=== PATIENT | male | born 1955 | race Caucasian/White ===

== ENCOUNTER 2021-03-01 15:52 | Outpatient (CLI) | payer OTHER, SELFPAY ==
[2021-03-01 16:10] VITALS: BP 123/86; PULSE 90; RESP 16; TEMP 36.7; O2SAT 98; BMI 27.8
[2021-03-01] MEDS: 0.9% Saline Lock 10 ML Syringe IV (16:31)
[2021-03-01 17:05] VITALS: BP 111/88; PULSE 83; RESP 16; TEMP 36.8; O2SAT 98
[2021-03-01 18:05] VITALS: BP 127/84; PULSE 78; RESP 16; TEMP 36.8; O2SAT 97
== END 2021-03-01 18:05 | disposition home or self-care (01) ==
LOC: MS3OUT 15:52 → MS3 15:53
PROVIDERS: PCP Family Medicine; Referring Provider Nurse Practitioner Adult Health; Visit Provider Nurse Practitioner Adult Health
DX: U07.1 COVID-19 (principal)
CPT/HCPCS: J7050; M0245; Q0245; A4216

== ENCOUNTER 2022-07-15 09:04 | Emergency (ER) | payer OTHER, SELFPAY ==
[2022-07-15 09:05] VITALS: BP 138/94; PULSE 67; RESP 14; TEMP 36.3; O2SAT 98; BMI 27.9
[2022-07-15 09:44] LABS: Absolute Lymphocyte Count 1.81 X10^3/uL (0.83-4.51); Absolute Neutrophil Count 7.1 X10^3/uL (2.0-7.7); Anion Gap 4 (5-15); BUN 19 mg/dL (7-18); BUN/Creat Ratio 15.4 RATIO (10-20); Basophil# 0.05 X10^3/uL; Basophil% 0.5 % (0-1); Calcium,Total 9.3 mg/dL (8.5-10.1); Chloride 107 mmol/L (98-107); Creatinine, Serum 1.23 mg/dL (0.70-1.30); EST Glomerular Filtration Rate 63 mL/min (>60); Eosinophil# 0.07 X10^3/uL; Eosinophils% 0.7 % (0-5); Est Glom Filt Rate - Afr Amer 76 mL/min (>60); Estimated Creatinine Clearance 65.72 ml/min; Glucose 91 mg/dL (74-106); Hematocrit 46.2 % (40-54); Hemoglobin 15.3 g/dL (13.0-16.5); Lymphocyte # 1.81 X10^3/ul (0.83-4.51); Lymphocyte % 18.4 % (19-41); Mean Corp Hgb Conc 33.1 g/dL (32-36); Mean Corpuscular Hgb 30.5 pg (27.0-32.0); Mean Corpuscular Volume 92.2 fL (80-94); Mean Platelet Vol. 9.9 fl (6.2-12.0); Monocyte# 0.81 X10^3/uL; Monocyte% 8.2 % (0-10); NRBC Flagged by Analyzer 0 % (0-5); Neutrophil # 7.07 X10^3/uL (2.7-7.7); Neutrophil % 71.9 % (47-70); Platelet Count 265 K/mm3 (150-450); RBC Distribution Width CV 13.7 % (11.6-14.6); RBC Distribution Width SD 46.5 fl (35.1-43.9); Red Blood Count 5.01 M/mm3 (4.6-6.2); Sodium Level 139 mmol/L (136-145); White Blood Count 9.8 K/mm3 (4.4-11.0)
--- NOTE | 2022-07-15 09:55 | EDS_ITS ---
HPI History of Present Illness Chief Complaint: Abd Pain Detail of Chief Complaint: Left lower abdomen/suprapubic discomfort Informant: patient Onset/Context/Timing Onset: Days (Onset July 13) Context: Sudden Onset Timing: Continuous Quality: Pain Location: Suprapubic left lower quadrant Current Severity: Mild Maximum Severity: Moderate Worsened by: Deep palpation Relieved by: Nothing Associated Symptoms Associated Symptoms: Urinary Narrative Narrative: Patient is a 67-year-old male who presents with left-sided abdominal discomfort. Prior similar symptoms: Yes (Diverticulitis) Recent Illness/Hospitalization: No PFSH PFSH Medical History (Updated 07/15/22 @ 10:[address] Suresh Ding MD) Diverticulitis Home Medications fluticasone propionate 50 mcg/actuation nasal spray,suspension 2 spray BID ALLERGIES 03/27/16 [History Last Taken 04/22/17] montelukast 5 mg chewable tablet (Singulair) 10 mg PO DAILY ALLERGIES 04/22/17 [History Last Taken 04/22/17] amoxicillin 875 mg-potassium clavulanate 125 mg tablet 875 mg PO Q12H #20 TABLETS 07/15/22 [Rx Last Taken Unknown] Allergy/AdvReac Type Severity Reaction Status Date / Time No Known Allergies Allergy Verified 07/15/22 09:07 Social History (Updated 07/15/22 @ 10:[address] Suresh Ding MD) household members: spouse Smoking Status: Never smoker substance use type: does not use ROS ROS ED Constitutional Constitutional ED: Denies chills, fever(s), subjective or sweats Eyes Eyes: Denies blurry vision or change in vision ENT ENT ED: Denies ear pain, rhinorrhea or sore throat Cardiovascular Cardiovascular: Denies chest pain, palpitations or racing heartbeat Respiratory/Chest Respiratory/Chest: Denies cough, dyspnea or dyspnea on exertion Gastrointestinal Gastrointestinal: Denies constipation, diarrhea, nausea or vomiting Genitourinary Genitourinary ED: Reports urinary frequency; Denies dysuria or hematuria Musculoskeletal Musculoskeletal: Denies arthralgias, back pain, myalgias or neck pain Integumentary Denies Abrasions or rash Neurologic Neurologic: Denies headache(s) or paresthesias Endocrine Endocrinology: Denies cold intolerance or heat intolerance Hematologic/Lymphatic Hematologic/Lymphatic: Reports systems reviewed and no addt'l complaints, except as documented EXAM Physical Exam Const Vital Signs: 07/15/22 09:05 Temperature 97.3 F L Temperature Source Temporal Pulse Rate 67 Respiratory Rate 14 Blood Pressure 138/94 H Blood Pressure Mean 108 Pulse Ox 98 Oxygen Delivery Method Room Air Positive well nourished and well developed; Negative for obese General Appearance ED: well developed and NAD; Negative for pallor Nutritional Appearance: Negative for obese HEENT Reports moist mucous membranes HEENT Narrative: Head is atraumatic normocephalic. Ears normal. Nares patent. Posterior pharynx is normal. Eyes PERRL and EOMs intact bilaterally General Eye ED: Negative for pale conjunctiva or scleral icterus Neck no lymphadenopathy, supple and no JVD Chest Wall inspection of chest normal and palpation of chest normal Resp normal respiratory effort and clear to auscultation bilaterally Cardio regular rate, regular rhythm, S1 normal heart sound, S2 normal heart sound and no murmurs GI non-distended and no masses; Negative for non-tender or hepatosplenomegaly Inspection: Negative for abdominal distention Auscultation: hypoactive bowel sounds Palpation: soft and tender LLQ Back/Spine no CVA tenderness Cervical Spine: Negative for cervical spine tenderness Thoracic Spine / Upper Back: Negative for thoracic spinal tenderness Lumbar Spine / Lower Back: Negative for lumbar spinal tenderness Extremity normal to inspection General Extremety ED: Negative for edema or tenderness General Extremity: Negative for edema Neuro oriented x3, CN's II-XII intact bilaterally and no sensory deficits noted Sensorium / Orientation: alert Motor Exam: strength 5/5 throughout Psych mental status grossly normal Skin no rashes or lesions noted and no wounds General Skin Exam: elasticity normal; Negative for jaundice or pallor MDM MDM MDM Narrative Medical decision making narrative: Frontal diagnosis would include diverticulitis, UTI, ureteral stone. Patient urine is clear and straw-colored. Urinalysis was performed at outside facility and negative. In light of prior history diverticulitis with tenderness in left lower quadrant normal white count and no peritoneal findings will treat with Augmentin. In my opinion a CAT scan is not warranted at this time. Since patient is not allergic to penicillin he was treated with Augmentin. History & Record Review Discussion w/independent historian: Patient Additional record(s) reviewed:: Prior inpatient record and Prior outpatient record (Documented in the HPI narrative. He did have an outpatient colonoscopy by Dr. Gottman which did revealed evidence of diverticulosis.) Lab Data Attestation: I reviewed the patient's lab results. Lab results narrative: White count is unremarkable. Basic metabolic panel is unremarkable. Labs: Laboratory Results - last 24 hr 07/15/22 07/15/22 09:25 09:25 WBC 9.8 RBC 5.01 Hgb 15.3 Hct 46.2 MCV 92.2 MCH 30.5 MCHC 33.1 RDW Std Deviation 46.5 H RDW Coeff of Anupam 13.7 Plt Count 265 MPV 9.9 Immature Gran % (Auto) 0.300 Neut % (Auto) 71.9 H Lymph % (Auto) 18.4 L Wilson % (Auto) 8.2 Eos % (Auto) 0.7 Baso % (Auto) 0.5 Absolute Neuts (auto) 7.1 Absolute Lymphs (auto) 1.81 Nucleated RBC % 0 Sodium 139 Potassium 4.0 Chloride 107 Carbon Dioxide 28.0 Anion Gap 4 L BUN 19 H Creatinine 1.23 Estim Creat Clear Calc 65.72 Est GFR (MDRD) Af Amer 76 Est GFR (MDRD) Non-Af 63 BUN/Creatinine Ratio 15.4 Glucose 91 Calcium 9.3 Differential Diagnosis Abdominal Pain: Appendicitis Reason(s) appendicitis less likely: Positive for clinical exam does not supportclinical exam does not support, Cholecystitis Reas on(s) Cholecystitis less likely: clinical exam does not support, Bowel obstruction Reason(s) bowel obstruction less likely: bowel sounds present on exam and UTI Reason(s) UTI less likely: no evidence of infection on urinalysis Treatment and Re-Evaluation :: Per MDI/plan Discharge Plan Triage Chief Complaint: Abd Pain ED Provider: Suresh Ding Dx/Rx/DC Orders Clinical Impression: Acute diverticulitis Instructions: ED Diverticulitis Prescriptions: New amoxicillin-pot clavulanate [amoxicillin-pot clavulanate] 875-125 mg tablet 875 mg PO Q12H Qty: 20 0RF No Action fluticasone propionate 1 SPRAY spray,suspension 2 spray NASAL BID Label Comments: SEASONAL ALLERGIES montelukast [Singulair] 5 MG tablet,chewable 10 mg PO DAILY Primary Care Provider: Arturo Kendrick Referrals: Arturo Kendrick, DO [Primary Care Provider] - 3-5 Days if not improving Jorge Michelle MD [Non-Staff] - Disposition Disposition: Home, Self Care
[2022-07-15] MEDS: Amox/Clavulanate 875 MG Tablet PO (10:16)
[2022-07-15 10:20] VITALS: BP 117/88; PULSE 76; RESP 14; O2SAT 100
== END 2022-07-15 10:20 | disposition home or self-care (01) ==
PROVIDERS: Emergency Provider Emergency Medicine; PCP Student in an Organized Health Care Education/Training Program; Visit Provider Emergency Medicine
DX: K57.92 Diverticulitis of intestine, part unspecified, without perforation or abscess without bleeding (principal)
CPT/HCPCS: 80048; 85025; 99283

== ENCOUNTER → 2023-02-21 | Outpatient (CLI) | payer OTHER, SELFPAY | END | disposition home or self-care (01) | LOC: LAB 08:48 | PROVIDERS: PCP Student in an Organized Health Care Education/Training Program; Visit Provider Ophthalmology | DX: Z79.899 Other long term (current) drug therapy (principal) | CPT/HCPCS: 36415 ==

== ENCOUNTER → 2023-10-02 | Outpatient (CLI) | payer OTHER, SELFPAY ==
[2023-10-02 10:08] LABS: SERUM TEARS COLLECTION SPECIMEN PROCESSED
== END | disposition home or self-care (01) ==
PROVIDERS: PCP Student in an Organized Health Care Education/Training Program; Referring Provider Ophthalmology; Visit Provider Ophthalmology
DX: Z00.00 Encounter for general adult medical examination without abnormal findings (principal)
CPT/HCPCS: 36415

== ENCOUNTER 2024-03-26 08:06 | Outpatient (CLI) | payer SELFPAY ==
[2024-03-26 10:13] LABS: SERUM TEARS COLLECTION SPECIMEN PROCESSED
== END 2024-03-26 23:59 | disposition home or self-care (01) ==
PROVIDERS: PCP Student in an Organized Health Care Education/Training Program; Referring Provider Ophthalmology; Visit Provider Ophthalmology
DX: H04.123 Dry eye syndrome of bilateral lacrimal glands (principal)

== ENCOUNTER → 2024-11-27 | Outpatient (CLI) | payer SELFPAY ==
--- OUTSIDE RECORDS SUMMARY | 2024-11-27 08:26 | XMS RPT_ITS | CCD ---
Author Organization [facility] Care Team Providers Care Belt Builder Helper Name Role Phone Arturo Kendrick DO Primary Care Provider Arturo Kendrick DO Primary Care Provider Poncho June Unavailable Arturo Kendrick DO Primary Care Provider Poncho June MD Unavailable ARTURO KENDRICK Primary Care Unavailable FELIPE FOSTER Referring Unavailable KENDRICK, ARTURO Kialee Primary Care Unavailable FELIPE FOSTER Referring Unavailable KENDRICK, ARTURO Kailee Primary Care Unavailable Wise STEEL WELDER.REPORT PROGRAMMERGayatri Unavailable Bailey STEEL WELDER.Errol MAGAÑA Unavailable Poncho June Attending Unavailable Kendrick, Arturo Primary Care Unavailable Poncho June Referring Unavailable Poncho June Attending Unavailable Kendrick, Arturo Primary Care Unavailable Poncho June Referring Unavailable Poncho June Attending Unavailable Kendrick, Arturo Primary Care Unavailable Wanda STEEL WELDER.Rosemary MAGAÑA Unavailable BAILEY, ERROL Referring Unavailable KENDRICK, ARTURO L Primary Care Unavailable BAILEY, ERROL Referring Unavailable KENDRICK, ARTURO L Primary Care Unavailable BAILEY, ERROL Attending Unavailable KENDRICK, ARTURO L Primary Care Unavailable YARA BENSON Attending Unavailable KENDRICK, ARTURO L Primary Care Unavailable YARA BENSON Attending Unavailable BAILEY, ERROL Referring Unavailable KENDRICK, ARTURO L Primary Care Unavailable BAILEY, ERROL Attending Unavailable KENDRICK, ARTURO L Primary Care Unavailable JALIL BEEBE Attending Unavailable BENSON, YARA Referring Unavailable KENDRICK, ARTURO L Primary Care Unavailable ERROL AVALOS Referring Unavailable KENDRICKARTURO Primary Care Unavailable ARTURO KENDRICK Primary Care Unavailable ARTURO KENDRICK Primary Care Unavailable WILL ENRIQUEZ Attending Unavailable WILL ENRIQUEZ Referring Unavailable KENDRICKARTURO Primary Care Unavailable KENDRICKARTURO Primary Care Unavailable BERHANE COTTER Attending Unavailable ARTURO KENDRICK Primary Care Unavailable FELIPE FOSTER Attending Unavailable ARTURO KENDRICK Primary Care Unavailable FELIPE FOSTER Referring Unavailable KENDRICKARTURO MILLER Primary Care Unavailable Allergies Allergy Classification Reported Allergen(s) Allergy Type Date of Onset Reaction(s) Facility (14 sources) Cefuroxime Drug Allergy 06-30-2019 GI Upset [facility] Work Phone: Medications Current Medications Medication Drug Class(es) Dates Sig (Normalized) Sig (Original) acetaminophen 325 mg / oxyCODONE hydrochloride 5 mg oral tablet (2 sources) Opioid Agonist Start: 03-31-2024 End: 04-09-2024 take 1 tablet by mouth every six hours as needed for pain oxyCODONE-acetamin ophen (PERCOCET) 5-325 mg tablet Indications: Testicular pain, left Take 1 tablet by mouth every 6 hours as needed for pain for up to 7 days. 10 tablet 04/02/2024 04/09/2024 Active [id number] 200 actuat albuterol 0.09 mg/actuat metered dose inhaler (20 sources) beta2-Adrenergic Agonist Start: 08-10-2020 End: 10-31-2023 take 2 puff(s) by inhalation every six hours as needed albuterol HFA (PROAIR HFA) 90 mcg/actuation inhaler Indications: VIERA (dyspnea on exertion) , Wheezing Inhale 2 Puffs as instructed every 6 hours as needed. 3 Each 1 08/10/2020 10/31/2023 Discontinued take 1 puff(s) by in halation every six hours as needed for wheezing ALBUTEROL INHALATION Inhale 1 Puff as instructed every 6 hours as needed (wheezing). Active Comment on above: Inhale 2 Puffs as in structed every 6 hours as needed. amoxicillin 500 mg oral capsule (1 source) Penicillin-class Antibacterial Start: 04-05-20 End: 04-15-19 23 take 1 capsule by mouth twice daily amoxicillin (POLYMOX, AMOXIL) 500 mg capsule Take 1 capsule by mouth twice daily for 10 days. 20 capsule 0 04/05/2022 04/15/2022 Active Comment on above: Take 1 capsule by mo ut twice daily for 10 days. amoxicillin 875 mg / clavulanate 125 mg oral tablet (7 sources) Penicillin-class Antibacterial Start: 07-16-19 End: 10-31-19 24 amoxicillin-clavulan ate potassium (AUGMENTIN) 875-125 mg per tablet Take by mouth. 0 07/15/2022 10/31/2023 Discontinued Start: 07-15-2022 take 875 mg by mouth every twelve hours Amoxicillin-Pot Clavulanate Active 875 MG PO Q12H July 14, 2022 11:00pm Comment on above: Take by mouth. aspirin 500 mg delayed release oral tablet (11 sources) Platelet Aggregation Inhibitor, Nonsteroidal Anti-inflammatory Drug take 1 tablet by mouth every six hours as needed Aspirin delayed release 500 mg EC tablet Take 500 mg by mouth every 6 hours as needed for pain. Active benzonatate 100 mg oral capsule (1 source) Non-narcotic Antitussive Start: 08-04-19 End: 08-11-19 take 1 capsule by mouth three times daily as needed for cough benzonatate (TESSALON PERLE) 100 mg capsule Indications: Acute cough Take 1 capsule by mouth three times a day as needed for cough for up to 7 days. 21 capsule 08/03/2024 08/10/2024 Active cefdinir 300 mg oral capsule (10 sources) Cephalosporin Antibacterial Start: 10-31-19 End: 11-07-19 take 1 capsule by mouth twice daily cefdinir (OMNICEF) 300 mg capsule Indications: Diverticulitis Take 1 capsule by mouth two times a day for 7 days. 14 capsule 10/30/2024 11/06/2024 Active Start: 07-25-2024 End: 08-01-2024 take 1 capsule by mouth twice daily cefdinir (OMNICEF) 300 mg capsule Indications: URI, acute Take 1 capsule by mouth two times a day for 7 days. 14 capsule 07/25/2024 08/01/2024 Active Start: 12-17-2023 End: 12-31-2023 take 1 capsule by mouth twice daily cefdinir (OMNICEF) 300 mg capsule Indications: Diverticulitis Take 1 capsule by mouth two times a day for 7 days. 14 capsule 12/24/2023 12/31/2023 Discontinued doxycycline hyclate 100 mg oral tablet (7 sources) Tetracycline-class Drug Start: 08-03-2024 End: 08-10-2024 take 1 tablet by mouth twice daily doxycycline (VIBRA-TABS) 100 mg tablet Indications: Rhinosinusitis Take 1 tablet by mouth two times a day for 7 days. 14 tablet 08/03/2024 08/10/2024 Active Start: 07-30-2023 End: 10-31-2023 take 2 tablets by mouth once daily doxycycline (VIBRA-TABS) 100 mg tablet Take 2 tablets by mouth once daily. 2 tablet 0 07/30/2023 10/31/2023 Discontinued Start: 08-10-2022 End: 08-10-2022 take 2 tablets by mouth once doxycycline (VIBRA-TABS) 100 mg tablet Indications: Tick bite of left forearm, initial encounter Take 2 tablets by mouth one time only for 1 dose. 2 tablet 0 08/10/2022 08/10/2022 Active Comment on above: Take 2 tablets by mo uth one time only for 1 dose. Take 2 tablets by mo uth once daily. enteric contrast (will be provided with radiology test) (4 sources) Start: 4 End: enteric contrast (will be provided with radiology test) For CT ABD/PEL W IVCON Routine order Administer, As Directed One Time Only, via Oral, Rectal, both Oral and Rectal, Enteric Tube, Stoma or Indwelling Catheter, Enteric Contrast as designated per enteric contrast guidelines 1 Each 12/17/2023 12/18/2023 Active 120 actuat fluticasone propionate 0.11 mg/actuat metered dose inhaler (20 sources) Corticosteroid Start: 1 End: 4 take 1 puff(s) by mouth twice daily fluticasone (FLOVENT HFA) 110 mcg/actuation inhaler Indications: VIERA (dyspnea on exertion) , Wheezing Inhale 1 Puff as instructed twice daily. Shake well before use. Rinse mouth after use. 3 Inhaler 3 09/07/2020 10/31/2023 Discontinued Start: 09-18-2016 End: 08-10-2022 take 2 spray(s) nasal route once daily fluticasone (FLONASE) 50 mcg/actuation nasal spray 2 (TWO) SPRAYS SPRAYS BY NOSE DAILY EACH NOSTRIL 6 09/18/2016 08/10/2022 Discontinued Start: 03-27-2016 Fluticasone Pr opionate Active 2 SPRAY NASAL TWICE A DAY March 27, 2016 12:00am fluticasone prop ionate (FLONASE NASAL) Use 1 inhalation in the nose once daily. Active Comment on above: 2 (TWO) SPRAYS SPRAY S BY NOSE DAILY EACH NOSTRIL Inhale 1 Puff as ins tructed twice daily. Shake well before use. Rinse mouth after use. ibuprofen 800 mg oral tablet (9 sources) Nonsteroidal Anti-inflammatory Drug Start: 03-31-20 take 1 tablet by mouth every eight hours as needed ibuprofen (MOTRIN) 800 mg tablet Take 1 tablet by mouth every 8 hours as needed for pain. 40 tablet 1 03/31/2024 Active iv contrast (will be provided with radiology test) (4 sources) Start: 12-17-19 End: 12-18-19 iv contrast (will be provided with radiology test) CT ABD/PEL -Inject, intravenously, once for 1 dose.No IV access, insert saline lock prior to the beginning of sedation, infusion, injection of imaging exam. Discontinue saline lock post exam. If Pt. has a central line or IVAD, may access for administration according to line specific nursing protocol. Once exam is complete flush line and de-access according to line specific nursing protocol in the CT contrast administration guidelines link. 1 Each 12/17/2023 12/18/2023 Active metroNIDAZOLE 500 mg oral tablet (9 sources) Nitroimidazole Antimicrobial Start: 10-31-19 End: 11-07-19 take 1 tablet by mouth every eight hours metroNIDAZOLE (FLAGYL) 500 mg tablet Indications: Diverticulitis Take 1 tablet by mouth every 8 hours for 7 days. 21 tablet 10/30/2024 11/06/2024 Active Start: 12-17-2023 End: 12-31-2023 take 1 tablet by mouth every eight hours metroNIDAZOLE (FLAGYL) 500 mg tablet Indications: Diverticulitis Take 1 tablet by mouth every 8 hours for 7 days. 21 tablet 12/24/2023 12/31/2023 Discontinued montelukast 10 mg oral tablet (20 sources) Leukotriene Receptor Antagonist Start: 01-09-2023 End: 03-30-2024 take 1 tablet by mouth once daily at bedtime montelukast (SINGULAIR) 10 mg tablet Indications: VIERA (dyspnea on exertion) , Wheezing , Seasonal allergic rhinitis due to other allergic trigger Take 1 tablet by mouth daily at bedtime. 90 tablet 3 03/30/2024 Active Start: 09-07-2020 End: 11-08-2021 take 1 tablet by mouth once daily at bedtime montelukast (SINGULAIR) 10 mg tablet Indications: VEIRA (dyspnea on exertion) , Wheezing , Seasonal allergic rhinitis due to other allergic trigger Take 1 tablet by mouth daily at bedtime. 90 tablet 3 11/08/2021 Active Start: 04-22-2017 End: 10-31-2023 montelukast chewable (SINGUL AIR) 5 mg tablet Take by mouth. 0 04/22/2017 10/31/2023 Discontinued Start: 04-22-2017 take 2 tablets by [facility] once daily Montelukast (Singulair) 5 MG tablet,chewable Active 10 MG PO DAILY April 22, 2017 12:00am Comment on above: Take 1 tablet by cortney th daily at bedtime. Take by mouth. phenylephrine hydrochloride 25 mg/ml ophthalmic solution (1 source) alpha-1 Adrenergic Agonist Start: End: PHENYLephrine 2.5 % 1 Drop (AK-DILATE, JEANNETTE-SYNEPHRINE) tropicamide 10 mg/ml ophthalmic solution (1 source) Anticholinergic Start: End: tropicamide 1 % 1 Drop (MYDRIACYL) Turmeric extract (20 sources) take 1 capsule by mouth once daily TURMERIC ORAL Take 1 capsule by mouth once daily. Active TURMERIC ORAL Ta ke by mouth. Active TURMERIC ORAL Ta ke by mouth. 0 Active Comment on above: Take by mouth. Completed/Discontinued Medications Medication Drug Class(es) Dates Sig (Normalized) Sig (Original) MARGRETDHA ROOT EXTRACT ORAL (8 sources) End: 08-10-2022 ASHWAGANDHA ROOT EXTRACT ORAL Take by mouth. 0 08/10/2022 Discontinued ASHWAGANDHA ROOT EXTRACT ORAL Take by mouth. 0 Active Comment on above: Take by mouth. ipratropium bromide 0.021 mg/actuat metered dose nasal spray (20 sources) Anticholinergic Start: 05-13-2023 End: 10-30-2024 Ipratropium Semmes (ATROVENT) 21 mcg (0.03 %) nasal spray Indications: Seasonal allergic rhinitis due to other allergic trigger Use 2 sprays in the nose every 12 hours. 30 mL 1 08/25/2024 10/30/2024 Discontinued Start: 09-07-2020 End: 08-24-2022 Ipratropium Semmes (ATROVEN T) 21 mcg (0.03 %) nasal spray Indications: Seasonal allergic rhinitis due to other allergic trigger Use 2 Sprays in the nose every 12 hours. 30 mL 1 08/24/2022 Active Start: 10-07-2016 End: 08-10-2022 take 2 spray(s) nasal route twice daily as needed ipratropium bromide (ATROVENT) 0.06 % nasal spray PLACE 2 SPRAYS IN EACH NOSTRIL TWICE DAILY NEEDED 3 10/07/2016 08/10/2022 Discontinued Comment on above: PLACE 2 SPRAYS IN EA CH NOSTRIL TWICE DAILY NEEDED Use 2 Sprays in the nose every 12 hours. minocycline 100 mg oral tablet (8 sources) Tetracycline-class Drug End: 08-11-19 23 take 1 tablet by mouth twice daily Minocycline HCl 100 mg tablet Take 100 mg by mouth twice daily. 0 08/10/2022 Discontinued Comment on above: Take 100 mg by mouth twice daily. naproxen 500 mg oral tablet (8 sources) Nonsteroidal Anti-inflammatory Drug Start: 06-17-19 End: 08-11-19 23 take 1 tablet by mouth twice daily as needed for pain naproxen (NAPROSYN) 500 mg tablet Indications: Rib pain on right side Take 1 tablet by mouth twice daily as needed (pain/inflammation, take with food.). 30 tablet 0 06/17/2015 08/10/2022 Discontinued Comment on above: Take 1 tablet by cotrney twice daily as needed (pain/inflammation, take with food.). predniSONE 10 mg oral tablet (4 sources) Start: 07-26-19 End: 08-13-19 predniSONE (DELTASONE) 10 mg tablet Indications: Exacerbation of asthma, unspecified asthma severity, unspecified whether persistent (HCC) Take 4 tabs daily for 3 days, then 2 tabs daily for 3 days, then 1 tab daily for 3 days with food. 21 tablet 07/25/2024 08/03/2024 Discontinued rosuvastatin calcium 10 mg oral tablet (7 sources) HMG-CoA Reductase Inhibitor Start: 11-05-19 24 End: 05-03-19 take 1 tablet by mouth once daily at bedtime rosuvastatin (CRESTOR) 10 mg tablet Indications: Dyslipidemia Take 1 tablet by mouth daily at bedtime. 90 tablet 1 11/05/2023 12/24/2023 Discontinued sertraline 100 mg oral tablet (8 sources) Serotonin Reuptake Inhibitor Start: 09-08-19 End: 08-11-19 take 1 tablet by mouth once daily sertraline (ZOLOFT) 100 mg tablet Indications: TAYO (generalized anxiety disorder) Take 1 tablet by mouth once daily. 90 tablet 3 09/07/2020 08/10/2022 Discontinued Comment on above: Take 1 tablet by cortney th once daily. Problems Active Problems Problem Classification Problem Date Documented Date Episodic/Chronic Alcohol-related disorders (20 sources) Alcoholism; Translations: [Alcohol dependence, uncomplicated] Onset: 06-30-2019 06-30-2019 Chronic Anxiety disorders (20 sources) Generalized anxiety disorder; Translations: [Generalized anxiety disorder] Onset: 06-30-2019 06-30-2019 Chronic Asthma (20 sources) Asthma; Translations: [Unspecified asthma, uncomplicated] Onset: 06-30-2019 06-30-2019 Chronic Blindness and vision defects (1 source) Irregular astigmatism of left eye; Translations: [Irregular astigmatism, left eye] 07-25-2023 Episodic Cataract (1 source) Artificial lens present; Translations: [Presence of intraocular lens] 07-25-2023 Chronic Disorders of lipid metabolism (20 sources) Dyslipidemia; Translations: [Hyperlipidemia, unspecified] Onset: 05-13-2019 05-13-2019 Chronic Diverticulosis and diverticulitis (20 sources) Diverticulitis of intestine; Translations: [Diverticulitis of intestine, part unspecified, without perforation or abscess without bleeding] Onset: 01-01-2024 3 Chronic Genitourinary symptoms and ill-defined conditions (1 source) Dysuria; Translations: [Painful micturition, unspecified] Episodic Nonspecific chest pain (2 sources) Chest pain; Translations: [Chest pain, unspecified] 04-22-2017 Episodic Other eye disorders (1 source) Bilateral vitreous floaters; Translations: [Other vitreous opacities, bilateral] 07-25-2023 Chronic Other eye disorders (1 source) Disorder of lacrimal gland; Translations: [Dry eye syndrome of bilateral lacrimal glands] 07-25-2023 Episodic Other lower respiratory disease (1 source) Dyspnea; Translations: [Shortness of breath] 10-31-2023 Episodic Other lower respiratory disease (2 sources) Cough; Translations: [Acute cough] 08-03-2024 Episodic Other male genital disorders (20 sources) Secondary erectile dysfunction; Translations: [Male erectile dysfunction, unspecified] Onset: 06-30-2019 06-30-2019 Chronic Other male genital disorders (1 source) Left testicular pain; Translations: [Testicular pain, left] Onset: 03-11-2024 Episodic Other nutritional; endocrine; and metabolic disorders (2 sources) Overweight in adulthood with body mass index of 25 or more but less than 30; Translations: [Body mass index (BMI) 28.0-28.9, adult] 02-28-2021 Episodic Other screening for suspected conditions (not mental disorders or infectious disease) (4 sources) Patient encounter status; Translations: [Encounter for screening for other suspected endocrine disorder] 10-31-2023 Episodic Other skin disorders (1 source) Scrotal mass; Translations: [Follicular cyst of the skin and subcutaneous tissue, unspecified] 12-27-2023 Episodic Other upper respiratory disease (17 sources) Seasonal allergic rhinitis; Translations: [Other allergic rhinitis] Chronic Other upper respiratory disease (1 source) Pain in throat; Translations: [Pain in throat] Episodic Other upper respiratory infections (2 sources) Chronic sinusitis, unspecified; Translations: [Unspecified sinusitis (chronic)] Onset: 08-03-2024 08-03-2024 Chronic Residual codes; unclassified (2 sources) History of repair of umbilical hernia; Translations: [Other specified postprocedural states] 07-15-2022 Episodic Residual codes; unclassified (2 sources) History of colonoscopy; Translations: [Other specified postprocedural states] 07-15-2022 Episodic Residual codes; unclassified (1 source) Family history of cardiac disorder; Translations: [Family history of ischemic heart disease and other diseases of the circulatory system] 10-31-2023 Episodic Residual codes; unclassified (1 source) Procedure not done; Translations: [Procedure and treatment not carried out, unspecified reason] 12-17-2023 Episodic Superficial injury; contusion (2 sources) Tick bite; Translations: [Insect bite (nonvenomous) of left forearm, initial encounter] Episodic Unclassified (1 source) Acute cough; Translations: [Acute cough] Onset: 08-03-2024 Viral infection (2 sources) Disease caused by 2019-nCoV; Translations: [COVID-19] 02-28-2021 Episodic Past or Other Problems Problem Classification Problem Date Documented Date Episodic/Chronic Abdominal hernia (20 sources) Umbilical hernia; Translations: [Umbilical hernia without obstruction or gangrene] Onset: 11-30-2020 Resolved: 11-30-2020 11-30-2020 Episodic Abdominal pain (6 sources) Left lower quadrant pain; Translations: [Left lower quadrant pain] Onset: 12-17-2023 Episodic Lymphadenitis (2 sources) Submandibular lymphadenopathy; Translations: [Localized enlarged lymph nodes] Onset: 12-24-2023 12-24-2023 Episodic Other infections; including parasitic (20 sources) Lyme disease; Translations: [Lyme disease, unspecified] Onset: 06-30-2019 06-30-2019 Episodic Other lower respiratory disease (20 sources) Dyspnea on exertion; Translations: [Other forms of dyspnea] Onset: 05-13-2019 Episodic Other lower respiratory disease (20 sources) Wheezing; Translations: [Wheezing] Onset: 05-13-2019 Episodic Other lower respiratory disease (1 source) Shortness of breath; Translations: [SOB (shortness of breath)] Onset: 02-24-2024 Episodic Other male genital disorders (20 sources) Pain in scrotum ; Translations: [Scrotal pain] Onset: 01-01-2024 12-24-2023 Episodic Other male genital disorders (20 sources) Cyst of epididymis; Translations: [Cyst of epididymis] Onset: 01-01-2024 12-31-2023 Episodic Other male genital disorders (14 sources) Pain of left testicle; Translations: [Left testicular pain] Onset: 03-11-2024 02-14-2024 Episodic Other male genital disorders (2 sources) Cyst of epididymis; Translations: [Epididymal cyst] Onset: 01-01-2024 Episodic Other male genital disorders (1 source) Scrotal pain; Translations: [Scrotal pain] Onset: 01-01-2024 Episodic Other upper respiratory infections (5 sources) Streptococcal sore throat; Translations: [Streptococcal pharyngitis] Onset: 08-03-2024 Episodic Residual codes; unclassified (1 source) Family history of ischemic heart disease and other diseases of the circulatory system; Translations: [Family history of cardiac disorder] Onset: 02-24-2024 Episodic Results Test Name Value Interpretation Reference Range Facility [facility] 10-30-2024 CNOV Office Visit ([facility]) EDUARDO JONES ([id number]) 1955 M Date Time Provider Department 10/30/24 8:15 AM BERHANE COTTER During your visit today, we recorded the following information about you: Temperature Pulse Respiration Blood pressure 98.2 degrees 75/minute 18/minute 138/86 Weight 94.5 kg Berhane Cotter MD 10/30/2024 8:38 AM Signed [facility] Subjective Eduardo Jones is a 69 year old male. Patient presents with: Abdominal Pain: LLQ, with stomach cramping x last night, feels like previous diverticulitis flare Abdominal pain: Duration: started last night Location: left lower quadrant Character: cramping and knife-like - feels identical to diverticulitis (last episode Dec 2023) Radiation: some across the lower abdomen Aggravating: pushing on Relieving: Pain relievers: none Associated: slight nausea Pertinent negatives: Denies fever, vomiting, blood in stool, diarrhea, constipation, chest pain, shortness of breath, wheezing Abdominal Pain Review of Systems Gastrointestinal: Positive for abdominal pain. Objective BP 138/86 Pulse 75 Temp 36.8 ?C (98.2 ?F) Resp 18 Wt 94.5 kg (208 lb 5.4 oz) SpO2 96% BMI 28.26 kg/m? Physical Exam Constitutional: General: He is not in acute distress. Appearance: He is not ill-appearing. Eyes: Extraocular Movements: Extraocular movements intact. Conjunctiva/sclera: Conjunctivae normal. Pupils: Pupils are equal, round, and reactive to light. Cardiovascular: Rate and Rhythm: Normal rate and regular rhythm. Heart sounds: No murmur heard. Pulmonary: Effort: No respiratory distress. Breath sounds: No wheezing, rhonchi or rales. Abdominal: General: There is no distension. Palpations: There is no mass. Tenderness: There is abdominal tenderness (Focal tender left lower quadrant). Musculoskeletal: Cervical back: Neck supple. Lymphadenopathy: Cervical: No cervical adenopathy. Neurological: Mental Status: He is alert. {ASSESSMENT/PLAN: 1. Diverticulitis - ICD9: 562.11, ICD10: K57.92 Characteristic diverticulitis symptoms with history of diverticulitis proven on CT scan 1 year ago. Treated with antibiotic - METRONIDAZOLE 500 MG TABLET - CEFDINIR 300 MG CAPSULE Follow-up with PCP with failure to improve over the next couple days or in the ER if worsening. Refill request for atrovent sent to PCP. Berhane Cotter MD History and Record Review External record(s) reviewed: prior labs/imaging. Findings from review of prior labs/imaging: Diverticulitis on CT 12/17/2023 Differential Diagnoses - Diverticulitis is more likely for the following reason(s): suggested by HANDP - Colitis - Constipation Procedures Allergies As of Date: 10/30/2024 (No Known Allergies) Date Reviewed: 10/30/2024 Reviewed by: Adrianna Charles MA - Fully Assessed Reason for Visit: Abdominal Pain [1] Cmt: LLQ, with stomach cramping x last night, feels like previous diverticulitis flare Primary Visit Diagnosis:Diverticulit is [K57.92] Order(s):metroNIDAZOLE (FLAGYL) 500 mg tabletTake 1 tablet by mouth every 8 hours for 7 days.Disp: 21 tabletRfl: 0 cefdinir (OMNICEF) 300 mg capsuleTake 1 capsule by mouth two times a day for 7 days.Disp: 14 capsuleRfl: 0 Prescriptions as of 10/30/2024 - metroNIDAZOLE (FLAGYL) 500 mg tablet Take 1 tablet by mouth every 8 hours for 7 days. - cefdinir (OMNICEF) 300 mg capsule Take 1 capsule by mouth two times a day for 7 days. - Ipratropium Semmes (ATROVENT) 21 mcg (0.03 %) nasal spray Use 2 sprays in the nose every 12 hours. - fluticasone propionate (FLONASE NASAL) Use 1 inhalation in the nose once daily. - ibuprofen (MOTRIN) 800 mg tablet Take 1 tablet by mouth every 8 hours as needed for pain. - montelukast (SINGULAIR) 10 mg tablet Take 1 tablet by mouth daily at bedtime. - Aspirin delayed release 500 mg EC tablet Take 500 mg by mouth every 6 hours as needed for pain. - ALBUTEROL INHALATION Inhale 1 Puff as instructed every 6 hours as needed (wheezing). - TURMERIC ORAL Take 1 capsule by mouth once daily. Problem List As Of Date 10/30/2024 Noted Resolved Dyslipidemia [E78.5] 05/13/2019 Wheezing [R06.2] 05/13/2019 VIERA (dyspnea on exertion) [R06.09] 05/13/2019 Well adult exam [Z00.00] 05/13/2019 ED (erectile dysfunction) of organic origin [N5*06/30/2019 TAYO (generalized anxiety disorder) [F41.1] 06/30/2019 Asthma [J45.909] 06/30/2019 Lyme disease [A69.20] 06/30/2019 Alcoholism (HCC) [F10.20] 06/30/2019 Umbilical hernia without obstruction and withou*11/30/2020 11/30/2020 Scrotal pain [N50.82] 01/01/2024 Epididymal cyst [N50.3] 01/01/2024 Diverticulitis [K57.92] 01/01/2024 Testicular pain, left [N50.812] 03/11/2024 Preop examination [Z01.818] 03/11/2024 Prescriptions ordered this encounter Disp Refills Start End METRONIDAZOLE 500 MG TABLET (more content not included)... Normal [facility] CNOVon 08-03-2024 CNOV Office Visit (UCWSTR ) EDUARDO JONES ([id number]) 1955 M Date Time Provider Department 08/03/24 8:00 AM WILL ENRIQUEZ [facility] During your visit today, we recorded the following information about you: Temperature Pulse Respiration Blood pressure 98.6 degrees 91/minute 16/minute 122/80 Weight 96.2 kg Will Enriquez APRN.REPORT PROGRAMMER 08/03/2024 8:56 AM Signed [facility] Subjective Eduardo Jones is a 69 year old male. Patient presents with: Cough: Cough, chest congestion and ST x 1 week Patient came in with complaints of couple weeks worth of coughing. Patient says is not getting any better. Patient was on a round of steroids and cefdinir with very minimal relief. Patient denies any shortness of breath but says he does have pain in the right side of his lung. The pain is reproducible when touched. Patient denies any pain when taking a deep breath in. Patient denies other symptoms. The history is provided by the patient. No modern languages professor was used. Cough Review of Systems Constitutional: Negative. Respiratory: Positive for cough. Objective BP 122/80 Pulse 91 Temp 37 ?C (98.6 ?F) (Tympanic) Resp 16 Wt 96.2 kg (212 lb 1.3 oz) SpO2 99% BMI 28.76 kg/m? Physical Exam Constitutional: Appearance: Normal appearance. HENT: Right Ear: Tympanic membrane, ear canal and external ear normal. Left Ear: Tympanic membrane, ear canal and external ear normal. Nose: Nose normal. Mouth/Throat: Mouth: Mucous membranes are moist. Pharynx: Posterior oropharyngeal erythema present. Eyes: Pupils: Pupils are equal, round, and reactive to light. Cardiovascular: Rate and Rhythm: Normal rate and regular rhythm. Heart sounds: Normal heart sounds. Neurological: Mental Status: He is alert. PAST MEDICAL HISTORY Diagnosis Date Alcoholism (HCC) 06/30/2019 From previous records Allergic rhinitis Asthma (HCC) Asthma without status asthmaticus (HCC) Diverticulitis ED (erectile dysfunction) of organic origin 06/30/2019 From previous records. Epididymal cyst Erectile dysfunction Family history of coronary artery disease Stress Echo- 09/08/[address] Duran TAYO (generalized anxiety disorder) 06/30/2019 From previous records Generalized anxiety disorder Hypercholesteremia Insomnia Lyme disease Scrotal pain 12/31/2023 Submandibular lymphadenopathy 12/31/2023 Umbilical hernia PAST SURGICAL HISTORY Procedure Laterality Date ARTHROSCOPY KNEE DIAGNOSTIC W/WO SYNOVIAL BX SPX Right 2 COLONOSCOPY FLX DX W/COLLJ SPEC WHEN PFRMD 05/12/2007 KNEE ARTHROSCOPY Left 09/2012 2 PAST SURGICAL HISTORY OF 1996 discectomy L4/L5 REPAIR UMBILICAL HERNIA 11/30/2020 ALLERGIES Patient has no known allergies. MEDICATIONS fluticasone propionate (FLONASE NASAL) Use 1 inhalation in the nose once daily. predniSONE (DELTASONE) 10 mg tablet Take 4 tabs daily for 3 days, then 2 tabs daily for 3 days, then 1 tab daily for 3 days with food. Ipratropium Semmes (ATROVENT) 21 mcg (0.03 %) nasal spray Use 2 Sprays in the nose every 12 hours. ibuprofen (MOTRIN) 800 mg tablet Take 1 tablet by mouth every 8 hours as needed for pain. montelukast (SINGULAIR) 10 mg tablet Take 1 tablet by mouth daily at bedtime. Aspirin delayed release 500 mg EC tablet Take 500 mg by mouth every 6 hours as needed for pain. ALBUTEROL INHALATION Inhale 1 Puff as instructed every 6 hours as needed (wheezing). TURMERIC ORAL Take 1 capsule by mouth once daily. FAMILY HISTORY Problem Relation Age of Onset No Known Problems Mother in good health Heart Father CABG @ age 54 Dementia Father Alcohol/Drug Sister other (Lupus) Sister no longer being treated Alcohol/Drug Brother Social History Tobacco Use Smoking status: Never Smokeless tobacco: Never Vaping Use Vaping status: Never Used Substance Use Topics Alcohol use: Not Currently Drug use: Not Currently Types: Marijuana {ASSESSMENT/PLAN: 1. Acute cough - ICD9: 786.2, ICD10: R05.1 (primary diagnosis) - XR CHEST 2V FRONTAL/LAT 2. Sore throat - ICD9: 462, ICD10: J02.9 - Group A strep molecular testing negative - Discussed supportive care treatment with fluids, rest and analgesia. - STREP A MOLECULAR (POC) 3. Rhinosinusitis - ICD9: 473.9, ICD10: J32.9 - Will begin treatment with as per antibiotic as written, see orders - DOXYCYCLINE HYCLATE 100 MG TABLET Patient requested another round of steroids due to asthma. Patient was also given Tessalon Perles. Patient educated about proper use of medication and supportive therapies. Patient will follow-up with primary care if this does not work. Will Enriquez APRN.REPORT PROGRAMMER History and Record Review External record(s) reviewed: no prior records. Disposition The patient was discharged. Procedures Allergies As of Date: 08/03/2024 (No Known Allergies) Date Review (more content not included)... Normal [facility] STREP A MOLECULAR (POC)on Procedural Control Valid [facility] Strep A (POCT) Negative Negative [facility] XR CHEST 2V FRONTAL/LATon XR CHEST 2V FRONTAL/LAT * * *Final Report* * * DATE OF EXAM: Aug 03 2024 8:35AM WOX [id number] - XR CHEST 2V FRONTAL/LAT / PROCEDURE REASON: Acute cough * * * * Physician Interpretation * * * * EXAMINATION: CHEST RADIOGRAPH (2 VIEW FRONTAL and LATERAL) CLINICAL HISTORY: Acute cough MQ: XC2_6 EXAM DATE/TIME: 08/03/2024 8:35 AM COMPARISON: Chest x-ray of 06/25/2019 RESULT: Lines, tubes, and devices: None. Lungs and pleura: No consolidation. No lung mass. No pleural effusion. No pneumothorax. Cardiomediastinal silhouette: Normal cardiomediastinal silhouette. Bones and soft tissues: Multilevel degenerative changes of the thoracic spine with no destructive process seen. Remote right eighth rib fracture. IMPRESSION: No acute radiographic abnormality. Graphic Manager: PSCB Transcribe Date/Time: Aug 03 2024 8:35A Dictated by : JOSEPH CHUN MD This examination was interpreted and the report reviewed and electronically signed by: JOSEPH CHUN MD on Aug 03 2024 8:36AM EST [id number] Normal [facility] XR Chest PA and Lateralon IMPRESSION: No acute radiographic abnormality. Graphic Manager: BRYNN Transcribe Date/Time: Aug 03 2024 8:35A Dictated by : JOSEPH CHUN MD This examination was interpreted and the report reviewed and electronically signed by: JOSEPH CHUN MD on Aug 03 2024 8:36AM [facility] DIVISION OF RADIOLOGY * * *Final Report* * * DATE OF EXAM: Aug 03 2024 8:35AM WOX [id number] - XR CHEST 2V FRONTAL/LAT / PROCEDURE REASON: Acute cough * * * * Physician Interpretation * * * * EXAMINATION: CHEST RADIOGRAPH (2 VIEW FRONTAL & LATERAL) CLINICAL HISTORY: Acute cough MQ: XC2_6 EXAM DATE/TIME: 08/03/2024 8:35 AM COMPARISON: Chest x-ray of 06/25/2019 RESULT: Lines, tubes, and devices: None. Lungs and pleura: No consolidation. No lung mass. No pleural effusion. No pneumothorax. Cardiomediastinal silhouette: Normal cardiomediastinal silhouette. Bones and soft tissues: Multilevel degenerative changes of the thoracic spine with no destructive process seen. Remote right eighth rib fracture. DIVISION OF RADIOLOGY Provider, [facility] - 08/03/2024 * * *Final Report* * * DATE OF EXAM: Aug 03 2024 8:35AM WOX [id number] - XR CHEST 2V FRONTAL/LAT / PROCEDURE REASON: Acute cough * * * * Physician Interpretation * * * * EXAMINATION: CHEST RADIOGRAPH (2 VIEW FRONTAL & LATERAL) CLINICAL HISTORY: Acute cough MQ: XC2_6 EXAM DATE/TIME: 08/03/2024 8:35 AM COMPARISON: Chest x-ray of 06/25/2019 RESULT: Lines, tubes, and devices: None. Lungs and pleura: No consolidation. No lung mass. No pleural effusion. No pneumothorax. Cardiomediastinal silhouette: Normal cardiomediastinal silhouette. Bones and soft tissues: Multilevel degenerative changes of the thoracic spine with no destructive process seen. Remote right eighth rib fracture. IMPRESSION IMPRESSION: No acute radiographic abnormality. Graphic Manager: BRYNN Transcribe Date/Time: Aug 03 2024 8:35A Dictated by : JOSEPH CHUN MD This examination was interpreted and the report reviewed and electronically signed by: JOSEPH CHUN MD on Aug 03 2024 8:36AM EST [facility] Radiology Study observation (narrative) [facility] XR Chest PA and LateralOrder ed By: [facility] Provider on 08-03-2024 [facility] CNOVon 07-25-2024 CNOV Office Visit (UCWSTR ) EDUARDO JONES ([id number]) 1955 M Date Time Provider Department 07/25/24 8:30 AM ASTRID DAVIS [facility] During your visit today, we recorded the following information about you: Temperature Pulse Respiration Blood pressure 97.5 degrees 83/minute 20/minute 113/77 Weight 93 kg Astrid Davis APRN.REPORT PROGRAMMER 07/25/2024 8:44 AM Signed [facility] Subjective Eduardo Jones is a 69 year old male. Patient presents with: Cough: Dry cough, deep, sore throat x 6 days Cough Associated symptoms include sore throat and shortness of breath. Pertinent negatives include no chest pain, no chills and no myalgias. Eduardo Jones is a 69 year old male who presents with deep raspy cough x 5 days. He returned from [place] last week and symptoms started the next morning. He is coughing and coughing up thick green phlegm. He has not had a fever. Voice is raspy and he coughs if he talks. He has been using cough drops. Review of Systems Constitutional: Negative for chills, fatigue and fever. HENT: Positive for sore throat and voice change. Respiratory: Positive for cough and shortness of breath. Cardiovascular: Negative for chest pain. Musculoskeletal: Negative for myalgias. Objective BP 113/77 Pulse 83 Temp 36.4 ?C (97.5 ?F) Resp 20 Wt 93 kg (205 lb 0.4 oz) SpO2 97% BMI 27.81 kg/m? PAST MEDICAL HISTORY Diagnosis Date - Alcoholism (HCC) 06/30/2019 From previous records - Allergic rhinitis - Asthma (HCC) - Asthma without status asthmaticus ([facility]) - Diverticulitis - ED (erectile dysfunction) of organic origin 06/30/2019 From previous records. - Epididymal cyst - Erectile dysfunction - Family history of coronary artery disease Stress Echo- 09/08/[address] Duran - TAYO (generalized anxiety disorder) 06/30/2019 From previous records - Generalized anxiety disorder - Hypercholesteremia - Insomnia - Lyme disease - Scrotal pain 12/31/2023 - Submandibular lymphadenopathy 12/31/2023 - Umbilical hernia PAST SURGICAL HISTORY Procedure Laterality Date - ARTHROSCOPY KNEE DIAGNOSTIC W/WO SYNOVIAL BX SPX Right 2 - COLONOSCOPY FLX DX W/COLLJ SPEC WHEN PFRMD 05/12/2007 - KNEE ARTHROSCOPY Left 09/2012 2 - PAST SURGICAL HISTORY OF 1997 discectomy L4/L5 - REPAIR UMBILICAL HERNIA 11/30/2020 ALLERGIES Patient has no known allergies. MEDICATIONS - fluticasone propionate (FLONASE NASAL) Use 1 inhalation in the nose once daily. - Ipratropium Semmes (ATROVENT) 21 mcg (0.03 %) nasal spray Use 2 Sprays in the nose every 12 hours. - ibuprofen (MOTRIN) 800 mg tablet Take 1 tablet by mouth every 8 hours as needed for pain. - montelukast (SINGULAIR) 10 mg tablet Take 1 tablet by mouth daily at bedtime. - Aspirin delayed release 500 mg EC tablet Take 500 mg by mouth every 6 hours as needed for pain. - ALBUTEROL INHALATION Inhale 1 Puff as instructed every 6 hours as needed (wheezing). - TURMERIC ORAL Take 1 capsule by mouth once daily. - cefdinir (OMNICEF) 300 mg capsule Take 1 capsule by mouth two times a day for 7 days. - predniSONE (DELTASONE) 10 mg tablet Take 4 tabs daily for 3 days, then 2 tabs daily for 3 days, then 1 tab daily for 3 days with food. FAMILY HISTORY Problem Relation Age of Onset - No Known Problems Mother in good health - Heart Father CABG @ age 54 - Dementia Father - Alcohol/Drug Sister - other (Lupus) Sister no longer being treated - Alcohol/Drug Brother Social History Tobacco Use - Smoking status: Never - Smokeless tobacco: Never Vaping Use - Vaping status: Never Used Substance Use Topics - Alcohol use: Not Currently - Drug use: Not Currently Types: Marijuana Physical Exam Vitals and nursing note reviewed. Constitutional: General: He is not in acute distress. Appearance: Normal appearance. He is not ill-appearing. HENT: Nose: Nose normal. Mouth/Throat: Mouth: Mucous membranes are moist. Pharynx: Oropharynx is clear. Uvula midline. Posterior oropharyngeal erythema, uvula swelling and postnasal drip present. Tonsils: No tonsillar exudate or tonsillar abscesses. Cardiovascular: Rate and Rhythm: Normal rate and regular rhythm. Heart sounds: Normal heart sounds. Pulmonary: Effort: Pulmonary effort is normal. No respiratory distress. Breath sounds: Normal breath sounds. No wheezing or rales. Skin: General: Skin is warm and dry. Findings: No erythema or rash. Neurological: Mental Status: He is alert. {ASSESSMENT/PLAN: 1. Sore throat - ICD9: 462, ICD10: J02.9 (primary diagnosis) - Group A strep molecular testing negative - Discussed supportive care treatment with fluids, rest and analgesia. - STREP A MOLECULAR (POC) 2. URI, acute - ICD9: 465.9, ICD10: J06.9 - Symptomatic treatment with prn analgesia - Supportive care with fluids and rest - CEFDINIR 3 (more content not included)... Normal [facility] STREP A MOLECULAR (POC)on Procedural Control Valid [facility] Strep A (POCT) Negative Negative [facility] CNOVon 05-12-2024 CNOV Office Visit (UROLWS ) EDUARDO JONES ([id number]) 1955 M Date Time Provider Department 05/12/24 9:30 AM YARA BENSON [facility] During your visit today, we recorded the following information about you: Pulse Respiration Blood pressure Weight 73/minute 16/minute 137/82 96.2 kg Yara Benosn PA-C 05/12/2024 5:24 PM Signed [facility] EST PATIENT CLINIC NOTE SERVICE DATE: May 12, 2024 NAME: Eduardo Jones CHIEF COMPLAINT: S/p Spermatocelectomy HISTORY OF PRESENT ILLNESS: Eduardo Jones is a 69 year old male s/p Spermatocelectomy The patient reports no pain but testicle is enlarged LUTS: PSA Screening (ng/mL) Date Value 10/31/2023 1.81 11/08/2020 1.56 06/25/2019 1.44 Creatinine Date Value Ref Range Status 12/17/2023 1.16 0.73 - 1.22 mg/dL Final 10/31/2023 1.28 (H) 0.73 - 1.22 mg/dL Final 11/08/2020 1.10 0.73 - 1.22 mg/dL Final MEDICATIONS: ibuprofen (MOTRIN) 800 mg tablet Take 1 tablet by mouth every 8 hours as needed for pain. montelukast (SINGULAIR) 10 mg tablet Take 1 tablet by mouth daily at bedtime. Aspirin delayed release 500 mg EC tablet Take 500 mg by mouth every 6 hours as needed for pain. ALBUTEROL INHALATION Inhale 1 Puff as instructed every 6 hours as needed (wheezing). Ipratropium Semmes (ATROVENT) 21 mcg (0.03 %) nasal spray Use 2 Sprays in the nose every 12 hours. TURMERIC ORAL Take 1 capsule by mouth once daily. PAST MEDICAL HISTORY: PAST MEDICAL HISTORY Diagnosis Date Alcoholism (HCC) 06/30/2019 From previous records Allergic rhinitis Asthma Asthma without status asthmaticus Diverticulitis ED (erectile dysfunction) of organic origin 06/30/2019 From previous records. Epididymal cyst Erectile dysfunction Family history of coronary artery disease Stress Echo- 09/08/[address] Duran TAYO (generalized anxiety disorder) 06/30/2019 From previous records Generalized anxiety disorder Hypercholesteremia Insomnia Lyme disease Scrotal pain 12/31/2023 Submandibular lymphadenopathy 12/31/2023 Umbilical hernia REVIEW OF SYSTEMS: GENERAL: No fever, chills, weight loss, or fatigue. PHYSICAL EXAMINATION: Blood pressure 137/82, pulse 73, resp. rate 16, weight 96.2 kg (212 lb). GENERAL: WNL nutrition, no deformities, healthy appearing GENITOURINARY: MALE EXAM: Left Testicle mild enlargement without pain PROBLEM LIST REVIEW: Yes LABS: None ASSESSMENT/PLAN: 1. Epididymal cyst - ICD9: 608.89, ICD10: N50.3 (primary diagnosis) 2. Screening for genitourinary condition - ICD9: V81.6, ICD10: Z13.89 > s/p Spermatocelectomy on LEFT with Dr. Beebe > Message to Dr. Beebe he said testicle can be enlarged for months after but will improve Yara Benson, RYANS, [place], PA-C Allergies As of Date: 05/12/2024 (No Known Allergies) Date Reviewed: 05/12/2024 Reviewed by: Estela Rees MA - Fully Assessed Reason for Visit: Follow Up [171] Primary Visit Diagnosis:Epididymal cyst [N50.3] Other Visit Diagnosis:Screening for genitourinary condition [Z13.89] Order(s):UA DIP, URINE (POC) [1785912] Order #: [id number] Prescriptions as of 05/12/2024 - ibuprofen (MOTRIN) 800 mg tablet Take 1 tablet by mouth every 8 hours as needed for pain. - montelukast (SINGULAIR) 10 mg tablet Take 1 tablet by mouth daily at bedtime. - Aspirin delayed release 500 mg EC tablet Take 500 mg by mouth every 6 hours as needed for pain. - ALBUTEROL INHALATION Inhale 1 Puff as instructed every 6 hours as needed (wheezing). - Ipratropium Semmes (ATROVENT) 21 mcg (0.03 %) nasal spray Use 2 Sprays in the nose every 12 hours. - TURMERIC ORAL Take 1 capsule by mouth once daily. Problem List As Of Date 05/12/2024 Noted Resolved Dyslipidemia [E78.5] 05/13/2019 Wheezing [R06.2] 05/13/2019 VIERA (dyspnea on exertion) [R06.09] 05/13/2019 Well adult exam [Z00.00] 05/13/2019 ED (erectile dysfunction) of organic origin [N5*06/30/2019 TAYO (generalized anxiety disorder) [F41.1] 06/30/2019 Asthma [J45.909] 06/30/2019 Lyme disease [A69.20] 06/30/2019 Alcoholism (HCC) [F10.20] 06/30/2019 Umbilical hernia without obstruction and withou*11/30/2020 11/30/2020 Scrotal pain [N50.82] 01/01/2024 Epididymal cyst [N50.3] 01/01/2024 Diverticulitis [K57.92] 01/01/2024 Testicular pain, left [N50.812] 03/11/2024 Preop examination [Z01.818] 03/11/2024 Encounter Status:Closed by YARA BENSON on 05/12/24 Normal [facility] HISTORY PHYSICALon HISTORY PHYSICAL HNO ID: [id number] Author: VICKI CARIAS APRN.REPORT PROGRAMMER Service: ? Author Type: Nurse Practitioner Type: H&P Filed: 03/17/2024 08:36 Note Text: [facility] HISTORY AND PHYSICAL EXAMINATION SERVICE DATE: 03/17/2024 SERVICE TIME: 8:35 AM PRIMARY CARE PHYSICIAN: Arturo Kendrick DO Assessment Patient has the following medical conditions which may affect fady-operative course: Epididymal cyst Surgery scheduled with Dr. Beebe on 03/31/2024 Testicular pain, left Surgery scheduled with Dr. Beebe on 03/31/2024 Preop examination Patient has the following medical conditions which may affect fady-operative course addressed in assessment and plan today. Asthma Albuterol as needed. Uses rescue inhaler about 5 times a year with URI. Denies hospitalization or pneumonia in the last 6 months. Instructed to use inhaler as prescribed and bring DOS. Bright Activity Status Index: METS: Participate in moderate recreational activites, such as golf, bowling, dancing, doubles tennis, or throwing a baseball or football (6.00 METs) DASI Score: 6 Patient denies any chest pain or undue shortness of breath with the above physical activity. ARISCAT Score: Age: 51-80 Preoperative SpO2: >=96% Respiratory infection in the last month: No Preoperative anemia: No Surgical incision: peripheral Duration of surgery: <2 hrs Emergency procedure: No ARISCAT Score: 3 ANESTHESIA FINDINGS: Intubation History: No history of difficult intubation. No abnormal airway history Significant Anesthesia Considerations: none Airway History: No history of difficult airway No abnormal airway history I - PHYSICAL EVALUATION AIRWAY Patient intubated: No. DENTAL Dental findings: teeth intact. II - ANESTHESIA PLAN Anesthetic Plan: general Beta Suki Monitoring Plan Post Procedure Analgesic Plan Prepared for Surgery: CONSULTS: Patient does not require consults for optimization at this time Planned Anesthetic: general The Following Tests/Procedures Have Been Initiated: Orders Placed This Encounter Aspirin delayed release 500 mg EC tablet Sig: Take 500 mg by mouth every 6 hours as needed for pain. ALBUTEROL INHALATION Sig: Inhale 1 Puff as instructed every 6 hours as needed (wheezing). REASON FOR VISIT: Eduardo Jones is a 69 year old male who is scheduled for Procedure(s): SPERMATOCELECTOMY UNILATERAL (Left) at the request of Jalil Keane MD for routine HANDP. My final recommendation will be communicated back to the requesting physician by way of shared medical record or letter. The reason for this visit is to perform a comprehensive review of the patient's past medical history, assess their current health status and obtain any additional testing required based on anesthesia guidelines. We will also identify any potential anesthesia problems or contraindications to the planned procedure. Subjective The patient has the following: COVID-19 Immunization Status Overdue - Covid-19 Vaccine () Never done 10/31/2023 Postponed until 10/30/2024 by Yu Puentes MA (Declined at this time) CHIEF COMPLAINT: Epididymal cyst, Testicular pain, left HPI: Patient is a 69 year old male here for a preoperative exam. Pt complaint of left testicle pain for the last 6 months. Describes pain as constant pinching. Sitting for long periods aggravates the pain. No relieving factors. Pt discussed with surgeon and agrees to surgical intervention. REVIEW OF SYSTEMS: General: Negative for: unintentional weight change, malaise and fever. Neurological: Negative for: headaches, seizures and strokes. Respiratory: Positive for: asthma. Negative for: COPD, tobacco use, URI < 2 weeks and obstructive sleep apnea. Cardiovascular: Negative for: arrhythmia, CAD, chest pain, CHF, DVT/PE, hyperlipidemia and hypertension. GI: Negative for: abdominal pain, GERD, nausea and vomiting. : Negative for: dysuria, hematuria and renal failure. Endocrine: Negative for: diabetes mellitus, hyperthyroidism and hypothyroidism. Hematology: Negative for: anemia, factor V Leiden and von Willebrand disease. Oncology: No history of CA metastasis, chemo within 30 days, or radiotherapy within 90 days. No history of oncological symptoms or problems. Psych: Positive for: anxiety. Negative for: depression. Musculoskeletal: Positive for: joint pain. Negative for: back pain. Skin: Negative for lesions, rash and itching. PAST MEDICAL HISTORY Diagnosis Date Alcoholism (HCC) 06/30/2019 From previous records Allergic rhinitis Asthma Asthma without status asthmaticus Diverticulitis ED (erectile dysfunction) of organic origin 06/30/2019 From previous records. Erectile dysfunction Family history of coronary artery disease Stress Echo- 09/08/[address] Roger CR (generalized anxiety disorder) 06/30/19 (more content not included)... Normal [facility] NURSING PROGon 03-17-2024 NURSING PROG HNO ID: [id number] Author: TORO WHYTE APRN.REPORT PROGRAMMER Service: General Surgery Author Type: Nurse Practitioner Type: Nursing Progress Note Filed: 03/17/2024 11:06 Note Text: Summary: PAT HANDP done reviewed. No pre op concerns noted at this time. Normal [facility] STRESS ECHO TREADMILLon 02-13 STRESS ECHO TREADMILL Stress Pump Tester Report: Stress Echo Count Includes [facility] Date of service: 02/24/2024 11:20:54 AM WORKER PACKAGER Supervising physician: Laverne Berry MD PATIENT: Name: MR. EDUARDO JONES Age: 69 years Gender: M The supervising physician was in the department and immediately available. Final ------ Echocardiography Report: Stress Echo Count Includes [facility] Date of service: 02/24/2024 11:20:54 AM WORKER PACKAGER Ordering physician: ERROL AVALOS Indication: Shortness of Breath Technologist: Alisa Garcia RD Interpreting physician: Marko Medina DO PATIENT: Name: MR. EDUARDO JONES : 1955 Age: 69 years Gender: M Primary rhythm: sinus. Height: 182.90 cm BSA: 2.20 m Weight: 95.62 kg BMI: 28.6 kg/m Heart rate 68 bpm Blood pressure 130/78 mmHg Color Doppler was utilized to interrogate the cardiac valves assessed and spectral Doppler was utilized to determine the flow velocities and pressure gradients reported in this exam. MEASUREMENTS: Value Indexed Normal Max aortic dimension 3.3 cm Ao < 3.8 Left atrial volume 63 ml (biplane A-L) 28 ml/m Fátima <= 34 LV ID (diastole) 4.7 cm (2D) 2.14 cm/m LV ID (systole) 3.2 cm (2D) 1.47 cm/m IVS, leaflet tips 1.1 cm (2D) Posterior wall thickness 1.0 cm (2D) Left ventricular mass 172 g (2D) 78 g/m LV stroke volume 71 ml (2D biplane) LV end diastolic volume 123 ml (2D biplane) 55.9 ml/m 34<=EDVi<75 LV end systolic volume 52 ml (2D biplane) 23.6 ml/m Ejection Fraction 58 % (2D biplane) EF > 52 FINDINGS: LEFT VENTRICLE The left ventricle is normal in size. Left ventricular systolic function is normal. Grade I left ventricular diastolic dysfunction. Mitral annular lateral E/e': 5.6. Mitral annular septal E/e': 7.2. Wall Motion: Rest: All scored segments are normal. Stress: RIGHT VENTRICLE The right ventricle is normal in size. Right ventricular systolic function is normal. RV systolic tissue Doppler velocity is 10.0 cm/s. LEFT ATRIUM The left atrial cavity is normal in size. RIGHT ATRIUM The right atrial cavity is normal in size. MITRAL VALVE The mitral valve leaflets are structurally normal. There is trace (trace - 1+) mitral valve regurgitation. The pressure half time is 68 msec. The peak mitral E/A ratio is 0.95. The average mitral E/e' ratio is 6.4. The mitral flow deceleration time is 233 msec. TRICUSPID VALVE AORTIC VALVE The aortic valve cusps are structurally normal. There is trace aortic valve regurgitation. Tricuspid aortic valve. The peak gradient is 6 mmHg (peak velocity = 121.0 cm/s). AORTA The visualized aorta is normal in size. Measurements - Mid ascending aorta 3.3 cm. PERICARDIUM There is no pericardial effusion. There is an epicardial fat pad. STRESS ECHO Peak HR 150 bpm. (98 % MPHR) Peak BP 168 mmHg/74 mmHg. The left ventricular cavity size is decreased with stress. CONCLUSIONS: - Exam indication: Shortness of Breath - The exercise stress echo was negative for ischemia at 98 % of MPHR (7.8 METS). No regional wall motion abnormality seen at heart rate achieved. - The left ventricle is normal in size. Left ventricular systolic function is normal. EF = 58 5% (2D biplane) Grade I left ventricular diastolic dysfunction. - The right ventricle is normal in size. Right ventricular systolic function is normal. - There are no significant valvular abnormalities. - The patient has not had a prior CC echocardiographic exam for comparison. 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 EDUARDO JONES Age: 69 years Gender: M Height: 182.90 cm BSA: 2.20 m Weight: 95.62 kg BMI: 28.6 kg/m Indication: Shortness of breath and Encounter for screening for cardiovascular disorders Stress ECG Conclusion: Conclusion: Normal Prior exam comparison: No prior CC exam Stress ECG Summary: The patient's resting heart rate was 68 bpm and blood pressure was 130/78 mmHg. The patient exercised according to the Adriano protocol. The estimated end-exercise MET level achieved using the FRIEND equation was 7.8, which is within the 25th to 50th percentile for age and sex. The estimated end-exercise MET level achieved using the previous ACSM equation was 9.4. The test was terminated due to general fatigue and the total exercise time was 8 minutes and 17 seconds. No symptoms provoked during s (more content not included)... Normal [facility] 02-17-[address] [facility] Telephone (UROBullionVaultG) EDUARDO JONES ([id number]) 1955 M Date Time Provider Department 02/17/24 JALIL BEEBE During your visit today, we recorded the following information about you: Megan Turk 02/17/2024 3:10 PM Signed Patient scheduled for surgery with Dr Beebe on 03/31/24 @ ELIAS arrive at 9:10am, SIMRAN on 03/17 @ Suly arrive at 7:45am. Patient notified and surgery information mailed. Megan Lopez Allergies As of Date: 02/17/2024 (No Known Allergies) Date Reviewed: 02/14/2024 Reviewed by: Lia Nava LPN - Fully Assessed Reason for Visit: Schedule Surgery [1330] Prescriptions as of 02/17/2024 - Ipratropium Semmes (ATROVENT) 21 mcg (0.03 %) nasal spray Use 2 Sprays in the nose every 12 hours. - montelukast (SINGULAIR) 10 mg tablet Take 1 tablet by mouth daily at bedtime. - TURMERIC ORAL Take 1 capsule by mouth once daily. Problem List As Of Date 02/17/2024 Noted Resolved Dyslipidemia [E78.5] 05/13/2019 Wheezing [R06.2] 05/13/2019 VIERA (dyspnea on exertion) [R06.09] 05/13/2019 Well adult exam [Z00.00] 05/13/2019 ED (erectile dysfunction) of organic origin [N5*06/30/2019 TAYO (generalized anxiety disorder) [F41.1] 06/30/2019 Asthma [J45.909] 06/30/2019 Lyme disease [A69.20] 06/30/2019 Alcoholism (HCC) [F10.20] 06/30/2019 Umbilical hernia without obstruction and withou*11/30/2020 11/30/2020 Scrotal pain [N50.82] 01/01/2024 Epididymal cyst [N50.3] 01/01/2024 Diverticulitis [K57.92] 01/01/2024 Encounter Status:Closed by MEGAN TURK on 02/17/24 [facility] CNOVlesly 02-14-2024 CNOV Office Visit (UROLMD ) EDUARDO JONES ([id number]) 1955 M Date Time Provider Department 02/14/24 9:30 AM JALIL BEEBE During your visit today, we recorded the following information about you: Weight Height 93 kg 1.829 m Jalil Beebe MD 02/14/2024 9:40 AM Signed [facility] UROLOGY CONSULT PATIENT CLINIC NOTE PATIENT INFO: Eduardo Jones (69 year old) Referred by: Yara Benson [address] [place] [address] 02/14/2024 UROLOGY DIAGNOSES: 1. Epididymal cyst - ICD9: 608.89, ICD10: N50.3 (primary diagnosis) 2. Testicular pain, left - ICD9: 608.9, ICD10: N50.812 CHIEF COMPLAINT: Testis Pain HPI: 69 year old, male presents for evaluation of testis pain on the LEFT side. Pain has been present for 6 months. Pain is constant in nature. Sitting for long peiod makes the pain worse and nothing makes the pain better. Previous surgery: None Desires fertility: None Therapies tried: NSAIDs Scrotal US: IMPRESSION: 1. Normal sonographic appearance of the testicles. Normal arterial and venous flow within both testes. 2. 2.1 x 1.4 x 1.9 cm septated cyst in the left epididymal head. Genitourinary history: Hx Mumps orchitis, trauma, or undescended testis: none Hx stone disease: none Hx UTI/prostatitis/epidid imitis/STI: none ROS: Sexual frequency/libido:intac t, no ED Urinary sx: none Hematuria: none PMH: PAST MEDICAL HISTORY Diagnosis Date Alcoholism (HCC) 06/30/2019 From previous records Allergic rhinitis Asthma Asthma without status asthmaticus Diverticulitis ED (erectile dysfunction) of organic origin 06/30/2019 From previous records. Erectile dysfunction Family history of coronary artery disease Stress Echo- 09/08/[address] Duran TAYO (generalized anxiety disorder) 06/30/2019 From previous records Generalized anxiety disorder Hypercholesteremia Insomnia Lyme disease Scrotal pain 12/31/2023 Submandibular lymphadenopathy 12/31/2023 Umbilical hernia PSH: PAST SURGICAL HISTORY Procedure Laterality Date COLONOSCOPY FLX DX W/COLLJ SPEC WHEN PFRMD 05/12/2007 KNEE ARTHROSCOPY Left 09/2012 PAST SURGICAL HISTORY OF 1997 discectomy L4/L5 REPAIR UMBILICAL HERNIA 11/30/2020 SH: Social History Tobacco Use Smoking status: Never Smokeless tobacco: Never Vaping Use Vaping status: Never Used Substance Use Topics Alcohol use: Never Drug use: Not Currently Types: Marijuana FH: FAMILY HISTORY Problem Relation Age of Onset No Known Problems Mother in good health Heart Father CABG @ age 54 Dementia Father Alcohol/Drug Sister other (Lupus) Sister no longer being treated Alcohol/Drug Brother REVIEW OF SYSTEMS: Review of Systems: Constitutional: No weakness, fever/chills, unexplained weight change Psychiatric: Stable mood Skin: No rashes or lesions HEENT: No blurred vision or double vision. No severe or worsening headaches. Sense of smell intact Neck: No masses or pain Chest: No shortness of breath or cough. No history of recurrent pneumonia, bronchitis, or sinustitis. CVS: No chest pains or palpatations. No history of cardiovascular disease. GI: No nausea, vomiting or abdominal pain Neurologic: No weakness or sensory changes : see above Musculoskeletal: Stable All other systems reviewed and noncontributory Allergy: Patient has no known allergies. MEDICATIONS: Current Outpatient Medications Medication Sig Dispense Refill Ipratropium Semmes (ATROVENT) 21 mcg (0.03 %) nasal spray Use 2 Sprays in the nose every 12 hours. 30 mL 1 montelukast (SINGULAIR) 10 mg tablet Take 1 tablet by mouth daily at bedtime. 90 tablet 3 TURMERIC ORAL Take 1 capsule by mouth once daily. No current facility-administered medications for this visit. PHYSICAL EXAM: Ht 182.9 cm (6') Wt 93 kg (205 lb) BMI 27.80 kg/m? Body mass index is 27.8 kg/m?. General Appearance/ Constitutional: Well developed, well nourished, and in no apparent distress HEENT: Normal Neck: Lymph Nodes: Normal Cardiac: Normal Breast: Not examined Pulmonary: Ascultation: Not examined Effort: Normal GI: Soft, Non-tender, Non-distended and Costovertebral angle tenderness absent Peripheral Vascular: Not examined Extremities: Cyanosis absent, Clubbing absent and Edema absent Skin: Normal Neurologic: Normal, Grossly non-focal, Alert and oriented and Affect appropriate (MALE): Penis: Normal without external lesions and Circumcised Testicles: Abnormal: LEFT spermatocele Scrotum: Normal The sensitive examination was discussed with the Patient or Patient's Authorized Staff Midwife. As applicable, any other physician, advance practice provider, medical student, or other health professional student that will be observing or involved in the sensitive examination for educational or training purposes (more content not included)... Normal [facility] CNOVon 02-04-2024 CNOV Office Visit (UROLWS ) EDUARDO JONES ([id number]) 1955 M Date Time Provider Department 02/04/24 11:00 AM YARA BENSON During your visit today, we recorded the following information about you: Temperature Pulse Respiration Blood pressure 98.1 degrees 90/minute 16/minute 108/74 Weight Height 93.9 kg 1.842 m Yara Benson PA-C 02/04/2024 11:30 AM Signed [facility] NEW PATIENT CLINIC NOTE SERVICE DATE: February 04, 2024 NAME: Eduardo Jones CHIEF COMPLAINT: Spermatocele HISTORY OF PRESENT ILLNESS: Eduardo Jones is a 69 year old male an new patient here for Spermatocele The patient reports mild 2/ 10 pain left side testicle and epididymis and on US was found a Spermatocele 2.1 x 1.4 x 1.9 cm septated cyst in the left epididymal head LUTS: PSA Screening (ng/mL) Date Value 10/31/2023 1.81 11/08/2020 1.56 06/25/2019 1.44 No results found for: TESTOST Hematocrit (%) Date Value 12/24/2023 46.2 12/17/2023 44.2 10/31/2023 46.4 11/08/2020 43.2 06/25/2019 43.4 PSA Screening (ng/mL) Date Value 10/31/2023 1.81 11/08/2020 1.56 06/25/2019 1.44 Creatinine Date Value Ref Range Status 12/17/2023 1.16 0.73 - 1.22 mg/dL Final 10/31/2023 1.28 (H) 0.73 - 1.22 mg/dL Final 11/08/2020 1.10 0.73 - 1.22 mg/dL Final MEDICATIONS: Ipratropium Semmes (ATROVENT) 21 mcg (0.03 %) nasal spray Use 2 Sprays in the nose every 12 hours. montelukast (SINGULAIR) 10 mg tablet Take 1 tablet by mouth daily at bedtime. TURMERIC ORAL Take 1 capsule by mouth once daily. PAST MEDICAL HISTORY: PAST MEDICAL HISTORY Diagnosis Date Alcoholism (HCC) 06/30/2019 From previous records Allergic rhinitis Asthma Asthma without status asthmaticus Diverticulitis ED (erectile dysfunction) of organic origin 06/30/2019 From previous records. Erectile dysfunction Family history of coronary artery disease Stress Echo- 09/08/[address] Duran TAYO (generalized anxiety disorder) 06/30/2019 From previous records Generalized anxiety disorder Hypercholesteremia Insomnia Lyme disease Scrotal pain 12/31/2023 Submandibular lymphadenopathy 12/31/2023 Umbilical hernia PAST SURGICAL HISTORY: PAST SURGICAL HISTORY Procedure Laterality Date COLONOSCOPY FLX DX W/COLLJ SPEC WHEN PFRMD 05/12/2007 KNEE ARTHROSCOPY Left 09/2012 PAST SURGICAL HISTORY OF 1997 discectomy L4/L5 REPAIR UMBILICAL HERNIA 11/30/2020 FAMILY HISTORY: FAMILY HISTORY Problem Relation Age of Onset No Known Problems Mother in good health Heart Father CABG @ age 54 Dementia Father Alcohol/Drug Sister other (Lupus) Sister no longer being treated Alcohol/Drug Brother SOCIAL HISTORY: Social Connections: Socially Integrated (10/25/2023) Social Connection and Isolation Panel [NHANES] Frequency of Communication with Friends and Family: More than three times a week Frequency of Social Gatherings with Friends and Family: Twice a week Attends Quaker Services: More than 4 times per year Active Member of Clubs or Organizations: Yes Attends Club or Organization Meetings: More than 4 times per year Marital Status: REVIEW OF SYSTEMS: GENERAL: No fever, chills, weight loss, or fatigue. ENMT: Negative CARDIOVASCULAR:NO CHEST PAIN, PALPITATIONS, ANKLE EDEMA RESPIRATORY: No chronic cough, wheezing, dyspnea, hemoptysis. GENITOURINARY: SEE HPI MUSCULOSKELETAL:NO CHRONIC BACK PAIN, ARTHRITIS, CHRONIC NECK PAIN SKIN: NO VARICOSE VEINS, RASH, ABNORMAL ITCHING HEME/LYMPH/IMMUNE:Nega tive for prolonged bleeding, bruising easily or swollen nodes NEUROLOGICAL: NO HEADACHES, NUMBNESS, SEIZURES, STROKE DIABETES: No All other systems reviewed and are negative PHYSICAL EXAMINATION: Blood pressure 108/74, pulse 90, temperature 36.7 ?C (98.1 ?F), temperature source Temporal, resp. rate 16, height 184.2 cm (6' 0.5), weight 93.9 kg (207 lb), SpO2 98%. GENERAL: WNL nutrition, no deformities, healthy appearing NEURO: Awake, alert and oriented x 3 and Normal gait PSYCH: No signs of depression, anxiety, or agitation ENMT (Ear, Nose, Mouth, Throat): No masses, adenopathy, icterus. Thyroid nonpalpable RESP: NL effort, no retractions or purse-lip breathing. CV: No extremity swelling, varices, edema, pallor, erythema GASTROINTESTINAL: Soft, nontender, nondistended, no masses. HERNIAS: None SKIN: No rash, lesions No palpable lymphadenopathy MUSCULOSKELETAL: Extremities normal. No deformities, edema, clubbing or skin discoloration. GENITOURINARY: MALE EXAM: No scrotal lesions, cysts, rashes. Spermatoceles: Left 2.2 cm Epididymis AND testes: normal size, position, without masses Urethra AND meatus: normal size AND position w/o lesion or discharge Penis: circumcised, w/o plaques, lesions, masses, or deformities. PROBLEM (more content not included)... Normal [facility] CNOVon 12-31-2023 CNOV Office Visit (FAMWS ) ROBERTEDUARDO Cat ([id number]) 1955 M Date Time Provider Department 12/31/23 7:20 AM [facility] During your visit today, we recorded the following information about you: Pulse Respiration Blood pressure Weight 71/minute 16/minute 120/72 95.7 kg Errol Avalos APRN.REPORT PROGRAMMER 01/01/2024 6:32 PM Signed Chief Complaint Patient presents with: Follow Up: Diverticulitis, review scrotum US HPI Eduardo Jones is a 68 year old male who presents here today for Above Complaints.. Per visit with myself on 12/23: Lower abdomen bilaterally feels pretty achy, but not severe pain. Diet-pretty much eating normally. No change in bowel movements. Did complete his 1-week treatment. Area in left scrotum feels pinching feeling for the past 4 days. Does not go away, not aware of anything that makes it worse or better. Hasn't been able to feel anything abnormal in his scrotal sack. Has tried a warm shower, cool shower, wearing no underwear. General Appearance: Well appearing, alert, in no acute distress, well-hydrated, well nourished.. Lungs: Lungs clear to auscultation. No wheezing, rhonchi, rales.. Heart: RRR without murmur, gallop, or rubs. No ectopy. Abdomen: Abdomen soft, bowel sounds normal. No masses, organomegaly. Bilateral lower abdomen tender to palpation with area to RLQ that was more significantly painful with palpation Genitalia: Penis normal. No urethral discharge. Left scrotum moderately painful to palpation. No abnormalities palpated. Psychiatric: pleasant, cooperative. ASSESSMENT/PLAN: 1. Scrotal pain - ICD9: 608.9, ICD10: N50.82 (primary diagnosis) - US SCROTUM AND CONTENTS - US DOPPLER COMPLETE 2. Diverticulitis - ICD9: 562.11, ICD10: K57.92 Extend diverticulitis tx by another week. More bland diet as able. Continue probiotics. - CEFDINIR 300 MG CAPSULE - METRONIDAZOLE 500 MG TABLET 3. Submandibular lymphadenopathy - ICD9: 785.6, ICD10: R59.0 - COMPLETE BLOOD COUNT AND DIFFERENTIAL - C-REACTIVE PROTEIN Currently: Lower abdomen feels good. Has been taking a probiotic. Has been had a couple [place] yogurt with blueberries. Trying to increase his fiber intake. Is interested in education r/t diet. Would like to discuss scrotal ultrasound results. This has been referred to urology e-consult who have recommended no further imaging at this time, but do recommend urology consult. He does continue to have the pinching, puling feeling in his scrotum. Doesn't seem to have worsening but isn't improving at all. Past medical history, appointments, medications, allergies reviewed. Previous Medical History PAST MEDICAL HISTORY Diagnosis Date Alcoholism (HCC) 06/30/2019 From previous records Allergic rhinitis Asthma Asthma without status asthmaticus ED (erectile dysfunction) of organic origin 06/30/2019 From previous records. Erectile dysfunction Family history of coronary artery disease Stress Echo- 09/08/[address] Duran TAYO (generalized anxiety disorder) 06/30/2019 From previous records Generalized anxiety disorder Hypercholesteremia Insomnia Lyme disease Umbilical hernia Previous Surgical History PAST SURGICAL HISTORY Procedure Laterality Date COLONOSCOPY FLX DX W/COLLJ SPEC WHEN PFRMD 05/12/2007 KNEE ARTHROSCOPY Left 09/2012 PAST SURGICAL HISTORY OF 1997 discectomy L4/L5 REPAIR UMBILICAL HERNIA 11/30/2020 Family History FAMILY HISTORY Problem Relation Age of Onset No Known Problems Mother in good health Heart Father CABG @ age 54 Dementia Father Alcohol/Drug Sister other (Lupus) Sister no longer being treated Alcohol/Drug Brother Patient Allergies ALLERGIES No Active Allergies Current Medications Current Outpatient Medications on File Prior to Visit Medication Sig Ipratropium Semmes (ATROVENT) 21 mcg (0.03 %) nasal spray Use 2 Sprays in the nose every 12 hours. montelukast (SINGULAIR) 10 mg tablet Take 1 tablet by mouth daily at bedtime. TURMERIC ORAL Take by mouth. cefdinir (OMNICEF) 300 mg capsule Take 1 capsule by mouth two times a day for 7 days. (Patient not taking: Reported on 12/31/2023) metroNIDAZOLE (FLAGYL) 500 mg tablet Take 1 tablet by mouth every 8 hours for 7 days. (Patient not taking: Reported on 12/31/2023) No current facility-administered medications on file prior to visit. Social History Social History Tobacco Use Smoking status: Never Smokeless tobacco: Never Vaping Use Vaping status: Never Used Substance Use Topics Alcohol use: Never Drug use: Not Currently Review of Symptoms REVIEW OF SYSTEMS See HPI, otherwise negative EXAM: BP 120/72 (BP Site: Left Arm, BP Position: Sitting, BP Cuff Size: Regular Adult) Pulse 71 Resp 16 Wt 95.7 kg (211 lb) SpO2 97% BMI 28.62 kg/m? General Appearance: Well appearing, alert, in no acute distress, wel (more content not included)... Normal [facility] ROBERTEDUARDO ([id number]) 1955 M Date Time Provider Department 12/27/23 ERROL AVALOS During your visit today, we recorded the following information about you: Allergies As of Date: 12/27/2023 (No Active Allergies) Date Reviewed: 12/24/2023 Reviewed by: Errol Avalos APRN.REPORT PROGRAMMER - Fully Assessed Reason for Visit: Results [95] Primary Visit Diagnosis:Scrotal pain [N50.82] Other Visit Diagnosis:Scrotal cyst [L72.9] Order(s):E-CONSULT UROLOGY [[id number]] Order #: [id number]: 1 Prescriptions as of 01/01/2024 - Ipratropium Semmes (ATROVENT) 21 mcg (0.03 %) nasal spray Use 2 Sprays in the nose every 12 hours. - montelukast (SINGULAIR) 10 mg tablet Take 1 tablet by mouth daily at bedtime. - TURMERIC ORAL Take by mouth. Problem List As Of Date 12/27/2023 Noted Resolved Dyslipidemia [E78.5] 05/13/2019 Wheezing [R06.2] 05/13/2019 VIERA (dyspnea on exertion) [R06.09] 05/13/2019 Well adult exam [Z00.00] 05/13/2019 ED (erectile dysfunction) of organic origin [N5*06/30/2019 TAYO (generalized anxiety disorder) [F41.1] 06/30/2019 Asthma [J45.909] 06/30/2019 Lyme disease [A69.20] 06/30/2019 Alcoholism (HCC) [F10.20] 06/30/2019 Umbilical hernia without obstruction and withou*11/30/2020 11/30/2020 Encounter Status:Closed by ERROL AVALOS on 01/01/24 Normal [facility] No Panel Informationon 12-25 IMPRESSION: 1. Normal sonographic appearance of the testicles. Normal arterial and venous flow within both testes. 2. 2.1 x 1.4 x 1.9 cm septated cyst in the left epididymal head. Graphic Manager: BRYNN Transcribe Date/Time: Dec 26 2023 2:31P Dictated by : LAURIE HE MD This examination was interpreted and the report reviewed and electronically signed by: LAURIE HE MD on Dec 26 2023 2:35PM EST DIVISION OF RADIOLOGY Radiology Study observation (narrative) [facility] No Panel InformationOrdered By: [facility] Provider on 12-26-2023 [facility] US DOPPLER COMPLETEon 2023 US DOPPLER COMPLETE * * *Final Report* * * DATE OF EXAM: Dec 26 2023 2:27PM [facility] 1033 - US DOPPLER COMPLETE / PROCEDURE REASON: Scrotal pain * * * * Physician Interpretation * * * * EXAMINATION: SCROTAL ULTRASOUND WITH DOPPLER IMAGING CLINICAL HISTORY: Scrotal pain TECHNIQUE: Sonography of the scrotal contents with color flow and spectral Doppler imaging of the testicular vasculature was performed. Images were obtained and stored in a permanent archive. M: USC_2 COMPARISON: None RESULT: RIGHT SCROTUM: Right testis: 4.2 x 1.8 x 2.6 cm. Homogeneous with no calcifications or mass. Normal intratesticular arterial and venous flow with normal spectral waveforms. Epididymis: Normal. Vascular flow on Color Doppler is symmetric to the contralateral side. Hydrocele: none Varicocele: absent LEFT SCROTUM: Left testis: 4.3 x 2.1 x 3.0 cm. Homogeneous with no calcifications or mass. Normal intratesticular arterial and venous flow with normal spectral waveforms. Epididymis: Septated cyst in the epididymal head measuring 2.1 x 1.4 x 1.9 cm. Vascular flow on Color Doppler is symmetric to the contralateral side. Hydrocele: none Varicocele: absent IMPRESSION: 1. Normal sonographic appearance of the testicles. Normal arterial and venous flow within both testes. 2. 2.1 x 1.4 x 1.9 cm septated cyst in the left epididymal head. Graphic Manager: BRYNN Transcribe Date/Time: Dec 26 2023 2:31P Dictated by : LAURIE HE MD This examination was interpreted and the report reviewed and electronically signed by: LAURIE HE MD on Dec 26 2023 2:35PM EST [id number] Normal [facility] US SCROTUM AND CONTENTSon US SCROTUM AND CONTENTS * * *Final Report* * * DATE OF EXAM: Dec 26 2023 2:27PM [facility] 1063 - US SCROTUM AND CONTENTS / PROCEDURE REASON: Scrotal pain * * * * Physician Interpretation * * * * EXAMINATION: SCROTAL ULTRASOUND WITH DOPPLER IMAGING CLINICAL HISTORY: Scrotal pain TECHNIQUE: Sonography of the scrotal contents with color flow and spectral Doppler imaging of the testicular vasculature was performed. Images were obtained and stored in a permanent archive. M: US_2 COMPARISON: None RESULT: RIGHT SCROTUM: Right testis: 4.2 x 1.8 x 2.6 cm. Homogeneous with no calcifications or mass. Normal intratesticular arterial and venous flow with normal spectral waveforms. Epididymis: Normal. Vascular flow on Color Doppler is symmetric to the contralateral side. Hydrocele: none Varicocele: absent LEFT SCROTUM: Left testis: 4.3 x 2.1 x 3.0 cm. Homogeneous with no calcifications or mass. Normal intratesticular arterial and venous flow with normal spectral waveforms. Epididymis: Septated cyst in the epididymal head measuring 2.1 x 1.4 x 1.9 cm. Vascular flow on Color Doppler is symmetric to the contralateral side. Hydrocele: none Varicocele: absent IMPRESSION: 1. Normal sonographic appearance of the testicles. Normal arterial and venous flow within both testes. 2. 2.1 x 1.4 x 1.9 cm septated cyst in the left epididymal head. Graphic Manager: BRYNN Transcribe Date/Time: Dec 26 2023 2:31P Dictated by : LAURIE HE MD This examination was interpreted and the report reviewed and electronically signed by: LAURIE HE MD on Dec 26 2023 2:35PM EST [id number] Normal [facility] US.doppler Scrotum and testi carol ann 12-26-2023 * * *Final Report* * * DATE OF EXAM: Dec 26 2023 2:27PM [facility] 1063 - US SCROTUM AND CONTENTS / PROCEDURE REASON: Scrotal pain * * * * Physician Interpretation * * * * EXAMINATION: SCROTAL ULTRASOUND WITH DOPPLER IMAGING CLINICAL HISTORY: Scrotal pain TECHNIQUE: Sonography of the scrotal contents with color flow and spectral Doppler imaging of the testicular vasculature was performed. Images were obtained and stored in a permanent archive. M: [facility]_2 COMPARISON: None RESULT: RIGHT SCROTUM: Right testis: 4.2 x 1.8 x 2.6 cm. Homogeneous with no calcifications or mass. Normal intratesticular arterial and venous flow with normal spectral waveforms. Epididymis: Normal. Vascular flow on Color Doppler is symmetric to the contralateral side. Hydrocele: none Varicocele: absent LEFT SCROTUM: Left testis: 4.3 x 2.1 x 3.0 cm. Homogeneous with no calcifications or mass. Normal intratesticular arterial and venous flow with normal spectral waveforms. Epididymis: Septated cyst in the epididymal head measuring 2.1 x 1.4 x 1.9 cm. Vascular flow on Color Doppler is symmetric to the contralateral side. Hydrocele: none Varicocele: absent DIVISION OF RADIOLOGY Provider, Patria Garg [facility] - 12/26/2023 * * *Final Report* * * DATE OF EXAM: Dec 26 2023 2:27PM [facility] 1063 - US SCROTUM AND CONTENTS / PROCEDURE REASON: Scrotal pain * * * * Physician Interpretation * * * * EXAMINATION: SCROTAL ULTRASOUND WITH DOPPLER IMAGING CLINICAL HISTORY: Scrotal pain TECHNIQUE: Sonography of the scrotal contents with color flow and spectral Doppler imaging of the testicular vasculature was performed. Images were obtained and stored in a permanent archive. M: [facility]_2 COMPARISON: None RESULT: RIGHT SCROTUM: Right testis: 4.2 x 1.8 x 2.6 cm. Homogeneous with no calcifications or mass. Normal intratesticular arterial and venous flow with normal spectral waveforms. Epididymis: Normal. Vascular flow on Color Doppler is symmetric to the contralateral side. Hydrocele: none Varicocele: absent LEFT SCROTUM: Left testis: 4.3 x 2.1 x 3.0 cm. Homogeneous with no calcifications or mass. Normal intratesticular arterial and venous flow with normal spectral waveforms. Epididymis: Septated cyst in the epididymal head measuring 2.1 x 1.4 x 1.9 cm. Vascular flow on Color Doppler is symmetric to the contralateral side. Hydrocele: none Varicocele: absent IMPRESSION IMPRESSION: 1. Normal sonographic appearance of the testicles. Normal arterial and venous flow within both testes. 2. 2.1 x 1.4 x 1.9 cm septated cyst in the left epididymal head. Graphic Manager: BRYNN Transcribe Date/Time: Dec 26 2023 2:31P Dictated by : LAURIE HE MD This examination was interpreted and the report reviewed and electronically signed by: LAURIE HE MD on Dec 26 2023 2:35PM [facility] US.doppler Unspecified body regionon 12-26-2023 * * *Final Report* * * DATE OF EXAM: Dec 26 2023 2:27PM [facility] 1033 - US DOPPLER COMPLETE / PROCEDURE REASON: Scrotal pain * * * * Physician Interpretation * * * * EXAMINATION: SCROTAL ULTRASOUND WITH DOPPLER IMAGING CLINICAL HISTORY: Scrotal pain TECHNIQUE: Sonography of the scrotal contents with color flow and spectral Doppler imaging of the testicular vasculature was performed. Images were obtained and stored in a permanent archive. M: [facility]_2 COMPARISON: None RESULT: RIGHT SCROTUM: Right testis: 4.2 x 1.8 x 2.6 cm. Homogeneous with no calcifications or mass. Normal intratesticular arterial and venous flow with normal spectral waveforms. Epididymis: Normal. Vascular flow on Color Doppler is symmetric to the contralateral side. Hydrocele: none Varicocele: absent LEFT SCROTUM: Left testis: 4.3 x 2.1 x 3.0 cm. Homogeneous with no calcifications or mass. Normal intratesticular arterial and venous flow with normal spectral waveforms. Epididymis: Septated cyst in the epididymal head measuring 2.1 x 1.4 x 1.9 cm. Vascular flow on Color Doppler is symmetric to the contralateral side. Hydrocele: none Varicocele: absent DIVISION OF RADIOLOGY Provider, [facility] - 12/26/2023 * * *Final Report* * * DATE OF EXAM: Dec 26 2023 2:27PM [facility] 1033 - US DOPPLER COMPLETE / PROCEDURE REASON: Scrotal pain * * * * Physician Interpretation * * * * EXAMINATION: SCROTAL ULTRASOUND WITH DOPPLER IMAGING CLINICAL HISTORY: Scrotal pain TECHNIQUE: Sonography of the scrotal contents with color flow and spectral Doppler imaging of the testicular vasculature was performed. Images were obtained and stored in a permanent archive. M: [facility]2 COMPARISON: None RESULT: RIGHT SCROTUM: Right testis: 4.2 x 1.8 x 2.6 cm. Homogeneous with no calcifications or mass. Normal intratesticular arterial and venous flow with normal spectral waveforms. Epididymis: Normal. Vascular flow on Color Doppler is symmetric to the contralateral side. Hydrocele: none Varicocele: absent LEFT SCROTUM: Left testis: 4.3 x 2.1 x 3.0 cm. Homogeneous with no calcifications or mass. Normal intratesticular arterial and venous flow with normal spectral waveforms. Epididymis: Septated cyst in the epididymal head measuring 2.1 x 1.4 x 1.9 cm. Vascular flow on Color Doppler is symmetric to the contralateral side. Hydrocele: none Varicocele: absent IMPRESSION IMPRESSION: 1. Normal sonographic appearance of the testicles. Normal arterial and venous flow within both testes. 2. 2.1 x 1.4 x 1.9 cm septated cyst in the left epididymal head. Graphic Manager: BRYNN Transcribe Date/Time: Dec 26 2023 2:31P Dictated by : LAURIE HE MD This examination was interpreted and the report reviewed and electronically signed by: LAURIE HE MD on Dec 26 2023 2:35PM EST [facility] C-REACTIVE PROTEINon 024 CRP [Mass/Vol] 0.4 mg/dL [facility] - 0.9 mg/dL [facility] CBC W Auto Differential pane l (Bld)on 12-24-2023 Basophils (Bld) [#/Vol] 0.05 10*3/uL [facility] Basophils/100 WBC (Bld) 0.8 % [facility] Differential cell count method Nom (Bld) Auto [facility] Eosinophils (Bld) [#/Vol] 0.12 10*3/uL [facility] Eosinophils/100 WBC (Bld) 1.9 % [facility] Erythrocyte distribution width (RBC) [Ratio] 13.6 % 11.5 - 15.0 % [facility] Hematocrit (Bld) [Volume fraction] 46.2 % 39.0 - 51.0 % [facility] Hemoglobin (Bld) [Mass/Vol] 15.1 g/dL 13.0 - 17.0 g/dL [facility] Immature granulocytes (Bld) [#/Vol] [facility] Immature granulocytes/100 WBC (Bld) 0.3 % [facility] Lymphocytes (Bld) [#/Vol] 2.45 10*3/uL [facility] Lymphocytes/100 WBC (Bld) 39.0 % [facility] MCH (RBC) [Entitic mass] 30.2 pg 26.0 - 34.0 pg [facility] MCHC (RBC) [Mass/Vol] 32.7 g/dL 30.5 - 36.0 g/dL [facility] MCV (RBC) [Entitic vol] 92.4 fL 80.0 - 100.0 fL [facility] Monocytes (Bld) [#/Vol] 0.63 10*3/[facility] Monocytes/100 WBC (Bld) 10.0 % [facility] Neutrophils (Bld) [#/Vol] 3.01 10*3/uL [facility] Neutrophils/100 WBC (Bld) 48.0 % [facility] Nucleated RBC (Bld) [#/Vol] NINF [facility] Nucleated RBC/100 WBC (Bld) [Ratio] 0.0 % /100 WBC [facility] Platelet mean volume (Bld) [Entitic vol] 10.2 fL 9.0 - 12.7 fL [facility] Platelets (Bld) [#/Vol] 290 10*3/uL [facility] RBC (Bld) [#/Vol] 5.00 10*6/uL 4.20 - 6.0 0 m/uL [facility] WBC (Bld) [#/Vol] 6.28 10*3/uL [facility] Basophils (Bld) [#/Vol] 0.05 10*3/uL Normal <0.11 [facility] Comment on above: Order Comment: Speci men Type: BLOOD SPECIMENOrdering Facility: [facility] Address: [address] [place] [address] Performed By: #### 5 7021-8 ####[facility] LABCLIA [id number] [address] [place] Basophils/100 WBC (Bld) 0.8 % Normal [facility] Comment on above: Order Comment: Speci men Type: BLOOD SPECIMENOrdering Facility: [facility] Address: [address] [place] [address] Performed By: #### 5 7021-8 ####[facility] LABCLIA [id number] [place] [address] [place] Differential cell count method Nom (Bld) Auto Normal [facility] Comment on above: Order Comment: Speci men Type: BLOOD SPECIMENOrdering Facility: [facility] Address: [address] [place] [address] Performed By: #### 5 7021-8 ####[facility] LABCLIA [id number] [place] [address] [place] Eosinophils (Bld) [#/Vol] 0.12 10*3/uL Normal <0.46 [facility] Comment on above: Order Comment: Speci men Type: BLOOD SPECIMENOrdering Facility: [facility] Address: [address] [place] [address] Performed By: #### 5 7021-8 ####[facility] LABCLIA [id number] [place] [address] [place] Eosinophils/100 WBC (Bld) 1.9 % Normal [facility] Comment on above: Order Comment: Speci men Type: BLOOD SPECIMENOrdering Facility: [facility] Address: [address] [place] [address] Performed By: #### 5 7021-8 ####[facility] LABIA [id number] [place] [address] [place] Erythrocyte distribution width (RBC) [Ratio] 13.6 % Normal 11.5-15.0 [facility] Comment on above: Order Comment: Speci men Type: BLOOD SPECIMENOrdering Facility: [facility] Address: [address] [place] [address] Performed By: #### 5 7021-8 ####[facility] LABCLIA [id number] [place] [address] [place] Hematocrit (Bld) [Volume fraction] 46.2 % Normal 39.0-51.0 [facility] Comment on above: Order Comment: Speci men Type: BLOOD SPECIMENOrdering Facility: [facility] Address: [address] [place] [address] Performed By: #### 5 7021-8 ####[facility] LABCLIA [id number] [place] [address] [place] Hemoglobin (Bld) [Mass/Vol] 15.1 g/dL Normal 13.0-17.0 [facility] Comment on above: Order Comment: Speci men Type: BLOOD SPECIMENOrdering Facility: [facility] Address: [address] [place] [address] Performed By: #### 5 7021-8 ####[facility] LABCLIA [id number] [place] [address] [place] Immature granulocytes (Bld) [#/Vol] 10*3/uL Normal <0.10 [facility] Comment on above: Order Comment: Speci men Type: BLOOD SPECIMENOrdering Facility: [facility] Address: [address] [place] [address] Performed By: #### 5 7021-8 ####[facility] LABCLIA [id number] [place] [address] [place] Immature granulocytes/100 WBC (Bld) 0.3 % Normal [facility] Comment on above: Order Comment: Speci men Type: BLOOD SPECIMENOrdering Facility: [facility] Address: [address] [place] [address] Performed By: #### 5 7021-8 ####[facility] LABCLIA [id number] [place] [address] [place] Lymphocytes (Bld) [#/Vol] 2.45 10*3/uL Normal 1.00-4.00 [facility] Comment on above: Order Comment: Speci men Type: BLOOD SPECIMENOrdering Facility: [facility] Address: [address] [place] [address] Performed By: #### 5 7021-8 ####[facility] LABCLIA [id number] [place] [address] [place] Lymphocytes/100 WBC (Bld) 39.0 % Normal [facility] Comment on above: Order Comment: Speci men Type: BLOOD SPECIMENOrdering Facility: [facility] Address: [address] [place] [address] Performed By: #### 5 7021-8 ####[facility] LABCLIA [id number] [place] [address] [place] MCH (RBC) [Entitic mass] 30.2 pg Normal 26.0-34.0 [facility] Comment on above: Order Comment: Speci men Type: BLOOD SPECIMENOrdering Facility: [facility] Address: [address] [place] [address] Performed By: #### 5 7021-8 ####[facility] LABCLIA [id number] [place] [address] [place] MCHC (RBC) [Mass/Vol] 32.7 g/dL Normal 30.5-36.0 [facility] Comment on above: Order Comment: Speci men Type: BLOOD SPECIMENOrdering Facility: [facility] Address: [address] [place] [address] Performed By: #### 5 7021-8 ####[facility] LABIA [id number] [place] [address] [place] MCV (RBC) [Entitic vol] 92.4 fL Normal 80.0-100.0 [facility] Comment on above: Order Comment: Speci men Type: BLOOD SPECIMENOrdering Facility: [facility] Address: [address] [place] [address] Performed By: #### 5 7021-8 ####[facility] LABCLIA [id number] [place] [address] [place] Monocytes (Bld) [#/Vol] 0.63 10*3/uL Normal <0.87 [facility] Comment on above: Order Comment: Speci men Type: BLOOD SPECIMENOrdering Facility: [facility] Address: [address] [place] [address] Performed By: #### 5 7021-8 ####[facility] LABCLIA [id number] [place] [address] [place] Monocytes/100 WBC (Bld) 10.0 % Normal [facility] Comment on above: Order Comment: Speci men Type: BLOOD SPECIMENOrdering Facility: [facility] Address: [address] [place] [address] Performed By: #### 5 7021-8 ####[facility] LABCLIA [id number] [place] [address] [place] Neutrophils (Bld) [#/Vol] 3.01 10*3/uL Normal 1.45-7.50 [facility] Comment on above: Order Comment: Speci men Type: BLOOD SPECIMENOrdering Facility: [facility] Address: [address] [place] [address] Performed By: #### 5 7021-8 ####[facility] LABCLIA [id number] [place] [address] [place] Neutrophils/100 WBC (Bld) 48.0 % Normal [facility] Comment on above: Order Comment: Speci men Type: BLOOD SPECIMENOrdering Facility: [facility] Address: [address] [place] [address] Performed By: #### 5 7021-8 ####[facility] LABCLIA [id number] [place] [address] [place] Nucleated RBC (Bld) [#/Vol] 10*3/uL Normal <0.01 [facility] Comment on above: Order Comment: Speci men Type: BLOOD SPECIMENOrdering Facility: [facility] Address: [address] [place] [address] Performed By: #### 5 7021-8 ####[facility] LABCLIA [id number] [place] [address] [place] Nucleated RBC/100 WBC (Bld) [Ratio] 0.0 /100 WBC Normal [facility] Comment on above: Order Comment: Speci men Type: BLOOD SPECIMENOrdering Facility: [facility] Address: [address] [place] [address] Performed By: #### 5 7021-8 ####[facility] LABIA [id number] [place] [address] [place] Platelet mean volume (Bld) [Entitic vol] 10.2 fL Normal 9.0-12.7 [facility] Comment on above: Order Comment: Speci men Type: BLOOD SPECIMENOrdering Facility: [facility] Address: [address] [place] [address] Performed By: #### 5 7021-8 ####[facility] LABIA [id number] [place] [address] [place] Platelets (Bld) [#/Vol] 290 10*3/uL Normal 150-400 [facility] Comment on above: Order Comment: Speci men Type: BLOOD SPECIMENOrdering Facility: [facility] Address: [address] [place] [address] Performed By: #### 5 7021-8 ####[facility] LABIA [id number] [place] [address] [place] RBC (Bld) [#/Vol] 5.00 10*6/uL Normal 4.20-6.00 [facility] Comment on above: Order Comment: Speci men Type: BLOOD SPECIMENOrdering Facility: [facility] Address: [address] [place] [address] Performed By: #### 5 7021-8 ####[facility] LABIA [id number] [place] [address] [place] WBC (Bld) [#/Vol] 6.28 10*3/uL Normal 3.70-11.00 [facility] Comment on above: Order Comment: Speci men Type: BLOOD SPECIMENOrdering Facility: [facility] Address: [address] [place] [address] Performed By: #### 5 7021-8 ####[facility] LABCLIA [id number] [id number] [id number] [facility] CNOVon 12-24-2023 CNOV Office Visit (FAMPWS ) EDUARDO JONES ([id number]) 1955 M Date Time Provider Department 12/24/23 7:20 AM [facility] During your visit today, we recorded the following information about you: Pulse Respiration Blood pressure Weight 69/minute 16/minute 118/64 95.6 kg Errol Avalos APRN.REPORT PROGRAMMER 12/24/2023 4:11 PM Signed Chief Complaint Patient presents with: Follow Up: Diverticulitis, abdominal discomfort, completed treatment. HPI Eduardo Jones is a 68 year old male who presents here today for Above Complaints.. Lower abdomen bilaterally feels pretty achy, but not severe pain. Diet-pretty much eating normally. No change in bowel movements. Did complete his 1-week treatment. Area in left scrotum feels pinching feeling for the past 4 days. Does not go away, not aware of anything that makes it worse or better. Hasn't been able to feel anything abnormal in his scrotal sack. Has tried a warm shower, cool shower, wearing no underwear. Past medical history, appointments, medications, allergies reviewed. Previous Medical History PAST MEDICAL HISTORY 06/30/2019: Alcoholism (HCC) Comment: From previous records No date: Allergic rhinitis No date: Asthma No date: Asthma without status asthmaticus 06/30/2019: ED (erectile dysfunction) of organic origin Comment: From previous records. No date: Erectile dysfunction No date: Family history of coronary artery disease Comment: Stress Echo- 09/08/[address] Duran 06/30/2019: TAYO (generalized anxiety disorder) Comment: From previous records No date: Generalized anxiety disorder No date: Hypercholesteremia No date: Insomnia No date: Lyme disease No date: Umbilical hernia Previous Surgical History PAST SURGICAL HISTORY 05/12/2007: COLONOSCOPY FLX DX W/COLLJ SPEC WHEN PFRMD 09/2012: KNEE ARTHROSCOPY; Left 1997: PAST SURGICAL HISTORY OF Comment: discectomy L4/L5 11/30/2020: REPAIR UMBILICAL HERNIA Family History FAMILY HISTORY Problem Relation Age of Onset No Known Problems Mother in good health Heart Father CABG @ age 54 Dementia Father Alcohol/Drug Sister other (Lupus) Sister no longer being treated Alcohol/Drug Brother Patient Allergies ALLERGIES No Active Allergies Current Medications Current Outpatient Medications on File Prior to Visit Medication Sig Ipratropium Semmes (ATROVENT) 21 mcg (0.03 %) nasal spray Use 2 Sprays in the nose every 12 hours. montelukast (SINGULAIR) 10 mg tablet Take 1 tablet by mouth daily at bedtime. TURMERIC ORAL Take by mouth. cefdinir (OMNICEF) 300 mg capsule Take 1 capsule by mouth two times a day for 7 days. (Patient not taking: Reported on 12/24/2023) metroNIDAZOLE (FLAGYL) 500 mg tablet Take 1 tablet by mouth every 8 hours for 7 days. (Patient not taking: Reported on 12/24/2023) rosuvastatin (CRESTOR) 10 mg tablet Take 1 tablet by mouth daily at bedtime. (Patient not taking: Reported on 12/24/2023) No current facility-administered medications on file prior to visit. Social History Social History Tobacco Use Smoking status: Never Smokeless tobacco: Never Vaping Use Vaping status: Never Used Substance Use Topics Alcohol use: Never Drug use: Not Currently Review of Symptoms REVIEW OF SYSTEMS See HPI, otherwise negative EXAM: BP 118/64 (BP Site: Left Arm, BP Position: Sitting, BP Cuff Size: Regular Adult) Pulse 69 Resp 16 Wt 95.6 kg (210 lb 12.8 oz) SpO2 95% BMI 28.59 kg/m? General Appearance: Well appearing, alert, in no acute distress, well-hydrated, well nourished.. Lungs: Lungs clear to auscultation. No wheezing, rhonchi, rales.. Heart: RRR without murmur, gallop, or rubs. No ectopy. Abdomen: Abdomen soft, bowel sounds normal. No masses, organomegaly. Bilateral lower abdomen tender to palpation with area to RLQ that was more significantly painful with palpation Genitalia: Penis normal. No urethral discharge. Left scrotum moderately painful to palpation. No abnormalities palpated. Psychiatric: pleasant, cooperative. Health Maintenance List Depression Screening Never done Advance Directive Discussion Never done Covid-19 Vaccine( season) Never done Influenza Vaccine(1) due on 12/15/2023 DTaP,Tdap,Td Vaccine(1 - Tdap) due on 10/30/2024 Spirometry due on 10/30/2024 RSV Vaccine(1 - 1-dose 60+ series) due on 10/30/2024 Shingrix Vaccine(2 of 2) due on 10/30/2024 Pneumococcal Vaccine: 65+(2 of 2 - PPSV23 or PCV20) due on 10/30/2024 Annual PCP Team Chronic Disease Visit due on 12/16/2024 Diabetes Screening due on 12/16/2026 Lipid Screening due on 10/30/2028 Prostate Cancer Screening Discussion due on 10/30/2028 Colorectal Cancer Screening due on 01/05/2030 Hepatitis C Screening Discontinued Data reviewed Previous records, office notes ASSESSMENT/PLAN: 1. Scrotal pain - ICD9: 608.9, ICD10: N50.82 (p (more content not included)... Normal [facility] CRP SerPl-mCncon 12-24-2023 CRP [Mass/Vol] 0.4 mg/dL Normal <0.9 [facility] Comment on above: Order Comment: Speci men Type: BLOOD SPECIMENOrdering Facility: [facility] Address: [address] [place] [address] Performed By: #### 1 988-5 ####[facility] LABCLIA [id number] [facility] [id number] [address] [place] CRP [Mass/Vol]on 12-24-2023 Interpretation and review of laboratory results Normal [facility] CBC W Auto Differential pane l (Bld)on 12-17-2023 Basophils (Bld) [#/Vol] 0.04 10*3/uL [facility] Basophils/100 WBC (Bld) 0.3 % [facility] Differential cell count method Nom (Bld) Auto [facility] Eosinophils (Bld) [#/Vol] 0.04 10*3/uL [facility] Eosinophils/100 WBC (Bld) 0.3 % [facility] Erythrocyte distribution width (RBC) [Ratio] 13.5 % 11.5 - 15.0 % [facility] Hematocrit (Bld) [Volume fraction] 44.2 % 39.0 - 51.0 % [facility] Hemoglobin (Bld) [Mass/Vol] 14.7 g/dL 13.0 - 17.0 g/dL [facility] Immature granulocytes (Bld) [#/Vol] [facility] Immature granulocytes/100 WBC (Bld) 0.2 % [facility] Interpretation and review of laboratory results Abnormal [facility] Lymphocytes (Bld) [#/Vol] 1.88 10*3/uL [facility] [facility] Lymph[facility]/100 WBC (Bld) 15.8 % [facility] MCH (RBC) [Entitic mass] 30.2 pg 26.0 - 34.0 pg [facility] MCHC (RBC) [Mass/Vol] 33.3 g/dL 30.5 - 36.0 g/dL [facility] MCV (RBC) [Entitic vol] 90.9 fL 80.0 - 100.0 fL [facility] Monocytes (Bld) [#/Vol] 1.09 10*3/uL High [facility] Monocytes/100 WBC (Bld) 9.2 % [facility] Neutrophils (Bld) [#/Vol] 8.81 10*3/uL High [facility] Neutrophils/100 WBC (Bld) 74.2 % [facility] Nucleated RBC (Bld) [#/Vol] [facility] Nucleated RBC/100 WBC (Bld) [Ratio] 0.0 % /100 WBC [facility] Platelet mean volume (Bld) [Entitic vol] 10.3 fL 9.0 - 12.7 fL [facility] Platelets (Bld) [#/Vol] 262 10*3/uL [facility] RBC (Bld) [#/Vol] 4.86 10*6/uL 4.20 - 6.0 0 m/uL [facility] WBC (Bld) [#/Vol] 11.88 10*3/uL High [facility] Basophils (Bld) [#/Vol] 0.04 10*3/uL Normal <0.11 [facility] Comment on above: Order Comment: Speci men Type: BLOOD SPECIMENOrdering Facility: [facility] Address: [address] [place] [address] Performed By: #### 5 7021-8 ####[facility] MILLWNCLIA [id number] [place] [address] [place] Basophils/100 WBC (Bld) 0.3 % Normal [facility] Comment on above: Order Comment: Speci men Type: BLOOD SPECIMENOrdering Facility: [facility] Address: [address] [place] [address] Performed By: #### 5 7021-8 ####[facility]ENTER[facility]IA [id number] [place] [address] [place] Differential cell count method Nom (Bld) Auto Normal [facility] Comment on above: Order Comment: Speci men Type: BLOOD SPECIMENOrdering Facility: [facility] Address: [address] [place] [address] Performed By: #### 5 7021-8 ####[facility] MILLTOWNCLIA [id number] [place] [address] [place] Eosinophils (Bld) [#/Vol] 0.04 10*3/uL Normal <0.46 [facility] Comment on above: Order Comment: Speci men Type: BLOOD SPECIMENOrdering Facility: [facility] Address: [address] [place] [address] Performed By: #### 5 7021-8 ####[facility] MILLWNCLIA [id number] [place] [id number] [place] Eosinophils/100 WBC (Bld) 0.3 % Normal [facility] Comment on above: Order Comment: Speci men Type: BLOOD SPECIMENOrdering Facility: [facility] Address: [address] [place] [address] Performed By: #### 5 7021-8 ####[facility] [id number] [place] [address] [place] Erythrocyte distribution width (RBC) [Ratio] 13.5 % Normal 11.5-15.0 [facility] Comment on above: Order Comment: Speci men Type: BLOOD SPECIMENOrdering Facility: [facility] Address: [address] [place] [address] Performed By: #### 5 7021-8 ####[facility] [id number] [place] [address] [place] Hematocrit (Bld) [Volume fraction] 44.2 % Normal 39.0-51.0 [facility] Comment on above: Order Comment: Speci men Type: BLOOD SPECIMENOrdering Facility: [facility] Address: [address] [place] [address] Performed By: #### 5 7021-8 ####[facility]ENTERLIA [id number] [place] [address] [place] Hemoglobin (Bld) [Mass/Vol] 14.7 g/dL Normal 13.0-17.0 [facility] Comment on above: Order Comment: Speci men Type: BLOOD SPECIMENOrdering Facility: [facility] Address: [address] [place] [address] Performed By: #### 5 7021-8 ####[facility]CL[facility] [id number] [place] [address] [place] Immature granulocytes (Bld) [#/Vol] 10*3/uL Normal <0.10 [facility] Comment on above: Order Comment: Speci men Type: BLOOD SPECIMENOrdering Facility: [facility] Address: [address] [place] [address] Performed By: #### 5 7021-8 ####[facility]ITALGREGORY [id number] [place] [address] [place] Immature granulocytes/100 WBC (Bld) 0.2 % Normal [facility] Comment on above: Order Comment: Speci men Type: BLOOD SPECIMENOrdering Facility: [facility] Address: [address] [place] [address] Performed By: #### 5 7021-8 ####[facility] [id number] [place] [address] [place] Lymphocytes (Bld) [#/Vol] 1.88 10*3/uL Normal 1.00-4.00 [facility] Comment on above: Order Comment: Speci men Type: BLOOD SPECIMENOrdering Facility: [facility] Address: [address] [place] [address] Performed By: #### 5 7021-8 ####[facility] [id number] [address] [place] [facility] Lymphocytes/100 WBC (Bld) 15.8 % Normal [facility] Comment on above: Order Comment: Speci men Type: BLOOD SPECIMENOrdering Facility: [facility] Address: [address] [place] [address] Performed By: #### 5 7021-8 ####[facility] [id number] [place] [address] [place] MCH (RBC) [Entitic mass] 30.2 pg Normal 26.0-34.0 [facility] Comment on above: Order Comment: Speci men Type: BLOOD SPECIMENOrdering Facility: [facility] Address: [address] [place] [address] Performed By: #### 5 7021-8 ####[facility] [id number] [place] [address] [place] MCHC (RBC) [Mass/Vol] 33.3 g/dL Normal 30.5-36.0 [facility] Comment on above: Order Comment: Speci men Type: BLOOD SPECIMENOrdering Facility: [facility] Address: [address] [place] [address] Performed By: #### 5 7021-8 ####[facility] [id number] [place] [address] [place] MCV (RBC) [Entitic vol] 90.9 fL Normal 80.0-100.0 [facility] Comment on above: Order Comment: Speci men Type: BLOOD SPECIMENOrdering Facility: [facility] Address: [address] [place] [address] Performed By: #### 5 7021-8 ####[facility] [id number] [place] [address] [place] Monocytes (Bld) [#/Vol] 1.09 10*3/uL High <0.87 [facility] Comment on above: Order Comment: Speci men Type: BLOOD SPECIMENOrdering Facility: [facility] Address: [address] [place] [address] Performed By: #### 5 7021-8 ####[facility] CENTERLIA [id number] [place] [address] [place] Monocytes/100 WBC (Bld) 9.2 % Normal [facility] Comment on above: Order Comment: Speci men Type: BLOOD SPECIMENOrdering Facility: [facility] Address: [address] [place] [address] Performed By: #### 5 7021-8 ####[facility] [id number] [place] [address] [place] Neutrophils (Bld) [#/Vol] 8.81 10*3/uL High 1.45-7.50 [facility] Comment on above: Order Comment: Speci men Type: BLOOD SPECIMENOrdering Facility: [facility] Address: [address] [place] [address] Performed By: #### 5 7021-8 ####[facility]ENTERLIA [id number] [place] [address] [place] Neutrophils/100 WBC (Bld) 74.2 % Normal [facility] Comment on above: Order Comment: Speci men Type: BLOOD SPECIMENOrdering Facility: [facility] Address: [address] [place] [address] Performed By: #### 5 7021-8 ####[facility] [id number] [place] [address] [place] Nucleated RBC (Bld) [#/Vol] 10*3/uL Normal <0.01 [facility] Comment on above: Order Comment: Speci men Type: BLOOD SPECIMENOrdering Facility: [facility] Address: [address] [place] [address] Performed By: #### 5 7021-8 ####[facility] [id number] [place] [address] [place] Nucleated RBC/100 WBC (Bld) [Ratio] 0.0 /100 WBC Normal [facility] Comment on above: Order Comment: Speci men Type: BLOOD SPECIMENOrdering Facility: [facility] Address: [address] [place] [address] Performed By: #### 5 7021-8 ####[facility] [id number] [place] [address] [place] Platelet mean volume (Bld) [Entitic vol] 10.3 fL Normal 9.0-12.7 [facility] Comment on above: Order Comment: Speci men Type: BLOOD SPECIMENOrdering Facility: [facility] Address: [address] [place] [address] Performed By: #### 5 7021-8 ####[facility] EMBERNCLIVIAA [id number] [place] [address] [place] Platelets (Bld) [#/Vol] 262 10*3/uL Normal 150-400 [facility] Comment on above: Order Comment: Speci men Type: BLOOD SPECIMENOrdering Facility: [facility] Address: [address] [place] [address] Performed By: #### 5 7021-8 ####[facility] ENATRENARYNCLIA [id number] [place] [address] [place] RBC (Bld) [#/Vol] 4.86 10*6/uL Normal 4.20-6.00 [facility] Comment on above: Order Comment: Speci men Type: BLOOD SPECIMENOrdering Facility: [facility] Address: [address] [place] [address] Performed By: #### 5 7021-8 ####[facility] [id number] [place] [address] [place] WBC (Bld) [#/Vol] 11.88 10*3/uL High 3.70-11.00 [facility] Comment on above: Order Comment: Speci men Type: BLOOD SPECIMENOrdering Facility: [facility] Address: [address] [place] [address] Performed By: #### 5 7021-8 ####[facility] H[facility]CL[facility] [id number] [place] [address] [facility] CNOVon 12-17-2023 CNOV Office Visit (FAMPWS ) EDUARDO JONES ([id number]) 1955 M Date Time Provider Department 12/17/23 8:20 AM FELIPE FOSTER During your visit today, we recorded the following information about you: Temperature Pulse Respiration Blood pressure 98.1 degrees 79/minute 14/minute 130/70 Weight Height 95.3 kg 1.829 m Felipe Foster PA-C 12/17/2023 6:31 PM Signed 12/17/2023 Patient presents with: Same Day Appointment: sharp abdominal pain since last night SUBJECTIVE: This is a 68 year old that is here today for Complaint(s) of lower abdominal pain x last night. States he started with mid lower abdominal pain that is constant. Tried a stool softener and hydrated. Had a normal BM this morning. Denies blood. 4 years ago had divertiulitis, has not had since. Similar pain as this. + nausea, no vomiting. Still has a normal appetite. Still has appendix. Denies fever/chills, chest pain, SOB. Having some mild lower back pain. Notes some dysuria, but no hematuria. No incontinence. PAST MEDICAL HISTORY 06/30/2019: Alcoholism (HCC) Comment: From previous records No date: Allergic rhinitis No date: Asthma No date: Asthma without status asthmaticus 06/30/2019: ED (erectile dysfunction) of organic origin Comment: From previous records. No date: Erectile dysfunction No date: Family history of coronary artery disease Comment: Stress Echo- 09/08/[address] Duran 06/30/2019: TAYO (generalized anxiety disorder) Comment: From previous records No date: Generalized anxiety disorder No date: Hypercholesteremia No date: Insomnia No date: Lyme disease No date: Umbilical hernia ALLERGIES Patient has no active allergies. MEDICATIONS Current Outpatient Medications Medication Sig rosuvastatin (CRESTOR) 10 mg tablet Take 1 tablet by mouth daily at bedtime. Ipratropium Semmes (ATROVENT) 21 mcg (0.03 %) nasal spray Use 2 Sprays in the nose every 12 hours. montelukast (SINGULAIR) 10 mg tablet Take 1 tablet by mouth daily at bedtime. TURMERIC ORAL Take by mouth. No current facility-administered medications for this visit. SOCIAL HISTORY Social History Tobacco Use Smoking status: Never Smokeless tobacco: Never Vaping Use Vaping status: Never Used Substance Use Topics Alcohol use: Never Drug use: Not Currently REVIEW OF SYSTEMS See HPI OBJECTIVE: BP 130/70 (BP Site: Left Arm, BP Position: Sitting, BP Cuff Size: Large Adult) Pulse 79 Temp 36.7 ?C (98.1 ?F) Resp 14 Ht 182.9 cm (6') Wt 95.3 kg (210 lb) SpO2 97% BMI 28.48 kg/m? APPEARANCE Well appearing, alert, in no acute distress, well-hydrated, well nourished. ABDOMEN bowel sounds normoactive,soft, + LLQ and mid lower abdominal pain. Negative McBurney's, NEgative Ulloa's. No rebound, rigidity or guarding. non-distended, without organomegaly or palpable masses. Negative Rovsing's. BACK: Normal exam, no cva TTP ASSESSMENT/PLAN: 1. Lower abdominal pain - ICD9: 789.09, ICD10: R10.30 -Suspect probably diverticulitis. R/o appendicitis. CT Abdomen stat today. - COMPLETE BLOOD COUNT AND DIFFERENTIAL - COMPREHENSIVE METABOLIC PANEL - LIPASE - CT ABD/PEL W IVCON - UA DIP B/O-negative Reviewed red flags and when to seek care sooner. The patient indicates understanding of these issues and agrees with the plan. Felipe Foster PA-C Allergies As of Date: 12/17/2023 (No Active Allergies) Date Reviewed: 12/17/2023 Reviewed by: Felipe Foster PA-C - Fully Assessed Reason for Visit: Same Day Appointment [255] Cmt: sharp abdominal pain since last night Primary Visit Diagnosis:Lower abdominal pain [R10.30] Order(s):COMPLETE BLOOD COUNT AND DIFFERENTIAL [SQCBCDIF] Order #: [id number] FUTURE COMPREHENSIVE METABOLIC PANEL [SQCMP] Order #: [id number] FUTURE LIPASE [SQLIPA] Order #: [id number] FUTURE CT ABD/PEL W IVCON [[id number]] Order #: [id number] FUTURE iv contrast (will be provided with radiology test)CT ABD/PEL -Inject, intravenously, once for 1 dose.No IV access, insert saline lock prior to the beginning of sedation, infusion, injection of imaging exam. Discontinue saline lock post exam. If Pt. has a central line or IVAD, may access for administration according to line specific nursing protocol. Once exam is complete flush line and de-access according to line specific nursing protocol in the CT contrast administration guidelines link.Disp: 1 EachRfl: 0 enteric contrast (will be provided with radiology test)For CT ABD/PEL W IVCON Routine order Administer, As Directed One Time Only, via Oral, Rectal, both Oral and Rectal, Enteric Tube, Stoma or Indwelling Catheter, Enteric Contrast as designated per enteric contrast guidelinesDisp: 1 EachRfl: 0 UA DIP B/O [[id number]] Order #: [id number] UA DIP, URINE (POC) [[id number]] Order #: [id number]. #:[id number] Prescriptions as of 0 (more content not included)... Normal [facility] CNOV Office Visit (WSTR ) EDUARDO JONES ([id number]) 1955 M Date Time Provider Department 12/17/23 7:45 AM FERMIN MCNULTY [facility] During your visit today, we recorded the following information about you: Fermin Mcnulty APRN.CNP 12/17/2023 9:10 AM Signed Nontoxic-appearing male presents urgent care chief complaint left lower abdominal pain. Duration of symptoms 12 hours. Associated symptoms left lower abdominal pain. History of diverticulitis. Rates pain 6-7 out of 10. Exacerbated by palpation. No OTC medication use. Vital signs stable. Able establish an appointment for patient today at internal medicine at 820. Fermin Mcnulty APRN.CNP Allergies As of Date: 12/17/2023 (No Active Allergies) Date Reviewed: 12/17/2023 Reviewed by: Felipe Foster PA-C - Fully Assessed Primary Visit Diagnosis:Procedure not carried out [Z53.9] Prescriptions as of 12/17/2023 - iv contrast (will be provided with radiology test) CT ABD/PEL -Inject, intravenously, once for 1 dose.No IV access, insert saline lock prior to the beginning of sedation, infusion, injection of imaging exam. Discontinue saline lock post exam. If Pt. has a central line or IVAD, may access for administration according to line specific nursing protocol. Once exam is complete flush line and de-access according to line specific nursing protocol in the CT contrast administration guidelines link. - enteric contrast (will be provided with radiology test) For CT ABD/PEL W IVCON Routine order Administer, As Directed One Time Only, via Oral, Rectal, both Oral and Rectal, Enteric Tube, Stoma or Indwelling Catheter, Enteric Contrast as designated per enteric contrast guidelines - rosuvastatin (CRESTOR) 10 mg tablet Take 1 tablet by mouth daily at bedtime. - Ipratropium Semmes (ATROVENT) 21 mcg (0.03 %) nasal spray Use 2 Sprays in the nose every 12 hours. - montelukast (SINGULAIR) 10 mg tablet Take 1 tablet by mouth daily at bedtime. - TURMERIC ORAL Take by mouth. Problem List As Of Date 12/17/2023 Noted Resolved Dyslipidemia [E78.5] 05/13/2019 Wheezing [R06.2] 05/13/2019 VIERA (dyspnea on exertion) [R06.09] 05/13/2019 Well adult exam [Z00.00] 05/13/2019 ED (erectile dysfunction) of organic origin [N5*06/30/2019 TAYO (generalized anxiety disorder) [F41.1] 06/30/2019 Asthma [J45.909] 06/30/2019 Lyme disease [A69.20] 06/30/2019 Alcoholism (HCC) [F10.20] 06/30/2019 Umbilical hernia without obstruction and withou*11/30/2020 11/30/2020 Encounter Status:Closed by FERMIN MCNULTY on 12/17/23 [facility] Shimon 12-17-2023 CNPN Telephone (FAMPWS) EDUARDO JONES ([id number]) 1955 M Date Time Provider Department 12/17/23 FELIPE FOSTER During your visit today, we recorded the following information about you: Felipe Foster PA-C 12/17/2023 2:09 PM Signed I spoke with patient and reviewed CT results- + for diverticulitis. Antibiotics prescribed. Advise liquid diet, and slowly advance diet as pain and symptoms are improving/resolving. Reviewed red flags and when to seek care sooner, including fever >100, vomiting, worsening abdominal pain. Recommend f/u for recheck in 4-5 days, please help schedule follow up visit. Felipe Foster PA-C 12/17/2023 Bobby Brock LPN 12/17/2023 3:38 PM Signed Phoned patient and notified him that a follow up appointment is needed. Appointment made for Saturday12/24/23. Patient declined appt on Saturday the due to travel. Bobby Brock LPN Allergies As of Date: 12/17/2023 (No Active Allergies) Date Reviewed: 12/17/2023 Reviewed by: Felipe Foster PA-C - Fully Assessed Primary Visit Diagnosis:Diverticulit is [K57.92] Order(s):cefdinir (OMNICEF) 300 mg capsuleTake 1 capsule by mouth two times a day for 7 days.Disp: 14 capsuleRfl: 0 metroNIDAZOLE (FLAGYL) 500 mg tabletTake 1 tablet by mouth every 8 hours for 7 days.Disp: 21 tabletRfl: 0 Prescriptions as of 12/17/2023 - iv contrast (will be provided with radiology test) CT ABD/PEL -Inject, intravenously, once for 1 dose.No IV access, insert saline lock prior to the beginning of sedation, infusion, injection of imaging exam. Discontinue saline lock post exam. If Pt. has a central line or IVAD, may access for administration according to line specific nursing protocol. Once exam is complete flush line and de-access according to line specific nursing protocol in the CT contrast administration guidelines link. - enteric contrast (will be provided with radiology test) For CT ABD/PEL W IVCON Routine order Administer, As Directed One Time Only, via Oral, Rectal, both Oral and Rectal, Enteric Tube, Stoma or Indwelling Catheter, Enteric Contrast as designated per enteric contrast guidelines - cefdinir (OMNICEF) 300 mg capsule Take 1 capsule by mouth two times a day for 7 days. - metroNIDAZOLE (FLAGYL) 500 mg tablet Take 1 tablet by mouth every 8 hours for 7 days. - rosuvastatin (CRESTOR) 10 mg tablet Take 1 tablet by mouth daily at bedtime. - Ipratropium Semmes (ATROVENT) 21 mcg (0.03 %) nasal spray Use 2 Sprays in the nose every 12 hours. - montelukast (SINGULAIR) 10 mg tablet Take 1 tablet by mouth daily at bedtime. - TURMERIC ORAL Take by mouth. Problem List As Of Date 12/17/2023 Noted Resolved Dyslipidemia [E78.5] 05/13/2019 Wheezing [R06.2] 05/13/2019 VIERA (dyspnea on exertion) [R06.09] 05/13/2019 Well adult exam [Z00.00] 05/13/2019 ED (erectile dysfunction) of organic origin [N5*06/30/2019 TAYO (generalized anxiety disorder) [F41.1] 06/30/2019 Asthma [J45.909] 06/30/2019 Lyme disease [A69.20] 06/30/2019 Alcoholism (HCC) [F10.20] 06/30/2019 Umbilical hernia without obstruction and withou*11/30/2020 11/30/2020 Prescriptions ordered this encounter Disp Refills Start End CEFDINIR 300 MG CAPSULE 14 c* 0 12/17/2023 12/24/2023 Route: ORAL Sig: Take 1 capsule by mouth two times a day for 7 days. METRONIDAZOLE 500 MG TABLET 21 t* 0 12/17/2023 12/24/2023 Route: ORAL Sig: Take 1 tablet by mouth every 8 hours for 7 days. Encounter Status:Closed by BOBBY BROCK on 12/17/23 [facility] CT ABD/PEL W IVCONon 024 CT ABD/PEL W IVCON * * *Final Report* * * DATE OF EXAM: Dec 17 2023 1:20PM [facility] 0530 - CT ABD/PEL W IVCON / PROCEDURE REASON: Lower abdominal pain * * * * Physician Interpretation * * * * EXAMINATION: CT ABDOMEN AND PELVIS WITH IV CONTRAST CLINICAL HISTORY: Lower abdominal pain; just inferior to the umbilicus TECHNIQUE: CT of the abdomen and pelvis was performed using standard technique, scanning from just above the dome of the diaphragm to the symphysis pubis. MQ: CTAP_3 Contrast: IV: 100 ml of Omnipaque 350 Oral: 20 ml of Omni 240 10-25ml diluted with water CT Radiation dose: Integrated Dose-length product (DLP) for this visit = 809.39 mGy*cm. CT Dose Reduction Employed: Automated exposure control(AEC) and iterative recon COMPARISON: None. RESULT: Liver: No mass. Biliary: No bile duct dilation. Spleen: No mass. No splenomegaly. Pancreas: No mass or duct dilation. Adrenals: No mass. Kidneys: Right kidney is unremarkable. No calculus or hydronephrosis. Left kidney contains a small 2 cm cyst. No calculus or hydronephrosis. GI tract: The stomach and small bowel are unremarkable. No evidence of obstruction. There is severe diverticulosis of the left and sigmoid colon. There is focal inflammation within the region of the proximal sigmoid colon, consistent with acute diverticulitis. No perforation or abscess formation is seen. There is more mild generalized diverticulosis of the remainder of the colon. Appendix appears normal. Lymph nodes: No abdominal or pelvic lymphadenopathy. Mesentery/Peritoneum: No ascites or mass. Retroperitoneum: No mass. Vasculature: No aortic aneurysm. Pelvis: No mass, ascites or fluid collection. Small bilateral fat-containing inguinal hernias. Bones/Soft Tissues: No acute osseous abnormality is seen Lower thorax: Unremarkable. Localizer images: IMPRESSION: 1. Acute diverticulitis of the sigmoid colon. No perforation or abscess formation is seen. Graphic Manager: BRYNN Transcribe Date/Time: Dec 17 2023 1:32P Dictated by : JOVITA WING MD This examination was interpreted and the report reviewed and electronically signed by: JOVITA WING MD on Dec 17 2023 1:41PM EST [id number] Normal [facility] CT Abdomen and Pelvis W cont rast [place] 12-17-2023 IMPRESSION: 1. Acute diverticulitis of the sigmoid colon. No perforation or abscess formation is seen. Graphic Manager: BRYNN Transcribe Date/Time: Dec 17 2023 1:32P Dictated by : JOVITA WING MD This examination was interpreted and the report reviewed and electronically signed by: JOVITA WING MD on Dec 17 2023 1:41PM [facility] * * *Final Report* * * DATE OF EXAM: Dec 17 2023 1:20PM [facility] 0530 - CT ABD/PEL W IVCON / PROCEDURE REASON: Lower abdominal pain * * * * Physician Interpretation * * * * EXAMINATION: CT ABDOMEN AND PELVIS WITH IV CONTRAST CLINICAL HISTORY: Lower abdominal pain; just inferior to the umbilicus TECHNIQUE: CT of the abdomen and pelvis was performed using standard technique, scanning from just above the dome of the diaphragm to the symphysis pubis. MQ: CTAP_3 Contrast: IV: 100 ml of Omnipaque 350 Oral: 20 ml of Omni 240 10-25ml diluted with water CT Radiation dose: Integrated Dose-length product (DLP) for this visit = 809.39 mGy*cm. CT Dose Reduction Employed: Automated exposure control(AEC) and iterative recon COMPARISON: None. RESULT: Liver: No mass. Biliary: No bile duct dilation. Spleen: No mass. No splenomegaly. Pancreas: No mass or duct dilation. Adrenals: No mass. Kidneys: Right kidney is unremarkable. No calculus or hydronephrosis. Left kidney contains a small 2 cm cyst. No calculus or hydronephrosis. GI tract: The stomach and small bowel are unremarkable. No evidence of obstruction. There is severe diverticulosis of the left and sigmoid colon. There is focal inflammation within the region of the proximal sigmoid colon, consistent with acute diverticulitis. No perforation or abscess formation is seen. There is more mild generalized diverticulosis of the remainder of the colon. Appendix appears normal. Lymph nodes: No abdominal or pelvic lymphadenopathy. Mesentery/Peritoneum: No ascites or mass. Retroperitoneum: No mass. Vasculature: No aortic aneurysm. Pelvis: No mass, ascites or fluid collection. Small bilateral fat-containing inguinal hernias. Bones/Soft Tissues: No acute osseous abnormality is seen Lower thorax: Unremarkable. Localizer images: [facility] Provider, Patria fry [place] - 12/17/2023 * * *Final Report* * * DATE OF EXAM: Dec 17 2023 1:20PM [facility] 0530 - CT ABD/PEL W IVCON / PROCEDURE REASON: Lower abdominal pain * * * * Physician Interpretation * * * * EXAMINATION: CT ABDOMEN AND PELVIS WITH IV CONTRAST CLINICAL HISTORY: Lower abdominal pain; just inferior to the umbilicus TECHNIQUE: CT of the abdomen and pelvis was performed using standard technique, scanning from just above the dome of the diaphragm to the symphysis pubis. MQ: CTAP_3 Contrast: IV: 100 ml of Omnipaque 350 Oral: 20 ml of Omni 240 10-25ml diluted with water CT Radiation dose: Integrated Dose-length product (DLP) for this visit = 809.39 mGy*cm. CT Dose Reduction Employed: Automated exposure control(AEC) and iterative recon COMPARISON: None. RESULT: Liver: No mass. Biliary: No bile duct dilation. Spleen: No mass. No splenomegaly. Pancreas: No mass or duct dilation. Adrenals: No mass. Kidneys: Right kidney is unremarkable. No calculus or hydronephrosis. Left kidney contains a small 2 cm cyst. No calculus or hydronephrosis. GI tract: The stomach and small bowel are unremarkable. No evidence of obstruction. There is severe diverticulosis of the left and sigmoid colon. There is focal inflammation within the region of the proximal sigmoid colon, consistent with acute diverticulitis. No perforation or abscess formation is seen. There is more mild generalized diverticulosis of the remainder of the colon. Appendix appears normal. Lymph nodes: No abdominal or pelvic lymphadenopathy. Mesentery/Peritoneum: No ascites or mass. Retroperitoneum: No mass. Vasculature: No aortic aneurysm. Pelvis: No mass, ascites or fluid collection. Small bilateral fat-containing inguinal hernias. Bones/Soft Tissues: No acute osseous abnormality is seen Lower thorax: Unremarkable. Localizer images: IMPRESSION IMPRESSION: 1. Acute diverticulitis of the sigmoid colon. No perforation or abscess formation is seen. Graphic Manager: BRYNN Transcribe Date/Time: Dec 17 2023 1:32P Dictated by : JOVITA WING MD This examination was interpreted and the report reviewed and electronically signed by: JOVITA WING MD on Dec 17 2023 1:41PM EST [facility] Radiology Study observation (narrative) [facility] CT Abdomen and Pelvis W cont rast IVOrdered By: Ccf Provider on 12-17-2023 [facility] Comprehensive metabolic 2000 panelOrdered By: Whit Preston on 12-17-2023 Albumin [Mass/Vol] 4.3 g/dL 3.9 - 4.9 g/dL [facility] ALP [Catalytic activity/Vol] 90 U/L 38 - 113 U/L [facility] ALT [Catalytic activity/Vol] 23 U/L 10 - 54 U/L [facility] Anion gap [Moles/Vol] 12 mmol/L 8 - 15 mmol/L [facility] AST [Catalytic activity/Vol] 20 U/L 14 - 40 U/L [facility] Bilirubin [Mass/Vol] 0.7 mg/dL 0.2 - 1 .3 mg/dL [facility] Calcium [Mass/Vol] 9.8 mg/dL 8.5 - 10. 2 mg/dL [facility] Chloride [Moles/Vol] 103 mmol/L 98 - 10 7 mmol/L [facility] CO2 [Moles/Vol] 24 mmol/L 22 - 30 mmol/L [facility] Creatinine [Mass/Vol] 1.16 mg/dL 0.73 - 1.22 mg/dL [facility] GFR/1.73 sq M.predicted among non-blacks MDRD (S/P/Bld) [Vol rate/Area] 69 mL/min/{1.73_m2} - PINF [facility] Comment on above: Estimated Glomerular Filtration Rate (eGFR) is calculated using the 2020 CKD-EPI creatinine equation. This equation utilizes serum creatinine, sex, and age as parameters. The creatinine assay has traceable calibration to isotope dilution-mass spectrometry. Refer to KDIGO guidelines for clinical interpretation. In patients with unstable renal function, e.g. those with acute kidney injury, the eGFR may not accurately reflect actual GFR. Glucose [Mass/Vol] 93 mg/dL 74 - 99 mg/dL [facility] Comment on above: The [place] Diab[employer] s Association (ADA) provides guidance for cutoff values for fasting glucose and random glucose. The ADA defines fasting as no caloric intake for at least 8 hours. Fasting plasma glucose results between 100 to 125 mg/dL indicate increased risk for diabetes (prediabetes). Fasting plasma glucose results greater than or equal to 126 mg/dL meet the criteria for diagnosis of diabetes. In the absence of unequivocal hyperglycemia, results should be confirmed by repeat testing. In a patient with classic symptoms of hyperglycemia or hyperglycemic crisis, random plasma glucose results greater than or equal to 200 mg/dL meet the criteria for diagnosis of diabetes. Reference: Standards of Medical Care in Diabetes 2016, [place] [employer] Association. Diabetes Care. 2016.39(Suppl 1). Interpretation and review of laboratory results Normal [facility] Potassium [Moles/Vol] 4.7 mmol/L 3.7 - 5.1 mmol/L [facility] Protein [Mass/Vol] 7.2 g/dL 6.3 - 8.0 g/dL [facility] Sodium [Moles/Vol] 139 mmol/L 136 - 144 mmol/L [facility] Urea nitrogen [Mass/Vol] 19 mg/dL 9 - 24 mg/dL [facility] Comprehensive metabolic 2000 panelon 12-17-2023 Albumin [Mass/Vol] 4.3 g/dL Normal 3.9-4.9 [facility] Comment on above: Order Comment: Estefania venegas Type: BLOOD SPECIMENOrdering Facility: [facility] Address: [address] [place] [address] Performed By: #### 3 040-3 ####[facility] LABCLIA [id number] [place] [address] [place]#### 96698-1 ####[facility] [id number] [place] [address] [place] ALP [Catalytic activity/Vol] 90 U/L Normal 38-113 [facility] Comment on above: Order Comment: Estefania venegas Type: BLOOD SPECIMENOrdering Facility: [facility] Address: [address] [place] [address] Performed By: #### 3 040-3 ####[facility] LABCLIA [id number] [place] [address] [place]#### 17447-8 ####[facility] SHEYLA MILLTOWNCLIA [id number] [place] [address] [place] ALT [Catalytic activity/Vol] 23 U/L Normal 10-54 [facility] Comment on above: Order Comment: Speci men Type: BLOOD SPECIMENOrdering Facility: [facility] Address: [facility] [place] [address] Performed By: #### 3 040-3 ####[facility] LABCLIA [id number] [place] [address] [place]#### 71011-3 ####[facility] MILLTOWNCLIA [id number] [place] [address] [place] Anion gap [Moles/Vol] 12 mmol/L Normal 8-15 [facility] Comment on above: Order Comment: Speci men Type: BLOOD SPECIMENOrdering Facility: [facility] Address: [address] [place] [address] Performed By: #### 3 040-3 ####[facility] LABCLIA [id number] [place] [address] [place]#### 31071-9 ####[facility] MILLTOWNCLIA [id number] [place] [address] [place] AST [Catalytic activity/Vol] 20 U/L Normal 14-40 [facility] Comment on above: Order Comment: Speci men Type: BLOOD SPECIMENOrdering Facility: [facility] Address: [facility] [place] [id number] Performed By: #### 3 040-3 ####[facility] LABCLIA [id number] [place] [address] [place]#### 45202-8 ####[facility] MILLTOWNCLIA [id number] [place] [address] [place] Bilirubin [Mass/Vol] 0.7 mg/dL Normal 0.2-1.3 [facility] Comment on above: Order Comment: Speci men Type: BLOOD SPECIMENOrdering Facility: [facility] Address: [address] [place] [address] Performed By: #### 3 040-3 ####[facility] LABCLIA [id number] [place] [address] [place]#### 35749-8 ####[facility] SHEYLA MILLTOWNCLIA [id number] [place] [address] [place] Calcium [Mass/Vol] 9.8 mg/dL Normal 8.5-10.2 [facility] Comment on above: Order Comment: Speci men Type: BLOOD SPECIMENOrdering Facility: [facility] Address: [address] [place] [address] Performed By: #### 3 040-3 ####[facility] LABCLIA [id number] [place] [address] [place]#### 46392-7 ####[facility] SHEYLA MILLTOWNCLIA [id number] [place] [address] [place] Chloride [Moles/Vol] 103 mmol/L Normal 98-107 [facility] Comment on above: Order Comment: Speci men Type: BLOOD SPECIMENOrdering Facility: [facility] Address: [address] [place] [address] Performed By: #### 3 040-3 ####[facility] LABCLIA [id number] [place] [address] [place]#### 53432-3 ####[facility] SHEYLA MILLTOWNCLIA [id number] [place] [address] [place] CO2 [Moles/Vol] 24 mmol/L Normal 22-30 [facility] Comment on above: Order Comment: Speci men Type: BLOOD SPECIMENOrdering Facility: [facility] Address: [address] [place] [address] Performed By: #### 3 040-3 ####[facility] LABCLIA [id number] [place] [address] [place]#### 75481-5 ####[facility] [id number] [place] [address] [place] Creatinine [Mass/Vol] 1.16 mg/dL Normal 0.73-1.22 [facility] Comment on above: Order Comment: Speci men Type: BLOOD SPECIMENOrdering Facility: [facility] Address: [address] [place] [address] Performed By: #### 3 040-3 ####[facility] LABIA [id number] [address] [place]#### 92355-7 ####[facility] [id number] [address] Creatinine and Glomerular filtration rate.predicted panel (S/P/Bld) 69 mL/min/1.73m??? Normal >=60 [facility] Comment on above: Order Comment: Speci men Type: BLOOD SPECIMENOrdering Facility: [facility] Address: [address] [place] [address] Result Comment: Theresa mated Glomerular Filtration Rate (eGFR) is calculated using the 2020 CKD-EPI creatinine equation. This equation utilizes serum creatinine, sex, and age as parameters. The creatinine assay has traceable calibration to isotope dilution-mass spectrometry. Refer to KDIGO guidelines for clinical interpretation. In patients with unstable renal function, e.g. those with acute kidney injury, the eGFR may not accurately reflect actual GFR. Performed By: #### 3 040-3 ####[facility] LABIA [id number] [place] [address] [place]#### 30586-3 ####[facility] SHEYLA MILLTOWNCLIA [id number] [place] [address] [place] Glucose [Mass/Vol] 93 mg/dL Normal 74-99 [facility] Comment on above: Order Comment: Speci men Type: BLOOD SPECIMENOrdering Facility: [facility] Address: [address] [place] [address] Result Comment: The [place] Diabetes Association (ADA) provides guidance for cutoff values for fasting glucose and random glucose. The ADA defines fasting as no caloric intake for at least 8 hours. Fasting plasma glucose results between 100 to 125 mg/dL indicate increased risk for diabetes (prediabetes). Fasting plasma glucose results greater than or equal to 126 mg/dL meet the criteria for diagnosis of diabetes. In the absence of unequivocal hyperglycemia, results should be confirmed by repeat testing. In a patient with classic symptoms of hyperglycemia or hyperglycemic crisis, random plasma glucose results greater than or equal to 200 mg/dL meet the criteria for diagnosis of diabetes. Reference: Standards of Medical Care in Diabetes 2016, [place] Diabetes Association. Diabetes Care. 2016.39(Suppl 1). Performed By: #### 3 040-3 ####[facility] LABCLIA [id number] [place] [address] [place]#### 78834-5 ####[facility] MILLTOWNCLIA [id number] [place] [address] [place] Potassium [Moles/Vol] 4.7 mmol/L Normal 3.7-5.1 [facility] Comment on above: Order Comment: Speci men Type: BLOOD SPECIMENOrdering Facility: [facility] Address: [address] [place] [address] Performed By: #### 3 040-3 ####[facility] LABCLIA [id number] [place] [address] [place]#### 65506-8 ####[facility] MILLTOWNCLIA [id number] [place] [address] [place] Protein [Mass/Vol] 7.2 g/dL Normal 6.3-8.0 [facility] Comment on above: Order Comment: Speci men Type: BLOOD SPECIMENOrdering Facility: [facility] Address: [address] [place] [address] Performed By: #### 3 040-3 ####[facility] LABCLIA [id number] [place] [address] [place]#### 90878-3 ####[facility] MILLWNCLIA [id number] [place] [address] [place] Sodium [Moles/Vol] 139 mmol/L Normal 136-144 [facility] Comment on above: Order Comment: Speci men Type: BLOOD SPECIMENOrdering Facility: [facility] Address: [address] [place] [address] Performed By: #### 3 040-3 ####[facility] LABCLIA [id number] [place] [address] [place]#### 79513-4 ####[facility] MILLWNCLIA [id number] [place] [address] [place] Urea nitrogen [Mass/Vol] 19 mg/dL Normal 9-24 [facility] Comment on above: Order Comment: Speci men Type: BLOOD SPECIMENOrdering Facility: [facility] Address: [address] [place] [address] Performed By: #### 3 040-3 ####[facility] LABCLIA [id number] [place] [address] [place]#### 93342-2 ####[facility] MILLWNCLIA [id number] [place] [address] [place] Lipase SerPl-cCncon 12-17-19 24 Lipase [Catalytic activity/Vol] 24 U/L Normal 16-61 [facility] Comment on above: Order Comment: Speci men Type: BLOOD SPECIMENOrdering Facility: [facility] Address: [address] [facility] [place] [address] Performed By: #### 3 040-3 ####[facility] LABCLIA [id number] MARILY LITTLE CHUTEDESK [address] [place]#### 92609-0 ####[facility] [id number] [place] [address] [place] UA DIP, URINE (POC)on 2023 BILIRUBIN UA (POCT) Negative Negative [facility] CLARITY UA (POCT) Clear [facility] COLOR UA (POCT) Yellow [facility] GLUCOSE UA (POCT) Negative Negative mg/dL [facility] Hemoglobin Ql (U) Negative Negative [facility] KETONE UA (POCT) Negative Negative mg/dL [facility] LEUKOCYTES UA (POCT) Negative Negative [facility] NITRITE UA (POCT) Negative Negative [facility] PH UA (POCT) 7.0 4.5 - 8.0 [facility] Protein Ql (U) Negative Negative mg/dL [facility] SPECIFIC GRAVITY UA (POCT) 1.015 1.005 - 1.030 [facility] UROBILINOGEN UA (POCT) 0.2 Carline l E.U./dL [facility] Location: [place], [address], [place], [place], [address] [place] [address] POINT OF CARE [facility] CNPPaulette 11-05-2023 CNPN Telephone (FAMPWS) EDUARDO JONES ([id number]) 1955 Date Time Provider Department 11/05/23 ERROL AVALOS During your visit today, we recorded the following information about you: Errol Avalos APRN.CNP 11/05/2023 7:09 AM Signed Please let him know I received his lab results. It does show a mild dehydration. Please make sure he is drinking a minimum of 60-80 oz of water daily. No concerns with his prostate. His A1C number screening for diabetes is on the lower end of the prediabetes range. To improve this, I recommend cutting back on carbs. Increase proteins in his diet. Exercise. His cholesterol levels are elevated. I would really like him to consider a statin medication to help bring this down, he is at increased risk for atherosclerotic heart disease. I recommend Crestor 10mg daily. No other concerns. Errol Avalos APRN.CNP The 10-year ASCVD risk score (Carolann PINEDA, et al., 2019) is: 13% Values used to calculate the score: Age: 68 years Sex: Male Is Non- : No Diabetic: No Tobacco smoker: No Systolic Blood Pressure: 122 mmHg Is BP treated: No HDL Cholesterol: 59 mg/dL Total Cholesterol: 239 mg/dL Alonso Cox LPN 11/05/2023 10:21 AM Signed Pt. informed would like to start on Crest[facility]. [facility] Errol Aval[facility] APRN.CNP 11/05/2023 10:44 AM Signed The following approved medication requests have been transmitted electronically. Requested Prescriptions Signed Prescriptions Disp Refills rosuvastatin (CRESTOR) 10 mg tablet 90 tablet 1 Sig: Take 1 tablet by mouth daily at bedtime. Authorizing Provider: ERROL AVALOS APRN.CNP Allergies As of Date: 11/05/2023 (No Active Allergies) Date Reviewed: 10/31/2023 Reviewed by: Errol Avalos APRN.CNP - Fully Assessed Reason for Visit: Results [95] Primary Visit Diagnosis:Dyslipidemia [E78.5] Order(s):rosuvastatin (CRESTOR) 10 mg tabletTake 1 tablet by mouth daily at bedtime.Disp: 90 tabletRfl: 1 Prescriptions as of 11/05/2023 - rosuvastatin (CRESTOR) 10 mg tablet Take 1 tablet by mouth daily at bedtime. - Ipratropium Semmes (ATROVENT) 21 mcg (0.03 %) nasal spray Use 2 Sprays in the nose every 12 hours. - montelukast (SINGULAIR) 10 mg tablet Take 1 tablet by mouth daily at bedtime. - TURMERIC ORAL Take by mouth. Problem List As Of Date 11/05/2023 Noted Resolved Dyslipidemia [E78.5] 05/13/2019 Wheezing [R06.2] 05/13/2019 VIERA (dyspnea on exertion) [R06.09] 05/13/2019 Well adult exam [Z00.00] 05/13/2019 ED (erectile dysfunction) of organic origin [N5*06/30/2019 TAYO (generalized anxiety disorder) [F41.1] 06/30/2019 Asthma [J45.909] 06/30/2019 Lyme disease [A69.20] 06/30/2019 Alcoholism (HCC) [F10.20] 06/30/2019 Umbilical hernia without obstruction and withou*11/30/2020 11/30/2020 Prescriptions ordered this encounter Disp Refills Start End ROSUVASTATIN 10 MG TABLET 90 t* 1 11/05/2023 05/03/2024 Route: ORAL Sig: Take 1 tablet by mouth daily at bedtime. Encounter Status:Closed by ALONSO COX LPN on 11/05/23 Normal [facility] Absolute lymphocyte countOrd ered By: Dr. Ding on 07-15-2022 Lymphocytes Auto (Unsp spec) [#/Vol] 1.81 10*3/uL 0.83-4.51 [facility] Basophil percentageOrdered B y: Dr. Ding on 07-15-2022 Basophils/100 WBC (Bld) 0.5 % 0-1 [facility] Chloride [Moles/Vol] 107 mmol/L 98-107 [facility] Eosinophils/100 WBC (Bld) 0.7 % 0-5 [facility] Glucose [Mass/Vol] 91 mg/dL 74-106 [facility] Neutrophils (Bld) [#/Vol] 7.1 10*3/uL 2.0-7.7 [facility] Neutrophils/100 WBC (Bld) 71.9 % 47-70 [facility] Potassium [Moles/Vol] 4.0 mmol/L 3.5-5.1 [facility] Sodium [Moles/Vol] 139 mmol/L 136-145 [facility] WBC (Bld) [#/Vol] 9.8 10*3/uL 4.4-11.0 [facility] Blood erythrocytes count (nu mber/volume)Ordered By: Dr. Ding on 07-15-2022 RBC (Bld) [#/Vol] 5.01 10*6/uL 4.6-6.2 [facility] Blood hemoglobin measurement (mass/volume)Ordered By: Dr. Ding on 07-15-2022 Hemoglobin (Bld) [Mass/Vol] 15.3 g/dL 13.0-16.5 [facility] Blood lymphocytes/100 leukoc ytesOrdered By: Dr. Ding on 07-15-2022 Lymphocytes/100 WBC (Bld) 18.4 % 19-41 [facility] Blood monocytes/100 leukocyt esOrdered By: Dr. Ding on 07-15-2022 Monocytes/100 WBC (Bld) 8.2 % 0-10 [facility] Blood platelet mean volumeOr dered By: Dr. Ding on 07-15-2022 Platelet mean volume (Bld) [Entitic vol] 9.9 fL 6.2-12.0 [facility] Determination of erythrocyte mean corpuscular volume (MCV)Ordered By: Dr. Ding on 07-15-2022 MCV (RBC) [Entitic vol] 92.2 fL 80-94 [facility] Hematocrit Auto (Bld) [Volum e fraction]Ordered By: Dr. Ding on 07-15-2022 Hematocrit (Bld) [Volume fraction] 46.2 % 40-54 [facility] Laboratory - Chemistry and C hemistry - challengeOrdered By: Dr. Ding on 07-15-2022 CO2 [Moles/Vol] 28.0 mmol/L 21.0-32.0 [facility] Urea nitrogen/Creatinine [Mass ratio] 15.4 mg/mg 10-20 [facility] Laboratory - Hematology and Cell countsOrdered By: Dr. Ding on 07-15-2022 Erythrocyte distribution width (RBC) [Entitic vol] 46.5 fL 35.1-43.9 [facility] Erythrocyte distribution width (RBC) [Ratio] 13.7 % 11.6-14.6 [facility] Immature granulocytes/100 WBC (Bld) 0.300 % 0.0-0.9 [facility] Comment on above: IG% - Immature Granu locytes (promyelocytes, myelocytes and metamyelocytes) > 1% indicates that a LEFT SHIFT is Present. MCH (RBC) [Entitic mass] 30.5 pg 27.0-32.0 [facility] Nucleated RBC/100 WBC (Bld) [Ratio] 0 % 0-5 [facility] MCHC Auto (RBC) [Mass/Vol]Or dered By: Dr. Ding on 07-15-2022 MCHC (RBC) [Mass/Vol] 33.1 g/dL 32-36 [facility] No Panel InformationOrdered By: Dr. Ding on 07-15-2022 Estimated Creatinine Clearance Calc 65.72 ml/min [facility] Estimated GFR (MDRD) Amer 76 mL/min >60 [facility] Comment on above: GFR Calc Estimated GFR (MDRD) Non-Af Amer 63 mL/min >60 [facility] Comment on above: Non- GFR Calc Platelets bldOrdered By: Dr. Dign on 07-15-2022 Platelets (Bld) [#/Vol] 265 10*3/uL 150-450 [facility] Serum or plasma calcium rosa urement (mass/volume)Ordered By: Dr. Ding on 07-15-2022 Calcium [Mass/Vol] 9.3 mg/dL 8.5-10.1 [facility] Serum or plasma creatinine m easurement (mass/volume)Ordered By: Dr. Ding on 07-15-2022 Creatinine [Mass/Vol] 1.23 mg/dL 0.70-1.30 [facility] Comment on above: The validity of the calculated GFR & GFRAA in patients over 70 years has not been determined. Clinical correlation is essential. Serum or plasma urea nitroge n measurement (mass/volume)Ordered By: Dr. Ding on 07-15-2022 Urea nitrogen [Mass/Vol] 19 mg/dL 7-18 [facility] Thin prep Papanicolaou smear with manual screeningOrdered By: Dr. Ding on 07-15-2022 Thin prep Papanicolaou smear with manual screening 4 08-27 [facility] UA DIP, URINE (POC)on 2022 BILIRUBIN UA (POCT) Negative Negative [facility] CLARITY UA (POCT) Clear [facility] COLOR UA (POCT) [facility] GLUCOSE UA (POCT) Negative Negative mg/dL [facility] HEMOGLOBIN/BLOOD UA (POCT) Negative Negative [facility] KETONE UA (POCT) Negative Negative mg/dL [facility] LEUKOCYTES [facility] (POCT) [facility] NITRITE UA (POCT) Negative Negative [facility] PH UA (POCT) 7.0 4.5 - 8.0 [facility] Protein Ql (U) Negative Negative mg/dL [facility] SPECIFIC GRAVITY UA (POCT) 1.010 1.005 - 1.030 [facility] UROBILINOGEN UA (POCT) 0.2 E.U./dL [facility] l E.U./dL [facility] STREP A MOLECULAR (POC)on Procedural Control Valid [facility] Strep A (POCT) Positive Abnormal Negative [facility] ANES POSTPROC EVALon 021 ANES POSTPROC EVAL HNO ID: [id number] Author: Les Crouch MD Service: Anesthesiology Author Type: Anesthesiologist Type: Anesthesia Postprocedure Evaluation Filed: 11/30/2020 10:52 AM Note Text: POST ANESTHESIA EVALUATION NOTE : 1955 Procedure Summary Date: 11/30/20 Room / Location: DC OR / DC OR Anesthesia Start: 843 Anesthesia Stop: 946 Procedure: REPAIR UMBILICAL HERNIA, >5 YEARS, REDUCIBLE (N/A ) Diagnosis: Umbilical hernia without obstruction and without gangrene Surgeons: Eduardo Mehta MD Responsible Provider: Les Crouch MD Anesthesia Type: general ASA Status: 3 Anesthesia Type: general Last vitals Vitals Value Taken Time BP 124/69 11/30/20 1030 Temp 36.5 ?C (97.7 ?F) 11/30/20 0944 Pulse 60 11/30/20 1032 Resp 16 11/30/20 1032 SpO2 95 % 11/30/20 1032 Vitals shown include unvalidated device data. Post Anesthesia Patient Status Patient Evaluation: PACU. PACU/ICU Patient Condition: stable. Anticipated Disposition: phase 2 then home. Neurological Status: aware and responsive. Pulmonary Status: breathing comfortably on room air Airway Control: returned to baseline unsupported. Cardiovascular Status: stable. Pain Management: clinically adequate - multimodal analgesia pain management approach Postoperative Hydration: acceptable. Intraoperative Events: no significant anesthesia events Recommendation: continue current plan of care. No complications documented. SIGNATURE: Les Crouch MD PATIENT NAME: Eduardo Jones DATE: November 30, 2020 TIME: 10:51 AM CSN: [id number] [facility] ANES PRE-OPon 11-30-2020 ANES PRE-OP HNO ID: [id number] Author: Les Crouch MD Service: Anesthesiology Author Type: Anesthesiologist Type: Anesthesia Preprocedure Evaluation Filed: 11/30/2020 7:53 AM Note Text: ANESTHESIOLOGY DAY OF SURGERY NOTE : 1955 Procedure(s) (LRB): REPAIR UMBILICAL HERNIA, >5 YEARS, REDUCIBLE (N/A) Surgeon(s): Eduardo Mehta MD Estimated body mass index is 27.8 kg/m? as calculated from the following: Height as of this encounter: 182.9 cm (6'). Weight as of this encounter: 93 kg (205 lb). Most recent hematocrit and potassium results: Hematocrit 43.2 11/08/2020 Potassium 4.2 11/08/2020 Relevant Problems CARDIO (+) VIERA (dyspnea on exertion) PULMONARY (+) Asthma (+) VIERA (dyspnea on exertion) I - PHYSICAL EVALUATION AIRWAY Patient intubated: No. Tracheostomy tube not present Mallampati: II. TM distance: >3 FB. Neck ROM: full ROM without neurological symptoms. Mouth opening: adequate. Short neck: no. Thick neck: no DENTAL Dental findings: teeth intact and poor dentition. Additional exam findings: no II - ANESTHESIA PLAN ASA Score: 3 Anesthetic Plan: MAC NPO Status: adequate Monitoring plan: standard ASA. Postoperative analgesic plan: parenteral or oral opioids and multimodal analgesia. Anesthetic Risks, Benefits, Alternatives, Personnel Discussed. Consent obtained from: patient.Patient / Surrogate agrees to blood products: blood products not planned DNR status not reviewed with patient and/or family prior to surgery. Significant changes in the patient condition since the History and Physical, not otherwise documented in primary service progress note: no. Potential Anesthesia issues that may suggest increased risk of complications or contraindication to planned procedure: none. Vitals Value Taken Time BP 116/84 11/30/20732 Pulse 74 11/30/20732 Resp 18 11/30/20732 Temp 36.5 ?C (97.7 ?F) 11/30/20732 SpO2 95 % 11/30/20732 Facility-Administered Medications as of 11/30/2020 Medication Dose Route Frequency - lactated ringers iv infusion 5-30 mL/hr INTRAVENOUS CONTINUOUS - clindamycin iv piggyback 900 mg in D5W 50 mL (CLEOCIN) 900 mg INTRAVENOUS Pre-Op Once Outpatient Medications as of 11/30/2020 Medication Sig - sertraline (ZOLOFT) 100 mg tablet Take 1 tablet by mouth once daily. - montelukast (SINGULAIR) 10 mg tablet Take 1 tablet by mouth daily at bedtime. - Ipratropium [place] (ATROVENT) 21 mcg (0.03 %) nasal spray Use 2 Sprays in the nose every 12 hours. - fluticasone (FLOVENT HFA) 110 mcg/actuation inhaler Inhale 1 Puff as instructed twice daily. Shake well before use. Rinse mouth after use. - albuterol HFA (PROAIR HFA) 90 mcg/actuation inhaler Inhale 2 Puffs as instructed every 6 hours as needed. - fluticasone (FLONASE) 50 mcg/actuation nasal spray 2 (TWO) SPRAYS SPRAYS BY NOSE DAILY EACH NOSTRIL - ipratropium bromide (ATROVENT) 0.06 % nasal spray PLACE 2 SPRAYS IN EACH NOSTRIL TWICE DAILY NEEDED - buPROPion XL (WELLBUTRIN XL) 300 mg 24 hr tablet Take 300 mg by mouth once daily. - Minocycline HCl 100 mg tablet Take 100 mg by mouth twice daily. - naproxen (NAPROSYN) 500 mg tablet Take 1 tablet by mouth twice daily as needed (pain/inflammation, take with food.). - HYDROcodone-acetaminop hen (NORCO) 5-325 mg per tablet Take 1 tablet by mouth every 6 hours as needed for Pain. - azithromycin(ZITHROMAX TRI-LAYNE 500 MG TAB) I have interviewed and examined the patient. I have reviewed the medical record and/or the pre-anesthesia evaluation, pertinent labs, and test results. This contains updated information obtained within 48 hours of Surgery/Procedure. SIGNATURE: Les Crouch MD PATIENT NAME: Eduardo Jones DATE: November 30, 2020 TIME: 7:52 AM CSN: [id number] [facility] HISTORY PHYSICALon HISTORY PHYSICAL HNO ID: [id number] Author: Eduardo Mehta MD Service: General Surgery Author Type: Physician Type: HANDP Filed: 11/30/2020 8:15 AM Note Text: UPDATED HISTORY AND PHYSICAL EXAMINATION SERVICE DATE: 11/30/2020 SERVICE TIME: 8:15 AM PHYSICAL EXAM MUST BE COMPLETED ON ADMISSION The History and Physical (completed in the past 30 days) has been reviewed and the patient has been examined. The contents accurately reflect the patient's condition with the following additions or revisions since the HANDP was completed. Examination indicates no changes. This HANDP can be found in the Electronic Medical Record dated 11/08/20. SIGNATURE: Eduardo Mehta III, MD PATIENT NAME: Eduardo Jones DATE: November 30, 2020 TIME: 8:15 AM [facility] OPERATIVE NOon 11-30-2020 OPERATIVE NO HNO ID: [id number] Author: Eduardo Mehta MD Service: General Surgery Author Type: Physician Type: Operative Report Filed: 11/30/2020 10:09 AM Note Text: OPERATIVE/PROCEDURE REPORT LOG ID: [id number] SURGERY/PROCEDURE DATE: 11/30/2020 INCISION/PROCEDURE START TIME: 9:05 AM INCISION CLOSE/PROCEDURE END TIME: 9:37 AM SURGEON(S)/PROCEDURALI ST(S) AND WEED INSPECTOR(S): Surgeon(s) and Role: * Eduardo Mehta MD - Primary Registered Nurse Messaging Architect: Edelmira Willis RN SURGERY/PROCEDURE(S): Umbilical hernia repair with mesh ANESTHESIA: General SURGERY/PROCEDURE DETAILS: Patient was brought into the operating room. Placed in the supine position. Under excellent general anesthetic the abdomen was sterilely prepped and draped in usual fashion. Local was injected. Curvilinear incision was made below the umbilicus. Dissection was carried down umbilical hernia was dissected from the umbilical skin. Placed the hernia back into its preperitoneal space created a preperitoneal window. I fashioned a 4.6 Parietex mesh into the wound tacking it circumferentially around the fascia with 0 Nurolon's. I injected local. I had excellent hemostasis. I brought the umbilicus back down to the fascia with a 2-0 Vicryl. Deep dermal stitches of 3-0 Vicryl then a running 4-0 Monocryl on the skin. Steri-Strips were applied sterile dressings were applied and the patient tolerated the procedure well. Edelmira Willis was my periodicals library assistant. She assisted with retraction, visualization and performed skin closure. No additional surgeons or qualified residents were available. PRE-OP/PRE-PROCEDURE DIAGNOSIS: Umbilical hernia POST-OP/POST-PROCEDURE DIAGNOSIS: Same as Preop ESTIMATED BLOOD LOSS: < 25 mls SPECIMENS: None IMPLANTABLE DEVICES: 4.6 Parietex mesh DRAINS: None COMPLICATIONS: None PARTICIPATION IN SURGERY/PROCEDURE: I/primary surgeon/proceduralist performed the procedure with assistance. SIGNATURE: Eduardo Mehta III, MD PATIENT NAME: Eduardo Jones DATE: November 30, 2020 TIME: 10:06 AM [facility] CORNEAL TOPOGRAPHY PENTACAM OU (BOTH EYES) [facility] Vital Signs Date Time Vital Sign Value Performing Clinician Facility 10-30-2024 08:15-0400 Body mass index (BMI) [Ratio] 28.26 kg/m2 Berhane Cotter MD Work Phone: [facility] 10-30-2024 08:15-0400 Body temperature 98.2 [degF] Berhane Cotter MD Work Phone: [facility] 10-30-2024 08:15-0400 Body weight 94.5 kg Berhane Cotter MD Work Phone: [facility] 10-30-2024 08:15-0400 Diastolic blood pressure 86 mm[Hg] Berhane Cotter MD Work Phone: [facility] 10-30-2024 08:15-0400 Heart rate 75 /min Berhane Cotter MD Work Phone: [facility] 10-30-2024 08:15-0400 Respiratory rate 18 /min Berhane Cotter MD Work Phone: [facility] 10-30-2024 08:15-0400 SaO2% (BldA) [Mass fraction] 96 % Berhane Cotter MD Work Phone: [facility] 10-30-2024 08:15-0400 Systolic blood pressure 138 mm[Hg] Berhane Cotter MD Work Phone: [facility] 08-03-2024 07:55-0400 Body mass index (BMI) [Ratio] 28.76 kg/m2 Will Enriquez APRN.REPORT PROGRAMMER Work Phone: [facility] 08-03-2024 07:55-0400 Body temperature 98.6 [degF] Will Enriquez APRN.REPORT PROGRAMMER Work Phone: [facility] 08-03-2024 07:55-0400 Body weight 96.2 kg Will Enriquez APRN.REPORT PROGRAMMER Work Phone: [facility] 08-03-2024 07:55-0400 Diastolic blood pressure 80 mm[Hg] Will Enriquez APRN.REPORT PROGRAMMER Work Phone: [facility] 08-03-2024 07:55-0400 Heart rate 91 /min Will Enriquez APRN.REPORT PROGRAMMER Work Phone: [facility] 08-03-2024 07:55-0400 Respiratory rate 16 /min Will Enriquez APRN.REPORT PROGRAMMER Work Phone: [facility] 08-03-2024 07:55-0400 SaO2% (BldA) [Mass fraction] 99 % Will Enriquez APRN.REPORT PROGRAMMER Work Phone: [facility] 08-03-2024 07:55-0400 Systolic blood pressure 122 mm[Hg] Will Enriquez APRN.REPORT PROGRAMMER Work Phone: [facility] 07-25-2024 08:30-0400 Body mass index (BMI) [Ratio] 27.81 kg/m2 Astrid Praisler-Wood STEEL WELDER.REPORT PROGRAMMER Work Phone: [facility] 07-25-2024 08:30-0400 Body temperature 97.5 [degF] Astrid Praisler-Wood STEEL WELDER.REPORT PROGRAMMER Work Phone: [facility] 07-25-2024 08:30-0400 Body weight 93 kg Astrid Praisler-Wood STEEL WELDER.REPORT PROGRAMMER Work Phone: [facility] 07-25-2024 08:30-0400 Diastolic blood pressure 77 mm[Hg] Astrid Praisler-Wood STEEL WELDER.[facility] Work Phone: [facility] 07-25-2024 08:30-0400 Heart rate 83 /min Astrid Praisler-Wood STEEL WELDER.[facility] Work Phone: [facility] 07-25-2024 08:30-0400 Respiratory rate 20 /min Astrid Praisler-Wood STEEL WELDER.REPORT PROGRAMMER Work Phone: [facility] 07-25-2024 08:30-0400 SaO2% (BldA) [Mass fraction] 97 % Astrid Praisler-Wood STEEL WELDER.REPORT PROGRAMMER Work Phone: [facility] 07-25-2024 08:30-0400 Systolic blood pressure 113 mm[Hg] Astrid Praisler-Wood STEEL WELDER.REPORT PROGRAMMER Work Phone: [facility] 05-12-2024 09:35-0500 Body mass index (BMI) [Ratio] 28.75 kg/m2 Yara Benson PA-C Work Phone: [facility] 05-12-2024 09:35-0500 Body weight 96.16 kg Yara Benson PA-C Work Phone: [facility] 05-12-2024 09:35-0500 Diastolic blood pressure 82 mm[Hg] Yara Benson PA-C Work Phone: [facility] 05-12-2024 09:35-0500 Heart rate 73 /min Yara Benson PA-C Work Phone: [facility] 05-12-2024 09:35-0500 Respiratory rate 16 /min Yara Benson PA-C Work Phone: [facility] 05-12-2024 09:35-0500 Systolic blood pressure 137 mm[Hg] Yara Benson PA-C Work Phone: [facility] 03-17-2024 08:22-0500 Body height 182.9 cm Pst 1 [facility] 03-17-2024 08:22-0500 Body mass index (BMI) [Ratio] 28.48 kg/m2 Pst 1 [facility] 03-17-2024 08:22-0500 Body temperature 98.4 [degF] Pst 1 [facility] 03-17-2024 08:22-0500 Body weight 95.25 kg Pst 1 [facility] 03-17-2024 08:22-0500 Diastolic blood pressure 82 mm[Hg] Pst 1 [facility] 03-17-2024 08:22-0500 Heart rate 95 /min Pst 1 [facility] 03-17-2024 08:22-0500 Respiratory rate 16 /min Pst 1 [facility] 03-17-2024 08:22-0500 SaO2% (BldA) [Mass fraction] 97 % Pst 1 [facility] 03-17-2024 08:22-0500 Systolic blood pressure 135 mm[Hg] Pst 1 [facility] 02-14-2024 09:08-0400 Body height 182.9 cm Jalil Beebe MD Work Phone: [facility] 02-14-2024 09:08-0400 Body mass index (BMI) [Ratio] 27.8 kg/m2 Jalil Beebe MD Work Phone: [facility] 02-14-2024 09:08-0400 Body weight 92.99 kg Jalil Beebe MD Work Phone: [facility] 02-04-2024 10:50-0400 Body height 184.2 cm Yara Benson PA-C Work Phone: [facility] 02-04-2024 10:50-0400 Body mass index (BMI) [Ratio] 27.69 kg/m2 Yara Benson PA-C Work Phone: [facility] 02-04-2024 10:50-0400 Body temperature 98.1 [degF] Yara Benson PA-C Work Phone: [facility] 02-04-2024 10:50-0400 Body weight 93.89 kg Yara Benson PA-C Work Phone: [facility] 02-04-2024 10:50-0400 Diastolic blood pressure 74 mm[Hg] Yara Benson PA-C Work Phone: [facility] 02-04-2024 10:50-0400 Heart rate 90 /min Yara Benson PA-C Work Phone: [facility] 02-04-2024 10:50-0400 Respiratory rate 16 /min Yara Benson PA-C Work Phone: [facility] 02-04-2024 10:50-0400 SaO2% (BldA) [Mass fraction] 98 % Yara Benson PA-C Work Phone: [facility] 02-04-2024 10:50-0400 Systolic blood pressure 108 mm[Hg] Yara Benson PA-C Work Phone: [facility] 12-31-2023 07:22-0400 Body mass index (BMI) [Ratio] 28.62 kg/m2 Errol Bailey STEEL WELDER.REPORT PROGRAMMER Work Phone: [facility] 12-31-2023 07:22-0400 Body weight 95.71 kg Errol Bailey STEEL WELDER.REPORT PROGRAMMER Work Phone: [facility] 12-31-2023 07:22-0400 Diastolic blood pressure 72 mm[Hg] Errol Bailey STEEL WELDER.REPORT PROGRAMMER Work Phone: [facility] 12-31-2023 07:22-0400 Heart rate 71 /min Errol Bailey STEEL WELDER.REPORT PROGRAMMER Work Phone: [facility] 12-31-2023 07:22-0400 Respiratory rate 16 /min Errol Bailey STEEL WELDER.REPORT PROGRAMMER Work Phone: [facility] 12-31-2023 07:22-0400 SaO2% (BldA) [Mass fraction] 97 % Errol Bailey STEEL WELDER.REPORT PROGRAMMER Work Phone: [facility] 12-31-2023 07:22-0400 Systolic blood pressure 120 mm[Hg] Errol Bailey STEEL WELDER.REPORT PROGRAMMER Work Phone: [facility] 12-24-2023 07:28-0400 Body mass index (BMI) [Ratio] 28.59 kg/m2 Errol Bailey STEEL WELDER.REPORT PROGRAMMER Work Phone: [facility] 12-24-2023 07:28-0400 Body weight 95.62 kg Errol Bailey STEEL WELDER.REPORT PROGRAMMER Work Phone: [facility] 12-24-2023 07:28-0400 Diastolic blood pressure 64 mm[Hg] Errol Bailey STEEL WELDER.REPORT PROGRAMMER Work Phone: [facility] 12-24-2023 07:28-0400 Heart rate 69 /min Errol Bailey STEEL WELDER.REPORT PROGRAMMER Work Phone: [facility] 12-24-2023 07:28-0400 Respiratory rate 16 /min Errol Bailey STEEL WELDER.REPORT PROGRAMMER Work Phone: [facility] 12-24-2023 07:28-0400 SaO2% (BldA) [Mass fraction] 95 % Errol Bailey STEEL WELDER.REPORT PROGRAMMER Work Phone: [facility] 12-24-2023 07:28-0400 Systolic blood pressure 118 mm[Hg] Errol Bailey STEEL WELDER.REPORT PROGRAMMER Work Phone: [facility] 12-17-2023 08:06-0400 Body height 182.9 cm Felipe Foster PA-C Work Phone: [facility] 12-17-2023 08:06-0400 Body mass index (BMI) [Ratio] 28.48 kg/m2 Felipe Bogner PA-C Work Phone: [facility] 12-17-2023 08:06-0400 Body temperature 98.1 [degF] Felipe Bogner PA-C Work Phone: [facility] 12-17-2023 08:06-0400 Body weight 95.25 kg Felipe Bogner PA-C Work Phone: [facility] 12-17-2023 08:06-0400 Diastolic blood pressure 70 mm[Hg] Felipe Bogner PA-C Work Phone: [facility] 12-17-2023 08:06-0400 Heart rate 79 /min Felipe Bogner PA-C Work Phone: [facility] 12-17-2023 08:06-0400 Respiratory rate 14 /min Felipe Bogner PA-C Work Phone: [facility] 12-17-2023 08:06-0400 SaO2% (BldA) [Mass fraction] 97 % Felipe Bogner PA-C Work Phone: [facility] 12-17-2023 08:06-0400 Systolic blood pressure 130 mm[Hg] Felipe Bogner PA-C Work Phone: [facility] 10-31-2023 07:23-0400 Body height 184.5 cm Errol Bailey STEEL WELDER.REPORT PROGRAMMER Work Phone: [facility] 10-31-2023 07:23-0400 Body mass index (BMI) [Ratio] 27.98 kg/m2 Errol Bailey STEEL WELDER.REPORT PROGRAMMER Work Phone: [facility] 10-31-2023 07:23-0400 Body weight 95.25 kg Errol Bailey STEEL WELDER.REPORT PROGRAMMER Work Phone: [facility] 10-31-2023 07:23-0400 Diastolic blood pressure 80 mm[Hg] Errol Bailey STEEL WELDER.REPORT PROGRAMMER Work Phone: [facility] 10-31-2023 07:23-0400 Heart rate 72 /min Errol Bailey STEEL WELDER.REPORT PROGRAMMER Work Phone: [facility] 10-31-2023 07:23-0400 Respiratory rate 16 /min Errol Bailey STEEL WELDER.REPORT PROGRAMMER Work Phone: [facility] 10-31-2023 07:23-0400 SaO2% (BldA) [Mass fraction] 98 % Errol Bailey STEEL WELDER.REPORT PROGRAMMER Work Phone: [facility] 10-31-2023 07:23-0400 Systolic blood pressure 122 mm[Hg] Errol Bailey STEEL WELDER.REPORT PROGRAMMER Work Phone: [facility] 07-30-2023 15:14-0400 Body temperature 98.91 [degF] Karen Liang STEEL WELDER.REPORT PROGRAMMER Work Phone: [facility] 07-30-2023 15:14-0400 Body weight 95.3 kg Karen Liang STEEL WELDER.REPORT PROGRAMMER Work Phone: [facility] 07-30-2023 15:14-0400 Diastolic blood pressure 78 mm[Hg] Karen Liang STEEL WELDER.REPORT PROGRAMMER Work Phone: [facility] 07-30-2023 15:14-0400 Heart rate 78 /min Karen Liang STEEL WELDER.REPORT PROGRAMMER Work Phone: [facility] 07-30-2023 15:14-0400 Respiratory rate 16 /min Karen Liang STEEL WELDER.REPORT PROGRAMMER Work Phone: [facility] 07-30-2023 15:14-0400 SaO2% (BldA) [Mass fraction] 96 % Karen Liang STEEL WELDER.REPORT PROGRAMMER Work Phone: [facility] 07-30-2023 15:14-0400 Systolic blood pressure 118 mm[Hg] Karen Liang STEEL WELDER.REPORT PROGRAMMER Work Phone: [facility] 08-10-2022 12:35-0400 Body weight 96.16 kg Carmel Gonzalez STEEL WELDER.REPORT PROGRAMMER Work Phone: [facility] 08-10-2022 12:35-0400 Diastolic blood pressure 78 mm[Hg] Carmel Gonzalez STEEL WELDER.REPORT PROGRAMMER Work Phone: [facility] 08-10-2022 12:35-0400 Heart rate 74 /min Carmel Gonzalez STEEL WELDER.REPORT PROGRAMMER Work Phone: [facility] 08-10-2022 12:35-0400 Respiratory rate 18 /min Carmel Gonzalez STEEL WELDER.REPORT PROGRAMMER Work Phone: [facility] 08-10-2022 12:35-0400 Systolic blood pressure 130 mm[Hg] Carmel Gonzalez STEEL WELDER.REPORT PROGRAMMER Work Phone: [facility] 07-15-2022 10:20-0400 Diastolic blood pressure 88 mm[Hg] [facility] 07-15-2022 10:20-0400 Heart rate 76 /min [facility] 07-15-2022 10:20-0400 Respiratory rate 14 /min [facility] 07-15-2022 10:20-0400 SaO2% (BldA) [Mass fraction] 100 % [facility] 07-15-2022 10:20-0400 Systolic blood pressure 117 mm[Hg] [facility] 07-15-2022 09:05-0400 Body height 182.88 cm [facility] 07-15-2022 09:05-0400 Body mass index (BMI) [Ratio] 27.9 kg/m2 [facility] 07-15-2022 09:05-0400 Body temperature 97.3 [degF] [facility] 07-15-2022 09:05-0400 Body weight 93.44 kg [facility] 07-15-2022 08:46-0400 Body temperature 97.7 [degF] Fermin Mcnulty APRN.REPORT PROGRAMMER Work Phone: [facility] 07-15-2022 08:46-0400 Body weight 96.62 kg Fermin Mcnulty STEEL WELDER.REPORT PROGRAMMER Work Phone: [facility] 07-15-2022 08:46-0400 Diastolic blood pressure 80 mm[Hg] Fermin Pendlebury STEEL WELDER.REPORT PROGRAMMER Work Phone: [facility] 07-15-2022 08:46-0400 Heart rate 67 /min Fermin Pendlebury STEEL WELDER.REPORT PROGRAMMER Work Phone: [facility] 07-15-2022 08:46-0400 Respiratory rate 16 /min Fermin Pendlebury STEEL WELDER.REPORT PROGRAMMER Work Phone: [facility] 07-15-2022 08:46-0400 SaO2% (BldA) [Mass fraction] 98 % Fermin Pendlebury STEEL WELDER.REPORT PROGRAMMER Work Phone: [facility] 07-15-2022 08:46-0400 Systolic blood pressure 138 mm[Hg] Fermin Pendlebury STEEL WELDER.REPORT PROGRAMMER Work Phone: [facility] 04-05-2022 12:26-0500 Body temperature 98.71 [degF] Antonio Kj STEEL WELDER.REPORT PROGRAMMER Work Phone: [facility] 04-05-2022 12:26-0500 Body weight 94.17 kg Antonio Kj STEEL WELDER.REPORT PROGRAMMER Work Phone: [facility] 04-05-2022 12:26-0500 Diastolic blood pressure 72 mm[Hg] Antonio Kj STEEL WELDER.REPORT PROGRAMMER Work Phone: [facility] 04-05-2022 12:26-0500 Heart rate 91 /min Antonio Kj STEEL WELDER.REPORT PROGRAMMER Work Phone: [facility] 04-05-2022 12:26-0500 Respiratory rate 18 /min Antonio Kj STEEL WELDER.REPORT PROGRAMMER Work Phone: [facility] 04-05-2022 12:26-0500 SaO2% (BldA) [Mass fraction] 97 % Antonio Kj STEEL WELDER.REPORT PROGRAMMER Work Phone: [facility] 04-05-2022 12:26-0500 Systolic blood pressure 128 mm[Hg] Antonio Kj STEEL WELDER.REPORT PROGRAMMER Work Phone: [facility] Encounters Encounter Date Encounter Type Care Provider Facility Start: 10-30-2024 End: 10-30-2024 Office outpatient visit 40 minutes Berhane Cotter MD Work Phone: [facility] Comment on above: Diverticulitis (Prim mari Dx) Start: 10-30-2024 End: 10-30-2024 Refill Arturo L Kendrick DO Work Phone: [facility] Start: 08-25-2024 End: 08-25-2024 Refill Arturo L Kendrick DO Work Phone: [facility] Comment on above: Refill Request Start: 08-03-2024 End: 08-03-2024 Subsequent hospital visit by physician [facility] Work Phone: Radiology Comment on above: Acute cough [R05.1] Start: 08-03-2024 End: 08-03-2024 Patient encounter procedure Will Enriquez APRN.REPORT PROGRAMMER Work Phone: [facility] Comment on above: Acute cough (Primary Dx); Sore throat; Rhinosinusitis Start: 08-03-2024 End: 08-03-2024 ambulatory ARTURO L KENDRICK Facility:[facility] Start: 07-25-2024 End: 07-25-2024 ambulatory ARTURO L KENDRICK Facility:[facility] Start: 07-25-2024 End: 07-25-2024 Patient encounter procedure Astrid Davis APRN.REPORT PROGRAMMER Work Phone: [facility] Comment on above: Sore throat (Primary Dx); URI, acute; Exacerbation of asthma, unspecified asthma severity, unspecified whether persistent (HCC) Start: 06-04-2024 End: 06-04-2024 Refill Arturo L Kendrick DO Work Phone: [facility] Comment on above: Refill Request Start: 05-12-2024 End: 05-12-2024 ambulatory YARA BENSON Facility:[facility] Start: 05-12-2024 End: 01-28-2025 Patient encounter procedure Yara Benson PA-C Work Phone: Urology Comment on above: Epididymal cyst (Chrissy syeda Dx); Screening for genitourinary condition Start: 04-26-2024 Encounter for genera l adult medical examination without abnormal findings [place] [facility] Start: 04-02-2024 End: 04-02-2024 Refill Jalil Beebe MD Work Phone: Urology Comment on above: Refill Request Start: 03-30-2024 End: 03-30-2024 Refill Arturo Kendrick DO Work Phone: [facility] Comment on above: Refill Request Start: 03-26-2024 End: 03-26-2024 ambulatory [facility][Note 3] Facility:[facility] Start: 03-17-2024 ambulatory ARTURO Meyer ity:[facility] Start: 03-17-2024 End: 03-17-2024 Admission to establishment Pst [facility] 1 Pre Surgical Testing Start: 03-17-2024 End: 03-17-2024 Examination of testicle Pst 1 Pre Surgical Emily ting Comment on above: Epididymal cyst (Chrissy syeda Dx); Testicular pain, left; Preop examination; Uncomplicated asthma, unspecified asthma severity, unspecified whether persistent Start: 03-17-2024 End: 03-17-2024 Preprocedural examination done Pst 1 [facility] Start: 03-11-2024 Preprocedural examin ation done Pst 1 [facility] Start: 03-11-2024 Encounter for other preprocedural examination ARTURO KENDRICK [facility] Start: 03-10-2024 End: 03-10-2024 MC Get Medical Advice Arturo Kendrick DO Work Phone: [facility] Comment on above: refill on my Atroven t Refill Request Start: 03-10-2024 End: 03-10-2024 Refill Gayatri Wise APRN.REPORT PROGRAMMER Work Phone: [facility] [place] Comment on above: Refill Request Start: 02-24-2024 End: 02-24-2024 ambulatory [facility] Facility:[facility] Start: 02-17-2024 End: 02-19-2024 ambulatory Nurse Card Admin [facility] Work Phone: Cardiology Comment on above: Stress Test Instruct ions for 02/24/24 Start: 02-17-2024 End: 02-19-2024 E-mail encounter from caregiver Nurse Card Admin [facility] Work Phone: Cardiology Start: 02-17-2024 End: 02-17-2024 Telephone encounter Jalil Beebe MD Work Phone: Urology Comment on above: Schedule Surgery Start: 02-14-2024 End: 02-14-2024 ambulatory JALIL BEEBE Facility:[facility] Start: 02-14-2024 End: 02-14-2024 Patient encounter procedure Jalil Beebe MD Work Phone: Urology Comment on above: Epididymal cyst (Chrissy syeda Dx); Testicular pain, left Start: 02-04-2024 End: 02-04-2024 E-mail encounter from caregiver Yara Melchor GARCIA Work Phone: Urology Start: 02-04-2024 End: 02-04-2024 ambulatory Yara Melchor PA-C Work Phone: Urology Comment on above: [facility] Spermtocele Start: 02-04-2024 End: 02-04-2024 Patient encounter procedure Yara Benson PA-C Work Phone: Urology Comment on above: Epididymal cyst (Chrissy syeda Dx); Scrotal pain Start: 01-15-2024 End: 01-15-2024 Refill Gayatri Wise STEEL WELDER.REPORT PROGRAMMER Work Phone: [facility] [place] Comment on above: Refill Request Start: 12-31-2023 End: 12-31-2023 ambulatory ERROL AVALOS Facility:[facility] Start: 12-31-2023 End: 12-31-2023 Office outpatient visit 25 minutes Errol Avalos APRN.REPORT PROGRAMMER Work Phone: [facility] [place] Comment on above: Diverticulitis (Prim mari Dx); Scrotal pain; Epididymal cyst Start: 12-30-2023 End: 12-30-2023 Patient encounter procedure Alisa Artis STEEL WELDER.REPORT PROGRAMMER Work Phone: Urology Start: 12-27-2023 End: 01-01-2024 Telephone encounter Errol Avalos APRN.CNP Work Phone: [facility] [place] Comment on above: Results Start: 12-26-2023 End: 12-26-2023 ambulatory ERROL AVALOS Facility:[facility] Start: 12-26-2023 End: 12-26-2023 Subsequent hospital visit by physician [facility] 1 Work Phone: Radiology Comment on above: Scrotal pain [N50.82 ] Start: 12-24-2023 End: 12-24-2023 E-mail encounter from caregiver Nurse Card Admin [facility] Work Phone: Cardiology Start: 12-24-2023 End: 12-24-2023 ambulatory Nurse Card Admin [facility] Work Phone: Cardiology Comment on above: Stress Test Instruct ions for 12/30/23 Start: 12-24-2023 End: 12-24-2023 Patient encounter procedure Errol Avalos APRN.REPORT PROGRAMMER Work Phone: Family [facility] [place] Comment on above: Scrotal pain (Primar y Dx); Diverticulitis; Submandibular lymphadenopathy Start: 12-17-2023 End: 12-17-2023 Telephone encounter Felipe Foster PA-C Work Phone: Family [facility] Start: 12-17-2023 ambulatory FELIPE FOSTER Facil ity:[facility] Start: 12-17-2023 End: 12-17-2023 Subsequent hospital visit by physician [facility] Comment on above: Lower abdominal pain [R10.30] Lower abdominal pain , unspecified [R10.30] Start: 12-17-2023 End: 12-17-2023 ambulatory FELIPE FOSTER Facility:[facility] Start: 12-17-2023 End: 12-17-2023 Office outpatient visit 25 minutes Felipe Foster PA-C Work Phone: [facility] [place] Comment on above: Lower abdominal pain (Primary Dx) Start: 12-17-2023 End: 12-17-2023 ambulatory ARTURO KENDRICK Facility:[facility] Start: 12-17-2023 End: 12-17-2023 Patient encounter procedure Fermin Mcnulty STEEL WELDER.REPORT PROGRAMMER Work Phone: [facility] Comment on above: Procedure not donis d out (Primary Dx) Start: 11-05-[address] robles STEEL WELDER.REPORT PROGRAMMER Work Phone: [facility] [place] Comment on above: Results Start: 10-31-2023 End: 10-31-2023 Office outpatient visit 25 minutes Errol Bailey STEEL WELDER.REPORT PROGRAMMER Work Phone: [facility] [place] Comment on above: Well adult exam (Chrissy syeda Dx); SOB (shortness of breath); Family history of cardiac disorder; Dyslipidemia; Seasonal allergic rhinitis due to other allergic trigger; Screening for thyroid disorder; Screening for diabetes mellitus; Screening for prostate cancer Start: 10-31-2023 End: 10-31-2023 Patient encounter status Errol Sutherlandutzman STEEL WELDER.REPORT PROGRAMMER Work Phone: [facility] Work Phone: Start: 10-24-2023 Refill Gayatri Wise STEEL WELDER.REPORT PROGRAMMER Work Phone: [facility] [place] Comment on above: Refill Request Start: 10-02-2023 End: 10-02-2023 ambulatory [facility][Note 3] Facility:[facility] Start: 09-27-2023 ambulatory [facility][Note 3] Facility: [facility] Start: 09-18-2023 Refill Gayatri Wise STEEL WELDER.REPORT PROGRAMMER Work Phone: [facility] [place] Comment on above: Refill Request Start: 07-30-2023 End: 07-30-2023 Patient encounter procedure Karen Azul STEEL WELDER.REPORT PROGRAMMER Work Phone: [facility] Comment on above: Tick bite of abdomin al wall, initial encounter (Primary Dx) Start: 07-25-2023 End: 07-25-2023 Patient encounter procedure Fermin Louis MD Work Phone: Ophthalmology Comment on above: Pseudophakia (Primar y Dx); Irregular astigmatism of left eye; Vitreous floater, bilateral; Dry eye syndrome of bilateral lacrimal glands Start: 07-23-2023 Refill Gayatri Wise STEEL WELDER.REPORT PROGRAMMER Work Phone: [facility] Comment on above: Refill Request Start: 07-08-2023 Refill Gayatri Wise STEEL WELDER.REPORT PROGRAMMER Work Phone: [facility] Comment on above: Refill Request Start: 05-17-2023 Telephone encounter Fermin Louis MD Work Phone: Ophthalmology Comment on above: Received Outside Med ical Records Start: 02-21-2023 End: 02-21-2023 ambulatory [facility] Work Phone: Start: 02-21-2023 End: 02-21-2023 Patient encounter procedure [facility] Work Phone: Start: 08-24-2022 Refill Gayatri Wise STEEL WELDER.REPORT PROGRAMMER Work Phone: [facility] Comment on above: Refill Request Start: 08-10-2022 Telephone encounter Arturo mejía DO Work Phone: [facility] Comment on above: Medication Problem; Patient Question Start: 08-10-2022 End: 08-10-2022 Patient encounter procedure Carmel Gonzalez STEEL WELDER.REPORT PROGRAMMER Work Phone: [facility] Comment on above: Tick bite of left fo rearm, initial encounter (Primary Dx) Start: 07-17-2022 Telephone encounter Nurse Chicas [facility] Work Phone: General Surgery Comment on above: Request for Medical Records Start: 07-15-2022 End: 07-15-2022 Emergency department patient visit [facility] Start: 07-15-2022 End: 07-15-2022 Patient encounter procedure Fermin Mcnulty APRN.REPORT PROGRAMMER Work Phone: [facility] Comment on above: Painful urination (P rimary Dx); Left lower quadrant abdominal pain Start: 06-30-2022 Refill Gayatri Frandy HARDY.REPORT PROGRAMMER Work Phone: [facility] Comment on above: Refill Request Start: 05-01-2022 Refill Gayatri Frandy HARDY.[facility] Work Phone: [facility] Comment on above: Refill Request Start: 04-05-2022 End: 04-05-2022 Patient encounter procedure Antonio Underwood ANTONY.[facility] Work Phone: [facility] Comment on above: Strep throat (Primar y Dx); Throat pain Start: 03-09-2022 Refill Arturo Tipton son DO Work Phone: [facility] Comment on above: Refill Request Start: 11-08-2021 Refill Arturo Tipton son DO Work Phone: [facility] Comment on above: Refill Request Start: 05-13-2019 Patient encounter status Zacarias Kendrick DO Work Phone: [facility] Work Phone: Procedures Date Procedure Procedure Detail Performing Clinician Start: 08-03-2024 Radiologic exam ches t 2 views Will Enriquez APRN.[facility] Work Phone: Start: 08-03-2024 STREP A MOLECULAR (POC) Will Enriquez APRN.REPORT PROGRAMMER Work Phone: Start: 07-25-2024 STREP A MOLECULAR (POC) Berhane Cotter MD Work Phone: Start: 12-26-2023 Dup-scan artl abe abdl/pel/scrot&/rpr orgn com Errol Avalos APRN.REPORT PROGRAMMER Work Phone: Start: 12-26-2023 Us scrotum & contents R allie Avalos APRN.REPORT PROGRAMMER Work Phone: Start: 12-17-2023 Ct abdomen & pelvis w/contrast material Felipe Foster PA-C Work Phone: Start: 12-17-2023 Urnls dip stick/tabl et rgnt auto w/o microscopy Felipe Foster PA-C Work Phone: Start: 10-31-2023 Lipid 1996 panel - S monica or Plasma Errol Avalos STEEL WELDER.REPORT PROGRAMMER Work Phone: Start: 07-25-2023 Computerized corneal topography uni/bi Fermin Louis MD Work Phone: Start: 07-15-2022 Urnls dip stick/tabl et rgnt auto w/o microscopy Fermin Mcnulty STEEL WELDER.REPORT PROGRAMMER Work Phone: Start: 04-05-2022 STREP A MOLECULAR (POC) Antonio Underwood STEEL WELDER.REPORT PROGRAMMER Work Phone: Start: 11-08-2020 Lipid 1996 panel - S monica or Plasma Fermin Louis MD Work Phone: Start: 06-29-2020 Adult depression scr eening assessment Arturo Kendrick DO Work Phone: Start: 01-06-2020 Colonoscopy Arturo miller DO Work Phone: Plan of Treatment Date Care Activity Detail Author Start: 01-05-2030 Colonoscopy COLONOSCOPY [facility] Start: 01-05-2030 COLORECTAL CANCER SCREENING COLORECTAL CANCER SCREENING [facility] Start: 01-05-2030 Screening for malignant neoplasm of colon [facility] Start: 10-30-2028 Lipid panel Lipid Screening [facility] Start: 10-30-2028 Prostate specific antigen measurement Prostate Cancer Screening Discussion [facility] Start: 12-16-2026 Diabetes Screening Diabetes Screening [facility] Start: 10-30-2026 Diabetes Screening Diabetes Screening [facility] Start: 11-08-2025 Lipid panel Lipid Screening [facility] Start: 11-08-2025 LIPID SCREEN LIPID SCREEN [facility] Start: 12-30-2024 Annual PCP Team Chronic Disease Visit Annual PCP Team Chronic Disease Visit [facility] Start: 12-23-2024 Annual PCP Team Chronic Disease Visit Annual PCP Team Chronic Disease Visit [facility] Start: 12-16-2024 Annual PCP Team Chronic Disease Visit Annual PCP Team Chronic Disease Visit [facility] Start: 12-14-2024 Influenza vaccination [facility] Start: 10-30-2024 Annual PCP Team Chronic Disease Visit Annual PCP Team Chronic Disease Visit [facility] Start: 10-30-2024 Covid-19 Vaccine ( season) Covid-19 Vaccine ( season) [facility] Comment on above: Postponed from 12/14/2022 (Declined at t his time) Start: 10-30-2024 Pneumococcal Vaccine: 50+ (2 of 2 - PPSV23) Pneumococcal Vaccine: 50+ (2 of 2 - PPSV23) [facility] Comment on above: Postponed from 05/20/2018 (Declined at t his time) Postponed from 07/15 (Declined at this time) Start: 10-30-2024 Pneumococcal Vaccine: 65+ (2 of 2 - PPSV23 or PCV20) Pneumococcal Vaccine: 65+ (2 of 2 - PPSV23 or PCV20) [facility] Comment on above: Postponed from 2022 (Declined at t his time) Start: 10-30-2024 RSV Vaccine (1 - 1-dose 60+ series) RSV Vaccine (1 - 1-dose 60+ series) [facility] Comment on above: Postponed from 2017 (Declined at t his time) Start: 10-30-2024 RSV Vaccine (1 - Risk 60-74 years 1-dose series) RSV Vaccine (1 - Risk 60-74 years 1-dose series) [facility] Comment on above: Postponed from 2017 (Declined at t his time) Start: 10-30-2024 Shingrix Vaccine (2 of 2) Shingrix Vaccine (2 of 2) [facility] Comment on above: Postponed from 07/08/2019 (Declined at t his time) Start: 10-30-2024 Spirometry Spirometry [facility] Comment on above: Postponed from 1975 (Declined at t his time) Start: 10-30-2024 Urine microalbumin profile DTaP,Tdap,Td Vaccine (1 - Tdap) [facility] Comment on above: Postponed from 05/13/2009 (Declined at t his time) Start: 06-24-2024 PROSTATE CANCER SCREENING DISCUSSION PROSTATE CANCER SCREENING DISCUSSION [facility] Start: 06-24-2024 Prostate specific antigen measurement Prostate Cancer Screening Discussion [facility] Start: 06-12-2024 End: 06-12-2024 Patient encounter procedure 06/12/2024 11:00 AM EST Office Visit Urology [address] [place] [address] Jalil Beebe MD [address] [place] [address] post op follow up 11-24 Urology Comment on above: post op follow up 8 Start: 05-12-2024 End: 05-12-2024 Patient encounter procedure 05/12/2024 9:30 AM EST Office Visit Urology [address] [place] [address] Yara Benson PA-C [address] [place], [place] [id number] 3 MTH F/U Urology Comment on above: 3 MTH F/U Start: 04-15-2024 Advance Directive Discussion Advance Directive Discussion [facility] Start: 03-31-2024 End: 03-31-2024 Admission to same day surgery center 03/31/2024 11:10 AM EST - 03/31/2024 12:30 PM EST Surgery [facility] [address] [address] Jalil Beebe MD [address] [place] [address] SPERMATOCELECTOMY UNILATERAL [facility] Comment on above: SPERMATOCELECTOMY UNILATERAL Start: 03-31-2024 End: 03-31-2024 Excision hydrocele unilateral SPERMATOCELECTOMY UNILATERAL Epididymal cyst Testicular pain, left 03/31/2024 11:10 AM EST [facility] Start: 03-31-2024 Subsequent hospital visit by physician 03/31/2024 11:10 AM EST Hospital Encounter [facility] [address] [facility] [address] [place] [address] Jalil Beebe MD [address] [place] [address] Epididymal cyst [N50.3], Testicular pain, left [N50.812] [facility] Comment on above: Epididymal cyst [N50.3], Testicular pain , left [N50.812] Start: 03-17-2024 End: 03-17-2024 ambulatory 03/17/2024 8:00 AM EST PAT Pre Surgical Testing [address] [place] [address] SPERMATOCELECTOMY UNILATERAL Pre Surgical Testing Comment on above: SPERMATOCELECTOMY UNILATERAL Start: 02-24-2024 End: 02-24-2024 Patient encounter procedure 02/24/2024 11:20 AM EST Office Visit Cardiology [address] [place] [address] Wstr, Nurse Card Admin [facility] [address] [place], [place] [id number] Dyslipidemia [E78.5]; Family history of cardiac disorder [Z82.49]; SOB (shortness of breath) [R06.02] Cardiology Comment on above: Dyslipidemia [E78.5]; Family history of cardiac disorder [Z82.49]; SOB (shortness of breath) [R06.02] Start: 02-10-2024 End: 02-10-2024 Patient encounter procedure 02/10/2024 9:00 AM EDT Office Visit Urology [address] [address] Jalil Beebe MD [address] [place] [address] 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/discuss treatment options/ref B [facility] Comment on above: 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/discuss treatment op tions/ref B Melchor Start: 02-04-2024 End: 02-04-2024 Patient encounter procedure 02/04/2024 11:00 AM EDT Office Visit Urology [address] [place], [place] [phone] Yara Benson PA-C [address] [place] [address] Scrotal pain [N50.82] Urology Comment on above: Scrotal pain [N50.82] Start: 12-31-2023 End: 12-31-2023 Patient encounter procedure 12/31/2023 7:20 AM EDT Office Visit [facility] [address] [place], [place] [id number] Errol Avalos APRN.REPORT PROGRAMMER [address] [place] [address] 1 week follow up [facility] Comment on above: 1 week follow up Start: 12-30-2023 End: 12-30-2023 Patient encounter procedure 12/30/2023 1:50 PM EDT Office Visit Cardiology [address] [place] [address] Wstr, Nurse Card Admin [facility] [address] [place] [address] Dyslipidemia [E78.5]; Family history of cardiac disorder [Z82.49]; SOB (shortness of breath) [R06.02] Cardiology Comment on above: Dyslipidemia [E78.5]; Family history of cardiac disorder [Z82.49]; SOB (shortness of breath) [R06.02] Start: 12-26-2023 End: 12-26-2023 Patient encounter procedure 12/26/2023 1:45 PM EDT Appointment Radiology [address] [place] [address] Scrotal pain [N50.82] Radiology Comment on above: Scrotal pain [N50.82] Start: 12-24-2023 End: 12-24-2023 Patient encounter procedure 12/24/2023 7:20 AM EDT Office Visit [facility] [address] [place] [address] Errol Avalos APRN.REPORT PROGRAMMER [address] [place], [place] [address] [phone] follow up- [facility] [place] Comment on above: follow up- diveritilis Start: 12-17-2023 End: 03-17-2024 Lipase [Enzymatic activity/volume] in Serum or Plasma [facility] Work Phone: Comment on above: Expected: 12/17/2023, Expires: Start: 12-15-2023 Covid-19 Vaccine () Covid-19 Vaccine () [facility] Start: 12-15-2023 Covid-19 Vaccine () Covid-19 Vaccine () [facility] Start: 12-15-2023 Influenza vaccination [facility] Start: 11-09-2023 DIABETES SCREEN DIABETES SCREEN [facility] Start: 11-09-2023 Diabetes Screening Diabetes Screening [facility] Start: 10-31-2023 End: 01-30-2024 CBC panel - Blood by Automated count [facility] Work Phone: Comment on above: Expected: 10/31/2023, Expires: Start: 10-31-2023 End: 01-30-2024 Comprehensive metabolic 2000 panel - Serum or Plasma [facility] Comment on above: Expected: 10/31/2023, Expires: Start: 10-31-2023 End: 01-30-2024 Hemoglobin A1c in Blood [facility] Comment on above: Expected: 10/31/2023, Expires: Start: 10-31-2023 End: 01-30-2024 Lipid 1996 panel - Serum or Plasma [facility] Comment on above: Expected: 10/31/2023, Expires: Start: 10-31-2023 End: 01-30-2024 PSA/PROSTATE SPECIFIC ANTIGEN SCREENING [facility] Comment on above: Expected: 10/31/2023, Expires: Start: 10-31-2023 End: 01-30-2024 Thyrotropin [Units/volume] in Serum or Plasma [facility] Comment on above: Expected: 10/31/2023, Expires: Start: 10-31-2023 End: 10-31-2023 Patient encounter procedure 10/31/2023 7:20 AM EDT Office Visit [facility] [address] [place] [address] Errol Avalos APRN.REPORT PROGRAMMER [address] [place] [address] Wellness exam [facility] Comment on above: Wellness exam Start: 08-11-2023 ANNUAL PCP TEAM CHRONIC DISEASE VISIT ANNUAL PCP TEAM CHRONIC DISEASE VISIT [facility] Start: 04-15-2023 Advance Directive Discussion Advance Directive Discussion [facility] Start: 04-15-2023 Behavioral Health Screening Behavioral Health Screening [facility] Start: 04-15-2023 Depression Assessment Depression Assessment [facility] Start: 02-21-2023 Procedure [facility] Start: 12-14-2022 Covid-19 Vaccine ( season) Covid-19 Vaccine () [facility] Start: 12-14-2022 Influenza vaccination [facility] Start: 04-15-2022 ADVANCE DIRECTIVE DISCUSSION ADVANCE DIRECTIVE DISCUSSION [facility] Start: 04-15-2022 DEPRESSION ASSESSMENT DEPRESSION ASSESSMENT [facility] Start: 02-27-2022 ANNUAL PCP TEAM CHRONIC DISEASE VISIT ANNUAL PCP TEAM CHRONIC DISEASE VISIT [facility] Start: 2022 ADVANCE DIRECTIVE DISCUSSION ADVANCE DIRECTIVE DISCUSSION [facility] Start: 2022 Pneumococcal Vaccine: 65+ (2 of 2 - PPSV23 or PCV20) Pneumococcal Vaccine: 65+ (2 of 2 - PPSV23 or PCV20) [facility] Start: 12-14-2021 Influenza vaccination INFLUENZA (#1) [facility] Start: 06-29-2021 Adult depression screening assessment DEPRESSION SCREENING [facility] Start: 04-15-2021 DEPRESSION ASSESSMENT DEPRESSION ASSESSMENT [facility] Start: 07-08-2019 SHINGRIX VACCINE (2 of 2) SHINGRIX VACCINE (2 of 2) [facility] Start: 05-20-2018 PNEUMOCOCCAL (2 - PPSV23 or PCV20) PNEUMOCOCCAL (2 - PPSV23 or PCV20) [facility] Start: 05-20-2018 PNEUMOCOCCAL: 65+ (2 - PPSV23 if available, else PCV20) PNEUMOCOCCAL: 65+ (2 - PPSV23 if available, else PCV20) [facility] Start: 07-15-2017 PNEUMOCOCCAL: 65+ (2 - PPSV23 if available, else PCV20) PNEUMOCOCCAL: 65+ (2 - PPSV23 if available, else PCV20) [facility] Start: 2017 RSV Vaccine (1 - 1-dose 60+ series) RSV Vaccine (1 - 1-dose 60+ series) [facility] Start: 05-13-2009 [facility] Start: 2002 COLOGUARD (FIT-DNA) COLOGUARD (FIT-DNA) [facility] Start: [address] COLONOGRAPHY [facility] Start: 2002 FECAL OCCULT BLOOD FECAL OCCULT BLOOD [facility] Start: 2002 Screening for malignant neoplasm of colon [facility] Start: 2002 SIGMOIDOSCOPY SIGMOIDOSCOPY [facility] Start: 1975 Depression Screening Depression Screening [facility] Start: 1975 HEPATITIS C SCREENING HEPATITIS C SCREENING [facility] Start: 1975 Hepatitis C screening Hepatitis C Screening [facility] Start: 1975 HIV SCREENING HIV SCREENING [facility] Start: 1975 SPIROMETRY SPIROMETRY [facility] Start: 1957 COVID-19 VACCINE (#1) COVID-19 VACCINE (#1) [facility] Excision hydrocele unilateral SPERMATOCELECTOMY UNILATERAL Epididymal cyst Testicular pain, left [facility] Patient Education [facility] Work Phone: End: 10-30-2024 STRESS ECHO TREADMILL STRESS ECHO TREADMILL Cardiology Routine Dyslipidemia Family history of cardiac disorder SOB (shortness of breath) 1 Occurrences starting 10/31/2023 until 10/30/2024 [facility] Comment on above: 1 Occurrences starting 10/31/2023 until 10/30/2024 UA DIP B/O UA DIP B/O Lab R outine Lower abdominal pain Ordered: 12/17/2023 [facility] Comment on above: Ordered: 12/17/2023 UA DIP, URINE (POC) UA DIP, URIN E (POC) Lab Routine Screening for genitourinary condition Ordered: 05/12/2024 [facility] Work Phone: Comment on above: Ordered: 05/12/2024 End: 01-22-2025 US.doppler Scrotum and testicle US SCROTUM AND CONTENTS Radiology STAT Scrotal pain 1 Occurrences starting 12/24/2023 until 01/22/2025 [facility] Work Phone: Comment on above: 1 Occurrences starting 12/24/2023 until 01/22/2025 End: 01-22-2025 US.doppler Unspecified body region US DOPPLER COMPLETE Radiology Routine Scrotal pain 1 Occurrences starting 12/24/2023 until 01/22/2025 [facility] Comment on above: 1 Occurrences starting 12/24/2023 until 01/22/2025 [facility] Immunizations Immunization Date Immunization Notes Care Provider [facility] 05-13-2019 influenza, injectabl e, quadrivalent, contains preservative Arturo Kendrick DO Work Phone: [facility] Work Phone: 05-13-2019 zoster vaccine recombinant Arturo Kendrick DO Work Phone: [facility] Work Phone: 05-13-2019 influenza virus vaccine, unspecified formulation Fermin Louis MD Work Phone: [facility] 05-20-2017 pneumococcal conjuga te vaccine, 13 valent Arturo Kendrick DO Work Phone: [facility] 04-23-2017 influenza, injectabl e, quadrivalent, preservative free [facility] 04-23-2017 influenza, seasonal, injectable [facility] 04-23-2017 influenza, seasonal, injectable, preservative free Arturo Kendrick DO Work Phone: [facility] Work Phone: 02-24-2015 influenza, seasonal, injectable Arturo Kendrick DO Work Phone: [facility] 05-12-2009 tetanus and diphther ia toxoids, adsorbed, preservative free, for adult use (2 Lf of tetanus toxoid and 2 Lf of diphtheria toxoid) Arturo Kendrick DO Work Phone: [facility] Payers Date Payer Category Payer Unknown [id number] 2023 Self-pay [id number] 2021 Unknown [id number] 2021 Unknown [id number] 2020 Private Health Insurance AETNA A ETNA CHOICE POS II [id number] 2020-Present [phone] [address] [place] [address] POS [id number] 2020 Private Health Insurance [id number] 2014 Unknown [place] [id number] Medicare MEDICARE A ONLY [id number] Private Health Insurance AETNA [id number] Unknown [id number] Unknown [id number] Unknown [id number] Social History Date Type Detail Facility Start: 05-13-2019 End: 04-05-2022 Tobacco smoking status NHIS Never smoked tobacco [facility] Start: 02-27-2021 End: 02-14-2024 Alcohol intake Lifetime non-drinker (finding) [facility] Start: 06-29-2020 History SDOH Alcohol Frequency 1 [facility] Start: 06-29-2020 History SDOH Social Connections Phone 98 [facility] Start: 06-29-2020 History SDOH Social Connections Living 3 [facility] Start: 06-29-2020 History SDOH Physica l Activity MPS 2 [facility] Start: 06-29-2020 History SDOH Financial 5 [facility] Start: 06-29-2020 Education 18 [facility] Start: 1955 Sex Assigned At Not on file [facility] Start: 05-13-2019 End: 04-05-2022 Tobacco use and exposure Smokeless tobacco non-user [facility] Work Phone: Start: 07-15-2022 End: 07-15-2022 Tobacco smoking status NHIS Unknown if ever smoked [facility] Start: 1955 Sex Assigned At Male [facility] Start: 06-29-2020 End: 10-25-2023 History of Social function [facility] Start: 06-29-2020 End: 10-25-2023 Social connection and isolation panel [facility] In a typical week, h ow many times do you talk on the telephone with family, friends, or neighbors? Patient refused [facility] Are you now , , , , never or living with a partner? [facility] How often to you hav e a drink containing alcohol? Never [facility] Do you feel stress - tense, restless, nervous, or anxious, or unable to sleep at night because your mind is troubled all the time - these days [OSQ] To some extent [facility] (I/We) worried wheady er (my/our) food would run out before (I/we) got money to buy more. Never true [facility] In the past 12 month s, was there a time when you were not able to pay the mortgage or rent on time? No [facility] Do you belong to any clubs or organizations such as zoroastrianism groups, unions, fraternal or athletic groups, or school groups? Yes [facility] Do you feel stress - tense, restless, nervous, or anxious, or unable to sleep at night because your mind is troubled all the time - these days [OSQ] Not at all [facility] Start: 03-17-2024 End: 10-30-2024 Alcoholic beverage intake Ex-drinker (finding) [facility] Medical Equipment Procedure Code Equipment Code Equipment Origin al Text Equipment Identifier Dates Mesh Parietex 4. 6cm Small Collagen Surgical Patch Self Center Resorbable - [id number] Start: 11-30-2020 Clinical Notes 11-30-2020 to 10-30-2024 Telephone Encounter - Berhane Cotter MD - 10/30/2024 8:39 AM EDTTelephone Encounter - Berhane Cotter MD - 10/30/2024 8:39 AM EDTMBerhane Onofre MD - 10/30/2024 8:29 AM EDT Note Date & Type Note Facility 10-30-2024 Telephone encounter Note Patient requests refill for Atrovent sent to [facility]. Patient uses medicine twice a day without concerns for effectiveness or side effects. [facility] 10-30-2024 Miscellaneous Notes Patient requests refill for Atrovent sent to [facility]. Patient uses medicine twice a day without concerns for effectiveness or side effects. documented in this encounter [facility] 10-30-2024 Note HNO ID: [id number] Author: BERHANE COTTER MD Service: ? Author Type: Physician Type: Progress Notes Filed: 10/30/2024 08:38 Note Text: [facility] is a 69 year old male. Patient presents with: Abdominal Pain: LLQ, with stomach cramping x last night, feels like previous diverticulitis flare Abdominal pain: Duration: started last night Location: left lower quadrant Character: cramping and knife-like - feels identical to diverticulitis (last episode Dec 2023) Radiation: some across the lower abdomen Aggravating: pushing on Relieving: Pain relievers: none Associated: slight nausea Pertinent negatives: Denies fever, vomiting, blood in stool, diarrhea, constipation, chest pain, shortness of breath, wheezing Abdominal Pain Review of Systems Gastrointestinal: Positive for abdominal pain. Objective BP 138/86 Pulse 75 Temp 36.8 ?C (98.2 ?F) Resp 18 Wt 94.5 kg (208 lb 5.4 oz) SpO2 96% BMI 28.26 kg/m? Physical Exam Constitutional: General: He is not in acute distress. Appearance: He is not ill-appearing. Eyes: Extraocular Movements: Extraocular movements intact. Conjunctiva/sclera: Conjunctivae normal. Pupils: Pupils are equal, round, and reactive to light. Cardiovascular: Rate and Rhythm: Normal rate and regular rhythm. Heart sounds: No murmur heard. Pulmonary: Effort: No respiratory distress. Breath sounds: No wheezing, rhonchi or rales. Abdominal: General: There is no distension. Palpations: There is no mass. Tenderness: There is abdominal tenderness (Focal tender left lower quadrant). Musculoskeletal: Cervical back: Neck supple. Lymphadenopathy: Cervical: No cervical adenopathy. Neurological: Mental Status: He is alert. {ASSESSMENT/PLAN: 1. Diverticulitis - ICD9: 562.11, ICD10: K57.92 Characteristic diverticulitis symptoms with history of diverticulitis proven on CT scan 1 year ago. Treated with antibiotic - METRONIDAZOLE 500 MG TABLET - CEFDINIR 300 MG CAPSULE Follow-up with PCP with failure to improve over the next couple days or in the ER if worsening. Refill request for atrovent sent to PCP. Berhane Cotter MD History and Record Review External record(s) reviewed: prior labs/imaging. Findings from review of prior labs/imaging: Diverticulitis on CT 12/17/2023 Differential Diagnoses - Diverticulitis is more likely for the following reason(s): suggested by HANDP - Colitis - Constipation Procedures [facility] 10-30-2024 History of Present illness Narrative [facility] Eduardo Jones is a 69 year old male. Patient presents with: Abdominal Pain: LLQ, with stomach cramping x last night, feels like previous diverticulitis flare Abdominal pain: Duration: started last night Location: left lower quadrant Character: cramping and knife-like - feels identical to diverticulitis (last episode Dec 2023) Radiation: some across the lower abdomen Aggravating: pushing on Relieving: Pain relievers: none Associated: slight nausea Pertinent negatives: Denies fever, vomiting, blood in stool, diarrhea, constipation, chest pain, shortness of breath, wheezing Abdominal Pain Review of Systems Gastrointestinal: Positive for abdominal pain. Objective BP 138/86 Pulse 75 Temp 36.8 C (98.2 F) Resp 18 Wt 94.5 kg (208 lb 5.4 oz) SpO2 96% BMI 28.26 kg/m Physical Exam Constitutional: General: He is not in acute distress. Appearance: He is not ill-appearing. Eyes: Extraocular Movements: Extraocular movements intact. Conjunctiva/sclera: Conjunctivae normal. Pupils: Pupils are equal, round, and reactive to light. Cardiovascular: Rate and Rhythm: Normal rate and regular rhythm. Heart sounds: No murmur heard. Pulmonary: Effort: No respiratory distress. Breath sounds: No wheezing, rhonchi or rales. Abdominal: General: There is no distension. Palpations: There is no mass. Tenderness: There is abdominal tenderness (Focal tender left lower quadrant). Musculoskeletal: Cervical back: Neck supple. Lymphadenopathy: Cervical: No cervical adenopathy. Neurological: Mental Status: He is alert. {ASSESSMENT/PLAN: 1. Diverticulitis - ICD9: 562.11, ICD10: K57.92 Characteristic diverticulitis symptoms with history of diverticulitis proven on CT scan 1 year ago. Treated with antibiotic - METRONIDAZOLE 500 MG TABLET - CEFDINIR 300 MG CAPSULE Follow-up with PCP with failure to improve over the next couple days or in the ER if worsening. Refill request for atrovent sent to PCP. Berhane Cotter MD History and Record Review External record(s) reviewed: prior labs/imaging. Findings from review of prior labs/imaging: Diverticulitis on CT 12/17/2023 Differential Diagnoses - Diverticulitis is more likely for the following reason(s): suggested by H&P - Colitis - Constipation Procedures documented in this encounter [facility] 08-25-2024 Telephone encounter Note Prescription Refill Information The patient has been identified by name and date of : Yes Caregiver verified no other encounters exist for this prescription request: Yes Caregiver confirmed with patient/requestor that no other refills are due, in the near future, with this provider at this time: Yes The last office visit in the department: 12/31/2023 Does the patient have a future office visit with this provider/department: No Requested Prescriptions Pending Prescriptions Disp Refills Ipratropium Semmes (ATROVENT) 21 mcg (0.03 %) nasal spray 30 mL 1 Sig: Use 2 sprays in the nose every 12 hours. Jaymie Ashford LPN August 25, 2024 8:34 AM [facility] 08-25-2024 Miscellaneous Notes Prescription Refill Information The patient has been identified by name and date of : Yes Caregiver verified no other encounters exist for this prescription request: Yes Caregiver confirmed with patient/requestor that no other refills are due, in the near future, with this provider at this time: Yes The last office visit in the department: 12/31/2023 Does the patient have a future office visit with this provider/department: No Requested Prescriptions Pending Prescriptions Disp Refills Ipratropium Semmes (ATROVENT) 21 mcg (0.03 %) nasal spray 30 mL 1 Sig: Use 2 sprays in the nose every 12 hours. Jaymie Ashford LPN August 25, 2024 8:34 AM documented in this encounter [facility] 08-03-2024 History of Present illness Narrative Radiology Service Progress Note PATIENT NAME: Eduardo Jones DATE OF SERVICE: August 03, 2024 TIME: 8:29 AM PATIENT IDENTITY VERIFICATION COMPLETED USING TWO (2) IDENTIFIERS: Name and Date of confirmed by patient verbally. FALL SCREENING: Has the patient had 2 falls in the last year or 1 fall with injury or currently using an Ambulatory Assistive Device (Walker, Cane, Wheelchair, Crutches, etc.)? No PATIENT GENDER DATA: Assigned male at PATIENT RELEVANT IMPLANT DATA REVIEWED: Yes PATIENT PRESENTS WITH AN IMPLANTABLE OR ATTACHED BROADBAND INSTALLER: No RADIOLOGY DEPARTMENT: General X-ray: Exam(s) Completed: Chest X-Ray PERIPHERAL IV DATA: Not applicable SIGNED BY: RT Kavin(Stephania) August 03, 2024 8:29 AM documented in this encounter [facility] 08-03-2024 Note HNO ID: [id number] Author: ALBERT WILLIAMSON RT(R) Service: ? Author Type: Pediatric Physician Type: Progress Notes Filed: 08/03/2024 08:35 Note Text: Radiology Service Progress Note PATIENT NAME: Eduardo Jones DATE OF SERVICE: August 03, 2024 TIME: 8:29 AM PATIENT IDENTITY VERIFICATION COMPLETED USING TWO (2) IDENTIFIERS: Name and Date of confirmed by patient verbally. FALL SCREENING: Has the patient had 2 falls in the last year or 1 fall with injury or currently using an Ambulatory Assistive Device (Walker, Cane, Wheelchair, Crutches, etc.)? No PATIENT GENDER DATA: Assigned male at PATIENT RELEVANT IMPLANT DATA REVIEWED: Yes PATIENT PRESENTS WITH AN IMPLANTABLE OR ATTACHED BROADBAND INSTALLER: No RADIOLOGY DEPARTMENT: General X-ray: Exam(s) Completed: Chest X-Ray PERIPHERAL IV DATA: Not applicable SIGNED BY: RT Kavin(Stephania) August 03, 2024 8:29 AM [facility] 08-03-2024 Note HNO ID: [id number] Author: WILL ENRIQUEZ APRN.REPORT PROGRAMMER Service: ? Author Type: Nurse Practitioner Type: Progress Notes Filed: 08/03/2024 08:56 Note Text: [facility] Subjective Eduardo Jones is a 69 year old male. Patient presents with: Cough: Cough, chest congestion and ST x 1 week Patient came in with complaints of couple weeks worth of coughing. Patient says is not getting any better. Patient was on a round of steroids and cefdinir with very minimal relief. Patient denies any shortness of breath but says he does have pain in the right side of his lung. The pain is reproducible when touched. Patient denies any pain when taking a deep breath in. Patient denies other symptoms. The history is provided by the patient. No modern languages professor was used. Cough Review of Systems Constitutional: Negative. Respiratory: Positive for cough. Objective BP 122/80 Pulse 91 Temp 37 ?C (98.6 ?F) (Tympanic) Resp 16 Wt 96.2 kg (212 lb 1.3 oz) SpO2 99% BMI 28.76 kg/m? Physical Exam Constitutional: Appearance: Normal appearance. HENT: Right Ear: Tympanic membrane, ear canal and external ear normal. Left Ear: Tympanic membrane, ear canal and external ear normal. Nose: Nose normal. Mouth/Throat: Mouth: Mucous membranes are moist. Pharynx: Posterior oropharyngeal erythema present. Eyes: Pupils: Pupils are equal, round, and reactive to light. Cardiovascular: Rate and Rhythm: Normal rate and regular rhythm. Heart sounds: Normal heart sounds. Neurological: Mental Status: He is alert. PAST MEDICAL HISTORY Diagnosis Date Alcoholism ([facility]) 06/30/2019 From previous records Allergic rhinitis Asthma ([facility]) Asthma without status asthmaticus ([facility]) Diverticulitis ED (erectile dysfunction) of organic origin 06/30/2019 From previous records. Epididymal cyst Erectile dysfunction Family history of coronary artery disease Stress Echo- 09/08/[address] Duran TAYO (generalized anxiety disorder) 06/30/2019 From previous records Generalized anxiety disorder Hypercholesteremia Insomnia Lyme disease Scrotal pain 12/31/2023 Submandibular lymphadenopathy 12/31/2023 Umbilical hernia PAST SURGICAL HISTORY Procedure Laterality Date ARTHROSCOPY KNEE DIAGNOSTIC W/WO SYNOVIAL BX SPX Right 2 COLONOSCOPY FLX DX W/COLLJ SPEC WHEN PFRMD 05/12/2007 KNEE ARTHROSCOPY Left 09/2012 2 PAST SURGICAL HISTORY OF 1996 discectomy L4/L5 REPAIR UMBILICAL HERNIA 11/30/2020 ALLERGIES Patient has no known allergies. MEDICATIONS fluticasone propionate (FLONASE NASAL) Use 1 inhalation in the nose once daily. predniSONE (DELTASONE) 10 mg tablet Take 4 tabs daily for 3 days, then 2 tabs daily for 3 days, then 1 tab daily for 3 days with food. Ipratropium Semmes (ATROVENT) 21 mcg (0.03 %) nasal spray Use 2 Sprays in the nose every 12 hours. ibuprofen (MOTRIN) 800 mg tablet Take 1 tablet by mouth every 8 hours as needed for pain. montelukast (SINGULAIR) 10 mg tablet Take 1 tablet by mouth daily at bedtime. Aspirin delayed release 500 mg EC tablet Take 500 mg by mouth every 6 hours as needed for pain. ALBUTEROL INHALATION Inhale 1 Puff as instructed every 6 hours as needed (wheezing). TURMERIC ORAL Take 1 capsule by mouth once daily. FAMILY HISTORY Problem Relation Age of Onset No Known Problems Mother in good health Heart Father CABG @ age 54 Dementia Father Alcohol/Drug Sister other (Lupus) Sister no longer being treated Alcohol/Drug Brother Social History Tobacco Use Smoking status: Never Smokeless tobacco: Never Vaping Use Vaping status: Never Used Substance Use Topics Alcohol use: Not Currently Drug use: Not Currently Types: Marijuana {ASSESSMENT/PLAN: 1. Acute cough - ICD9: 786.2, ICD10: R05.1 (primary diagnosis) - XR CHEST 2V FRONTAL/LAT 2. Sore throat - ICD9: 462, ICD10: J02.9 - Group A strep molecular testing negative - Discussed supportive care treatment with fluids, rest and analgesia. - STREP A MOLECULAR (POC) 3. Rhinosinusitis - ICD9: 473.9, ICD10: J32.9 - Will begin treatment with as per antibiotic as written, see orders - DOXYCYCLINE HYCLATE 100 MG TABLET Patient requested another round of steroids due to asthma. Patient was also given Tessalon Perles. Patient educated about proper use of medication and supportive therapies. Patient will follow-up with primary care if this does not work. Will Enriquez APRN.REPORT PROGRAMMER History and Record Review External record(s) reviewed: no prior records. Disposition The patient was discharged. Procedures [facility] 08-03-2024 History of Present illness Narrative [facility] Subjective Eduardo Jones is a 69 year old male. Patient presents with: Cough: Cough, chest congestion and ST x 1 week Patient came in with complaints of couple weeks worth of coughing. Patient says is not getting any better. Patient was on a round of steroids and cefdinir with very minimal relief. Patient denies any shortness of breath but says he does have pain in the right side of his lung. The pain is reproducible when touched. Patient denies any pain when taking a deep breath in. Patient denies other symptoms. The history is provided by the patient. No modern languages professor was used. Cough Review of Systems Constitutional: Negative. Respiratory: Positive for cough. Objective BP 122/80 Pulse 91 Temp 37 C (98.6 F) (Tympanic) Resp 16 Wt 96.2 kg (212 lb 1.3 oz) SpO2 99% BMI 28.76 kg/m Physical Exam Constitutional: Appearance: Normal appearance. HENT: Right Ear: Tympanic membrane, ear canal and external ear normal. Left Ear: Tympanic membrane, ear canal and external ear normal. Nose: Nose normal. Mouth/Throat: Mouth: Mucous membranes are moist. Pharynx: Posterior oropharyngeal erythema present. Eyes: Pupils: Pupils are equal, round, and reactive to light. Cardiovascular: Rate and Rhythm: Normal rate and regular rhythm. Heart sounds: Normal heart sounds. Neurological: Mental Status: He is alert. PAST MEDICAL HISTORY Diagnosis Date Alcoholism ([facility]) 06/30/2019 From previous records Allergic rhinitis Asthma ([facility]) Asthma without status asthmaticus ([facility]) Diverticulitis ED (erectile dysfunction) of organic origin 06/30/2019 From previous records. Epididymal cyst Erectile dysfunction Family history of coronary artery disease Stress Echo- 09/08/[address] Duran TAYO (generalized anxiety disorder) 06/30/2019 From previous records Generalized anxiety disorder Hypercholesteremia Insomnia Lyme disease Scrotal pain 12/31/2023 Submandibular lymphadenopathy 12/31/2023 Umbilical hernia PAST SURGICAL HISTORY Procedure Laterality Date ARTHROSCOPY KNEE DIAGNOSTIC W/WO SYNOVIAL BX SPX Right 2 COLONOSCOPY FLX DX W/COLLJ SPEC WHEN PFRMD 05/12/2007 KNEE ARTHROSCOPY Left 09/2012 2 PAST SURGICAL HISTORY OF 1996 discectomy L4/L5 REPAIR UMBILICAL HERNIA 11/30/2020 ALLERGIES Patient has no known allergies. MEDICATIONS fluticasone propionate (FLONASE NASAL) Use 1 inhalation in the nose once daily. predniSONE (DELTASONE) 10 mg tablet Take 4 tabs daily for 3 days, then 2 tabs daily for 3 days, then 1 tab daily for 3 days with food. Ipratropium Semmes (ATROVENT) 21 mcg (0.03 %) nasal spray Use 2 Sprays in the nose every 12 hours. ibuprofen (MOTRIN) 800 mg tablet Take 1 tablet by mouth every 8 hours as needed for pain. montelukast (SINGULAIR) 10 mg tablet Take 1 tablet by mouth daily at bedtime. Aspirin delayed release 500 mg EC tablet Take 500 mg by mouth every 6 hours as needed for pain. ALBUTEROL INHALATION Inhale 1 Puff as instructed every 6 hours as needed (wheezing). TURMERIC ORAL Take 1 capsule by mouth once daily. FAMILY HISTORY Problem Relation Age of Onset No Known Problems Mother in good health Heart Father CABG @ age 54 Dementia Father Alcohol/Drug Sister other (Lupus) Sister no longer being treated Alcohol/Drug Brother Social History Tobacco Use Smoking status: Never Smokeless tobacco: Never Vaping Use Vaping status: Never Used Substance Use Topics Alcohol use: Not Currently Drug use: Not Currently Types: Marijuana {ASSESSMENT/PLAN: 1. Acute cough - ICD9: 786.2, ICD10: R05.1 (primary diagnosis) - XR CHEST 2V FRONTAL/LAT 2. Sore throat - ICD9: 462, ICD10: J02.9 - Group A strep molecular testing negative - Discussed supportive care treatment with fluids, rest and analgesia. - STREP A MOLECULAR (POC) 3. Rhinosinusitis - ICD9: 473.9, ICD10: J32.9 - Will begin treatment with as per antibiotic as written, see orders - DOXYCYCLINE HYCLATE 100 MG TABLET Patient requested another round of steroids due to asthma. Patient was also given Tessalon Perles. Patient educated about proper use of medication and supportive therapies. Patient will follow-up with primary care if this does not work. Will Enriquez APRN.ARCHANA History and Record Review External record(s) reviewed: no prior records. Disposition The patient was discharged. Procedures documented in this encounter [facility] 07-25-2024 Instructions Astrid Davis APRN.CNP - 07/25/2024 8:43 AM EDT ASSESSMENT/PLAN: 1. Sore throat - ICD9: 462, ICD10: J02.9 (primary diagnosis) - Group A strep molecular testing negative - Discussed supportive care treatment with fluids, rest and analgesia. - STREP A MOLECULAR (POC) 2. URI, acute - ICD9: 465.9, ICD10: J06.9 - Symptomatic treatment with prn analgesia - Supportive care with fluids and rest - CEFDINIR 300 MG CAPSULE 3. Exacerbation of asthma, unspecified asthma severity, unspecified whether persistent (HCC) - ICD9: 493.92, ICD10: J45.901 - PREDNISONE 10 MG TABLET - Follow-up with your PCP in 3-5 days if symptoms have not improved or sooner if symptoms worsen - Discussed red flags and need for immediate medical evaluation if any occur. - Discussed supportive care treatment with fluids, rest and analgesia. - Discussed expected course of illness Astrid Davis APRN.REPORT PROGRAMMER documented in this encounter [facility] 07-25-2024 Note HNO ID: [id number] Author: ASTRID DAVIS APRN.ARCHANA Service: ? Author Type: Nurse Practitioner Type: Progress Notes Filed: 07/25/2024 08:44 Note Text: [facility] Subjective Eduardo Jones is a 69 year old male. Patient presents with: Cough: Dry cough, deep, sore throat x 6 days Cough Associated symptoms include sore throat and shortness of breath. Pertinent negatives include no chest pain, no chills and no myalgias. Eduardo Jones is a 69 year old male who presents with deep raspy cough x 5 days. He returned from [place] last week and symptoms started the next morning. He is coughing and coughing up thick green phlegm. He has not had a fever. Voice is raspy and he coughs if he talks. He has been using cough drops. Review of Systems Constitutional: Negative for chills, fatigue and fever. HENT: Positive for sore throat and voice change. Respiratory: Positive for cough and shortness of breath. Cardiovascular: Negative for chest pain. Musculoskeletal: Negative for myalgias. Objective BP 113/77 Pulse 83 Temp 36.4 ?C (97.5 ?F) Resp 20 Wt 93 kg (205 lb 0.4 oz) SpO2 97% BMI 27.81 kg/m? PAST MEDICAL HISTORY Diagnosis Date - Alcoholism ([facility]) 06/30/2019 From previous records - Allergic rhinitis - Asthma ([facility]) - Asthma without status asthmaticus ([facility]) - Diverticulitis - ED (erectile dysfunction) of organic origin 06/30/2019 From previous records. - Epididymal cyst - Erectile dysfunction - Family history of coronary artery disease Stress Echo- 09/08/[address] Duran - TAYO (generalized anxiety disorder) 06/30/2019 From previous records - Generalized anxiety disorder - Hypercholesteremia - Insomnia - Lyme disease - Scrotal pain 12/31/2023 - Submandibular lymphadenopathy 12/31/2023 - Umbilical hernia PAST SURGICAL HISTORY Procedure Laterality Date - ARTHROSCOPY KNEE DIAGNOSTIC W/WO SYNOVIAL BX SPX Right 2 - COLONOSCOPY FLX DX W/COLLJ SPEC WHEN PFRMD 05/12/2007 - KNEE ARTHROSCOPY Left 09/2012 2 - PAST SURGICAL HISTORY OF 1996 discectomy L4/L5 - REPAIR UMBILICAL HERNIA 11/30/2020 ALLERGIES Patient has no known allergies. MEDICATIONS - fluticasone propionate (FLONASE NASAL) Use 1 inhalation in the nose once daily. - Ipratropium Semmes (ATROVENT) 21 mcg (0.03 %) nasal spray Use 2 Sprays in the nose every 12 hours. - ibuprofen (MOTRIN) 800 mg tablet Take 1 tablet by mouth every 8 hours as needed for pain. - montelukast (SINGULAIR) 10 mg tablet Take 1 tablet by mouth daily at bedtime. - Aspirin delayed release 500 mg EC tablet Take 500 mg by mouth every 6 hours as needed for pain. - ALBUTEROL INHALATION Inhale 1 Puff as instructed every 6 hours as needed (wheezing). - TURMERIC ORAL Take 1 capsule by mouth once daily. - cefdinir (OMNICEF) 300 mg capsule Take 1 capsule by mouth two times a day for 7 days. - predniSONE (DELTASONE) 10 mg tablet Take 4 tabs daily for 3 days, then 2 tabs daily for 3 days, then 1 tab daily for 3 days with food. FAMILY HISTORY Problem Relation Age of Onset - No Known Problems Mother in good health - Heart Father CABG @ age 54 - Dementia Father - Alcohol/Drug Sister - other (Lupus) Sister no longer being treated - Alcohol/Drug Brother Social History Tobacco Use - Smoking status: Never - Smokeless tobacco: Never Vaping Use - Vaping status: Never Used Substance Use Topics - Alcohol use: Not Currently - Drug use: Not Currently Types: Marijuana Physical Exam Vitals and nursing note reviewed. Constitutional: General: He is not in acute distress. Appearance: Normal appearance. He is not ill-appearing. HENT: Nose: Nose normal. Mouth/Throat: Mouth: Mucous membranes are moist. Pharynx: Oropharynx is clear. Uvula midline. Posterior oropharyngeal erythema, uvula swelling and postnasal drip present. Tonsils: No tonsillar exudate or tonsillar abscesses. Cardiovascular: Rate and Rhythm: Normal rate and regular rhythm. Heart sounds: Normal heart sounds. Pulmonary: Effort: Pulmonary effort is normal. No respiratory distress. Breath sounds: Normal breath sounds. No wheezing or rales. Skin: General: Skin is warm and dry. Findings: No erythema or rash. Neurological: Mental Status: He is alert. {ASSESSMENT/PLAN: 1. Sore throat - ICD9: 462, ICD10: J02.9 (primary diagnosis) - Group A strep molecular testing negative - Discussed supportive care treatment with fluids, rest and analgesia. - STREP A MOLECULAR (POC) 2. URI, acute - ICD9: 465.9, ICD10: J06.9 - Symptomatic treatment with prn analgesia - Supportive care with fluids and rest - CEFDINIR 300 MG CAPSULE 3. Exacerbation of asthma, unspecified asthma severity, unspecified whether persistent (HCC) - ICD9: 493.92, ICD10: J45.901 - PREDNISONE 10 MG TABLET - Follow-up with your PCP in 3-5 days if symptoms have not improved or sooner if symptoms worsen - Discussed red flag (more content not included)... [facility] 07-25-2024 History of Present illness Narrative [facility] Subjective Eduardo Jones is a 69 year old male. Patient presents with: Cough: Dry cough, deep, sore throat x 6 days Cough Associated symptoms include sore throat and shortness of breath. Pertinent negatives include no chest pain, no chills and no myalgias. Eduardo Jones is a 69 year old male who presents with deep raspy cough x 5 days. He returned from [place] last week and symptoms started the next morning. He is coughing and coughing up thick green phlegm. He has not had a fever. Voice is raspy and he coughs if he talks. He has been using cough drops. Review of Systems Constitutional: Negative for chills, fatigue and fever. HENT: Positive for sore throat and voice change. Respiratory: Positive for cough and shortness of breath. Cardiovascular: Negative for chest pain. Musculoskeletal: Negative for myalgias. Objective BP 113/77 Pulse 83 Temp 36.4 C (97.5 F) Resp 20 Wt 93 kg (205 lb 0.4 oz) SpO2 97% BMI 27.81 kg/m PAST MEDICAL HISTORY Diagnosis Date Alcoholism (HCC) 06/30/2019 From previous records Allergic rhinitis Asthma (HCC) Asthma without status asthmaticus (HCC) Diverticulitis ED (erectile dysfunction) of organic origin 06/30/2019 From previous records. Epididymal cyst Erectile dysfunction Family history of coronary artery disease Stress Echo- 09/08/[address] Duran TAYO (generalized anxiety disorder) 06/30/2019 From previous records Generalized anxiety disorder Hypercholesteremia Insomnia Lyme disease Scrotal pain 12/31/2023 Submandibular lymphadenopathy 12/31/2023 Umbilical hernia PAST SURGICAL HISTORY Procedure Laterality Date ARTHROSCOPY KNEE DIAGNOSTIC W/WO SYNOVIAL BX SPX Right 2 COLONOSCOPY FLX DX W/COLLJ SPEC WHEN PFRMD 05/12/2007 KNEE ARTHROSCOPY Left 09/2012 2 PAST SURGICAL HISTORY OF 1996 discectomy L4/L5 REPAIR UMBILICAL HERNIA 11/30/2020 ALLERGIES Patient has no known allergies. MEDICATIONS fluticasone propionate (FLONASE NASAL) Use 1 inhalation in the nose once daily. Ipratropium Semmes (ATROVENT) 21 mcg (0.03 %) nasal spray Use 2 Sprays in the nose every 12 hours. ibuprofen (MOTRIN) 800 mg tablet Take 1 tablet by mouth every 8 hours as needed for pain. montelukast (SINGULAIR) 10 mg tablet Take 1 tablet by mouth daily at bedtime. Aspirin delayed release 500 mg EC tablet Take 500 mg by mouth every 6 hours as needed for pain. ALBUTEROL INHALATION Inhale 1 Puff as instructed every 6 hours as needed (wheezing). TURMERIC ORAL Take 1 capsule by mouth once daily. cefdinir (OMNICEF) 300 mg capsule Take 1 capsule by mouth two times a day for 7 days. predniSONE (DELTASONE) 10 mg tablet Take 4 tabs daily for 3 days, then 2 tabs daily for 3 days, then 1 tab daily for 3 days with food. FAMILY HISTORY Problem Relation Age of Onset No Known Problems Mother in good health Heart Father CABG @ age 54 Dementia Father Alcohol/Drug Sister other (Lupus) Sister no longer being treated Alcohol/Drug Brother Social History Tobacco Use Smoking status: Never Smokeless tobacco: Never Vaping Use Vaping status: Never Used Substance Use Topics Alcohol use: Not Currently Drug use: Not Currently Types: Marijuana Physical Exam Vitals and nursing note reviewed. Constitutional: General: He is not in acute distress. Appearance: Normal appearance. He is not ill-appearing. HENT: Nose: Nose normal. Mouth/Throat: Mouth: Mucous membranes are moist. Pharynx: Oropharynx is clear. Uvula midline. Posterior oropharyngeal erythema, uvula swelling and postnasal drip present. Tonsils: No tonsillar exudate or tonsillar abscesses. Cardiovascular: Rate and Rhythm: Normal rate and regular rhythm. Heart sounds: Normal heart sounds. Pulmonary: Effort: Pulmonary effort is normal. No respiratory distress. Breath sounds: Normal breath sounds. No wheezing or rales. Skin: General: Skin is warm and dry. Findings: No erythema or rash. Neurological: Mental Status: He is alert. {ASSESSMENT/PLAN: 1. Sore throat - ICD9: 462, ICD10: J02.9 (primary diagnosis) - Group A strep molecular testing negative - Discussed supportive care treatment with fluids, rest and analgesia. - STREP A MOLECULAR (POC) 2. URI, acute - ICD9: 465.9, ICD10: J06.9 - Symptomatic treatment with prn analgesia - Supportive care with fluids and rest - CEFDINIR 300 MG CAPSULE 3. Exacerbation of asthma, unspecified asthma severity, unspecified whether persistent (HCC) - ICD9: 493.92, ICD10: J45.901 - PREDNISONE 10 MG TABLET - Follow-up with your PCP in 3-5 days if symptoms have not improved or sooner if symptoms worsen - Discussed red flags and need for immediate medical evaluation if any occur. - Discussed supportive care treatment with fluids, rest and analgesia. - Discussed expected course of illness Astrid Davis APRN.REPORT PROGRAMMER Disposition The patient was discharged. Procedures documented in this encounter [facility] 06-04-2024 Telephone encounter Note The patient has been identified by name and date of : Yes Caregiver verified no other encounters exist for this prescription request: Yes Caregiver confirmed with patient/requestor that no other refills are due, in the near future, with this provider at this time: Yes The last office visit in the department: 12/31/2023 Does the patient have a future office visit with this provider/department: No no future appt scheduled Requested Prescriptions Pending Prescriptions Disp Refills Ipratropium Semmes (ATROVENT) 21 mcg (0.03 %) nasal spray 30 mL 1 Sig: Use 2 Sprays in the nose every 12 hours. Ida Farmer LPN June 04, 2024 9:08 AM [facility] 06-04-2024 Miscellaneous Notes The patient has been identified by name and date of : Yes Caregiver verified no other encounters exist for this prescription request: Yes Caregiver confirmed with patient/requestor that no other refills are due, in the near future, with this provider at this time: Yes The last office visit in the department: 12/31/2023 Does the patient have a future office visit with this provider/department: No no future appt scheduled Requested Prescriptions Pending Prescriptions Disp Refills Ipratropium Semmes (ATROVENT) 21 mcg (0.03 %) nasal spray 30 mL 1 Sig: Use 2 Sprays in the nose every 12 hours. Ida Farmer LPN June 04, 2024 9:08 AM documented in this encounter [facility] 05-12-2024 Note HNO ID: [id number] Author: YARA BENSON PA-C Service: ? Author Type: Physician Molding Machine Setter Type: Progress Notes Filed: 05/12/2024 17:24 Note Text: [facility] EST PATIENT CLINIC NOTE SERVICE DATE: May 12, 2024 NAME: Eduardo Jones CHIEF COMPLAINT: S/p Spermatocelectomy HISTORY OF PRESENT ILLNESS: Eduardo Jones is a 69 year old male s/p Spermatocelectomy The patient reports no pain but testicle is enlarged LUTS: PSA Screening (ng/mL) Date Value 10/31/2023 1.81 11/08/2020 1.56 06/25/2019 1.44 Creatinine Date Value Ref Range Status 12/17/2023 1.16 0.73 - 1.22 mg/dL Final 10/31/2023 1.28 (H) 0.73 - 1.22 mg/dL Final 11/08/2020 1.10 0.73 - 1.22 mg/dL Final MEDICATIONS: ibuprofen (MOTRIN) 800 mg tablet Take 1 tablet by mouth every 8 hours as needed for pain. montelukast (SINGULAIR) 10 mg tablet Take 1 tablet by mouth daily at bedtime. Aspirin delayed release 500 mg EC tablet Take 500 mg by mouth every 6 hours as needed for pain. ALBUTEROL INHALATION Inhale 1 Puff as instructed every 6 hours as needed (wheezing). Ipratropium Semmes (ATROVENT) 21 mcg (0.03 %) nasal spray Use 2 Sprays in the nose every 12 hours. TURMERIC ORAL Take 1 capsule by mouth once daily. PAST MEDICAL HISTORY: PAST MEDICAL HISTORY Diagnosis Date Alcoholism (HCC) 06/30/2019 From previous records Allergic rhinitis Asthma Asthma without status asthmaticus Diverticulitis ED (erectile dysfunction) of organic origin 06/30/2019 From previous records. Epididymal cyst Erectile dysfunction Family history of coronary artery disease Stress Echo- 09/08/[address] Duran TAYO (generalized anxiety disorder) 06/30/2019 From previous records Generalized anxiety disorder Hypercholesteremia Insomnia Lyme disease Scrotal pain 12/31/2023 Submandibular lymphadenopathy 12/31/2023 Umbilical hernia REVIEW OF SYSTEMS: GENERAL: No fever, chills, weight loss, or fatigue. PHYSICAL EXAMINATION: Blood pressure 137/82, pulse 73, resp. rate 16, weight 96.2 kg (212 lb). GENERAL: WNL nutrition, no deformities, healthy appearing GENITOURINARY: MALE EXAM: Left Testicle mild enlargement without pain PROBLEM LIST REVIEW: Yes LABS: None ASSESSMENT/PLAN: 1. Epididymal cyst - ICD9: 608.89, ICD10: N50.3 (primary diagnosis) 2. Screening for genitourinary condition - ICD9: V81.6, ICD10: Z13.89 > s/p Spermatocelectomy on LEFT with Dr. Beebe > Message to Dr. Beebe he said testicle can be enlarged for months after but will improve Yara Benson, [place], [place], PA-C [facility] 05-12-2024 History of Present illness Narrative Images from the original note were not included. [facility] EST PATIENT CLINIC NOTE SERVICE DATE: May 12, 2024 NAME: Eduardo Jones CHIEF COMPLAINT: S/p Spermatocelectomy HISTORY OF PRESENT ILLNESS: Eduardo Jones is a 69 year old male s/p Spermatocelectomy The patient reports no pain but testicle is enlarged LUTS: PSA Screening (ng/mL) Date Value 10/31/2023 1.81 11/08/2020 1.56 06/25/2019 1.44 Creatinine Date Value Ref Range Status 12/17/2023 1.16 0.73 - 1.22 mg/dL Final 10/31/2023 1.28 (H) 0.73 - 1.22 mg/dL Final 11/08/2020 1.10 0.73 - 1.22 mg/dL Final MEDICATIONS: ibuprofen (MOTRIN) 800 mg tablet Take 1 tablet by mouth every 8 hours as needed for pain. montelukast (SINGULAIR) 10 mg tablet Take 1 tablet by mouth daily at bedtime. Aspirin delayed release 500 mg EC tablet Take 500 mg by mouth every 6 hours as needed for pain. ALBUTEROL INHALATION Inhale 1 Puff as instructed every 6 hours as needed (wheezing). Ipratropium Semmes (ATROVENT) 21 mcg (0.03 %) nasal spray Use 2 Sprays in the nose every 12 hours. TURMERIC ORAL Take 1 capsule by mouth once daily. PAST MEDICAL HISTORY: PAST MEDICAL HISTORY Diagnosis Date Alcoholism (HCC) 06/30/2019 From previous records Allergic rhinitis Asthma Asthma without status asthmaticus Diverticulitis ED (erectile dysfunction) of organic origin 06/30/2019 From previous records. Epididymal cyst Erectile dysfunction Family history of coronary artery disease Stress Echo- 09/08/[address] Duran TAYO (generalized anxiety disorder) 06/30/2019 From previous records Generalized anxiety disorder Hypercholesteremia Insomnia Lyme disease Scrotal pain 12/31/2023 Submandibular lymphadenopathy 12/31/2023 Umbilical hernia REVIEW OF SYSTEMS: GENERAL: No fever, chills, weight loss, or fatigue. PHYSICAL EXAMINATION: Blood pressure 137/82, pulse 73, resp. rate 16, weight 96.2 kg (212 lb). GENERAL: WNL nutrition, no deformities, healthy appearing GENITOURINARY: MALE EXAM: Left Testicle mild enlargement without pain PROBLEM LIST REVIEW: Yes LABS: None ASSESSMENT/PLAN: 1. Epididymal cyst - ICD9: 608.89, ICD10: N50.3 (primary diagnosis) 2. Screening for genitourinary condition - ICD9: V81.6, ICD10: Z13.89 > s/p Spermatocelectomy on LEFT with Dr. Beebe > Message to Dr. Beebe he said testicle can be enlarged for months after but will improve BERNARD Alvarado, [place], RADHA documented in this encounter [facility] 04-02-2024 Telephone encounter Note Images from the original note were not included. Jalil Beebe MD You; [facility] Clinical Pool21 minutes ago (1:57 PM) I refilled Patient leaving tomorrow at noon for [place] and spoke with patient and let him know that [facility] states they might be able to do a tomorrow fill at 11 am before he leaves, [facility] but patient needs to check with them at 10 am, or will have to get down in [place]. [facility] 04-02-2024 Miscellaneous Notes Images from the original note were not included. Jalil Beebe MD You; [employer] [facility] Clinical Pool21 minutes ago (1:57 PM) I refilled Patient leaving tomorrow at no for [place] and spoke with patient and let him know that [facility] states [facility] might be able to do a tomorrow fill at 11 am before he leaves, [facility] but patient needs to check with them at 10 am, or will have to get down in [place]. Patient was wanting to know if any way that he can get more Percocet? He is still taking every 6 hours, and leaving for [place] for the Holiday and did not want to get in trouble if still needing for pain? Please Advise if possible. Pended if OK. documented in this encounter [facility] 04-02-2024 Telephone encounter Note Patient was wanting to know if any way that he can get more Percocet? He is still taking every 6 hours, and leaving for [place] for the Holiday and did not want to get in trouble if still needing for pain? Please Advise if possible. Pended if OK. [facility] 03-30-2024 Telephone encounter Note The patient has been identified by name and date of : Yes Caregiver verified no other encounters exist for this prescription request: Yes Caregiver confirmed with patient/requestor that no other refills are due, in the near future, with this provider at this time: Yes The last office visit in the department: 12/31/2023 Does the patient have a future office visit with this provider/department: No Visit date not found Requested Prescriptions Pending Prescriptions Disp Refills montelukast (SINGULAIR) 10 mg tablet 90 tablet 3 Sig: Take 1 tablet by mouth daily at bedtime. Lois Du LPN March 30, 2024 8:54 AM [facility] 03-30-2024 Miscellaneous Notes The patient has been identified by name and date of : Yes Caregiver verified no other encounters exist for this prescription request: Yes Caregiver confirmed with patient/requestor that no other refills are due, in the near future, with this provider at this time: Yes The last office visit in the department: 12/31/2023 Does the patient have a future office visit with this provider/department: No Visit date not found Requested Prescriptions Pending Prescriptions Disp Refills montelukast (SINGULAIR) 10 mg tablet 90 tablet 3 Sig: Take 1 tablet by mouth daily at bedtime. Lois Du LPN March 30, 2024 8:54 AM documented in this encounter [facility] 03-17-2024 History and physical note Images from the original note were not included. [facility] HISTORY AND PHYSICAL EXAMINATION SERVICE DATE: 03/17/2024 SERVICE TIME: 8:35 AM PRIMARY CARE PHYSICIAN: Arturo Kendrick DO Assessment Patient has the following medical conditions which may affect fady-operative course: Epididymal cyst Surgery scheduled with Dr. Beebe on 03/31/2024 Testicular pain, left Surgery scheduled with Dr. Beebe on 03/31/2024 Preop examination Patient has the following medical conditions which may affect fady-operative course addressed in assessment and plan today. Asthma Albuterol as needed. Uses rescue inhaler about 5 times a year with URI. Denies hospitalization or pneumonia in the last 6 months. Instructed to use inhaler as prescribed and bring DOS. Bright Activity Status Index: METS: Participate in moderate recreational activites, such as golf, bowling, dancing, doubles tennis, or throwing a baseball or football (6.00 METs) DASI Score: 6 Patient denies any chest pain or undue shortness of breath with the above physical activity. ARISCAT Score: Age: 51-80 Preoperative SpO2: >=96% Respiratory infection in the last month: No Preoperative anemia: No Surgical incision: peripheral Duration of surgery: <2 hrs Emergency procedure: No ARISCAT Score: 3 ANESTHESIA FINDINGS: Intubation History: No history of difficult intubation. No abnormal airway history Significant Anesthesia Considerations: none Airway History: No history of difficult airway No abnormal airway history I - PHYSICAL EVALUATION AIRWAY Patient intubated: No. DENTAL Dental findings: teeth intact. II - ANESTHESIA PLAN Anesthetic Plan: general Beta Suki Monitoring Plan Post Procedure Analgesic Plan Prepared for Surgery: CONSULTS: Patient does not require consults for optimization at this time Planned Anesthetic: general The Following Tests/Procedures Have Been Initiated: Orders Placed This Encounter Aspirin delayed release 500 mg EC tablet Sig: Take 500 mg by mouth every 6 hours as needed for pain. ALBUTEROL INHALATION Sig: Inhale 1 Puff as instructed every 6 hours as needed (wheezing). REASON FOR VISIT: Eduardo Jones is a 69 year old male who is scheduled for Procedure(s): SPERMATOCELECTOMY UNILATERAL (Left) at the request of Jalil Keane MD for routine H&P. My final recommendation will be communicated back to the requesting physician by way of shared medical record or letter. The reason for this visit is to perform a comprehensive review of the patient's past medical history, assess their current health status and obtain any additional testing required based on anesthesia guidelines. We will also identify any potential anesthesia problems or contraindications to the planned procedure. Subjective The patient has the following: COVID-19 Immunization Status Overdue - Covid-19 Vaccine () Never done 10/31/2023 Postponed until 10/30/2024 by Yu Puentes MA (Declined at this time) CHIEF COMPLAINT: Epididymal cyst, Testicular pain, left HPI: Patient is a 69 year old male here for a preoperative exam. Pt complaint of left testicle pain for the last 6 months. Describes pain as constant pinching. Sitting for long periods aggravates the pain. No relieving factors. Pt discussed with surgeon and agrees to surgical intervention. REVIEW OF SYSTEMS: General: Negative for: unintentional weight change, malaise and fever. Neurological: Negative for: headaches, seizures and strokes. Respiratory: Positive for: asthma. Negative for: COPD, tobacco use, URI < 2 weeks and obstructive sleep apnea. Cardiovascular: Negative for: arrhythmia, CAD, chest pain, CHF, DVT/PE, hyperlipidemia and hypertension. GI: Negative for: abdominal pain, GERD, nausea and vomiting. : Negative for: dysuria, hematuria and renal failure. Endocrine: Negative for: diabetes mellitus, hyperthyroidism and hypothyroidism. Hematology: Negative for: anemia, factor V Leiden and von Willebrand disease. Oncology: No history of CA metastasis, chemo within 30 days, or radiotherapy within 90 days. No history of oncological symptoms or problems. Psych: Positive for: anxiety. Negative for: depression. Musculoskeletal: Positive for: joint pain. Negative for: back pain. Skin: Negative for lesions, rash and itching. PAST MEDICAL HISTORY Diagnosis Date Alcoholism (HCC) 06/30/2019 From previous records Allergic rhinitis Asthma Asthma without status asthmaticus Diverticulitis ED (erectile dysfunction) of organic origin 06/30/2019 From previous records. Erectile dysfunction Family history of coronary artery disease Stress Echo- 09/08/[address] Duran TAYO (generalized anxiety disorder) 06/30/2019 From previous records Generalized anxiety disorder Hypercholesteremia Insomnia Lyme disease Scrotal pain 12/31/2023 Submandibular lymphadenopathy 12/31/2023 Umbilical hernia PAST SURGICAL HISTORY Procedure Laterality Date ARTHROSCOPY KNEE DIAGNOSTIC W/WO SYNOVIAL BX SPX Right 2 COLONOSCOPY FLX DX W/COLLJ SPEC WHEN PFRMD 05/12/2007 KNEE ARTHROSCOPY Left 09/2012 2 PAST SURGICAL HISTORY OF 1996 discectomy L4/L5 REPAIR UMBILICAL HERNIA 11/30/2020 FAMILY HISTORY Problem Relation Age of Onset No Known Problems Mother in good health Heart Father CABG @ age 54 Dementia Father Alcohol/Drug Sister other (Lupus) Sister no longer being treated Alcohol/Drug Brother Social History Tobacco Use Smoking status: Never Smokeless tobacco: Never Vaping Use Vaping status: Never Used Substance Use Topics Alcohol use: Not Currently Drug use: Not Currently Types: Marijuana Prior to Admission medications as of 03/17/24 0815 Medication Sig Last Dose Taking Aspirin delayed release 500 mg EC tablet Take 500 mg by mouth every 6 hours as needed for pain. Taking Yes ALBUTEROL INHALATION Inhale 1 Puff as instructed every 6 hours as needed (wheezing). Taking Yes Ipratropium Semmes (ATROVENT) 21 mcg (0.03 %) nasal spray Use 2 Sprays in the nose every 12 hours. Taking Yes montelukast (SINGULAIR) 10 mg tablet Take 1 tablet by mouth daily at bedtime. Taking Yes TURMERIC ORAL Take 1 capsule by mouth once daily. Taking Yes No medication comments found. ALLERGIES No Known Allergies Objective PHYSICAL EXAM: General: alert and oriented and healthy appearance. Pertinent negatives noted - not distressed. Skin: normal color, no rash or lesions. HEENT: No additional findings for patient's neck. Cardiovascular: regular rate and rhythm, normal S1 and S2, no rub, murmurs, or gallop. Respiratory: normal breath sounds, no wheezes or crackles. No chest wall deformity or tenderness. Abdomen: bowel sounds present and soft. Pertinent negatives noted - not tender. Extremities: no deformity, no edema or tenderness, no joint swelling or clubbing. Neurological: normal cognition and motor skills. Gait normal. No weakness or sensory deficit. PAIN ASSESSMENT: Pain Pain Level: 3 Pain Location: (left testicle) VITALS: BP 135/82 Pulse 95 Temp 98.4 Resp 16 Ht 6' 0 (1.83m) Wt 210 lb (95.3kg) SpO2 97% BMI 28.47 kg/(m^2). Diagnostic tests reviewed for today's visit: Lab Value Units Date High Low HB 15.1 g/dL 12/24/2023 17.0 13.0 HCT 46.2 % 12/24/2023 51.0 39.0 WBC 6.28 k/uL 12/24/2023 11.00 3.70 PLT 290 k/uL 12/24/2023 400 150 NA 139 mmol/L 12/17/2023 144 136 K 4.7 mmol/L 12/17/2023 5.1 3.7 GLUC 93 mg/dL 12/17/2023 99 74 BUN 19 mg/dL 12/17/2023 24 9 CREAT 1.16 mg/dL 12/17/2023 1.22 0.73 PTSEC No results within date range. INR No results within date range. APTT No results within date range. ALT 23 U/L 12/17/2023 54 10 AST 20 U/L 12/17/2023 40 14 TBILI 0.7 mg/dL 12/17/2023 1.3 0.2 TSH 1.730 mIU/L 10/31/2023 4.200 0.270 Lab Value Units Date High Low HCGQT No results within date range. UHCG No results within date range. HCG, BODY* No results within date range. Lab Value Units Date High Low ABORHD No results within date range. ABSCREEN No results within date range. Hemoglobin A1C (%) Date Value 10/31/2023 5.7 11/08/2020 5.6 No results found for this or any previous visit (from the past 8760 hour(s)). No results found for this or any previous visit (from the past 67131 hour(s)). Implantable Devices: IOL OU Pt taking ASA for pain control I instructed patient to hold 7 days prior to surgery The Following Tests/Procedures Have Been Initiated: No orders per surgeon in [facility]. Assessment/Plan Diagnosis: Epididymal cyst [N50.3] Testicular pain, left [N50.812] PLAN Planned Procedure: Procedure(s): SPERMATOCELECTOMY UNILATERAL (Left) Instructions Given to Patient: Instructions located in the after visit summary. Patient given verbal and written preop instructions and voices comprehension and compliance. I spent a total of 40 minutes on the date of the service which included preparing to see the patient, [id number] patient care, completing clinical documentation, obtaining and/or reviewing separately obtained history, performing a medically appropriate examination, and counseling and educating the patient/family/caregiver. SIGNATURE: Vicki Carias APRN.CNP PATIENT NAME: Eduardo Jones DATE: 03/17/2024 TIME: 8:33 AM PAGER/CONTACT #: [facility] 03-17-2024 History and physical note Images from the original note were not included. [facility] HISTORY AND PHYSICAL EXAMINATION SERVICE DATE: 03/17/2024 SERVICE TIME: 8:35 AM PRIMARY CARE PHYSICIAN: Arturo Kendrick DO Assessment Patient has the following medical conditions which may affect fady-operative course: Epididymal cyst Surgery scheduled with Dr. Beebe on 03/31/2024 Testicular pain, left Surgery scheduled with Dr. Beebe on 03/31/2024 Preop examination Patient has the following medical conditions which may affect fady-operative course addressed in assessment and plan today. Asthma Albuterol as needed. Uses rescue inhaler about 5 times a year with URI. Denies hospitalization or pneumonia in the last 6 months. Instructed to use inhaler as prescribed and bring DOS. Bright Activity Status Index: METS: Participate in moderate recreational activites, such as golf, bowling, dancing, doubles tennis, or throwing a baseball or football (6.00 METs) DASI Score: 6 Patient denies any chest pain or undue shortness of breath with the above physical activity. ARISCAT Score: Age: 51-80 Preoperative SpO2: >=96% Respiratory infection in the last month: No Preoperative anemia: No Surgical incision: peripheral Duration of surgery: <2 hrs Emergency procedure: No ARISCAT Score: 3 ANESTHESIA FINDINGS: Intubation History: No history of difficult intubation. No abnormal airway history Significant Anesthesia Considerations: none Airway History: No history of difficult airway No abnormal airway history I - PHYSICAL EVALUATION AIRWAY Patient intubated: No. DENTAL Dental findings: teeth intact. II - ANESTHESIA PLAN Anesthetic Plan: general Beta Suki Monitoring Plan Post Procedure Analgesic Plan Prepared for Surgery: CONSULTS: Patient does not require consults for optimization at this time Planned Anesthetic: general The Following Tests/Procedures Have Been Initiated: Orders Placed This Encounter Aspirin delayed release 500 mg EC tablet Sig: Take 500 mg by mouth every 6 hours as needed for pain. ALBUTEROL INHALATION Sig: Inhale 1 Puff as instructed every 6 hours as needed (wheezing). REASON FOR VISIT: Eduardo Jones is a 69 year old male who is scheduled for Procedure(s): SPERMATOCELECTOMY UNILATERAL (Left) at the request of Jalil Keane MD for routine H&P. My final recommendation will be communicated back to the requesting physician by way of shared medical record or letter. The reason for this visit is to perform a comprehensive review of the patient's past medical history, assess their current health status and obtain any additional testing required based on anesthesia guidelines. We will also identify any potential anesthesia problems or contraindications to the planned procedure. Subjective The patient has the following: COVID-19 Immunization Status Overdue - Covid-19 Vaccine ( season) Never done 10/31/2023 Postponed until 10/30/2024 by Yu Puentes MA (Declined at this time) CHIEF COMPLAINT: Epididymal cyst, Testicular pain, left HPI: Patient is a 69 year old male here for a preoperative exam. Pt complaint of left testicle pain for the last 6 months. Describes pain as constant pinching. Sitting for long periods aggravates the pain. No relieving factors. Pt discussed with surgeon and agrees to surgical intervention. REVIEW OF SYSTEMS: General: Negative for: unintentional weight change, malaise and fever. Neurological: Negative for: headaches, seizures and strokes. Respiratory: Positive for: asthma. Negative for: COPD, tobacco use, URI < 2 weeks and obstructive sleep apnea. Cardiovascular: Negative for: arrhythmia, CAD, chest pain, CHF, DVT/PE, hyperlipidemia and hypertension. GI: Negative for: abdominal pain, GERD, nausea and vomiting. : Negative for: dysuria, hematuria and renal failure. Endocrine: Negative for: diabetes mellitus, hyperthyroidism and hypothyroidism. Hematology: Negative for: anemia, factor V Leiden and von Willebrand disease. Oncology: No history of CA metastasis, chemo within 30 days, or radiotherapy within 90 days. No history of oncological symptoms or problems. Psych: Positive for: anxiety. Negative for: depression. Musculoskeletal: Positive for: joint pain. Negative for: back pain. Skin: Negative for lesions, rash and itching. PAST MEDICAL HISTORY Diagnosis Date Alcoholism (HCC) 06/30/2019 From previous records Allergic rhinitis Asthma Asthma without status asthmaticus Diverticulitis ED (erectile dysfunction) of organic origin 06/30/2019 From previous records. Erectile dysfunction Family history of coronary artery disease Stress Echo- 09/08/[address] Duran TAYO (generalized anxiety disorder) 06/30/2019 From previous records Generalized anxiety disorder Hypercholesteremia Insomnia Lyme disease Scrotal pain 12/31/2023 Submandibular lymphadenopathy 12/31/2023 Umbilical hernia PAST SURGICAL HISTORY Procedure Laterality Date ARTHROSCOPY KNEE DIAGNOSTIC W/WO SYNOVIAL BX SPX Right 2 COLONOSCOPY FLX DX W/COLLJ SPEC WHEN PFRMD 05/12/2007 KNEE ARTHROSCOPY Left 09/2012 2 PAST SURGICAL HISTORY OF 1997 discectomy L4/L5 REPAIR UMBILICAL HERNIA 11/30/2020 FAMILY HISTORY Problem Relation Age of Onset No Known Problems Mother in good health Heart Father CABG @ age 54 Dementia Father Alcohol/Drug Sister other (Lupus) Sister no longer being treated Alcohol/Drug Brother Social History Tobacco Use Smoking status: Never Smokeless tobacco: Never Vaping Use Vaping status: Never Used Substance Use Topics Alcohol use: Not Currently Drug use: Not Currently Types: Marijuana Prior to Admission medications as of 03/17/24 0815 Medication Sig Last Dose Taking Aspirin delayed release 500 mg EC tablet Take 500 mg by mouth every 6 hours as needed for pain. Taking Yes ALBUTEROL INHALATION Inhale 1 Puff as instructed every 6 hours as needed (wheezing). Taking Yes Ipratropium Semmes (ATROVENT) 21 mcg (0.03 %) nasal spray Use 2 Sprays in the nose every 12 hours. Taking Yes montelukast (SINGULAIR) 10 mg tablet Take 1 tablet by mouth daily at bedtime. Taking Yes TURMERIC ORAL Take 1 capsule by mouth once daily. Taking Yes No medication comments found. ALLERGIES No Known Allergies Objective PHYSICAL EXAM: General: alert and oriented and healthy appearance. Pertinent negatives noted - not distressed. Skin: normal color, no rash or lesions. HEENT: No additional findings for patient's neck. Cardiovascular: regular rate and rhythm, normal S1 and S2, no rub, murmurs, or gallop. Respiratory: normal breath sounds, no wheezes or crackles. No chest wall deformity or tenderness. Abdomen: bowel sounds present and soft. Pertinent negatives noted - not tender. Extremities: no deformity, no edema or tenderness, no joint swelling or clubbing. Neurological: normal cognition and motor skills. Gait normal. No weakness or sensory deficit. PAIN ASSESSMENT: Pain Pain Level: 3 Pain Location: (left testicle) VITALS: BP 135/82 Pulse 95 Temp 98.4 Resp 16 Ht 6' 0 (1.83m) Wt 210 lb (95.3kg) SpO2 97% BMI 28.47 kg/(m^2). Diagnostic tests reviewed for today's visit: Lab Value Units Date High Low HB 15.1 g/dL 12/24/2023 17.0 13.0 HCT 46.2 % 12/24/2023 51.0 39.0 WBC 6.28 k/uL 12/24/2023 11.00 3.70 PLT 290 k/uL 12/24/2023 400 150 NA 139 mmol/L 12/17/2023 144 136 K 4.7 mmol/L 12/17/2023 5.1 3.7 GLUC 93 mg/dL 12/17/2023 99 74 BUN 19 mg/dL 12/17/2023 24 9 CREAT 1.16 mg/dL 12/17/2023 1.22 0.73 PTSEC No results within date range. INR No results within date range. APTT No results within date range. ALT 23 U/L 12/17/2023 54 10 AST 20 U/L 12/17/2023 40 14 TBILI 0.7 mg/dL 12/17/2023 1.3 0.2 TSH 1.730 mIU/L 10/31/2023 4.200 0.270 Lab Value Units Date High Low HCGQT No results within date range. UHCG No results within date range. HCG, BODY* No results within date range. Lab Value Units Date High Low ABORHD No results within date range. ABSCREEN No results within date range. Hemoglobin A1C (%) Date Value 10/31/2023 5.7 11/08/2020 5.6 No results found for this or any previous visit (from the past 8760 hour(s)). No results found for this or any previous visit (from the past 57278 hour(s)). Implantable Devices: IOL OU Pt taking ASA for pain control I instructed patient to hold 7 days prior to surgery The Following Tests/Procedures Have Been Initiated: No orders per surgeon in [facility]. Assessment/Plan Diagnosis: Epididymal cyst [N50.3] Testicular pain, left [N50.812] PLAN Planned Procedure: Procedure(s): SPERMATOCELECTOMY UNILATERAL (Left) Instructions Given to Patient: Instructions located in the after visit summary. Patient given verbal and written preop instructions and voices comprehension and compliance. I spent a total of 40 minutes on the date of the service which included preparing to see the patient, [id number] patient care, completing clinical documentation, obtaining and/or reviewing separately obtained history, performing a medically appropriate examination, and counseling and educating the patient/family/caregiver. SIGNATURE: Vicki Carias APRN.CNP PATIENT NAME: Eduardo Jones DATE: 03/17/2024 TIME: 8:33 AM PAGER/CONTACT #: documented in this encounter [facility] 03-11-2024 Instructions Vicki Carias APRN.CNP - 03/11/2024 12:08 PM EST PATIENT PREOPERATIVE INSTRUCTIONS Dr. Beebe has scheduled you for your procedure at this surgery center: [facility]: [phone], [phone] [phone] Please read below carefully for your personalized instructions. SURGERY DATE: 03/31/2024 Your surgeon's office will provide you with your ARRIVAL TIME for surgery. -If you have not received an arrival time by the afternoon before your surgery date, please follow up with your surgeon's office. - If you are scheduled for Saturday surgery, please make sure you have your arrival time by Saturday afternoon. -Please be aware that emergency situations arise, which may delay or change your surgical time. If this happens, your surgeon's office will notify you as soon as possible and regret any inconvenience. Dietary Restrictions: - No solid food after midnight. - You may have 12 ounces of clear liquids (water, clear juices such as apple juice or gatorade, carbonated beverages, clear tea, black coffee, jello) until 2 hours before scheduled arrival at facility. This is important because if you do, your surgery may have to be cancelled Blood Thinning Medications: Stop NSAIDS. -DO NOT TAKE (Ibuprofen, Advil, Aleve, Motrin, Naproxen, Celebrex, Mobic, Voltaren, Diclofenac etc.) 7 days before surgery, or as directed by your surgeon. You may take Tylenol as an alternative. IF YOU TAKE ANY OF THE FOLLOWING BLOOD THINNERS, PLEASE CONTACT YOUR SURGEON AND THE PHYSICIAN WHO PRESCRIBES IT FOR YOU IN ORDER TO GET PERIOPERATIVE INSTRUCTIONS SOON POSSIBLE. BLOOD THINNERS: Aspirin, Coumadin, Plavix, Eliquis, Pradaxa, Xarelto, Lovenox, Brilinta, Effient, Savaysa, Arixtra, etc - Stop Vitamin E, fish oil, multivitamins, Marijuana, CBD oil and other over the counter herbals and dietary supplements 7 days before surgery. -This would not apply to cancer patients who are prescribed Marinol or any other prescription form on marijuana or CBD. Medications: Hold GILLIAN inhibitors (Angiotensin-converting enzyme inhibitors) and Angiotensin II receptor blockers (ARBs) Day of surgery. Approved medications to take the morning of surgery with a sip of water: BP (except for GILLIAN inhibitors and ARBs), Heart, thyroid, psych, seizure, and pain medications excluding NSAIDS. Use inhalers as prescribed. Please bring inhalers day of surgery. Approved medications to take the morning of surgery with a sip of water: Pre Surgery Med Instructions Medication instructions ALBUTEROL INHALATION Bring to surgery center Aspirin delayed release 500 mg EC tablet Stop 7 days before surgery Ipratropium Semmes (ATROVENT) 21 mcg (0.03 %) nasal spray Continue until night before surgery montelukast (SINGULAIR) 10 mg tablet Continue until night before surgery TURMERIC ORAL Stop 7 days before surgery If you take any medications for erectile dysfunction-Cialis (Tadalafil), Levitra, Staxyn (Vardenafil) Viagra (Sildenenafil please do not take these for 48 hours before surgery. If you start any new medications after today's visit, please contact the surgeon's office. Important Reminders: -You need a responsible person to stay and wait for you at the hospital or surgery center during your procedure. - -If you are undergoing an outpatient procedure you must have someone drive you home and stay with you for 24 hours. Your surgery may be cancelled if you do not have someone to drive you home or take care of you for 24 hours. -- If you have a stimulator, implant or pump that requires a remote please bring the remote with you the day of surgery. - Candy, mints, and tobacco products are NOT permitted the morning of surgery. - Hearing aids, dentures and glasses may be worn the morning of surgery. - NO jewelry, body piercings, makeup, hairpins or contacts are to be worn the day of surgery. -If you use CPAP/BIPAP, you can bring the machine with you the day of surgery. - If you are prescribed inhalers for breathing, continue using them AND bring them to the surgery center. -- Leave ALL valuables and money at home or with family members. -Oral hygiene and a shower or bath are required the evening before or the morning of surgery. - NO lotion, creams, powders or deodorants on the skin the day of surgery. -Wear loose, comfortable clothing that will accommodate bandages. -Your length of stay will be determined by your surgeon - You will need to have someone else (Family or friend) drive you home once discharged from the hospital. You are not allowed to drive yourself home after surgery. Your ride home must be at least 18 years old or older. - YOU MUST HAVE A RESPONSIBLE SCHOOL COMMUNITY RELATIONS COORDINATOR TO TAKE YOU HOME. A DIETICIAN, CAB OR UBER SCHOOL COMMUNITY RELATIONS COORDINATOR CANNOT BE MADE A RESPONSIBLE SCHOOL COMMUNITY RELATIONS COORDINATOR. - You cannot stay in a hotel alone after outpatient surgery. You will not be permitted to have your surgery, if you do not have someone to take care of you. -It is recommended patients have a 72-hour period between getting their vaccine and date of surgery. If you develop symptoms such as a fever, cold, or flu, or have other changes to your health within TWO DAYS of scheduled surgery or the morning of surgery, please contact the surgery center above. Visitors to any [facility] facility: An individual who is sick should not visit. Visitors to patients with COVID-19 must follow these guidelines, which include wearing a mask, eye protection, gown and gloves. [facility]: Any individual who is sick should not visit. [facility] Pre surgery- One visitor in Pre-surgery due to limited spaced ASC PACU- No visitors in PACU unless it's a minor due to limited spaced. Personal Belongings: -Please have your photo ID and insurance cards. -If you do not have a copy of advance directives on file with us, please bring a copy with you on the day of surgery. If you already have an Advance Directive, please fax a copy to [phone] or email to for it to be added to your chart. If you do not have an Advance Directive, you can find the appropriate form and more information at [email or web address]. We recommend that you complete the Advance Directive form found on the website and bring it with you the day of your surgery. It can be witnessed and scanned into your chart that day. AN documented in this encounter [facility] 03-10-2024 Telephone encounter Note Prescription Refill Information The patient has been identified by name and date of : Yes Caregiver verified no other encounters exist for this prescription request: Yes Caregiver confirmed with patient/requestor that no other refills are due, in the near future, with this provider at this time: Yes The last office visit in the department: 12/31/2023 Does the patient have a future office visit with this provider/department: No Requested Prescriptions Pending Prescriptions Disp Refills Ipratropium Semmes (ATROVENT) 21 mcg (0.03 %) nasal spray 30 mL 1 Sig: Use 2 Sprays in the nose every 12 hours. Yu Puentes MA March 10, 2024 11:12 AM [facility] 03-10-2024 Miscellaneous Notes Prescription Refill Information The patient has been identified by name and date of : Yes Caregiver verified no other encounters exist for this prescription request: Yes Caregiver confirmed with patient/requestor that no other refills are due, in the near future, with this provider at this time: Yes The last office visit in the department: 12/31/2023 Does the patient have a future office visit with this provider/department: No Requested Prescriptions Pending Prescriptions Disp Refills Ipratropium Semmes (ATROVENT) 21 mcg (0.03 %) nasal spray 30 mL 1 Sig: Use 2 Sprays in the nose every 12 hours. Yu Puentes MA March 10, 2024 11:12 AM documented in this encounter [facility] 02-17-2024 Telephone encounter Note Patient scheduled for surgery with Dr Beebe on 03/31/24 @ Rc arrive at 9:10am, PAT on 03/17 @ Suly arrive at 7:45am. Patient notified and surgery information mailed. Megan Lopez [facility] 02-17-2024 Miscellaneous Notes Patient scheduled for surgery with Dr Beebe on 03/31/24 @ Rc arrive at 9:10am, PAT on 03/17 @ Suly arrive at 7:45am. Patient notified and surgery information mailed. Megan Lopez documented in this encounter [facility] 02-14-2024 Note HNO ID: [id number] Author: JALIL BEEBE MD Service: ? Author Type: Physician Type: Progress Notes Filed: 02/14/2024 09:40 Note Text: [facility] UROLOGY CONSULT PATIENT CLINIC NOTE PATIENT INFO: Eduardo Jones (69 year old) Referred by: Yara Benson [id number] [facility] [address] [id number] 02/14/2024 UROLOGY DIAGNOSES: 1. Epididymal cyst - ICD9: 608.89, ICD10: N50.3 (primary diagnosis) 2. Testicular pain, left - ICD9: 608.9, ICD10: N50.812 CHIEF COMPLAINT: Testis Pain HPI: 69 year old, male presents for evaluation of testis pain on the LEFT side. Pain has been present for 6 months. Pain is constant in nature. Sitting for long peiod makes the pain worse and nothing makes the pain better. Previous surgery: None Desires fertility: None Therapies tried: NSAIDs Scrotal US: IMPRESSION: 1. Normal sonographic appearance of the testicles. Normal arterial and venous flow within both testes. 2. 2.1 x 1.4 x 1.9 cm septated cyst in the left epididymal head. Genitourinary history: Hx Mumps orchitis, trauma, or undescended testis: none Hx stone disease: none Hx UTI/prostatitis/epididimitis/STI: none ROS: Sexual frequency/libido:intact, no ED Urinary sx: none Hematuria: none PMH: PAST MEDICAL HISTORY Diagnosis Date Alcoholism (HCC) 06/30/2019 From previous records Allergic rhinitis Asthma Asthma without status asthmaticus Diverticulitis ED (erectile dysfunction) of organic origin 06/30/2019 From previous records. Erectile dysfunction Family history of coronary artery disease Stress Echo- 09/08/[address] Duran TAYO (generalized anxiety disorder) 06/30/2019 From previous records Generalized anxiety disorder Hypercholesteremia Insomnia Lyme disease Scrotal pain 12/31/2023 Submandibular lymphadenopathy 12/31/2023 Umbilical hernia PSH: PAST SURGICAL HISTORY Procedure Laterality Date COLONOSCOPY FLX DX W/COLLJ SPEC WHEN PFRMD 05/12/2007 KNEE ARTHROSCOPY Left 09/2012 PAST SURGICAL HISTORY OF 1997 discectomy L4/L5 REPAIR UMBILICAL HERNIA 11/30/2020 SH: Social History Tobacco Use Smoking status: Never Smokeless tobacco: Never Vaping Use Vaping status: Never Used Substance Use Topics Alcohol use: Never Drug use: Not Currently Types: Marijuana FH: FAMILY HISTORY Problem Relation Age of Onset No Known Problems Mother in good health Heart Father CABG @ age 54 Dementia Father Alcohol/Drug Sister other (Lupus) Sister no longer being treated Alcohol/Drug Brother REVIEW OF SYSTEMS: Review of Systems: Constitutional: No weakness, fever/chills, unexplained weight change Psychiatric: Stable mood Skin: No rashes or lesions HEENT: No blurred vision or double vision. No severe or worsening headaches. Sense of smell intact Neck: No masses or pain Chest: No shortness of breath or cough. No history of recurrent pneumonia, bronchitis, or sinustitis. CVS: No chest pains or palpatations. No history of cardiovascular disease. GI: No nausea, vomiting or abdominal pain Neurologic: No weakness or sensory changes : see above Musculoskeletal: Stable All other systems reviewed and noncontributory Allergy: Patient has no known allergies. MEDICATIONS: Current Outpatient Medications Medication Sig Dispense Refill Ipratropium Semmes (ATROVENT) 21 mcg (0.03 %) nasal spray Use 2 Sprays in the nose every 12 hours. 30 mL 1 montelukast (SINGULAIR) 10 mg tablet Take 1 tablet by mouth daily at bedtime. 90 tablet 3 TURMERIC ORAL Take 1 capsule by mouth once daily. No current facility-administered medications for this visit. PHYSICAL EXAM: Ht 182.9 cm (6') Wt 93 kg (205 lb) BMI 27.80 kg/m? Body mass index is 27.8 kg/m?. General Appearance/ Constitutional: Well developed, well nourished, and in no apparent distress HEENT: Normal Neck: Lymph Nodes: Normal Cardiac: Normal Breast: Not examined Pulmonary: Ascultation: Not examined Effort: Normal GI: Soft, Non-tender, Non-distended and Costovertebral angle tenderness absent Peripheral Vascular: Not examined Extremities: Cyanosis absent, Clubbing absent and Edema absent Skin: Normal Neurologic: Normal, Grossly non-focal, Alert and oriented and Affect appropriate (MALE): Penis: Normal without external lesions and Circumcised Testicles: Abnormal: LEFT spermatocele Scrotum: Normal The sensitive examination was discussed with the Patient or Patient's Authorized Staff Midwife. As applicable, any other physician, advance practice provider, medical student, or other health professional student that will be observing or involved in the sensitive examination for educational or training purposes was discussed with the Patient or Authorized Staff Midwife. The Patient or Authorized Staff Midwife has agreed to proceed with the sensitive examination. (Sensitive examination includes inspection and/or palpation (more content not included)... [facility] 02-14-2024 History of Present illness Narrative Images from the original note were not included. [facility] UROLOGY CONSULT PATIENT CLINIC NOTE PATIENT INFO: Eduardo Jones (69 year old) Referred by: Yara Benson [id number] [facility] [id number] 02/14/2024 UROLOGY DIAGNOSES: 1. Epididymal cyst - ICD9: 608.89, ICD10: N50.3 (primary diagnosis) 2. Testicular pain, left - ICD9: 608.9, ICD10: N50.812 CHIEF COMPLAINT: Testis Pain HPI: 69 year old, male presents for evaluation of testis pain on the LEFT side. Pain has been present for 6 months. Pain is constant in nature. Sitting for long peiod makes the pain worse and nothing makes the pain better. Previous surgery: None Desires fertility: None Therapies tried: NSAIDs Scrotal US: IMPRESSION: 1. Normal sonographic appearance of the testicles. Normal arterial and venous flow within both testes. 2. 2.1 x 1.4 x 1.9 cm septated cyst in the left epididymal head. Genitourinary history: Hx Mumps orchitis, trauma, or undescended testis: none Hx stone disease: none Hx UTI/prostatitis/epididimitis/STI: none ROS: Sexual frequency/libido:intact, no ED Urinary sx: none Hematuria: none PMH: PAST MEDICAL HISTORY Diagnosis Date Alcoholism (HCC) 06/30/2019 From previous records Allergic rhinitis Asthma Asthma without status asthmaticus Diverticulitis ED (erectile dysfunction) of organic origin 06/30/2019 From previous records. Erectile dysfunction Family history of coronary artery disease Stress Echo- 09/08/[address] Duran TAYO (generalized anxiety disorder) 06/30/2019 From previous records Generalized anxiety disorder Hypercholesteremia Insomnia Lyme disease Scrotal pain 12/31/2023 Submandibular lymphadenopathy 12/31/2023 Umbilical hernia PSH: PAST SURGICAL HISTORY Procedure Laterality Date COLONOSCOPY FLX DX W/COLLJ SPEC WHEN PFRMD 05/12/2007 KNEE ARTHROSCOPY Left 09/2012 PAST SURGICAL HISTORY OF 1997 discectomy L4/L5 REPAIR UMBILICAL HERNIA 11/30/2020 SH: Social History Tobacco Use Smoking status: Never Smokeless tobacco: Never Vaping Use Vaping status: Never Used Substance Use Topics Alcohol use: Never Drug use: Not Currently Types: Marijuana FH: FAMILY HISTORY Problem Relation Age of Onset No Known Problems Mother in good health Heart Father CABG @ age 54 Dementia Father Alcohol/Drug Sister other (Lupus) Sister no longer being treated Alcohol/Drug Brother REVIEW OF SYSTEMS: Review of Systems: Constitutional: No weakness, fever/chills, unexplained weight change Psychiatric: Stable mood Skin: No rashes or lesions HEENT: No blurred vision or double vision. No severe or worsening headaches. Sense of smell intact Neck: No masses or pain Chest: No shortness of breath or cough. No history of recurrent pneumonia, bronchitis, or sinustitis. CVS: No chest pains or palpatations. No history of cardiovascular disease. GI: No nausea, vomiting or abdominal pain Neurologic: No weakness or sensory changes : see above Musculoskeletal: Stable All other systems reviewed and noncontributory Allergy: Patient has no known allergies. MEDICATIONS: Current Outpatient Medications Medication Sig Dispense Refill Ipratropium Semmes (ATROVENT) 21 mcg (0.03 %) nasal spray Use 2 Sprays in the nose every 12 hours. 30 mL 1 montelukast (SINGULAIR) 10 mg tablet Take 1 tablet by mouth daily at bedtime. 90 tablet 3 TURMERIC ORAL Take 1 capsule by mouth once daily. No current facility-administered medications for this visit. PHYSICAL EXAM: Ht 182.9 cm (6') Wt 93 kg (205 lb) BMI 27.80 kg/m Body mass index is 27.8 kg/m . General Appearance/ Constitutional: Well developed, well nourished, and in no apparent distress HEENT: Normal Neck: Lymph Nodes: Normal Cardiac: Normal Breast: Not examined Pulmonary: Ascultation: Not examined Effort: Normal GI: Soft, Non-tender, Non-distended and Costovertebral angle tenderness absent Peripheral Vascular: Not examined Extremities: Cyanosis absent, Clubbing absent and Edema absent Skin: Normal Neurologic: Normal, Grossly non-focal, Alert and oriented and Affect appropriate (MALE): Penis: Normal without external lesions and Circumcised Testicles: Abnormal: LEFT spermatocele Scrotum: Normal The sensitive examination was discussed with the Patient or Patient's Authorized Staff Midwife. As applicable, any other physician, advance practice provider, medical student, or other health professional student that will be observing or involved in the sensitive examination for educational or training purposes was discussed with the Patient or Authorized Staff Midwife. The Patient or Authorized Staff Midwife has agreed to proceed with the sensitive examination. (Sensitive examination includes inspection and/or palpation of the breasts, pelvis, prostate and anorectal regions) PSA Screening (ng/mL) Date Value 10/31/2023 1.81 11/08/2020 1.56 06/25/2019 1.44 DIAGNOSES: 1. Epididymal cyst - ICD9: 608.89, ICD10: N50.3 (primary diagnosis) 2. Testicular pain, left - ICD9: 608.9, ICD10: N50.812 IMPRESSION/PLAN: 69 year old, male with LEFT testis pain. Scrotal US images reviewed by me. Discussed conservative measures including antinflammatories, scrotal support. KATE reviewed - LEFT spermatocele vs hydrocele of cord Discussed observation vs L spermatocelectomy Will proceed with OR, R/B/A dw patient Jalil Beebe MD REFERRED BY: Consultation requested by Dr. Yara Benson [address] [facility] [id number] for an opinion regarding testicular pain and my final recommendations will be communicated back to the requesting physician by way of shared medical record or letter via [place] mail. documented in this encounter [facility] 02-04-2024 Telephone encounter Note Pt confirmed his appt with Dr. Beebe in [facility] 02/10/24 @ 9:00 am. Ref by Claude Benson. Discuss treatment options for 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. Lucrecia [facility] 02-04-2024 Miscellaneous Notes Pt confirmed his appt with Dr. Beebe in [facility] 02/10/24 @ 9:00 am. Ref by Claude Benson. Discuss treatment options for 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. Lucrecia documented in this encounter [facility] 02-04-2024 Yara Molina PA-C - 02/04/2024 11:24 AM EDT > Consult sent for [facility] for Surgical Consult documented in this encounter [facility] 02-04-2024 Note HNO ID: [id number] Author: YARA BENSON PA-C Service: ? Author Type: Physician Molding Machine Setter Type: Progress Notes Filed: 02/04/2024 11:30 Note Text: [facility] NEW PATIENT CLINIC NOTE SERVICE DATE: February 04, 2024 NAME: Eduardo Jones CHIEF COMPLAINT: Spermatocele HISTORY OF PRESENT ILLNESS: Eduardo Jones is a 69 year old male an new patient here for Spermatocele The patient reports mild 2/ 10 pain left side testicle and epididymis and on US was found a Spermatocele 2.1 x 1.4 x 1.9 cm septated cyst in the left epididymal head LUTS: PSA Screening (ng/mL) Date Value 10/31/2023 1.81 11/08/2020 1.56 06/25/2019 1.44 No results found for: TESTOST Hematocrit (%) Date Value 12/24/2023 46.2 12/17/2023 44.2 10/31/2023 46.4 11/08/2020 43.2 06/25/2019 43.4 PSA Screening (ng/mL) Date Value 10/31/2023 1.81 11/08/2020 1.56 06/25/2019 1.44 Creatinine Date Value Ref Range Status 12/17/2023 1.16 0.73 - 1.22 mg/dL Final 10/31/2023 1.28 (H) 0.73 - 1.22 mg/dL Final 11/08/2020 1.10 0.73 - 1.22 mg/dL Final MEDICATIONS: Ipratropium Semmes (ATROVENT) 21 mcg (0.03 %) nasal spray Use 2 Sprays in the nose every 12 hours. montelukast (SINGULAIR) 10 mg tablet Take 1 tablet by mouth daily at bedtime. TURMERIC ORAL Take 1 capsule by mouth once daily. PAST MEDICAL HISTORY: PAST MEDICAL HISTORY Diagnosis Date Alcoholism (HCC) 06/30/2019 From previous records Allergic rhinitis Asthma Asthma without status asthmaticus Diverticulitis ED (erectile dysfunction) of organic origin 06/30/2019 From previous records. Erectile dysfunction Family history of coronary artery disease Stress Echo- 09/08/[address] Roger CR (generalized anxiety disorder) 06/30/2019 From previous records Generalized anxiety disorder Hypercholesteremia Insomnia Lyme disease Scrotal pain 12/31/2023 Submandibular lymphadenopathy 12/31/2023 Umbilical hernia PAST SURGICAL HISTORY: PAST SURGICAL HISTORY Procedure Laterality Date COLONOSCOPY FLX DX W/COLLJ SPEC WHEN PFRMD 05/12/2007 KNEE ARTHROSCOPY Left 09/2012 PAST SURGICAL HISTORY OF 1997 discectomy L4/L5 REPAIR UMBILICAL HERNIA 11/30/2020 FAMILY HISTORY: FAMILY HISTORY Problem Relation Age of Onset No Known Problems Mother in good health Heart Father CABG @ age 54 Dementia Father Alcohol/Drug Sister other (Lupus) Sister no longer being treated Alcohol/Drug Brother SOCIAL HISTORY: Social Connections: Socially Integrated (10/25/2023) Social Connection and Isolation Panel [NHANES] Frequency of Communication with Friends and Family: More than three times a week Frequency of Social Gatherings with Friends and Family: Twice a week Attends Quaker Services: More than 4 times per year Active Member of Clubs or Organizations: Yes Attends Club or Organization Meetings: More than 4 times per year Marital Status: REVIEW OF SYSTEMS: GENERAL: No fever, chills, weight loss, or fatigue. ENMT: Negative CARDIOVASCULAR:NO CHEST PAIN, PALPITATIONS, ANKLE EDEMA RESPIRATORY: No chronic cough, wheezing, dyspnea, hemoptysis. GENITOURINARY: SEE HPI MUSCULOSKELETAL:NO CHRONIC BACK PAIN, ARTHRITIS, CHRONIC NECK PAIN SKIN: NO VARICOSE VEINS, RASH, ABNORMAL ITCHING HEME/LYMPH/IMMUNE:Negative for prolonged bleeding, bruising easily or swollen nodes NEUROLOGICAL: NO HEADACHES, NUMBNESS, SEIZURES, STROKE DIABETES: No All other systems reviewed and are negative PHYSICAL EXAMINATION: Blood pressure 108/74, pulse 90, temperature 36.7 ?C (98.1 ?F), temperature source Temporal, resp. rate 16, height 184.2 cm (6' 0.5), weight 93.9 kg (207 lb), SpO2 98%. GENERAL: WNL nutrition, no deformities, healthy appearing NEURO: Awake, alert and oriented x 3 and Normal gait PSYCH: No signs of depression, anxiety, or agitation ENMT (Ear, Nose, Mouth, Throat): No masses, adenopathy, icterus. Thyroid nonpalpable RESP: NL effort, no retractions or purse-lip breathing. CV: No extremity swelling, varices, edema, pallor, erythema GASTROINTESTINAL: Soft, nontender, nondistended, no masses. HERNIAS: None SKIN: No rash, lesions No palpable lymphadenopathy MUSCULOSKELETAL: Extremities normal. No deformities, edema, clubbing or skin discoloration. GENITOURINARY: MALE EXAM: No scrotal lesions, cysts, rashes. Spermatoceles: Left 2.2 cm Epididymis AND testes: normal size, position, without masses Urethra AND meatus: normal size AND position w/o lesion or discharge Penis: circumcised, w/o plaques, lesions, masses, or deformities. PROBLEM LIST REVIEW: Yes LABS: None IMAGING: Scrotum US RESULT: RIGHT SCROTUM: Right testis: 4.2 x 1.8 x 2.6 cm. Homogeneous with no calcifications or mass. Normal intratesticular arterial and venous flow with normal spectral waveforms. Epididymis: Normal. Vascular flow on Color Doppler is sym (more content not included)... [facility] 02-04-2024 History of Present illness Narrative Images from the original note were not included. [facility] NEW PATIENT CLINIC NOTE SERVICE DATE: February 04, 2024 NAME: Eduardo Jones CHIEF COMPLAINT: Spermatocele HISTORY OF PRESENT ILLNESS: Eduardo Jones is a 69 year old male an new patient here for Spermatocele The patient reports mild 2/ 10 pain left side testicle and epididymis and on US was found a Spermatocele 2.1 x 1.4 x 1.9 cm septated cyst in the left epididymal head LUTS: PSA Screening (ng/mL) Date Value 10/31/2023 1.81 11/08/2020 1.56 06/25/2019 1.44 No results found for: TESTOST Hematocrit (%) Date Value 12/24/2023 46.2 12/17/2023 44.2 10/31/2023 46.4 11/08/2020 43.2 06/25/2019 43.4 PSA Screening (ng/mL) Date Value 10/31/2023 1.81 11/08/2020 1.56 06/25/2019 1.44 Creatinine Date Value Ref Range Status 12/17/2023 1.16 0.73 - 1.22 mg/dL Final 10/31/2023 1.28 (H) 0.73 - 1.22 mg/dL Final 11/08/2020 1.10 0.73 - 1.22 mg/dL Final MEDICATIONS: Ipratropium Semmes (ATROVENT) 21 mcg (0.03 %) nasal spray Use 2 Sprays in the nose every 12 hours. montelukast (SINGULAIR) 10 mg tablet Take 1 tablet by mouth daily at bedtime. TURMERIC ORAL Take 1 capsule by mouth once daily. PAST MEDICAL HISTORY: PAST MEDICAL HISTORY Diagnosis Date Alcoholism (HCC) 06/30/2019 From previous records Allergic rhinitis Asthma Asthma without status asthmaticus Diverticulitis ED (erectile dysfunction) of organic origin 06/30/2019 From previous records. Erectile dysfunction Family history of coronary artery disease Stress Echo- 09/08/[address] Duran TAYO (generalized anxiety disorder) 06/30/2019 From previous records Generalized anxiety disorder Hypercholesteremia Insomnia Lyme disease Scrotal pain 12/31/2023 Submandibular lymphadenopathy 12/31/2023 Umbilical hernia PAST SURGICAL HISTORY: PAST SURGICAL HISTORY Procedure Laterality Date COLONOSCOPY FLX DX W/COLLJ SPEC WHEN PFRMD 05/12/2007 KNEE ARTHROSCOPY Left 09/2012 PAST SURGICAL HISTORY OF 1997 discectomy L4/L5 REPAIR UMBILICAL HERNIA 11/30/2020 FAMILY HISTORY: FAMILY HISTORY Problem Relation Age of Onset No Known Problems Mother in good health Heart Father CABG @ age 54 Dementia Father Alcohol/Drug Sister other (Lupus) Sister no longer being treated Alcohol/Drug Brother SOCIAL HISTORY: Social Connections: Socially Integrated (10/25/2023) Social Connection and Isolation Panel [NHANES] Frequency of Communication with Friends and Family: More than three times a week Frequency of Social Gatherings with Friends and Family: Twice a week Attends Quaker Services: More than 4 times per year Active Member of Clubs or Organizations: Yes Attends Club or Organization Meetings: More than 4 times per year Marital Status: REVIEW OF SYSTEMS: GENERAL: No fever, chills, weight loss, or fatigue. ENMT: Negative CARDIOVASCULAR:NO CHEST PAIN, PALPITATIONS, ANKLE EDEMA RESPIRATORY: No chronic cough, wheezing, dyspnea, hemoptysis. GENITOURINARY: SEE HPI MUSCULOSKELETAL:NO CHRONIC BACK PAIN, ARTHRITIS, CHRONIC NECK PAIN SKIN: NO VARICOSE VEINS, RASH, ABNORMAL ITCHING HEME/LYMPH/IMMUNE:Negative for prolonged bleeding, bruising easily or swollen nodes NEUROLOGICAL: NO HEADACHES, NUMBNESS, SEIZURES, STROKE DIABETES: No All other systems reviewed and are negative PHYSICAL EXAMINATION: Blood pressure 108/74, pulse 90, temperature 36.7 C (98.1 F), temperature source Temporal, resp. rate 16, height 184.2 cm (6' 0.5), weight 93.9 kg (207 lb), SpO2 98%. GENERAL: WNL nutrition, no deformities, healthy appearing NEURO: Awake, alert and oriented x 3 and Normal gait PSYCH: No signs of depression, anxiety, or agitation ENMT (Ear, Nose, Mouth, Throat): No masses, adenopathy, icterus. Thyroid nonpalpable RESP: NL effort, no retractions or purse-lip breathing. CV: No extremity swelling, varices, edema, pallor, erythema GASTROINTESTINAL: Soft, nontender, nondistended, no masses. HERNIAS: None SKIN: No rash, lesions No palpable lymphadenopathy MUSCULOSKELETAL: Extremities normal. No deformities, edema, clubbing or skin discoloration. GENITOURINARY: MALE EXAM: No scrotal lesions, cysts, rashes. Spermatoceles: Left 2.2 cm Epididymis & testes: normal size, position, without masses Urethra & meatus: normal size & position w/o lesion or discharge Penis: circumcised, w/o plaques, lesions, masses, or deformities. PROBLEM LIST REVIEW: Yes LABS: None IMAGING: Scrotum US RESULT: RIGHT SCROTUM: Right testis: 4.2 x 1.8 x 2.6 cm. Homogeneous with no calcifications or mass. Normal intratesticular arterial and venous flow with normal spectral waveforms. Epididymis: Normal. Vascular flow on Color Doppler is symmetric to the contralateral side. Hydrocele: none Varicocele: absent LEFT SCROTUM: Left testis: 4.3 x 2.1 x 3.0 cm. Homogeneous with no calcifications or mass. Normal intratesticular arterial and venous flow with normal spectral waveforms. Epididymis: Septated cyst in the epididymal head measuring 2.1 x 1.4 x 1.9 cm. Vascular flow on Color Doppler is symmetric to the contralateral side. Hydrocele: none Varicocele: absent ASSESSMENT/PLAN: 1. Scrotal pain - ICD9: 608.9, ICD10: N50.82 2. Epididymal cyst - ICD9: 608.89, ICD10: N50.3 Chronic stable, progressing, > Referred to [facility] for surgical Consult RE: Spermatocele on LEFT > 3 mo Follow-up with BERNARD Segura MT, PA-C after Consult or before if new problems occur Consultation requested by Errol Avalos, REPORT PROGRAMMER [id number] [facility] [id number] for an opinion regarding Eduardo Jones patient and my final recommendations will be communicated back to the requesting physician by way of shared Medical record or letter via [place] mail. BERNARD Alvarado MT, PA-C documented in this encounter [facility] 01-15-2024 Telephone encounter Note Prescription Refill Information The patient has been identified by name and date of : Yes Caregiver verified no other encounters exist for this prescription request: Yes Caregiver confirmed with patient/requestor that no other refills are due, in the near future, with this provider at this time: Yes The last office visit in the department: 12/31/23 Does the patient have a future office visit with this provider/department: No Requested Prescriptions Pending Prescriptions Disp Refills Ipratropium Semmes (ATROVENT) 21 mcg (0.03 %) nasal spray 30 mL 1 Sig: Use 2 Sprays in the nose every 12 hours. Yadira Lizarraga LPN January 15, 2024 3:07 PM [facility] 01-15-2024 Miscellaneous Notes Prescription Refill Information The patient has been identified by name and date of : Yes Caregiver verified no other encounters exist for this prescription request: Yes Caregiver confirmed with patient/requestor that no other refills are due, in the near future, with this provider at this time: Yes The last office visit in the department: 12/31/23 Does the patient have a future office visit with this provider/department: No Requested Prescriptions Pending Prescriptions Disp Refills Ipratropium Semmes (ATROVENT) 21 mcg (0.03 %) nasal spray 30 mL 1 Sig: Use 2 Sprays in the nose every 12 hours. Yadira Lizarraga LPN January 15, 2024 3:07 PM documented in this encounter [facility] 12-31-2023 Instructions Errol Avalos APRN.ARCHANA - 12/31/2023 7:55 AM EDT DiverticuLOSIS-means the outpouching that is chronically present. DivertivcuLITIS-means the infection. Keep taking the same probiotics you have-these are the best ones. Take them at nighttime. We'll schedule with urology for the scrotal cyst. documented in this encounter [facility] 12-31-2023 Note HNO ID: [id number] Author: ERROL AVALOS APRN.ARCHANA Service: ? Author Type: Nurse Practitioner Type: Progress Notes Filed: 01/01/2024 18:32 Note Text: Chief Complaint Patient presents with: Follow Up: Diverticulitis, review scrotum US HPI Eduardo Jones is a 68 year old male who presents here today for Above Complaints.. Per visit with myself on 12/23: Lower abdomen bilaterally feels pretty achy, but not severe pain. Diet-pretty much eating normally. No change in bowel movements. Did complete his 1-week treatment. Area in left scrotum feels pinching feeling for the past 4 days. Does not go away, not aware of anything that makes it worse or better. Hasn't been able to feel anything abnormal in his scrotal sack. Has tried a warm shower, cool shower, wearing no underwear. General Appearance: Well appearing, alert, in no acute distress, well-hydrated, well nourished.. Lungs: Lungs clear to auscultation. No wheezing, rhonchi, rales.. Heart: RRR without murmur, gallop, or rubs. No ectopy. Abdomen: Abdomen soft, bowel sounds normal. No masses, organomegaly. Bilateral lower abdomen tender to palpation with area to RLQ that was more significantly painful with palpation Genitalia: Penis normal. No urethral discharge. Left scrotum moderately painful to palpation. No abnormalities palpated. Psychiatric: pleasant, cooperative. ASSESSMENT/PLAN: 1. Scrotal pain - ICD9: 608.9, ICD10: N50.82 (primary diagnosis) - US SCROTUM AND CONTENTS - US DOPPLER COMPLETE 2. Diverticulitis - ICD9: 562.11, ICD10: K57.92 Extend diverticulitis tx by another week. More bland diet as able. Continue probiotics. - CEFDINIR 300 MG CAPSULE - METRONIDAZOLE 500 MG TABLET 3. Submandibular lymphadenopathy - ICD9: 785.6, ICD10: R59.0 - COMPLETE BLOOD COUNT AND DIFFERENTIAL - C-REACTIVE PROTEIN Currently: Lower abdomen feels good. Has been taking a probiotic. Has been had a couple [place] yogurt with blueberries. Trying to increase his fiber intake. Is interested in education r/t diet. Would like to discuss scrotal ultrasound results. This has been referred to urology e-consult who have recommended no further imaging at this time, but do recommend urology consult. He does continue to have the pinching, puling feeling in his scrotum. Doesn't seem to have worsening but isn't improving at all. Past medical history, appointments, medications, allergies reviewed. Previous Medical History PAST MEDICAL HISTORY Diagnosis Date Alcoholism (HCC) 06/30/2019 From previous records Allergic rhinitis Asthma Asthma without status asthmaticus ED (erectile dysfunction) of organic origin 06/30/2019 From previous records. Erectile dysfunction Family history of coronary artery disease Stress Echo- 09/08/[address] Duran TAYO (generalized anxiety disorder) 06/30/2019 From previous records Generalized anxiety disorder Hypercholesteremia Insomnia Lyme disease Umbilical hernia Previous Surgical History PAST SURGICAL HISTORY Procedure Laterality Date COLONOSCOPY FLX DX W/COLLJ SPEC WHEN PFRMD 05/12/2007 KNEE ARTHROSCOPY Left 09/2012 PAST SURGICAL HISTORY OF 1997 discectomy L4/L5 REPAIR UMBILICAL HERNIA 11/30/2020 Family History FAMILY HISTORY Problem Relation Age of Onset No Known Problems Mother in good health Heart Father CABG @ age 54 Dementia Father Alcohol/Drug Sister other (Lupus) Sister no longer being treated Alcohol/Drug Brother Patient Allergies ALLERGIES No Active Allergies Current Medications Current Outpatient Medications on File Prior to Visit Medication Sig Ipratropium Semmes (ATROVENT) 21 mcg (0.03 %) nasal spray Use 2 Sprays in the nose every 12 hours. montelukast (SINGULAIR) 10 mg tablet Take 1 tablet by mouth daily at bedtime. TURMERIC ORAL Take by mouth. cefdinir (OMNICEF) 300 mg capsule Take 1 capsule by mouth two times a day for 7 days. (Patient not taking: Reported on 12/31/2023) metroNIDAZOLE (FLAGYL) 500 mg tablet Take 1 tablet by mouth every 8 hours for 7 days. (Patient not taking: Reported on 12/31/2023) No current facility-administered medications on file prior to visit. Social History Social History Tobacco Use Smoking status: Never Smokeless tobacco: Never Vaping Use Vaping status: Never Used Substance Use Topics Alcohol use: Never Drug use: Not Currently Review of Symptoms REVIEW OF SYSTEMS See HPI, otherwise negative EXAM: BP 120/72 (BP Site: Left Arm, BP Position: Sitting, BP Cuff Size: Regular Adult) Pulse 71 Resp 16 Wt 95.7 kg (211 lb) SpO2 97% BMI 28.62 kg/m? General Appearance: Well appearing, alert, in no acute distress, well-hydrated, well nourished.. Lungs: Lungs clear to auscultation. No wheezing, rhonchi, rales.. Heart: RRR without murmur, gallop, or rubs. No ectopy. Abdomen: Normal abdominal exam, Abdomen soft, non-tender. Bowel sounds normal. No masses, organomegaly. (more content not included)... [facility] 12-31-2023 History of Present illness Narrative Chief Complaint Patient presents with: Follow Up: Diverticulitis, review scrotum US HPI Eduardo Jones is a 68 year old male who presents here today for Above Complaints.. Per visit with myself on 12/23: Lower abdomen bilaterally feels pretty achy, but not severe pain. Diet-pretty much eating normally. No change in bowel movements. Did complete his 1-week treatment. Area in left scrotum feels pinching feeling for the past 4 days. Does not go away, not aware of anything that makes it worse or better. Hasn't been able to feel anything abnormal in his scrotal sack. Has tried a warm shower, cool shower, wearing no underwear. General Appearance: Well appearing, alert, in no acute distress, well-hydrated, well nourished.. Lungs: Lungs clear to auscultation. No wheezing, rhonchi, rales.. Heart: RRR without murmur, gallop, or rubs. No ectopy. Abdomen: Abdomen soft, bowel sounds normal. No masses, organomegaly. Bilateral lower abdomen tender to palpation with area to RLQ that was more significantly painful with palpation Genitalia: Penis normal. No urethral discharge. Left scrotum moderately painful to palpation. No abnormalities palpated. Psychiatric: pleasant, cooperative. ASSESSMENT/PLAN: 1. Scrotal pain - ICD9: 608.9, ICD10: N50.82 (primary diagnosis) - US SCROTUM AND CONTENTS - US DOPPLER COMPLETE 2. Diverticulitis - ICD9: 562.11, ICD10: K57.92 Extend diverticulitis tx by another week. More bland diet as able. Continue probiotics. - CEFDINIR 300 MG CAPSULE - METRONIDAZOLE 500 MG TABLET 3. Submandibular lymphadenopathy - ICD9: 785.6, ICD10: R59.0 - COMPLETE BLOOD COUNT AND DIFFERENTIAL - C-REACTIVE PROTEIN Currently: Lower abdomen feels good. Has been taking a probiotic. Has been had a couple [place] yogurt with blueberries. Trying to increase his fiber intake. Is interested in education r/t diet. Would like to discuss scrotal ultrasound results. This has been referred to urology e-consult who have recommended no further imaging at this time, but do recommend urology consult. He does continue to have the pinching, puling feeling in his scrotum. Doesn't seem to have worsening but isn't improving at all. Past medical history, appointments, medications, allergies reviewed. Previous Medical History PAST MEDICAL HISTORY Diagnosis Date Alcoholism (HCC) 06/30/2019 From previous records Allergic rhinitis Asthma Asthma without status asthmaticus ED (erectile dysfunction) of organic origin 06/30/2019 From previous records. Erectile dysfunction Family history of coronary artery disease Stress Echo- 09/08/[address] Duran TAYO (generalized anxiety disorder) 06/30/2019 From previous records Generalized anxiety disorder Hypercholesteremia Insomnia Lyme disease Umbilical hernia Previous Surgical History PAST SURGICAL HISTORY Procedure Laterality Date COLONOSCOPY FLX DX W/COLLJ SPEC WHEN PFRMD 05/12/2007 KNEE ARTHROSCOPY Left 09/2012 PAST SURGICAL HISTORY OF 1997 discectomy L4/L5 REPAIR UMBILICAL HERNIA 11/30/2020 Family History FAMILY HISTORY Problem Relation Age of Onset No Known Problems Mother in good health Heart Father CABG @ age 54 Dementia Father Alcohol/Drug Sister other (Lupus) Sister no longer being treated Alcohol/Drug Brother Patient Allergies ALLERGIES No Active Allergies Current Medications Current Outpatient Medications on File Prior to Visit Medication Sig Ipratropium Semmes (ATROVENT) 21 mcg (0.03 %) nasal spray Use 2 Sprays in the nose every 12 hours. montelukast (SINGULAIR) 10 mg tablet Take 1 tablet by mouth daily at bedtime. TURMERIC ORAL Take by mouth. cefdinir (OMNICEF) 300 mg capsule Take 1 capsule by mouth two times a day for 7 days. (Patient not taking: Reported on 12/31/2023) metroNIDAZOLE (FLAGYL) 500 mg tablet Take 1 tablet by mouth every 8 hours for 7 days. (Patient not taking: Reported on 12/31/2023) No current facility-administered medications on file prior to visit. Social History Social History Tobacco Use Smoking status: Never Smokeless tobacco: Never Vaping Use Vaping status: Never Used Substance Use Topics Alcohol use: Never Drug use: Not Currently Review of Symptoms REVIEW OF SYSTEMS See HPI, otherwise negative EXAM: BP 120/72 (BP Site: Left Arm, BP Position: Sitting, BP Cuff Size: Regular Adult) Pulse 71 Resp 16 Wt 95.7 kg (211 lb) SpO2 97% BMI 28.62 kg/m General Appearance: Well appearing, alert, in no acute distress, well-hydrated, well nourished.. Lungs: Lungs clear to auscultation. No wheezing, rhonchi, rales.. Heart: RRR without murmur, gallop, or rubs. No ectopy. Abdomen: Normal abdominal exam, Abdomen soft, non-tender. Bowel sounds normal. No masses, organomegaly. Psychiatric: pleasant, cooperative. Health Maintenance List Depression Screening Never done Advance Directive Discussion Never done Covid-19 Vaccine(1 - 2023-24 season) Never done Influenza Vaccine(1) due on 12/15/2023 DTaP,Tdap,Td Vaccine(1 - Tdap) due on 10/30/2024 Spirometry due on 10/30/2024 RSV Vaccine(1 - 1-dose 60+ series) due on 10/30/2024 Shingrix Vaccine(2 of 2) due on 10/30/2024 Pneumococcal Vaccine: 65+(2 of 2 - PPSV23 or PCV20) due on 10/30/2024 Annual PCP Team Chronic Disease Visit due on 12/23/2024 Diabetes Screening due on 12/16/2026 Lipid Screening due on 10/30/2028 Prostate Cancer Screening Discussion due on 10/30/2028 Colorectal Cancer Screening due on 01/05/2030 Hepatitis C Screening Discontinued Data reviewed Previous records, office notes ASSESSMENT/PLAN: 1. Diverticulitis - ICD9: 562.11, ICD10: K57.92 (primary diagnosis) Resolved. Educated and handouts given from [facility] site with recommendations of proper diverticulosis diet, to help prevent another flare of diverticulitis. 2. Scrotal pain - ICD9: 608.9, ICD10: N50.82 - CONSULT TO UROLOGY 3. Epididymal cyst - ICD9: 608.89, ICD10: N50.3 - CONSULT TO UROLOGY Errol Avalos APRN.CNP documented in this encounter [facility] 12-30-2023 History of Present illness Narrative Clinical Question I am requesting a Urology E-Consult for my 68 year old male patient, Eduardo Jones for evaluation of: Men's Health: scrotal pain My clinical question: scrotal ultrasound impression: 2.1 x 1.4 x 1.9 cm septated cyst in the left epididymal head. Wondering if this is something that should be followed up on with urology and/or additional testing that I should have done. Thanks! Please assess and respond with your recommendations regarding Interpretation of clinical findings I would suggest a follow up with urology. No further testing needed Thanks Alisa Artis APRN.REPORT PROGRAMMER documented in this encounter [facility] 12-30-2023 Note HNO ID: [id number] Author: ALISA ARTIS APRN.ARCHANA Service: ? Author Type: Nurse Practitioner Type: Progress Notes Filed: 01/09/2024 09:19 Note Text: Clinical Question I am requesting a Urology E-Consult for my 68 year old male patient, Eduardo Jones for evaluation of: Men's Health: scrotal pain My clinical question: scrotal ultrasound impression: 2.1 x 1.4 x 1.9 cm septated cyst in the left epididymal head. Wondering if this is something that should be followed up on with urology and/or additional testing that I should have done. Thanks! Please assess and respond with your recommendations regarding Interpretation of clinical findings I would suggest a follow up with urology. No further testing needed This e consult took 5 minutes Thanks Alisa Artis APRN.CNP [facility] 12-26-2023 History of Present illness Narrative Radiology Service Progress Note PATIENT NAME: Eduardo Jones DATE OF SERVICE: December 26, 2023 TIME: 2:53 PM PATIENT IDENTITY VERIFICATION COMPLETED USING TWO (2) IDENTIFIERS: Name and Date of confirmed by patient verbally. FALL SCREENING: Has the patient had 2 falls in the last year or 1 fall with injury or currently using an Ambulatory Assistive Device (Walker, Cane, Wheelchair, Crutches, etc.)? No PATIENT GENDER DATA: Male PATIENT RELEVANT IMPLANT DATA REVIEWED: Not Applicable PATIENT PRESENTS WITH AN IMPLANTABLE OR ATTACHED BROADBAND INSTALLER: No RADIOLOGY DEPARTMENT: Ultrasound PERIPHERAL IV DATA: Not applicable SIGNED BY: Leanna Persaud RDMS December 26, 2023 2:53 PM documented in this encounter [facility] 12-26-2023 Note HNO ID: [id number] Author: LEANNA PERSAUD RDMS Service: ? Author Type: Pediatric Physician Type: Progress Notes Filed: 12/26/2023 14:53 Note Text: Radiology Service Progress Note PATIENT NAME: Eduardo Jones DATE OF SERVICE: December 26, 2023 TIME: 2:53 PM PATIENT IDENTITY VERIFICATION COMPLETED USING TWO (2) IDENTIFIERS: Name and Date of confirmed by patient verbally. FALL SCREENING: Has the patient had 2 falls in the last year or 1 fall with injury or currently using an Ambulatory Assistive Device (Walker, Cane, Wheelchair, Crutches, etc.)? No PATIENT GENDER DATA: Male PATIENT RELEVANT IMPLANT DATA REVIEWED: Not Applicable PATIENT PRESENTS WITH AN IMPLANTABLE OR ATTACHED BROADBAND INSTALLER: No RADIOLOGY DEPARTMENT: Ultrasound PERIPHERAL IV DATA: Not applicable SIGNED BY: Leanna Persaud RDMS December 26, 2023 2:53 PM [facility] 12-24-2023 Note HNO ID: [id number] Author: ERROL AVALOS APRN.REPORT PROGRAMMER Service: ? Author Type: Nurse Practitioner Type: Progress Notes Filed: 12/24/2023 16:11 Note Text: Chief Complaint Patient presents with: Follow Up: Diverticulitis, abdominal discomfort, completed treatment. HPI Eduardo Jones is a 68 year old male who presents here today for Above Complaints.. Lower abdomen bilaterally feels pretty achy, but not severe pain. Diet-pretty much eating normally. No change in bowel movements. Did complete his 1-week treatment. Area in left scrotum feels pinching feeling for the past 4 days. Does not go away, not aware of anything that makes it worse or better. Hasn't been able to feel anything abnormal in his scrotal sack. Has tried a warm shower, cool shower, wearing no underwear. Past medical history, appointments, medications, allergies reviewed. Previous Medical History PAST MEDICAL HISTORY 06/30/2019: Alcoholism (HCC) Comment: From previous records No date: Allergic rhinitis No date: Asthma No date: Asthma without status asthmaticus 06/30/2019: ED (erectile dysfunction) of organic origin Comment: From previous records. No date: Erectile dysfunction No date: Family history of coronary artery disease Comment: Stress Echo- 09/08/[address] Duran 06/30/2019: TAYO (generalized anxiety disorder) Comment: From previous records No date: Generalized anxiety disorder No date: Hypercholesteremia No date: Insomnia No date: Lyme disease No date: Umbilical hernia Previous Surgical History PAST SURGICAL HISTORY 05/12/2007: COLONOSCOPY FLX DX W/COLLJ SPEC WHEN PFRMD 09/2012: KNEE ARTHROSCOPY; Left 1996: PAST SURGICAL HISTORY OF Comment: discectomy L4/L5 11/30/2020: REPAIR UMBILICAL HERNIA Family History FAMILY HISTORY Problem Relation Age of Onset No Known Problems Mother in good health Heart Father CABG @ age 54 Dementia Father Alcohol/Drug Sister other (Lupus) Sister no longer being treated Alcohol/Drug Brother Patient Allergies ALLERGIES No Active Allergies Current Medications Current Outpatient Medications on File Prior to Visit Medication Sig Ipratropium Semmes (ATROVENT) 21 mcg (0.03 %) nasal spray Use 2 Sprays in the nose every 12 hours. montelukast (SINGULAIR) 10 mg tablet Take 1 tablet by mouth daily at bedtime. TURMERIC ORAL Take by mouth. cefdinir (OMNICEF) 300 mg capsule Take 1 capsule by mouth two times a day for 7 days. (Patient not taking: Reported on 12/24/2023) metroNIDAZOLE (FLAGYL) 500 mg tablet Take 1 tablet by mouth every 8 hours for 7 days. (Patient not taking: Reported on 12/24/2023) rosuvastatin (CRESTOR) 10 mg tablet Take 1 tablet by mouth daily at bedtime. (Patient not taking: Reported on 12/24/2023) No current facility-administered medications on file prior to visit. Social History Social History Tobacco Use Smoking status: Never Smokeless tobacco: Never Vaping Use Vaping status: Never Used Substance Use Topics Alcohol use: Never Drug use: Not Currently Review of Symptoms REVIEW OF SYSTEMS See HPI, otherwise negative EXAM: BP 118/64 (BP Site: Left Arm, BP Position: Sitting, BP Cuff Size: Regular Adult) Pulse 69 Resp 16 Wt 95.6 kg (210 lb 12.8 oz) SpO2 95% BMI 28.59 kg/m? General Appearance: Well appearing, alert, in no acute distress, well-hydrated, well nourished.. Lungs: Lungs clear to auscultation. No wheezing, rhonchi, rales.. Heart: RRR without murmur, gallop, or rubs. No ectopy. Abdomen: Abdomen soft, bowel sounds normal. No masses, organomegaly. Bilateral lower abdomen tender to palpation with area to RLQ that was more significantly painful with palpation Genitalia: Penis normal. No urethral discharge. Left scrotum moderately painful to palpation. No abnormalities palpated. Psychiatric: pleasant, cooperative. Health Maintenance List Depression Screening Never done Advance Directive Discussion Never done Covid-19 Vaccine(1 - 2022-24 season) Never done Influenza Vaccine(1) due on 12/15/2023 DTaP,Tdap,Td Vaccine(1 - Tdap) due on 10/30/2024 Spirometry due on 10/30/2024 RSV Vaccine(1 - 1-dose 60+ series) due on 10/30/2024 Shingrix Vaccine(2 of 2) due on 10/30/2024 Pneumococcal Vaccine: 65+(2 of 2 - PPSV23 or PCV20) due on 10/30/2024 Annual PCP Team Chronic Disease Visit due on 12/16/2024 Diabetes Screening due on 12/16/2026 Lipid Screening due on 10/30/2028 Prostate Cancer Screening Discussion due on 10/30/2028 Colorectal Cancer Screening due on 01/05/2030 Hepatitis C Screening Discontinued Data reviewed Previous records, office notes ASSESSMENT/PLAN: 1. Scrotal pain - ICD9: 608.9, ICD10: N50.82 (primary diagnosis) - US SCROTUM AND CONTENTS - US DOPPLER COMPLETE 2. Diverticulitis - ICD9: 562.11, ICD10: K57.92 Extend diverticulitis tx by another week. More bland diet as able. Continue probiotics. - CEFDINIR 300 MG CAPSULE - METRONIDAZOLE 500 (more content not included)... [facility] 12-24-2023 History of Present illness Narrative Chief Complaint Patient presents with: Follow Up: Diverticulitis, abdominal discomfort, completed treatment. ERENDIRA Eduardo Jones is a 68 year old male who presents here today for Above Complaints.. Lower abdomen bilaterally feels pretty achy, but not severe pain. Diet-pretty much eating normally. No change in bowel movements. Did complete his 1-week treatment. Area in left scrotum feels pinching feeling for the past 4 days. Does not go away, not aware of anything that makes it worse or better. Hasn't been able to feel anything abnormal in his scrotal sack. Has tried a warm shower, cool shower, wearing no underwear. Past medical history, appointments, medications, allergies reviewed. Previous Medical History PAST MEDICAL HISTORY 06/30/2019: Alcoholism (HCC) Comment: From previous records No date: Allergic rhinitis No date: Asthma No date: Asthma without status asthmaticus 06/30/2019: ED (erectile dysfunction) of organic origin Comment: From previous records. No date: Erectile dysfunction No date: Family history of coronary artery disease Comment: Stress Echo- 09/08/[address] Duran 06/30/2019: TAYO (generalized anxiety disorder) Comment: From previous records No date: Generalized anxiety disorder No date: Hypercholesteremia No date: Insomnia No date: Lyme disease No date: Umbilical hernia Previous Surgical History PAST SURGICAL HISTORY 05/12/2007: COLONOSCOPY FLX DX W/COLLJ SPEC WHEN PFRMD 09/2012: KNEE ARTHROSCOPY; Left 1996: PAST SURGICAL HISTORY OF Comment: discectomy L4/L5 11/30/2020: REPAIR UMBILICAL HERNIA Family History FAMILY HISTORY Problem Relation Age of Onset No Known Problems Mother in good health Heart Father CABG @ age 54 Dementia Father Alcohol/Drug Sister other (Lupus) Sister no longer being treated Alcohol/Drug Brother Patient Allergies ALLERGIES No Active Allergies Current Medications Current Outpatient Medications on File Prior to Visit Medication Sig Ipratropium Semmes (ATROVENT) 21 mcg (0.03 %) nasal spray Use 2 Sprays in the nose every 12 hours. montelukast (SINGULAIR) 10 mg tablet Take 1 tablet by mouth daily at bedtime. TURMERIC ORAL Take by mouth. cefdinir (OMNICEF) 300 mg capsule Take 1 capsule by mouth two times a day for 7 days. (Patient not taking: Reported on 12/24/2023) metroNIDAZOLE (FLAGYL) 500 mg tablet Take 1 tablet by mouth every 8 hours for 7 days. (Patient not taking: Reported on 12/24/2023) rosuvastatin (CRESTOR) 10 mg tablet Take 1 tablet by mouth daily at bedtime. (Patient not taking: Reported on 12/24/2023) No current facility-administered medications on file prior to visit. Social History Social History Tobacco Use Smoking status: Never Smokeless tobacco: Never Vaping Use Vaping status: Never Used Substance Use Topics Alcohol use: Never Drug use: Not Currently Review of Symptoms REVIEW OF SYSTEMS See HPI, otherwise negative EXAM: BP 118/64 (BP Site: Left Arm, BP Position: Sitting, BP Cuff Size: Regular Adult) Pulse 69 Resp 16 Wt 95.6 kg (210 lb 12.8 oz) SpO2 95% BMI 28.59 kg/m General Appearance: Well appearing, alert, in no acute distress, well-hydrated, well nourished.. Lungs: Lungs clear to auscultation. No wheezing, rhonchi, rales.. Heart: RRR without murmur, gallop, or rubs. No ectopy. Abdomen: Abdomen soft, bowel sounds normal. No masses, organomegaly. Bilateral lower abdomen tender to palpation with area to RLQ that was more significantly painful with palpation Genitalia: Penis normal. No urethral discharge. Left scrotum moderately painful to palpation. No abnormalities palpated. Psychiatric: pleasant, cooperative. Health Maintenance List Depression Screening Never done Advance Directive Discussion Never done Covid-19 Vaccine( - season) Never done Influenza Vaccine(1) due on 12/15/2023 DTaP,Tdap,Td Vaccine(1 - Tdap) due on 10/30/2024 Spirometry due on 10/30/2024 RSV Vaccine(1 - 1-dose 60+ series) due on 10/30/2024 Shingrix Vaccine(2 of 2) due on 10/30/2024 Pneumococcal Vaccine: 65+(2 of 2 - PPSV23 or PCV20) due on 10/30/2024 Annual PCP Team Chronic Disease Visit due on 12/16/2024 Diabetes Screening due on 12/16/2026 Lipid Screening due on 10/30/2028 Prostate Cancer Screening Discussion due on 10/30/2028 Colorectal Cancer Screening due on 01/05/2030 Hepatitis C Screening Discontinued Data reviewed Previous records, office notes ASSESSMENT/PLAN: 1. Scrotal pain - ICD9: 608.9, ICD10: N50.82 (primary diagnosis) - US SCROTUM AND CONTENTS - US DOPPLER COMPLETE 2. Diverticulitis - ICD9: 562.11, ICD10: K57.92 Extend diverticulitis tx by another week. More bland diet as able. Continue probiotics. - CEFDINIR 300 MG CAPSULE - METRONIDAZOLE 500 MG TABLET 3. Submandibular lymphadenopathy - ICD9: 785.6, ICD10: R59.0 - COMPLETE BLOOD COUNT AND DIFFERENTIAL - C-REACTIVE PROTEIN Errol Avalos APRN.REPORT PROGRAMMER documented in this encounter [facility] 12-17-2023 Telephone encounter Note Phoned patient and notified him that a follow up appointment is needed. Appointment made for Saturday12/24/23. Patient declined appt on Saturday due to travel. Bobby Brock LPN [facility] 12-17-2023 Miscellaneous Notes Phoned patient and notified him that a follow up appointment is needed. Appointment made for Saturday12/24/23. Patient declined appt on Saturday due to travel. Bobby Brock LPN I spoke with patient and reviewed CT results- + for diverticulitis. Antibiotics prescribed. Advise liquid diet, and slowly advance diet as pain and symptoms are improving/resolving. Reviewed red flags and when to seek care sooner, including fever >100, vomiting, worsening abdominal pain. Recommend f/u for recheck in 4-5 days, please help schedule follow up visit. Felipe Foster PA-C 12/17/2023 documented in this encounter [facility] 12-17-2023 Telephone encounter Note I spoke with patient and reviewed CT results- + for diverticulitis. Antibiotics prescribed. Advise liquid diet, and slowly advance diet as pain and symptoms are improving/resolving. Reviewed red flags and when to seek care sooner, including fever >100, vomiting, worsening abdominal pain. Recommend f/u for recheck in 4-5 days, please help schedule follow up visit. Felipe Foster PA-C 12/17/2023 [facility] 12-17-2023 History of Present illness Narrative Radiology Service Progress Note DATE OF SERVICE: December 17, 2023 TIME: 1:43 PM PATIENT IDENTITY VERIFICATION COMPLETED USING TWO (2) STANDARD IDENTIFIERS: Name and Date of confirmed by patient verbally. FALL SCREENING: Has the patient had 2 falls in the last year or 1 fall with injury or currently using an Ambulatory Assistive Device (Walker, Cane, Wheelchair, Crutches, etc.)? No PATIENT GENDER DATA: Male PATIENT RELEVANT IMPLANT DATA REVIEWED: Yes PATIENT PRESENTS WITH AN IMPLANTABLE OR ATTACHED BROADBAND INSTALLER: No ALLERGIES: Reviewed and unchanged CONTRAST ALLERGY: NO. EXAM: CT -CONTRAST INDUCED NEPHROPATHY RISK FACTORS: Patient age > 60 years CREATININE: Creatinine Date Value Ref Range Status 12/17/2023 1.16 0.73 - 1.22 mg/dL Final 10/31/2023 1.28 (H) 0.73 - 1.22 mg/dL Final 11/08/2020 1.10 0.73 - 1.22 mg/dL Final Estimated Glomerular Filtration Rate Date Value Ref Range Status 12/17/2023 69 >=60 mL/min/1.73m Final Comment: Estimated Glomerular Filtration Rate (eGFR) is calculated using the 2020 CKD-EPI creatinine equation. This equation utilizes serum creatinine, sex, and age as parameters. The creatinine assay has traceable calibration to isotope dilution-mass spectrometry. Refer to KDIGO guidelines for clinical interpretation. In patients with unstable renal function, e.g. those with acute kidney injury, the eGFR may not accurately reflect actual GFR. eGFR- Date Value Ref Range Status 11/08/2020 >60 Final P.O.C.T. RESULTS: POC done: Yes, See Lab Tab December 17, 2023 TREATMENT: N/A PERIPHERAL IV DATA: Ambulatory: A peripheral IV was started in the Right antecubital site with a Angio cath: 20 gauge. RADIOLOGY DEPARTMENT: CT; Exam(s) Completed: Abdomen/Pelvis SIGNATURE: RT Monik(Stephania) PATIENT NAME: Eduardo Jones DATE: December 17, 2023 TIME: 1:43 PM documented in this encounter [facility] 12-17-2023 Note HNO ID: [id number] Author: TROUT, LUDY, RT(R) Service: Radiology Author Type: Pediatric Physician Type: Progress Notes Filed: 12/17/2023 13:43 Note Text: Radiology Service Progress Note DATE OF SERVICE: December 17, 2023 TIME: 1:43 PM PATIENT IDENTITY VERIFICATION COMPLETED USING TWO (2) STANDARD IDENTIFIERS: Name and Date of confirmed by patient verbally. FALL SCREENING: Has the patient had 2 falls in the last year or 1 fall with injury or currently using an Ambulatory Assistive Device (Walker, Cane, Wheelchair, Crutches, etc.)? No PATIENT GENDER DATA: Male PATIENT RELEVANT IMPLANT DATA REVIEWED: Yes PATIENT PRESENTS WITH AN IMPLANTABLE OR ATTACHED BROADBAND INSTALLER: No ALLERGIES: Reviewed and unchanged CONTRAST ALLERGY: NO. EXAM: CT -CONTRAST INDUCED NEPHROPATHY RISK FACTORS: Patient age > 60 years CREATININE: Creatinine Date Value Ref Range Status 12/17/2023 1.16 0.73 - 1.22 mg/dL Final 10/31/2023 1.28 (H) 0.73 - 1.22 mg/dL Final 11/08/2020 1.10 0.73 - 1.22 mg/dL Final Estimated Glomerular Filtration Rate Date Value Ref Range Status 12/17/2023 69 >=60 mL/min/1.73m? Final Comment: Estimated Glomerular Filtration Rate (eGFR) is calculated using the 2020 CKD-EPI creatinine equation. This equation utilizes serum creatinine, sex, and age as parameters. The creatinine assay has traceable calibration to isotope dilution-mass spectrometry. Refer to KDIGO guidelines for clinical interpretation. In patients with unstable renal function, e.g. those with acute kidney injury, the eGFR may not accurately reflect actual GFR. eGFR- Date Value Ref Range Status 11/08/2020 >60 Final P.O.C.T. RESULTS: POC done: Yes, See Lab Tab December 17, 2023 TREATMENT: N/A PERIPHERAL IV DATA: Ambulatory: A peripheral IV was started in the Right antecubital site with a Angio cath: 20 gauge. RADIOLOGY DEPARTMENT: CT; Exam(s) Completed: Abdomen/Pelvis SIGNATURE: RT Monik(R) PATIENT NAME: Eduardo Jones DATE: December 17, 2023 TIME: 1:43 PM [facility] 12-17-2023 Note HNO ID: [id number] Author: FELIPE FOSTER PA-C Service: ? Author Type: Physician Molding Machine Setter Type: Progress Notes Filed: 12/17/2023 18:31 Note Text: 12/17/2023 Patient presents with: Same Day Appointment: sharp abdominal pain since last night SUBJECTIVE: This is a 68 year old that is here today for Complaint(s) of lower abdominal pain x last night. States he started with mid lower abdominal pain that is constant. Tried a stool softener and hydrated. Had a normal BM this morning. Denies blood. 4 years ago had divertiulitis, has not had since. Similar pain as this. + nausea, no vomiting. Still has a normal appetite. Still has appendix. Denies fever/chills, chest pain, SOB. Having some mild lower back pain. Notes some dysuria, but no hematuria. No incontinence. PAST MEDICAL HISTORY 06/30/2019: Alcoholism (HCC) Comment: From previous records No date: Allergic rhinitis No date: Asthma No date: Asthma without status asthmaticus 06/30/2019: ED (erectile dysfunction) of organic origin Comment: From previous records. No date: Erectile dysfunction No date: Family history of coronary artery disease Comment: Stress Echo- 09/08/[address] Duran 06/30/2019: TAYO (generalized anxiety disorder) Comment: From previous records No date: Generalized anxiety disorder No date: Hypercholesteremia No date: Insomnia No date: Lyme disease No date: Umbilical hernia ALLERGIES Patient has no active allergies. MEDICATIONS Current Outpatient Medications Medication Sig rosuvastatin (CRESTOR) 10 mg tablet Take 1 tablet by mouth daily at bedtime. Ipratropium Semmes (ATROVENT) 21 mcg (0.03 %) nasal spray Use 2 Sprays in the nose every 12 hours. montelukast (SINGULAIR) 10 mg tablet Take 1 tablet by mouth daily at bedtime. TURMERIC ORAL Take by mouth. No current facility-administered medications for this visit. SOCIAL HISTORY Social History Tobacco Use Smoking status: Never Smokeless tobacco: Never Vaping Use Vaping status: Never Used Substance Use Topics Alcohol use: Never Drug use: Not Currently REVIEW OF SYSTEMS See HPI OBJECTIVE: BP 130/70 (BP Site: Left Arm, BP Position: Sitting, BP Cuff Size: Large Adult) Pulse 79 Temp 36.7 ?C (98.1 ?F) Resp 14 Ht 182.9 cm (6') Wt 95.3 kg (210 lb) SpO2 97% BMI 28.48 kg/m? APPEARANCE Well appearing, alert, in no acute distress, well-hydrated, well nourished. ABDOMEN bowel sounds normoactive,soft, + LLQ and mid lower abdominal pain. Negative McBurney's, NEgative Ulloa's. No rebound, rigidity or guarding. non-distended, without organomegaly or palpable masses. Negative Rovsing's. BACK: Normal exam, no cva TTP ASSESSMENT/PLAN: 1. Lower abdominal pain - ICD9: 789.09, ICD10: R10.30 -Suspect probably diverticulitis. R/o appendicitis. CT Abdomen stat today. - COMPLETE BLOOD COUNT AND DIFFERENTIAL - COMPREHENSIVE METABOLIC PANEL - LIPASE - CT ABD/PEL W IVCON - UA DIP B/O-negative Reviewed red flags and when to seek care sooner. The patient indicates understanding of these issues and agrees with the plan. Felipe Foster PA-C [facility] 12-17-2023 History of Present illness Narrative 12/17/2023 Patient presents with: Same Day Appointment: sharp abdominal pain since last night SUBJECTIVE: This is a 68 year old that is here today for Complaint(s) of lower abdominal pain x last night. States he started with mid lower abdominal pain that is constant. Tried a stool softener and hydrated. Had a normal BM this morning. Denies blood. 4 years ago had divertiulitis, has not had since. Similar pain as this. + nausea, no vomiting. Still has a normal appetite. Still has appendix. Denies fever/chills, chest pain, SOB. Having some mild lower back pain. Notes some dysuria, but no hematuria. No incontinence. PAST MEDICAL HISTORY 06/30/2019: Alcoholism (HCC) Comment: From previous records No date: Allergic rhinitis No date: Asthma No date: Asthma without status asthmaticus 06/30/2019: ED (erectile dysfunction) of organic origin Comment: From previous records. No date: Erectile dysfunction No date: Family history of coronary artery disease Comment: Stress Echo- 09/08/[address] Duran 06/30/2019: TAYO (generalized anxiety disorder) Comment: From previous records No date: Generalized anxiety disorder No date: Hypercholesteremia No date: Insomnia No date: Lyme disease No date: Umbilical hernia ALLERGIES Patient has no active allergies. MEDICATIONS Current Outpatient Medications Medication Sig rosuvastatin (CRESTOR) 10 mg tablet Take 1 tablet by mouth daily at bedtime. Ipratropium Semmes (ATROVENT) 21 mcg (0.03 %) nasal spray Use 2 Sprays in the nose every 12 hours. montelukast (SINGULAIR) 10 mg tablet Take 1 tablet by mouth daily at bedtime. TURMERIC ORAL Take by mouth. No current facility-administered medications for this visit. SOCIAL HISTORY Social History Tobacco Use Smoking status: Never Smokeless tobacco: Never Vaping Use Vaping status: Never Used Substance Use Topics Alcohol use: Never Drug use: Not Currently REVIEW OF SYSTEMS See HPI OBJECTIVE: BP 130/70 (BP Site: Left Arm, BP Position: Sitting, BP Cuff Size: Large Adult) Pulse 79 Temp 36.7 C (98.1 F) Resp 14 Ht 182.9 cm (6') Wt 95.3 kg (210 lb) SpO2 97% BMI 28.48 kg/m APPEARANCE Well appearing, alert, in no acute distress, well-hydrated, well nourished. ABDOMEN bowel sounds normoactive,soft, + LLQ and mid lower abdominal pain. Negative McBurney's, NEgative Ulloa's. No rebound, rigidity or guarding. non-distended, without organomegaly or palpable masses. Negative Rovsing's. BACK: Normal exam, no cva TTP ASSESSMENT/PLAN: 1. Lower abdominal pain - ICD9: 789.09, ICD10: R10.30 -Suspect probably diverticulitis. R/o appendicitis. CT Abdomen stat today. - COMPLETE BLOOD COUNT AND DIFFERENTIAL - COMPREHENSIVE METABOLIC PANEL - LIPASE - CT ABD/PEL W IVCON - UA DIP B/O-negative Reviewed red flags and when to seek care sooner. The patient indicates understanding of these issues and agrees with the plan. Felipe Foster PA-C documented in this encounter [facility] 12-17-2023 Note HNO ID: [id number] Author: FERMIN MCNULTY APRN.REPORT PROGRAMMER Service: ? Author Type: Nurse Practitioner Type: Progress Notes Filed: 12/17/2023 09:10 Note Text: Nontoxic-appearing male presents urgent care chief complaint left lower abdominal pain. Duration of symptoms 12 hours. Associated symptoms left lower abdominal pain. History of diverticulitis. Rates pain 6-7 out of 10. Exacerbated by palpation. No OTC medication use. Vital signs stable. Able establish an appointment for patient today at internal medicine at 820. Fermin Mcnulty APRN.CNP [facility] 12-17-2023 History of Present illness Narrative Nontoxic-appearing male presents urgent care chief complaint left lower abdominal pain. Duration of symptoms 12 hours. Associated symptoms left lower abdominal pain. History of diverticulitis. Rates pain 6-7 out of 10. Exacerbated by palpation. No OTC medication use. Vital signs stable. Able establish an appointment for patient today at internal medicine at 820. Fermin Mcnulty APRN.ARCHANA documented in this encounter [facility] 11-05-2023 Telephone encounter Note The following approved medication requests have been transmitted electronically. Requested Prescriptions Signed Prescriptions Disp Refills rosuvastatin (CRESTOR) 10 mg tablet 90 tablet 1 Sig: Take 1 tablet by mouth daily at bedtime. Authorizing Provider: ERROL AVALOS APRN.CNP [facility] 11-05-2023 Miscellaneous Notes The following approved medication requests have been transmitted electronically. Requested Prescriptions Signed Prescriptions Disp Refills rosuvastatin (CRESTOR) 10 mg tablet 90 tablet 1 Sig: Take 1 tablet by mouth daily at bedtime. Authorizing Provider: ERROL AVALOS APRN.CNP Pt. informed would like to start on Crestor. Please send to [facility]. Please let him know I received his lab results. It does show a mild dehydration. Please make sure he is drinking a minimum of 60-80 oz of water daily. No concerns with his prostate. His A1C number screening for diabetes is on the lower end of the prediabetes range. To improve this, I recommend cutting back on carbs. Increase proteins in his diet. Exercise. His cholesterol levels are elevated. I would really like him to consider a statin medication to help bring this down, he is at increased risk for atherosclerotic heart disease. I recommend Crestor 10mg daily. No other concerns. Errol Avalos APRN.ARCHANA The 10-year ASCVD risk score (Carolann PINEDA, et al., 2019) is: 13% Values used to calculate the score: Age: 68 years Sex: Male Is Non- : No Diabetic: No Tobacco smoker: No Systolic Blood Pressure: 122 mmHg Is BP treated: No HDL Cholesterol: 59 mg/dL Total Cholesterol: 239 mg/dL documented in this encounter [facility] 11-05-2023 Telephone encounter Note Pt. informed would like to start on Crestor. Please send to [facility]. [facility] 11-05-2023 Telephone encounter Note Please let him know I received his lab results. It does show a mild dehydration. Please make sure he is drinking a minimum of 60-80 oz of water daily. No concerns with his prostate. His A1C number screening for diabetes is on the lower end of the prediabetes range. To improve this, I recommend cutting back on carbs. Increase proteins in his diet. Exercise. His cholesterol levels are elevated. I would really like him to consider a statin medication to help bring this down, he is at increased risk for atherosclerotic heart disease. I recommend Crestor 10mg daily. No other concerns. Errol Avalos APRN.CNP The 10-year ASCVD risk score (Carolann PINEDA, et al., 2019) is: 13% Values used to calculate the score: Age: 68 years Sex: Male Is Non- : No Diabetic: No Tobacco smoker: No Systolic Blood Pressure: 122 mmHg Is BP treated: No HDL Cholesterol: 59 mg/dL Total Cholesterol: 239 mg/dL [facility] 10-31-2023 History of Present illness Narrative Chief Complaint Patient presents with: Wellness HPI Eduardo Jones is a 68 year old male who presents here today for Above Complaints. Is here for his yearly well visit. Allergies-well controlled with his Singulair Atrovent. Does add an inhaler in the fall when his allergies spike. Denies any concerns or complaints. Would like to have his routine labs drawn. Frequently SOB. Has always been this way-is r/t his asthma he believes. However father did have CA in his 40's. Denies CP, persistent h/a, palpitations, increased thirst or urination. Does get up at times during the night-does drink caffeine during the day and increased water. Occasional difficulty starting to urinate. Past medical history, appointments, medications, allergies reviewed. Previous Medical History PAST MEDICAL HISTORY Diagnosis Date Alcoholism (HCC) 06/30/2019 From previous records Allergic rhinitis Asthma Asthma without status asthmaticus ED (erectile dysfunction) of organic origin 06/30/2019 From previous records. Erectile dysfunction Family history of coronary artery disease Stress Echo- 09/08/[address] Duran TAYO (generalized anxiety disorder) 06/30/2019 From previous records Generalized anxiety disorder Hypercholesteremia Insomnia Lyme disease Umbilical hernia Previous Surgical History PAST SURGICAL HISTORY Procedure Laterality Date COLONOSCOPY FLX DX W/COLLJ SPEC WHEN PFRMD 05/12/2007 KNEE ARTHROSCOPY Left 09/2012 PAST SURGICAL HISTORY OF 1997 discectomy L4/L5 REPAIR UMBILICAL HERNIA 11/30/2020 Family History FAMILY HISTORY Problem Relation Age of Onset No Known Problems Mother in good health Heart Father CABG @ age 54 Alcohol/Drug Sister other (Lupus) Sister Alcohol/Drug Brother Patient Allergies ALLERGIES No Active Allergies Current Medications Current Outpatient Medications on File Prior to Visit Medication Sig Ipratropium Semmes (ATROVENT) 21 mcg (0.03 %) nasal spray Use 2 Sprays in the nose every 12 hours. montelukast (SINGULAIR) 10 mg tablet Take 1 tablet by mouth daily at bedtime. TURMERIC ORAL Take by mouth. fluticasone (FLOVENT HFA) 110 mcg/actuation inhaler Inhale 1 Puff as instructed twice daily. Shake well before use. Rinse mouth after use. albuterol HFA (PROAIR HFA) 90 mcg/actuation inhaler Inhale 2 Puffs as instructed every 6 hours as needed. doxycycline (VIBRA-TABS) 100 mg tablet Take 2 tablets by mouth once daily. amoxicillin-clavulanate potassium (AUGMENTIN) 875-125 mg per tablet Take by mouth. (Patient not taking: Reported on 10/31/2023) montelukast chewable (SINGULAIR) 5 mg tablet Take by mouth. No current facility-administered medications on file prior to visit. Social History Social History Tobacco Use Smoking status: Never Smokeless tobacco: Never Vaping Use Vaping Use: Never used Substance Use Topics Alcohol use: Never Drug use: Not Currently Review of Symptoms REVIEW OF SYSTEMS See HPI, otherwise negative EXAM: BP 122/80 (BP Site: Left Arm, BP Position: Sitting, BP Cuff Size: Regular Adult) Pulse 72 Resp 16 Ht 184.5 cm (6' 0.64) Wt 95.3 kg (210 lb) SpO2 98% BMI 27.98 kg/m General Appearance: Well appearing, alert, in no acute distress, well-hydrated, well nourished.. Skin: Skin color, texture, turgor normal, no suspicious rashes or lesions. Head: Normocephalic, no masses, lesions, tenderness or abnormalities. Eyes: Anicteric sclera. Pupils are equally round and reactive to light. Extraocular movements are intact. . Ears: External ears normal, canals clear. Nose/Sinuses: Nares normal, septum midline, mucosa normal, no drainage or sinus tenderness. Oropharynx: Lips, mucosa, and tongue normal, teeth and gums normal, oropharynx normal. Neck: Supple, no adenopathy; thyroid symmetric, normal size, no bruits. Back:no pain to palpation of vertebrae, good flexion and extension, good range of motion, no muscle tenderness, motor and sensory appear to be normal Lungs: Lungs clear to auscultation. No wheezing, rhonchi, rales.. Heart: RRR without murmur, gallop, or rubs. No ectopy. Abdomen: Normal abdominal exam, Abdomen soft, non-tender. Bowel sounds normal. No masses, organomegaly. Extremities: No deformities, edema, skin discoloration, clubbing or cyanosis. Good capillary refill. . Musculoskeletal: No joint swelling, deformity, or tenderness. Peripheral Pulses: Normal. Neurologic: Gait normal. Reflexes normal and symmetric. Sensation grossly intact.. Lymph Nodes: No cervical lymphadenopathy and No supraclavicular lymphadenopathy. Psychiatric: pleasant, cooperative. Health Maintenance List Spirometry Never done Hepatitis C Screening Never done Advance Directive Discussion Never done Annual PCP Team Chronic Disease Visit due on 08/11/2023 Diabetes Screening due on 11/09/2023 DTaP,Tdap,Td Vaccine(1 - Tdap) due on 10/30/2024 RSV Vaccine(1 - 1-dose 60+ series) due on 10/30/2024 Shingrix Vaccine(2 of 2) due on 10/30/2024 Covid-19 Vaccine(1 - 2022- season) due on 10/30/2024 Pneumococcal Vaccine: 65+(2 of 2 - PPSV23 or PCV20) due on 10/30/2024 Influenza Vaccine(1) due on 12/15/2023 Prostate Cancer Screening Discussion due on 06/24/2024 Lipid Screening due on 11/08/2025 Colorectal Cancer Screening due on 01/05/2030 Behavioral Health Screening Completed Data reviewed Previous records, office notes ASSESSMENT/PLAN: 1. Well adult exam - ICD9: V70.0, ICD10: Z00.00 (primary diagnosis) - Counseled on healthy diet and regular exercise - Risks/benefits of prostate cancer screening discussed. screening PSA ordered - Follow up for annual exam in one year - COMPLETE BLOOD COUNT - COMPREHENSIVE METABOLIC PANEL - LIPID PANEL BASIC - THYROID STIMULATING HORMONE - HEMOGLOBIN A1C - PSA/PROSTATE SPECIFIC ANTIGEN SCREENING 2. SOB (shortness of breath) - ICD9: 786.05, ICD10: R06.02 - STRESS ECHO TREADMILL - PERFLUTREN LIPID MICROSPHERES 1.1 MG/ML INJECTION IN NS 10 ML - SODIUM CHLORIDE 0.9 % (FLUSH) INJECTION SYRINGE 3. Family history of cardiac disorder - ICD9: V17.49, ICD10: Z82.49 - STRESS ECHO TREADMILL - PERFLUTREN LIPID MICROSPHERES 1.1 MG/ML INJECTION IN NS 10 ML - SODIUM CHLORIDE 0.9 % (FLUSH) INJECTION SYRINGE 4. Dyslipidemia - ICD9: 272.4, ICD10: E78.5 - LIPID PANEL BASIC - STRESS ECHO TREADMILL - PERFLUTREN LIPID MICROSPHERES 1.1 MG/ML INJECTION IN NS 10 ML - SODIUM CHLORIDE 0.9 % (FLUSH) INJECTION SYRINGE 5. Seasonal allergic rhinitis due to other allergic trigger - ICD9: 477.8, ICD10: J30.89 Continue current Singulair and Flonase, ok for prns when increased sx in the fall. 6. Screening for thyroid disorder - ICD9: V77.0, ICD10: Z13.29 - THYROID STIMULATING HORMONE 7. Screening for diabetes mellitus - ICD9: V77.1, ICD10: Z13.1 - COMPLETE BLOOD COUNT - COMPREHENSIVE METABOLIC PANEL - HEMOGLOBIN A1C 8. Screening for prostate cancer - ICD9: V76.44, ICD10: Z12.5 - Counseled on healthy diet and regular exercise - PSA/PROSTATE SPECIFIC ANTIGEN SCREENING Errol Avalos APRN.CNP documented in this encounter [facility] 10-24-2023 Telephone encounter Note Prescription Refill Information The patient has been identified by name and date of : Yes[facility] Care[facility] verified no other encounters exist for this prescription request: Yes Caregiver confirmed with patient/requestor that no other refills are due, in the near future, with this provider at this time: Yes The last office visit in the department: 08/10/22 Does the patient have a future office visit with this provider/department: Yes-Wellness exam 10/31/23 7AM with RS Requested Prescriptions Pending Prescriptions Disp Refills Ipratropium Semmes (ATROVENT) 21 mcg (0.03 %) nasal spray 30 mL 1 Sig: Use 2 Sprays in the nose every 12 hours. Eliana Lopez MA October 24, 2023 3:37 PM [facility] 10-24-2023 Miscellaneous Notes Prescription Refill Information The patient has been identified by name and date of : Yes-via [facility] Caregiver verified no other encounters exist for this prescription request: Yes Caregiver confirmed with patient/requestor that no other refills are due, in the near future, with this provider at this time: Yes The last office visit in the department: 08/10/22 Does the patient have a future office visit with this provider/department: Yes-Wellness exam 10/31/23 7AM with RS Requested Prescriptions Pending Prescriptions Disp Refills Ipratropium Semmes (ATROVENT) 21 mcg (0.03 %) nasal spray 30 mL 1 Sig: Use 2 Sprays in the nose every 12 hours. Eliana Lopez MA October 24, 2023 3:37 PM documented in this encounter [facility] 07-30-2023 History of Present illness Narrative This note was created using [employer]. Subjective Eduardo Jones is a 68 year old male. 68 year old male with PMH asthma, and dyslipidemia presents for tick bite. Acute onset yesterday Noticed it around 0. Noted a tick in right abdomen Removed himself States it was there no longer than 6 to 7 hours, citing he was out mushroom hunting Denies fever or chills Denies malaise or fatigue. Endorses prior history of Lyme I dont' want that again Presents requesting prophylactic treatment. The history is provided by the patient. No modern languages professor was used. Trauma This is a new problem. The current episode started yesterday. The problem occurs constantly. The problem has been unchanged. Pertinent negatives include no abdominal pain, anorexia, arthralgias, change in bowel habit, chest pain, chills, congestion, coughing, diaphoresis, fatigue, fever, headaches, joint swelling, myalgias, nausea, neck pain, numbness, rash, sore throat, swollen glands, urinary symptoms, vertigo, visual change, vomiting or weakness. Nothing aggravates the symptoms. Treatments tried: removal of tick. The treatment provided mild relief. PAST MEDICAL HISTORY Diagnosis Date Alcoholism (HCC) 06/30/2019 From previous records Allergic rhinitis Asthma Asthma without status asthmaticus ED (erectile dysfunction) of organic origin 06/30/2019 From previous records. Erectile dysfunction Family history of coronary artery disease Stress Echo- 09/08/[address] Duran TAYO (generalized anxiety disorder) 06/30/2019 From previous records Generalized anxiety disorder Hypercholesteremia Insomnia Lyme disease Umbilical hernia PAST SURGICAL HISTORY Procedure Laterality Date COLONOSCOPY FLX DX W/COLLJ SPEC WHEN PFRMD 05/12/2007 KNEE ARTHROSCOPY Left 09/2012 PAST SURGICAL HISTORY OF 1996 discectomy L4/L5 REPAIR UMBILICAL HERNIA 11/30/2020 ALLERGIES Patient has no active allergies. MEDICATIONS amoxicillin-clavulanate potassium (AUGMENTIN) 875-125 mg per tablet Take by mouth. montelukast chewable (SINGULAIR) 5 mg tablet Take by mouth. Ipratropium Semmes (ATROVENT) 21 mcg (0.03 %) nasal spray Use 2 Sprays in the nose every 12 hours. montelukast (SINGULAIR) 10 mg tablet Take 1 tablet by mouth daily at bedtime. TURMERIC ORAL Take by mouth. fluticasone (FLOVENT HFA) 110 mcg/actuation inhaler Inhale 1 Puff as instructed twice daily. Shake well before use. Rinse mouth after use. albuterol HFA (PROAIR HFA) 90 mcg/actuation inhaler Inhale 2 Puffs as instructed every 6 hours as needed. doxycycline (VIBRA-TABS) 100 mg tablet Take 2 tablets by mouth once daily. FAMILY HISTORY Problem Relation Age of Onset No Known Problems Mother in good health Heart Father CABG @ age 54 Alcohol/Drug Sister other (Lupus) Sister Alcohol/Drug Brother Social History Tobacco Use Smoking status: Never Smokeless tobacco: Never Vaping Use Vaping Use: Never used Substance Use Topics Alcohol use: Never Drug use: Not Currently Review of Systems Constitutional: Negative for chills, diaphoresis, fatigue and fever. HENT: Negative for congestion and sore throat. Respiratory: Negative for cough. Cardiovascular: Negative for chest pain. Gastrointestinal: Negative for abdominal pain, anorexia, change in bowel habit, nausea and vomiting. Musculoskeletal: Negative for arthralgias, joint swelling, myalgias and neck pain. Skin: Positive for wound. Negative for color change, pallor and rash. Neurological: Negative for vertigo, weakness, numbness and headaches. Psychiatric/Behavioral: Negative for agitation and behavioral problems. Objective BP 118/78 Pulse 78 Temp 37.2 C (98.9 F) (Tympanic) Resp 16 Wt 95.3 kg (210 lb 1.6 oz) SpO2 96% BMI 28.49 kg/m Physical Exam Vitals and nursing note reviewed. Constitutional: General: He is not in acute distress. Appearance: Normal appearance. He is not ill-appearing, toxic-appearing or diaphoretic. HENT: Head: Normocephalic and atraumatic. Right Ear: External ear normal. Left Ear: External ear normal. Nose: Nose normal. No congestion or rhinorrhea. Mouth/Throat: Mouth: Mucous membranes are moist. Pharynx: Oropharynx is clear. No oropharyngeal exudate or posterior oropharyngeal erythema. Eyes: General: Right eye: No discharge. Left eye: No discharge. Extraocular Movements: Extraocular movements intact. Conjunctiva/sclera: Conjunctivae normal. Pupils: Pupils are equal, round, and reactive to light. Cardiovascular: Rate and Rhythm: Normal rate and regular rhythm. Pulses: Normal pulses. Heart sounds: Normal heart sounds. No murmur heard. No friction rub. No gallop. Pulmonary: Effort: Pulmonary effort is normal. No respiratory distress. Breath sounds: Normal breath sounds. No stridor. No wheezing, rhonchi or rales. Chest: Chest wall: No tenderness. Abdominal: General: Abdomen is flat. There is no distension. Palpations: Abdomen is soft. There is no mass. Tenderness: There is no abdominal tenderness. There is no guarding or rebound. Hernia: No hernia is present. Musculoskeletal: General: No swelling, tenderness, deformity or signs of injury. Normal range of motion. Cervical back: Normal range of motion and neck supple. No rigidity or tenderness. Right lower leg: No edema. Left lower leg: No edema. Lymphadenopathy: Cervical: No cervical adenopathy. Skin: General: Skin is warm and dry. Capillary Refill: Capillary refill takes less than 2 seconds. Coloration: Skin is not jaundiced or pale. Findings: No bruising, lesion or rash. Comments: Right lower abdomen with small circular erythematic center No visible tick No red streaking. No crepitus. Neurological: General: No focal deficit present. Mental Status: He is alert and oriented to person, place, and time. Cranial Nerves: No cranial nerve deficit. Sensory: No sensory deficit. Motor: No weakness. Coordination: Coordination normal. Gait: Gait normal. Deep Tendon Reflexes: Reflexes normal. Psychiatric: Mood and Affect: Mood normal. Behavior: Behavior normal. Thought Content: Thought content normal. Assessment and Plan ASSESSMENT/PLAN: 1. Tick bite of abdominal wall, initial encounter - ICD9: 911.4, E906.4, ICD10: S30.861A, W57.XXXA Noted yesterday States he believes tick only presents for 5 to 7 hours Discussed CDC does not recommend treatment He is adamant, citing prior history of Lyme disease. Will cover F/U with PCP for continued sx and or concerns. Karen Liang APRN.REPORT PROGRAMMER documented in this encounter [facility] 07-25-2023 Instructions Fermin Louis MD - 07/25/2023 10:06 AM EDT Images from the original note were not included. Can order on [employer] for approximately $10-15 for a 10mL bottle (preservative free) documented in this encounter [facility] 07-25-2023 History of Present illness Narrative Encounter Diagnosis ICD-10-CM 1. Pseudophakia Z96.1 2. 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 Vitreous floater, bilateral H43.393 4. Dry eye syndrome of bilateral lacrimal glands H04.123 s/p PCIOL OS followed by OD with panoptix s/p yag OS hx CL wearer (approx -1.75D by recollection) wore distance RX OS and alternated between near and distance OD based on need started on tears, followed by autologous serum eye drops Symptoms have improved over the course of the past 6 months, currently using last vial of autologous serum eyedrops Unclear if initial change in vision was delayed effect from surgery with possible neurotrophic component versus other factors Some irregular stigmatism left eye greater than right but still corrects to 20/20 (mild flattening temporally possibly could correspond to clear corneal incision although nothing atypical with regard to incision appearance) Recommend wean autologous serum eyedrops and monitor for change in symptoms Discussed option of hard contact lens over refraction to deduce whether symptoms are related to corneal astigmatism versus lens artifact As symptoms are overall tolerable, would be unlikely to proceed with lens exchange so further workup is only as preferred by patient but not mandatory During this patient visit I have spent approximately 40 minutes out of 45 in counseling regarding medical diagnoses, treatment options and coordinating care. Fermin Louis MD Electronically signed on July 25, 2023 at 10:06 AM I have confirmed and edited as necessary the relevant ophthalmic history, ROS, and the neuro exam findings as obtained by others. I have seen and examined this patient. I have discussed the case and the management of this patient's care with the Resident/Fellow, if applicable. I also have reviewed and agree with the assessment and plan as stated above and agree with all of its relevant components. Fermin Louis MD documented in this encounter [facility] 07-24-2023 Miscellaneous Notes Patient has been identified by name and date of : Yes, Provider Dr. Kendrick Date 07/24/23 Time 10:19 Patient phones for refill(s): Requested Prescriptions Pending Prescriptions Disp Refills Ipratropium Semmes (ATROVENT) 21 mcg (0.03 %) nasal spray 30 mL 1 Sig: Use 2 Sprays in the nose every 12 hours. Date of last office visit in primary care: 08/10/2022 Date of next office visit in primary care: Visit date not found Please advise. Thank you. Yadira Lizarraga LPN. documented in this encounter [facility] 05-17-2023 Miscellaneous Notes Received outside records from [facility] gave to Dr. Louis for his review. documented in this encounter [facility] 08-24-2022 Miscellaneous Notes Patient has been identified by name and date of : Yes Requested Prescriptions Pending Prescriptions Disp Refills Ipratropium Semmes (ATROVENT) 21 mcg (0.03 %) nasal spray 30 mL 1 Sig: Use 2 Sprays in the nose every 12 hours. RX INSTRUCTIONS: Patient aware RX will be sent to pharmacy. No need to notify patient. Kenzie Enriquez MA Lizbet 09/02 for routine No appointment scheduled Last refill; 04/2022 documented in this encounter [facility] 08-13-2022 Miscellaneous Notes Pt called and is notified of providers message and instructions. Pt states he went to another clinic and received 14 days worth of Doxycycline. Pt reports he will not be coming back to the [facility]. Lena Ding RN As discussed in the office the prophylaxis for Lyme is one dose of doxycycline. Because the tick was found in less than 36 hours and he was seen in less than 72 hours after removal we give a single dose of Doxycycline as prevention. Patient was just seen in the office for a tic bite and was prescribed Doxycycline but was only given 2 tablets. Asking if it should be more than one day's worth. Please call patient. TY documented in this encounter [facility] 08-10-2022 Instructions Carmel Gonzalez APRN.CNP - 08/10/2022 12:47 PM EDT Start doxycycline Follow up if symptoms develop including body aches, fever, joint pain, headache and swollen lymph nodes. documented in this encounter [facility] 08-10-2022 History of Present illness Narrative Chief Complaint Patient presents with: tick bite HPI Eduardo Jones is a 67 year old male who presents here today for Above Complaints.. Patient presents for tick bite. Patient reports he went mushroom hunting yesterday and this morning found a tick on his left arm. Patient removed tick prior to arrival to office and has a small bruised area where tick was removed. Past medical history, appointments, medications, allergies reviewed. Previous Medical History PAST MEDICAL HISTORY Diagnosis Date Alcoholism (HCC) 06/30/2019 From previous records Allergic rhinitis Asthma Asthma without status asthmaticus ED (erectile dysfunction) of organic origin 06/30/2019 From previous records. Erectile dysfunction Family history of coronary artery disease Stress Echo- 09/08/[address] Duran TAYO (generalized anxiety disorder) 06/30/2019 From previous records Generalized anxiety disorder Hypercholesteremia Insomnia Lyme disease Umbilical hernia Previous Surgical History PAST SURGICAL HISTORY Procedure Laterality Date COLONOSCOPY FLX DX W/COLLJ SPEC WHEN PFRMD 05/12/2007 KNEE ARTHROSCOPY Left 09/2012 PAST SURGICAL HISTORY OF 1997 discectomy L4/L5 REPAIR UMBILICAL HERNIA 11/30/2020 Family History FAMILY HISTORY Problem Relation Age of Onset No Known Problems Mother in good health Heart Father CABG @ age 54 Alcohol/Drug Sister other (Lupus) Sister Alcohol/Drug Brother Patient Allergies ALLERGIES Allergen Reactions Cefuroxime Axetil GI Upset Current Medications Current Outpatient Medications on File Prior to Visit Medication Sig Ipratropium Semmes (ATROVENT) 21 mcg (0.03 %) nasal spray USE 2 SPRAYS IN THE NOSE EVERY 12 HOURS. montelukast (SINGULAIR) 10 mg tablet Take 1 tablet by mouth daily at bedtime. ASHWAGANDHA ROOT EXTRACT ORAL Take by mouth. TURMERIC ORAL Take by mouth. sertraline (ZOLOFT) 100 mg tablet Take 1 tablet by mouth once daily. (Patient not taking: No sig reported) fluticasone (FLOVENT HFA) 110 mcg/actuation inhaler Inhale 1 Puff as instructed twice daily. Shake well before use. Rinse mouth after use. albuterol HFA (PROAIR HFA) 90 mcg/actuation inhaler Inhale 2 Puffs as instructed every 6 hours as needed. fluticasone (FLONASE) 50 mcg/actuation nasal spray 2 (TWO) SPRAYS SPRAYS BY NOSE DAILY EACH NOSTRIL ipratropium bromide (ATROVENT) 0.06 % nasal spray PLACE 2 SPRAYS IN EACH NOSTRIL TWICE DAILY NEEDED Minocycline HCl 100 mg tablet Take 100 mg by mouth twice daily. naproxen (NAPROSYN) 500 mg tablet Take 1 tablet by mouth twice daily as needed (pain/inflammation, take with food.). (Patient not taking: Reported on 07/15/2022) No current facility-administered medications on file prior to visit. Social History Social History Tobacco Use Smoking status: Never Smokeless tobacco: Never Vaping Use Vaping Use: Never used Substance Use Topics Alcohol use: Never Drug use: Not Currently Review of Symptoms REVIEW OF SYSTEMS SEE HPI EXAM: BP 130/78 Pulse 74 Resp 18 Wt 96.2 kg (212 lb) BMI 28.75 kg/m General Appearance: Well appearing, alert, in no acute distress, well-hydrated, well nourished.. Skin: Positives: Ecchymosis: arms, Erythema: arms. Health Maintenance List COVID-19 VACCINE(1) Never done SPIROMETRY Never done HEPATITIS C SCREENING Never done HIV SCREENING Never done DTAP,TDAP,TD(1 - Tdap) due on 05/13/2009 PNEUMOCOCCAL: 65+(2 - PPSV23 if available, else PCV20) due on 07/15/2017 SHINGRIX VACCINE(2 of 2) due on 07/08/2019 ANNUAL PCP TEAM CHRONIC DISEASE VISIT due on 02/27/2022 ADVANCE DIRECTIVE DISCUSSION Never done DEPRESSION ASSESSMENT Never done INFLUENZA(Season Ended) due on 12/14/2022 DIABETES SCREEN due on 11/09/2023 PROSTATE CANCER SCREENING DISCUSSION due on 06/24/2024 LIPID SCREEN due on 11/08/2025 COLORECTAL CANCER SCREENING due on 01/05/2030 ASSESSMENT/PLAN: 1. Tick bite of left forearm, initial encounter - ICD9: 913.4, E906.4, ICD10: S50.862A, W57.XXXA - DOXYCYCLINE HYCLATE 100 MG TABLET Carmel Gonzalez APRN.ARCHANA documented in this encounter [facility] 07-17-2022 Miscellaneous Notes Received request from [employer] requesting the last 5 years of medical records from Eduardo. Release of records was faxed to Medical Records on [facility] [place]. Fax confirmation sheet received. Nenita Murry RN documented in this encounter [facility] 07-15-2022 History of Present illness Narrative Subjective HPI Nontoxic-appearing male presents urgent care chief plaint possible UTI. Duration of symptoms 2 days. Associated symptoms dysuria frequency and lower abdominal pain. Patient states has never had abdominal pain like this in the past. Not used any OTC medications. States pain is 6 out of 10 at rest 8-9 out of 10 if he pushes over lower abdominal region. Denies any fevers vomiting chest pain shortness of breath or rash. past medical history prescription medication use allergies reviewed. BP 138/80 Pulse 67 Temp 36.5 C (97.7 F) Resp 16 Wt 96.6 kg (213 lb) SpO2 98% BMI 28.89 kg/m .Patient presents with: Urinary Problem: Burning and pain when urinating with lower abd pain x 2 days PAST MEDICAL HISTORY Diagnosis Date Alcoholism (HCC) 06/30/2019 From previous records Allergic rhinitis Asthma Asthma without status asthmaticus ED (erectile dysfunction) of organic origin 06/30/2019 From previous records. Erectile dysfunction Family history of coronary artery disease Stress Echo- 09/08/[address] Duran TAOY (generalized anxiety disorder) 06/30/2019 From previous records Generalized anxiety disorder Hypercholesteremia Insomnia Lyme disease Umbilical hernia PAST SURGICAL HISTORY Procedure Laterality Date COLONOSCOPY FLX DX W/COLLJ SPEC WHEN PFRMD 05/12/2007 KNEE ARTHROSCOPY Left 09/2012 PAST SURGICAL HISTORY OF 1997 discectomy L4/L5 REPAIR UMBILICAL HERNIA 11/30/2020 ALLERGIES Cefuroxime Axetil MEDICATIONS Ipratropium Semmes (ATROVENT) 21 mcg (0.03 %) nasal spray USE 2 SPRAYS IN THE NOSE EVERY 12 HOURS. montelukast (SINGULAIR) 10 mg tablet Take 1 tablet by mouth daily at bedtime. TURMERIC ORAL Take by mouth. fluticasone (FLOVENT HFA) 110 mcg/actuation inhaler Inhale 1 Puff as instructed twice daily. Shake well before use. Rinse mouth after use. albuterol HFA (PROAIR HFA) 90 mcg/actuation inhaler Inhale 2 Puffs as instructed every 6 hours as needed. ASHWAGANDHA ROOT EXTRACT ORAL Take by mouth. sertraline (ZOLOFT) 100 mg tablet Take 1 tablet by mouth once daily. (Patient not taking: No sig reported) fluticasone (FLONASE) 50 mcg/actuation nasal spray 2 (TWO) SPRAYS SPRAYS BY NOSE DAILY EACH NOSTRIL ipratropium bromide (ATROVENT) 0.06 % nasal spray PLACE 2 SPRAYS IN EACH NOSTRIL TWICE DAILY NEEDED Minocycline HCl 100 mg tablet Take 100 mg by mouth twice daily. naproxen (NAPROSYN) 500 mg tablet Take 1 tablet by mouth twice daily as needed (pain/inflammation, take with food.). (Patient not taking: Reported on 07/15/2022) FAMILY HISTORY Problem Relation Age of Onset No Known Problems Mother in good health Heart Father CABG @ age 54 Alcohol/Drug Sister other (Lupus) Sister Alcohol/Drug Brother Social History Tobacco Use Smoking status: Never Smokeless tobacco: Never Vaping Use Vaping Use: Never used Substance Use Topics Alcohol use: Never Drug use: Not Currently Review of Systems Constitutional: Negative for chills, fever and malaise/fatigue. HENT: Negative for congestion, ear discharge, ear pain, sinus pain and sore throat. Eyes: Negative for blurred vision, pain, discharge and redness. Respiratory: Negative for cough, hemoptysis, sputum production, shortness of breath, wheezing and stridor. Cardiovascular: Negative for chest pain. Gastrointestinal: Positive for abdominal pain. Negative for diarrhea, nausea and vomiting. Genitourinary: Positive for dysuria and frequency. Negative for flank pain, hematuria and urgency. Musculoskeletal: Negative for myalgias. Skin: Negative for itching and rash. Neurological: Negative for dizziness and headaches. Objective Physical Exam Constitutional: General: He is not in acute distress. Appearance: He is not diaphoretic. HENT: Head: Normocephalic. Mouth/Throat: Mouth: Mucous membranes are moist. Pharynx: Oropharynx is clear. No oropharyngeal exudate or posterior oropharyngeal erythema. Eyes: Conjunctiva/sclera: Conjunctivae normal. Pupils: Pupils are equal, round, and reactive to light. Cardiovascular: Rate and Rhythm: Normal rate and regular rhythm. Heart sounds: Normal heart sounds. Pulmonary: Effort: Pulmonary effort is normal. No tachypnea, accessory muscle usage or respiratory distress. Breath sounds: Normal breath sounds. No stridor. No wheezing, rhonchi or rales. Abdominal: General: There is no distension. Palpations: Abdomen is soft. Tenderness: There is abdominal tenderness in the suprapubic area and left lower quadrant. There is no right CVA tenderness, left CVA tenderness, guarding or rebound. Musculoskeletal: Cervical back: Normal range of motion and neck supple. No rigidity or tenderness. Lymphadenopathy: Cervical: No cervical adenopathy. Skin: General: Skin is warm and dry. Neurological: Mental Status: He is alert and oriented to person, place, and time. ASSESSMENT/PLAN: 1. Painful urination - ICD9: 788.1, ICD10: R30.9 (primary diagnosis) - UA DIP, URINE (POC) 2. Left lower quadrant abdominal pain - ICD9: 789.04, ICD10: R10.32 Urine dip negative. On palpation patient had significant tenderness over left lower quadrant. States may be 10 years or so ago he did have diverticulitis. No imaging was obtained. With patient's significant pain on palpation and worsening abdominal pain I recommend patient be seen in ED for further evaluation care. Will be sent [facility]. Patient verbalized understand agrees plan of care. Fermin Mcnulty APRN.ARCHANA documented in this encounter [facility] 05-01-2022 Miscellaneous Notes Pt requesting refill. LIZBET: 02/27/21 NOV: None scheduled Last Refill: 03/09/22 30ml 1 refill [employer] message sent to pt notifying him he is due for an appt Jocelyn Young LPN documented in this encounter [facility] 04-05-2022 History of Present illness Narrative Subjective HPI HPI Eduardo Jones is a 67 year old male who presents today for CC of st, fever. This started 1 day ago. Has tried otc medication for relief for relief. Symptoms are worsened by nothing. Risk factors strep exposure at home. .Patient presents with: Pain, Throat: Pt reported + strep exposure, throat pain rated 7. PAST MEDICAL HISTORY Diagnosis Date Alcoholism (HCC) 06/30/2019 From previous records Allergic rhinitis Asthma Asthma without status asthmaticus ED (erectile dysfunction) of organic origin 06/30/2019 From previous records. Erectile dysfunction Family history of coronary artery disease Stress Echo- 09/08/[address] Duran TAYO (generalized anxiety disorder) 06/30/2019 From previous records Generalized anxiety disorder Hypercholesteremia Insomnia Lyme disease Umbilical hernia PAST SURGICAL HISTORY Procedure Laterality Date COLONOSCOPY FLX DX W/COLLJ SPEC WHEN PFRMD 05/12/2007 KNEE ARTHROSCOPY Left 09/2012 PAST SURGICAL HISTORY OF 1997 discectomy L4/L5 REPAIR UMBILICAL HERNIA 11/30/2020 ALLERGIES Cefuroxime Axetil MEDICATIONS Ipratropium Semmes (ATROVENT) 21 mcg (0.03 %) nasal spray Use 2 Sprays in the nose every 12 hours. montelukast (SINGULAIR) 10 mg tablet Take 1 tablet by mouth daily at bedtime. TURMERIC ORAL Take by mouth. fluticasone (FLOVENT HFA) 110 mcg/actuation inhaler Inhale 1 Puff as instructed twice daily. Shake well before use. Rinse mouth after use. albuterol HFA (PROAIR HFA) 90 mcg/actuation inhaler Inhale 2 Puffs as instructed every 6 hours as needed. amoxicillin (POLYMOX, AMOXIL) 500 mg capsule Take 1 capsule by mouth twice daily for 10 days. ASHWAGANDHA ROOT EXTRACT ORAL Take by mouth. sertraline (ZOLOFT) 100 mg tablet Take 1 tablet by mouth once daily. (Patient not taking: Reported on 04/05/2022) fluticasone (FLONASE) 50 mcg/actuation nasal spray 2 (TWO) SPRAYS SPRAYS BY NOSE DAILY EACH NOSTRIL ipratropium bromide (ATROVENT) 0.06 % nasal spray PLACE 2 SPRAYS IN EACH NOSTRIL TWICE DAILY NEEDED Minocycline HCl 100 mg tablet Take 100 mg by mouth twice daily. naproxen (NAPROSYN) 500 mg tablet Take 1 tablet by mouth twice daily as needed (pain/inflammation, take with food.). FAMILY HISTORY Problem Relation Age of Onset No Known Problems Mother in good health Heart Father CABG @ age 54 Alcohol/Drug Sister other (Lupus) Sister Alcohol/Drug Brother Social History Tobacco Use Smoking status: Never Smokeless tobacco: Never Vaping Use Vaping Use: Never used Substance Use Topics Alcohol use: Never Drug use: Not Currently Review of Systems Constitutional: Positive for fever. HENT: Positive for congestion and sore throat. Negative for ear pain and nosebleeds. Respiratory: Positive for cough. Negative for shortness of breath and wheezing. Musculoskeletal: Negative for neck pain. Objective Blood pressure 128/72, pulse 91, temperature 37.1 C (98.7 F), temperature source Tympanic, resp. rate 18, weight 94.2 kg (207 lb 9.6 oz), SpO2 97 %. Physical Exam Constitutional: General: He is not in acute distress. Appearance: He is not toxic-appearing or diaphoretic. HENT: Head: Normocephalic and atraumatic. Nose: Nose normal. Mouth/Throat: Pharynx: Uvula midline. Posterior oropharyngeal erythema present. No pharyngeal swelling, oropharyngeal exudate or uvula swelling. Eyes: General: Lids are normal. No scleral icterus. Right eye: No discharge. Left eye: No discharge. Conjunctiva/sclera: Conjunctivae normal. Pupils: Pupils are equal, round, and reactive to light. Neck: Trachea: Trachea normal. Cardiovascular: Rate and Rhythm: Normal rate and regular rhythm. Heart sounds: Normal heart sounds. Pulmonary: Effort: Pulmonary effort is normal. Breath sounds: Normal breath sounds. Musculoskeletal: Cervical back: Normal range of motion and neck supple. Lymphadenopathy: Cervical: No cervical adenopathy. Right cervical: No superficial cervical adenopathy. Left cervical: No superficial cervical adenopathy. Skin: Findings: No rash. Neurological: Mental Status: He is alert and oriented to person, place, and time. ASSESSMENT/PLAN: 1. Strep throat - ICD9: 034.0, ICD10: J02.0 (primary diagnosis) - suspect strep - Alere Strep Test pos, no culture pending - antibiotic as written - Discussed supportive care treatment with fluids, rest and analgesia. - The patient should follow up in 3-5 days if symptoms persist or worsen 2. Throat pain - ICD9: 784.1, ICD10: R07.0 As above - STREP A MOLECULAR (POC) Antonio Underwood APRN.REPORT PROGRAMMER documented in this encounter [facility] 03-09-2022 Miscellaneous Notes Patient phones requesting refills as follows: Requested Prescriptions Pending Prescriptions Disp Refills Ipratropium Semmes (ATROVENT) 21 mcg (0.03 %) nasal spray Sig: Use 2 Sprays in the nose every 12 hours. LIZBET-02/27/21 Labs-11/08/20 NOV-none med filled 09/07/20 Please review and advise. Cleo Armenta LPN documented in this encounter [facility] 11-08-2021 Miscellaneous Notes Last office visit: 02/27/21 F/u scheduled: none Angy Guardado Ma documented in this encounter [facility] 11-30-2020 History of Past i llness Narrative Problem Noted Date Resolved Date Umbilical hernia without obstruction and without gangrene 11/30/2020 11/30/2020 documented as of this encounter (statuses as of 11/08/2021) [facility] History of Past illness Narrative* Problem Noted Date Resolved Date Umbilical hernia without obstruction and without gangrene 11/30/2020 11/30/2020 documented as of this encounter (statuses as of 03/09/2022) [facility] History of Past illness Narrative* Problem Noted Date Resolved Date Umbilical hernia without obstruction and without gangrene 11/30/2020 11/30/2020 documented as of this encounter (statuses as of 04/06/2022) [facility] of Past illness Narrative* Problem Noted Date Resolved Date Umbilical hernia without obstruction and without gangrene 11/30/2020 11/30/2020 documented as of this encounter (statuses as of 05/02/2022) [address]18-2021 History of Past illness Narrative* Problem Noted Date Resolved Date Umbilical hernia without obstruction and without gangrene 11/30/2020 11/30/2020 documented as of this encounter (statuses as of 06/30/2022) [address]18-2021 History of Past illness Narrative* Problem Noted Date Resolved Date Umbilical hernia without obstruction and without gangrene 11/30/2020 11/30/2020 documented as of this encounter (statuses as of 07/15/2022) [address]18-2021 History of Past illness Narrative* Problem Noted Date Resolved Date Umbilical hernia without obstruction and without gangrene 11/30/2020 11/30/2020 documented as of this encounter (statuses as of 07/17/2022) [address]18-2021 History of Past illness Narrative* Problem Noted Date Resolved Date Umbilical hernia without obstruction and without gangrene 11/30/2020 11/30/2020 documented as of this encounter (statuses as of 08/10/2022) [address]18-2021 History of Past illness Narrative* Problem Noted Date Resolved Date Umbilical hernia without obstruction and without gangrene 11/30/2020 11/30/2020 documented as of this encounter (statuses as of 08/13/2022) [address]18-2021 History of Past illness Narrative* Problem Noted Date Resolved Date Umbilical hernia without obstruction and without gangrene 11/30/2020 11/30/2020 documented as of this encounter (statuses as of 08/24/2022) [address]18-2021 History of Past illness Narrative* Problem Noted Date Diagnosed Date Resolved Date Umbilical hernia without obs truction and without gangrene 11/30/2020 11/30/2020 documented as of this encounter (statuses as of 06/03/2023) [address]18-2021 History of Past illness Narrative* Problem Noted Date Diagnosed Date Resolved Date Umbilical hernia without obs truction and without gangrene 11/30/2020 11/30/2020 documented as of this encounter (statuses as of 07/08/2023) [address]18-2021 History of Past illness Narrative* Problem Noted Date Diagnosed Date Resolved Date Umbilical hernia without obs truction and without gangrene 11/30/2020 11/30/2020 documented as of this encounter (statuses as of 07/25/2023) [facility] Narrative* Problem Noted Date Diagnosed Date Resolved Date Umbilical hernia without obs truction and without gangrene 11/30/2020 11/30/2020 documented as of this encounter (statuses as of 07/25/2023) [facility] of Past illness Narrative* Problem Noted Date Diagnosed Date Resolved Date Umbilical hernia without obs truction and without gangrene 11/30/2020 11/30/2020 documented as of this encounter (statuses as of 07/31/2023) [facility] NoteHNO ID: [id number] Author: Ladonna Gaitan RN Service: ? Author Type: Registered Nurse Type: Nursing Progress Note Filed: 11/30/2020 11:23 AM Note Text: Patient was able to urinate. Patient tolerated well.[facility] [id number] NoteHNO ID: [id number] Author: Rani Monroy APRN.TECTONOPHYSICIST Service: Anesthesiology Author Type: Nurse Hardware Developer Type: Anesthesia Procedure Notes Filed: 11/30/2020 9:10 AM Note Text: ANESTHESIOLOGY PROCEDURE NOTE Airway General Information Procedure Start Time/Medication Administration: 11/30/2020 8:54 AM Patient location during procedure: OR Timeout Performed Pre-procedure: timeout performed Consent Obtained: Yes Patient identity confirmed: arm band and patient Staffing TECTONOPHYSICIST: Rani Monroy APRN.TECTONOPHYSICIST Performed by: JOY Indications and Patient Condition Preoxygenated: yes Patient position: sniffing Manual In-Line Stabilization: No Difficult Mask: No Indications for airway management: anesthesia anesthesia circuit Method: asleep Cricoid Pressure: No Final Airway Details Final airway type: endotracheal airway Final Endotracheal Airway: ETT Cuffed: yes Successful intubation technique: direct laryngoscopy Endotracheal tube insertion site: oral Blade: Sally ETT size (mm): 7.5 Measured from: lips Measurement (cm): 22 Placement verified by: chest auscultation and capnometry Cormack-Lehane Classification: grade I - full view of glottis Number of attempts at approach: 1 Ventilation between attempts: none Failed airway: no Unrecognized esophageal intubation: no Airway not difficult SIGNATURE: Rani Monroy APRN.CRNA PATIENT NAME: Eduardo Jones DATE: November 30, 2020 TIME: 9:09 AM CSN: [id number] Author Dr. Ding [facility] July 15, 2022 10:11am Note Date/Time July 15, 2022 9:57 am [facility] Medical Records Department [address] [place] [address] Emergency Department Summary 07/15/22 MR#: [id number] Acct: [id number] Name: EUDARDO JONES Rep #:[id number] : 1955 67 From: Suresh Ding MD PCP: Dr. Arturo Kendrick, DO Status:RE G ER Location: ED HPI History of Present Illness Chief Complaint: Abd Pain Detail of Chief Complaint: Left lower abdomen/suprapubic discomfort Informant: patient Onset/Context/Timing Onset: Days (Onset Saturday, July 13) Context: Sudden Onset Timing: Continuous Quality: Pain Location: Suprapubic left lower quadrant Current Severity: Mild Maximum Severity: Moderate Worsened by: Deep palpation Relieved by: Nothing Associated Symptoms Associated Symptoms: Urinary Narrative Narrative: Patient is a 67-year-old male who presents with left-sided abdominal discomfort. Prior similar symptoms: Yes (Diverticulitis) Recent Illness/Hospitalization: No PFSH PFSH Medical History (Updated 07/15/22 @ 10:[address] Suresh Ding MD) Diverticulitis Home Medications fluticasone propionate 50 mcg/actuation nasal spray,suspension 2 spray BID ALLERGIES 03/27/16 [History Last Taken 04/22/17] montelukast 5 mg chewable tablet (Singulair) 10 mg PO DAILY ALLERGIES 04/22/17 [History Last Taken 04/22/17] amoxicillin 875 mg-potassium clavulanate 125 mg tablet 875 mg PO Q12H #20 TABLETS 07/15/22 [Rx Last Taken Unknown] Allergy/AdvReac Type Severity Reaction Status Date / Time No Known Allergies Allergy Verified 07/15/22 09:07 Social History (Updated 07/15/22 @ 10:[address] Suresh Ding MD) household members: spouse Smoking Status: Never smoker substance use type: does not use ROS ROS ED Constitutional Constitutional ED: Denies chills, fever(s), subjective or sweats Eyes Eyes: Denies blurry vision or change in vision ENT ENT ED: Denies ear pain, rhinorrhea or sore throat Cardiovascular Cardiovascular: Denies chest pain, palpitations or racing heartbeat Respiratory/Chest Respiratory/Chest: Denies cough, dyspnea or dyspnea on exertion Gastrointestinal Gastrointestinal: Denies constipation, diarrhea, nausea or vomiting Genitourinary Genitourinary ED: Reports urinary frequency; Denies dysuria or hematuria Musculoskeletal Musculoskeletal: Denies arthralgias, back pain, myalgias or neck pain Integumentary Denies Abrasions or rash Neurologic Neurologic: Denies headache(s) or paresthesias Endocrine Endocrinology: Denies cold intolerance or heat intolerance Hematologic/Lymphatic Hematologic/Lymphatic: Reports systems reviewed and no addt'l complaints, exceptas documented EXAM Physical Exam Const Vital Signs: 07/15/22 09:05 Temperature 97.3 F L Temperature Source Temporal Pulse Rate 67 Respiratory Rate 14 Blood Pressure 138/94 H Blood Pressure Mean 108 Pulse Ox 98 Oxygen Delivery Method Room Air Positive well nourished and well developed; Negative for obese General Appearance ED: well developed and NAD; Negative for pallor Nutritional Appearance: Negative for obese HEENT Reports moist mucous membranes HEENT Narrative: Head is atraumatic normocephalic. Ears normal. Nares patent. Posterior pharynx is normal. Eyes PERRL and EOMs intact bilaterally General Eye ED: Negative for pale conjunctiva or scleral icterus Neck no lymphadenopathy, supple and no JVD Chest Wall inspection of chest normal and palpation of chest normal Resp normal respiratory effort and clear to auscultation bilaterally Cardio regular rate, regular rhythm, S1 normal heart sound, S2 normal heart sound and no murmurs GI non-distended and no masses; Negative for non-tender or hepatosplenomegaly Inspection: Negative for abdominal distention Auscultation: hypoactive bowel sounds Palpation: soft and tender LLQ Back/Spine no CVA tenderness Cervical Spine: Negative for cervical spine tenderness Thoracic Spine / Upper Back: Negative for thoracic spinal tenderness Lumbar Spine / Lower Back: Negative for lumbar spinal tenderness Extremity normal to inspection General Extremety ED: Negative for edema or tenderness General Extremity: Negative for edema Neuro oriented x3, CN's II-XII intact bilaterally and no sensory deficits noted Sensorium / Orientation: alert Motor Exam: strength 5/5 throughout Psych mental status grossly normal Skin no rashes or lesions noted and no wounds General Skin Exam: elasticity normal; Negative for jaundice or pallor MDM MDM MDM Narrative Medical decision making narrative: Frontal diagnosis would include diverticulitis, UTI, ureteral stone. Patient GUurine is clear and straw-colored. Urinalysis was performed at outside facility and negative. In light of prior history diverticulitis with tenderness in left lower quadrant normal white count and no peritoneal findings will treat with Augmentin. In my opinion a CAT scan is not warranted at this time. Since patient is not allergic to penicillin he was treated with Augmentin. History & Record Review Discussion w/independent historian: Patient Additional record(s) reviewed:: Prior inpatient record and Prior outpatient record (Documented in the HPI narrative. He did have an outpatient colonoscopy by Dr. Greene which did revealed evidence of diverticulosis.) Lab Data Attestation: I reviewed the patient's lab results. Lab results narrative: White count is unremarkable. Basic metabolic panel is unremarkable. Labs: Laboratory Results - last 24 hr 07/15/22 07/15/22 09:25 09:25 WBC 9.8 RBC 5.01 Hgb 15.3 Hct 46.2 MCV 92.2 MCH 30.5 MCHC 33.1 RDW Std Deviation 46.5 H RDW Coeff of Anupam 13.7 Plt Count 265 MPV 9.9 Immature Gran % (Auto) 0.300 Neut % (Auto) 71.9 H Lymph % (Auto) 18.4 L [place] % (Auto) 8.2 Eos % (Auto) 0.7 Baso % (Auto) 0.5 Absolute Neuts (auto) 7.1 Absolute Lymphs (auto) 1.81 Nucleated RBC % 0 Sodium 139 Potassium 4.0 Chloride 107 Carbon Dioxide 28.0 Anion Gap 4 L BUN 19 H Creatinine 1.23 Estim Creat Clear Calc 65.72 Est GFR (MDRD) Af Amer 76 Est GFR (MDRD) Non-Af 63 BUN/Creatinine Ratio 15.4 Glucose 91 Calcium 9.3 Differential Diagnosis Abdominal Pain: Appendicitis Reason(s) appendicitis less likely: Positive for clinical exam does not supportclinical exam does not support, Cholecystitis Reason(s) Cholecystitis less likely: clinical exam does not support, Bowel obstruction Reason(s) bowel obstruction less likely: bowel sounds present on exam and UTI Reason(s) UTI less likely: no evidence of infection on urinalysis Treatment and Re-Evaluation :: Per MDI/plan Discharge Plan Triage Chief Complaint: Abd Pain ED Provider: Suresh Ding Dx/Rx/DC Orders Clinical Impression: Acute diverticulitis Instructions: ED Diverticulitis Prescriptions: New amoxicillin-pot clavulanate [amoxicillin-pot clavulanate] 875-125 mg tablet 875 mg PO Q12H Qty: 20 0RF No Action fluticasone propionate 1 SPRAY spray,suspension 2 spray NASAL BID Label Comments: SEASONAL ALLERGIES montelukast [Singulair] 5 MG tablet,chewable 10 mg PO DAILY Primary Care Provider: Arturo Kendrick Referrals: Arturo Kendrick DO [Primary Care Provider] - 3-5 Days if not improving Jorge Michelle MD [Non-Staff] - Disposition Disposition: Home, Self Care What to do if you have Problems For any increased pain, shortness of breath, bleeding, nausea or vomiting, chestpain, or any unexpected problems, contact your Primary Care Provider. Call [facility] ([phone]) or report to the closest Emergency Room. Call 911 if necessary. 07/15/22 1011 <Electronically signed by Suresh Ding MD> Cosigner Signature (if applicable): CC: Dr. Arturo Kendrick DO ~ Signed [facility] Work Phone: Evaluation note* Diagnosis VIERA (dyspnea on exertion) Other dyspnea and respiratory abnormality Wheezing Seasonal allergic rhinitis due to other allergic trigger [facility]* Diagnosis Seasonal allergic rhinitis due to other allergic trigger documented in this encounter [facility]* Diagnosis Strep throat- Primary Streptococcal sore throat Throat pain documented in this encounter [facility] note* Diagnosis Seasonal allergic rhinitis due to other allergic trigger documented in this encounter [facility] noteNo assessment information [facility]WH[facility] Work Phone: Evaluation note* Diagnosis Painful urination- Primary Dysuria Left lower quadrant abdominal pain documented in this encounter [facility] note* Diagnosis Tick bite of left forearm, initial encounter- Primary [facility]* Diagnosis Seasonal allergic rhinitis due to other allergic trigger [facility]* Diagnosis Seasonal allergic rhinitis due to other allergic trigger [facility]* Diagnosis Seasonal allergic rhinitis due to other allergic trigger [facility]* Diagnosis Pseudophakia- Primary Lens replaced by other means Irregular astigmatism of left eye Irregular astigmatism Vitreous floater, bilateral Dry eye syndrome of bilateral lacrimal glands Tear film insufficiency, unspecified [facility]* Diagnosis Tick bite of abdominal wall, initial encounter- Primary [facility]* Diagnosis Seasonal allergic rhinitis due to other allergic trigger [facility]* Diagnosis Well adult exam- Primary Routine general medical examination at a health care facility SOB (shortness of breath) Shortness of breath Family history of cardiac disorder Family history of other cardiovascular diseases Dyslipidemia Other and unspecified hyperlipidemia Seasonal allergic rhinitis due to other allergic trigger Screening for thyroid disorder Screening for diabetes mellitus Screening for prostate cancer Special screening for malignant neoplasm of prostate [facility]* Diagnosis Dyslipidemia- Primary Other and unspecified hyperlipidemia [facility]* Diagnosis Procedure not carried out- Primary Procedure not carried out for other reasons [facility]* Diagnosis Diverticulitis- Primary Diverticulitis of colon (without mention of hemorrhage) [facility]* Diagnosis Lower abdominal pain- Primary Abdominal pain, other specified site Lower abdominal pain Abdominal pain, other specified site [facility]* Diagnosis Lower abdominal pain Abdominal pain, other specified site [facility]* Diagnosis Scrotal pain- Primary Unspecified disorder of male genital organs Diverticulitis Diverticulitis of colon (without mention of hemorrhage) Submandibular lymphadenopathy Enlargement of lymph nodes [facility]* Diagnosis Scrotal pain Unspecified disorder of male genital organs [facility]* Diagnosis Diverticulitis- Primary Diverticulitis of colon (without mention of hemorrhage) Scrotal pain Unspecified disorder of male genital organs Epididymal cyst Other specified disorder of male genital organs [facility]* Diagnosis Scrotal pain- Primary Unspecified disorder of male genital organs Scrotal cyst Sebaceous cyst documented [facility]* Diagnosis Epididymal cyst- Primary Other specified disorder of male genital organs Scrotal pain Unspecified disorder of male genital organs documented in this encounter [facility] note* Diagnosis Epididymal cyst- Primary Other specified disorder of male genital organs Testicular pain, left Unspecified disorder of male genital organs documented in this encounter [facility] note* Diagnosis Seasonal allergic rhinitis due to other allergic trigger Epididymal cyst Other specified disorder of male genital organs Testicular pain, left Unspecified disorder of male genital organs documented in this encounter [facility] note* Diagnosis Seasonal allergic rhinitis due to other allergic trigger Epididymal cyst Other specified disorder of male genital organs Testicular pain, left Unspecified disorder of male genital organs documented in this encounter [facility] note* Diagnosis Epididymal cyst- Primary Other specified disorder of male genital organs Testicular pain, left Unspecified disorder of male genital organs Preop examination Preoperative examination, unspecified Uncomplicated asthma, unspecified asthma severity, unspecified whether persistent Epididymal cyst Other specified disorder of male genital organs Testicular pain, left Unspecified disorder of male genital organs * Assessment & Plan Note - Vicki Carias APRN.CNP - 03/11/2024 12:13 PM ESTAssociated Problem(s): Asthma Albuterol as needed. Uses rescue inhaler about 5 times a year with URI. Denies hospitalization or pneumonia in the last 6 months. Instructed to use inhaler as prescribed and bring DOS. * Assessment & Plan Note - Vicki Carias APRN.CNP - 03/11/2024 12:13 PM ESTAssociated Problem(s): Preop examination Patient has the following medical conditions which may affect fady-operative course addressed in assessment and plan today. * Assessment & Plan Note - Vicki Carias APRN.CNP - 03/11/2024 12:12 PM ESTAssociated Problem(s): Testicular pain, left Surgery scheduled with Dr. Beebe on 03/31/2024 * Assessment & Plan Note - Vicki Carias APRN.CNP - 03/11/2024 12:11 PM ESTAssociated Problem(s): Epididymal cyst Surgery scheduled with Dr. Beebe on 03/31/2024 [facility]* Diagnosis Epididymal cyst- Primary Other specified disorder of male genital organs Testicular pain, left Unspecified disorder of male genital organs Preop examination Preoperative examination, unspecified Uncomplicated asthma, unspecified asthma severity, unspecified whether persistent VIERA (dyspnea on exertion) Other dyspnea and respiratory abnormality Wheezing Seasonal allergic rhinitis due to other allergic trigger Epididymal cyst Other specified disorder of male genital organs Testicular pain, left Unspecified disorder of male genital organs [facility] Epididymal cyst- Primary Other specified disorder of male genital organs Testicular pain, left Unspecified disorder of male genital organs Preop examination Preoperative examination, unspecified Uncomplicated asthma, unspecified asthma severity, unspecified whether persistent Testicular pain, left Unspecified disorder of male genital organs [facility] Diagnosis Epididymal [facility]- Primary Other specified disorder of male genital organs Testicular pain, left Unspecified disorder of male genital organs Preop examination Preoperative examination, unspecified Uncomplicated asthma, unspecified asthma severity, unspecified whether persistent Epididymal cyst- Primary Other specified disorder of male genital organs Screening for genitourinary condition Screening for other and unspecified genitourinary condition [facility] Diagnosis Epididymal cyst- Primary Other specified disorder of male genital organs Testicular pain, left Unspecified disorder of male genital organs Preop examination Preoperative examination, unspecified Uncomplicated asthma, unspecified asthma severity, unspecified whether persistent Seasonal allergic rhinitis due to other allergic trigger [facility] Diagnosis Epididymal cyst- Primary Other specified disorder of male genital organs Testicular pain, left Unspecified disorder of male genital organs Preop examination Preoperative examination, unspecified Uncomplicated asthma, unspecified asthma severity, unspecified whether persistent (HCC) Sore throat- Primary Acute pharyngitis URI, acute Acute upper respiratory infections of unspecified site Exacerbation of asthma, unspecified asthma severity, unspecified whether persistent (HCC) documented in this encounter [facility] note* Diagnosis Epididymal cyst- Primary Other specified disorder of male genital organs Testicular pain, left Unspecified disorder of male genital organs Preop examination Preoperative examination, unspecified Uncomplicated asthma, unspecified asthma severity, unspecified whether persistent (HCC) Acute cough- Primary Sore throat Acute pharyngitis Rhinosinusitis Unspecified sinusitis (chronic) Acute cough documented in this encounter [facility] note* Diagnosis Epididymal cyst- Primary Other specified disorder of male genital organs Testicular pain, left Unspecified disorder of male genital organs Preop examination Preoperative examination, unspecified Uncomplicated asthma, unspecified asthma severity, unspecified whether persistent (HCC) Acute cough documented in this encounter [facility] note* Diagnosis Epididymal cyst- Primary Other specified disorder of male genital organs Testicular pain, left Unspecified disorder of male genital organs Preop examination Preoperative examination, unspecified Uncomplicated asthma, unspecified asthma severity, unspecified whether persistent (HCC) Seasonal allergic rhinitis due to other allergic trigger documented in this encounter [facility] note* Diagnosis Epididymal cyst- Primary Other specified disorder of male genital organs Testicular pain, left Unspecified disorder of male genital organs Preop examination Preoperative examination, unspecified Uncomplicated asthma, unspecified asthma severity, unspecified whether persistent (HCC) Diverticulitis- Primary Diverticulitis of colon (without mention of hemorrhage) documented in this encounter [facility] note* Diagnosis Epididymal cyst- Primary Other specified disorder of male genital organs Testicular pain, left Unspecified disorder of male genital organs Preop examination Preoperative examination, unspecified Uncomplicated asthma, unspecified asthma severity, unspecified whether persistent (HCC) Seasonal allergic rhinitis due to other allergic trigger documented in this encounter [facility] for referral (narrative)* Outpatient Procedure (Routine) - Authorized Specialty Diagnoses / Procedures Referred By Tory mccann Ref[facility] To [facility] Diagnoses Dyslipidemia Family history of cardiac disorder SOB (shortness of breath) Procedures STRESS ECHO TREADMILL ECHO TTC R-T 2D W/WO M-MODE COMPLETE REST&Errol Mg, STEEL WELDER.REPORT PROGRAMMER [address] [place] [address] [facility] [address] [place] [address] Referral ID Status Reason Start Date Expiration Date Visits Requested Visits Authorized [id number] Authorized Auto-Generat ed Referral 10/31/2023 10/30/2024 1 1 [facility] for referral (narrative)* Diagnostic Procedure Only (Routine) - Authorized Specialty Diagnoses / Procedures Referred By Contac t Referred To Contact [facility] Diagnoses Scrotal pain Procedures US DOPPLER COMPLETE DUP-SCAN ARTL ABE ABDL/PEL/SCROT&/RPR ORGN COM Errol Avlaos APRN.REPORT PROGRAMMER [address] [place] [address] [place] [address] Referral ID Status Reason Start Date Expiration Date Visits Requested Visits Authorized [id number] Authorized Auto-Generat ed Referral 12/24/2023 01/22/2025 1 1 * Diagnostic Procedure Only (Urgent) - Authorized Specialty Diagnoses / Procedures Referred By Contac t Referred To Contact [facility] Diagnoses Scrotal pain Procedures US SCROTUM AND CONTENTS US SCROTUM & CONTENTS Errol Avalos APRN.REPORT PROGRAMMER [address] [place] [address] [id number] Referral ID Status Reason Start Date Expiration Date Visits Requested Visits Authorized [id number] Authorized Auto-Generat ed Referral 12/24/2023 01/22/2025 1 1 [facility] for referral (narrative)* Diagnostic Procedure Only (Routine) - Closed Specialty Diagnoses / Procedures Referred By Contac t Referred To Contact [facility] Diagnoses Scrotal pain Procedures US DOPPLER COMPLETE DUP-SCAN ARTL ABE ABDL/PEL/SCROT&/RPR ORGN COM Errol Avalos APRN.REPORT PROGRAMMER [address] [place] [address] [place] [address] Referral ID Status Reason Start Date Expiration Date V isits Requested Visits Authorized [id number] Closed Auto-Generate d Referral 12/24/2023 01/22/2025 1 1 * Diagnostic Procedure Only (Urgent) - Closed Specialty Diagnoses / Procedures Referred By Tory mccann Referred To Contact [facility] Diagnoses Scrotal pain Procedures US SCROTUM AND CONTENTS US SCROTUM & CONTENTS Errol Avalos APRN.CNP [address] [place] [address] [place] [address] Referral ID Status Reason Start Date Expiration Date V isits Requested Visits Authorized [id number] Closed Auto-Generate d Referral 12/24/2023 01/22/2025 1 1 [facility] Summary Purpose Family History No Family History Records Found Relationship Condition Age at Onset Recorded Date/T seng Unknown Family History?No pe rtinent history Unknown April 22, 2017 10:30pm Relationship Condition Age at Onset Recorded Date/T seng Unknown Family History?No pe rtinent history Unknown April 22, 2017 9:30pm Advance Directives No Advanced Directives Records FoundDocuments on File Type Date Recorded Patient Staff Midwife Expl anation Advance Directive(s) Advance Directive(s) 11/30/2020 7:17 AM Advance Directive(s) 11/09/2020 2:08 PM Advance Directive(s) 01/06/2020 8:01 AM Advance Directive(s) 01/06/2020 8:04 AM Advance Directive(s) 09/11/2019 4:23 PM Advance Directive Response Recorded Date/ Time Advance Directives Yes March 4:31pm Living Will Yes July 15, 2022 9:23am Power of Hospital Account Manager Yes July 15 9:23am Name of Medical Power of Hospital Account Manager Nila Jones July 15, 2022 9:23am Advance Directive Response Recorded Date/ Time Advance Directives Yes March 3:31pm Living Will Yes July 15, 2022 8:23am Power of Hospital Account Manager Yes July 15 8:23am Chief Complaint and Reason for Visit Chief Complaint LOWER ABD PAIN Chief Complaint SERUM FOR EYE DROPS NEED 26 PT LABELS Reason for Referral Specialty Diagnoses / Procedures Referred By Contac t Referred To Contact CT IMAGING Diagnoses Lower abdominal pain Procedures CT ABD/PEL W IVCON CT ABD & PELVIS W/CONTRAST Felipe Foster PA-C [address] [place] [address] [place] [address] Referral ID Status Reason Start Date Expiration Date V isits Requested Visits Authorized [id number] Closed Auto-Generate d Referral 12/17/2023 01/15/2025 2 2 Specialty Diagnoses / Procedures Referred By Sravaniac t Referred To Contact Urology Diagnoses Scrotal pain Epididymal cyst Procedures CONSULT TO UROLOGY OFFICE/OUTPATIENT [facility] 60 MINUTES Errol Avalos APRN.REPORT PROGRAMMER [address] [place] [address] Referral ID Status Reason Start Date Expiration Date Visits Requested Visits Authorized [id number] Authorized PCP Requested Referral 12/31/2023 12/30/2024 1 1 Additional Source Comments (unrecognized sect ion and content) No Status Records FoundNo Status Records FoundNo Status Records FoundNo Status Records Found INFORMATION SOURCE (unrecogn ized section and content) DATE CREATED AUTHOR 12/01/2020 [facility] DATE CREATED AUTHOR AUTHOR'S ORGANIZ ATION 03/18/2024 [facility] DATE CREATED AUTHOR AUTHOR'S ORGANIZ ATION 04/29/2024 [facility] DATE CREATED AUTHOR AUTHOR'S ORGANIZ ATION 11/02/2024 [facility] Source Comments (unrecognize d section and content) In the event this informatio n is protected by the Federal Confidentiality of Alcohol and Drug Abuse Patient Records regulations: The Federal rules restrict any use of the information to criminally investigate or prosecute any alcohol or drug abuse patient.[facility] CenterIn the event this information is protected by the Federal Confidentiality of Alcohol and Drug Abuse Patient Records regulations: The Federal rules restrict any use of the information to criminally investigate or prosecute any alcohol or drug abuse patient.[facility] CenterIn the event this information is protected by the Federal Confidentiality of Alcohol and Drug Abuse Patient Records regulations: The Federal rules restrict any use of the information to criminally investigate or prosecute any alcohol or drug abuse patient.[facility] CenterIn the event this information is protected by the Federal Confidentiality of Alcohol and Drug Abuse Patient Records regulations: The Federal rules restrict any use of the information to criminally investigate or prosecute any alcohol or drug abuse patient.[facility] CenterIn the event this information is protected by the Federal Confidentiality of Alcohol and Drug Abuse Patient Records regulations: The Federal rules restrict any use of the information to criminally investigate or prosecute any alcohol or drug abuse patient.[facility] CenterIn the event this information is protected by the Federal Confidentiality of Alcohol and Drug Abuse Patient Records regulations: The Federal rules restrict any use of the information to criminally investigate or prosecute any alcohol or drug abuse patient.[facility] CenterIn the event this information is protected by the Federal Confidentiality of Alcohol and Drug Abuse Patient Records regulations: The Federal rules restrict any use of the information to criminally investigate or prosecute any alcohol or drug abuse patient.[facility] CenterIn the event this information is protected by the Federal Confidentiality of Alcohol and Drug Abuse Patient Records regulations: The Federal rules restrict any use of the information to criminally investigate or prosecute any alcohol or drug abuse patient.[facility] CenterIn the event this information is protected by the Federal Confidentiality of Alcohol and Drug Abuse Patient Records regulations: The Federal rules restrict any use of the information to criminally investigate or prosecute any alcohol or drug abuse patient.[facility] CenterIn the event this information is protected by the Federal Confidentiality of Alcohol and Drug Abuse Patient Records regulations: The Federal rules restrict any use of the information to criminally investigate or prosecute any alcohol or drug abuse patient.[facility] CenterIn the event this information is protected by the Federal Confidentiality of Alcohol and Drug Abuse Patient Records regulations: The Federal rules restrict any use of the information to criminally investigate or prosecute any alcohol or drug abuse patient.[facility] CenterIn the event this information is protected by the Federal Confidentiality of Alcohol and Drug Abuse Patient Records regulations: The Federal rules restrict any use of the information to criminally investigate or prosecute any alcohol or drug abuse patient.[facility] CenterIn the event this information is protected by the Federal Confidentiality of Alcohol and Drug Abuse Patient Records regulations: The Federal rules restrict any use of the information to criminally investigate or prosecute any alcohol or drug abuse patient.[facility] CenterIn the event this information is protected by the Federal Confidentiality of Alcohol and Drug Abuse Patient Records regulations: The Federal rules restrict any use of the information to criminally investigate or prosecute any alcohol or drug abuse patient.[facility] CenterIn the event this information is protected by the Federal Confidentiality of Alcohol and Drug Abuse Patient Records regulations: The Federal rules restrict any use of the information to criminally investigate or prosecute any alcohol or drug abuse patient.[facility] CenterIn the event this information is protected by the Federal Confidentiality of Alcohol and Drug Abuse Patient Records regulations: The Federal rules restrict any use of the information to criminally investigate or prosecute any alcohol or drug abuse patient.[facility] CenterIn the event this information is protected by the Federal Confidentiality of Alcohol and Drug Abuse Patient Records regulations: The Federal rules restrict any use of the information to criminally investigate or prosecute any alcohol or drug abuse patient.[facility] CenterIn the event this information is protected by the Federal Confidentiality of Alcohol and Drug Abuse Patient Records regulations: The Federal rules restrict any use of the information to criminally investigate or prosecute any alcohol or drug abuse patient.[facility] CenterIn the event this information is protected by the Federal Confidentiality of Alcohol and Drug Abuse Patient Records regulations: The Federal rules restrict any use of the information to criminally investigate or prosecute any alcohol or drug abuse patient.[facility] CenterIn the event this information is protected by the Federal Confidentiality of Alcohol and Drug Abuse Patient Records regulations: The Federal rules restrict any use of the information to criminally investigate or prosecute any alcohol or drug abuse patient.[facility] CenterIn the event this information is protected by the Federal Confidentiality of Alcohol and Drug Abuse Patient Records regulations: The Federal rules restrict any use of the information to criminally investigate or prosecute any alcohol or drug abuse patient.[facility] CenterIn the event this information is protected by the Federal Confidentiality of Alcohol and Drug Abuse Patient Records regulations: The Federal rules restrict any use of the information to criminally investigate or prosecute any alcohol or drug abuse patient.[facility] CenterIn the event this information is protected by the Federal Confidentiality of Alcohol and Drug Abuse Patient Records regulations: The Federal rules restrict any use of the information to criminally investigate or prosecute any alcohol or drug abuse patient.[facility] CenterIn the event this information is protected by the Federal Confidentiality of Alcohol and Drug Abuse Patient Records regulations: The Federal rules restrict any use of the information to criminally investigate or prosecute any alcohol or drug abuse patient.[facility] CenterIn the event this information is protected by the Federal Confidentiality of Alcohol and Drug Abuse Patient Records regulations: The Federal rules restrict any use of the information to criminally investigate or prosecute any alcohol or drug abuse patient.[facility] CenterIn the event this information is protected by the Federal Confidentiality of Alcohol and Drug Abuse Patient Records regulations: The Federal rules restrict any use of the information to criminally investigate or prosecute any alcohol or drug abuse patient.[facility] CenterIn the event this information is protected by the Federal Confidentiality of Alcohol and Drug Abuse Patient Records regulations: The Federal rules restrict any use of the information to criminally investigate or prosecute any alcohol or drug abuse patient.[facility] CenterIn the event this information is protected by the Federal Confidentiality of Alcohol and Drug Abuse Patient Records regulations: The Federal rules restrict any use of the information to criminally investigate or prosecute any alcohol or drug abuse patient.[facility] CenterIn the event this information is protected by the Federal Confidentiality of Alcohol and Drug Abuse Patient Records regulations: The Federal rules restrict any use of the information to criminally investigate or prosecute any alcohol or drug abuse patient.[facility] CenterIn the event this information is protected by the Federal Confidentiality of Alcohol and Drug Abuse Patient Records regulations: The Federal rules restrict any use of the information to criminally investigate or prosecute any alcohol or drug abuse patient.[facility] CenterIn the event this information is protected by the Federal Confidentiality of Alcohol and Drug Abuse Patient Records regulations: The Federal rules restrict any use of the information to criminally investigate or prosecute any alcohol or drug abuse patient.[facility] CenterIn the event this information is protected by the Federal Confidentiality of Alcohol and Drug Abuse Patient Records regulations: The Federal rules restrict any use of the information to criminally investigate or prosecute any alcohol or drug abuse patient.[facility] CenterIn the event this information is protected by the Federal Confidentiality of Alcohol and Drug Abuse Patient Records regulations: The Federal rules restrict any use of the information to criminally investigate or prosecute any alcohol or drug abuse patient.[facility] CenterIn the event this information is protected by the Federal Confidentiality of Alcohol and Drug Abuse Patient Records regulations: The Federal rules restrict any use of the information to criminally investigate or prosecute any alcohol or drug abuse patient.[facility] CenterIn the event this information is protected by the Federal Confidentiality of Alcohol and Drug Abuse Patient Records regulations: The Federal rules restrict any use of the information to criminally investigate or prosecute any alcohol or drug abuse patient.[facility] CenterIn the event this information is protected by the Federal Confidentiality of Alcohol and Drug Abuse Patient Records regulations: The Federal rules restrict any use of the information to criminally investigate or prosecute any alcohol or drug abuse patient.[facility] CenterIn the event this information is protected by the Federal Confidentiality of Alcohol and Drug Abuse Patient Records regulations: The Federal rules restrict any use of the information to criminally investigate or prosecute any alcohol or drug abuse patient.[facility] CenterIn the event this information is protected by the Federal Confidentiality of Alcohol and Drug Abuse Patient Records regulations: The Federal rules restrict any use of the information to criminally investigate or prosecute any alcohol or drug abuse patient.[facility] CenterIn the event this information is protected by the Federal Confidentiality of Alcohol and Drug Abuse Patient Records regulations: The Federal rules restrict any use of the information to criminally investigate or prosecute any alcohol or drug abuse patient.[facility] CenterIn the event this information is protected by the Federal Confidentiality of Alcohol and Drug Abuse Patient Records regulations: The Federal rules restrict any use of the information to criminally investigate or prosecute any alcohol or drug abuse patient.[facility] CenterIn the event this information is protected by the Federal Confidentiality of Alcohol and Drug Abuse Patient Records regulations: The Federal rules restrict any use of the information to criminally investigate or prosecute any alcohol or drug abuse patient.[facility] CenterIn the event this information is protected by the Federal Confidentiality of Alcohol and Drug Abuse Patient Records regulations: The Federal rules restrict any use of the information to criminally investigate or prosecute any alcohol or drug abuse patient.[facility] CenterIn the event this information is protected by the Federal Confidentiality of Alcohol and Drug Abuse Patient Records regulations: The Federal rules restrict any use of the information to criminally investigate or prosecute any alcohol or drug abuse patient.[facility] CenterIn the event this information is protected by the Federal Confidentiality of Alcohol and Drug Abuse Patient Records regulations: The Federal rules restrict any use of the information to criminally investigate or prosecute any alcohol or drug abuse patient.[facility] CenterIn the event this information is protected by the Federal Confidentiality of Alcohol and Drug Abuse Patient Records regulations: The Federal rules restrict any use of the information to criminally investigate or prosecute any alcohol or drug abuse patient.[facility] CenterIn the event this information is protected by the Federal Confidentiality of Alcohol and Drug Abuse Patient Records regulations: The Federal rules restrict any use of the information to criminally investigate or prosecute any alcohol or drug abuse patient.[facility] CenterIn the event this information is protected by the Federal Confidentiality of Alcohol and Drug Abuse Patient Records regulations: The Federal rules restrict any use of the information to criminally investigate or prosecute any alcohol or drug abuse patient.[facility] CenterIn the event this information is protected by the Federal Confidentiality of Alcohol and Drug Abuse Patient Records regulations: The Federal rules restrict any use of the information to criminally investigate or prosecute any alcohol or drug abuse patient.[facility] CenterIn the event this information is protected by the Federal Confidentiality of Alcohol and Drug Abuse Patient Records regulations: The Federal rules restrict any use of the information to criminally investigate or prosecute any alcohol or drug abuse patient.[facility] CenterIn the event this information is protected by the Federal Confidentiality of Alcohol and Drug Abuse Patient Records regulations: The Federal rules restrict any use of the information to criminally investigate or prosecute any alcohol or drug abuse patient.[facility] Reason for Visit (unrecogniz ed section and content) Reason Onset Date Comments Refill Request 11/08/2021 Reason Onset Date Comments Refill Request 03/09/2022 Reason Comments Pain, Throat Pt reported + strep exposure, throat pain rated 7. Reason Comments Refill Request Reason Comments Urinary Problem Burning and pain whe n urinating with lower abd pain x 2 days Reason Comments Request for Medical Records Reason Comments tick bite Reason Comments Medication Problem Patient Question Reason Onset Date Comments Refill Request 08/24/2022 Reason Comments Received Outside Medical Records Reason Onset Date Comments Refill Request 07/23/2023 Reason Comments Cataract Evaluation Reason Comments tick bite Found last night on right side of abdomen Reason Onset Date Comments Refill Request 10/24/2023 Reason Comments Wellness Reason Comments Results Reason Comments Same Day Appointment sharp abdominal delicia n since last night Specialty Diagnoses / Procedures Referred By Contac t Referred To Contact CT IMAGING Diagnoses Lower abdominal pain Procedures CT ABD/PEL W IVCON CT ABD & PELVIS W/CONTRAST Felipe Foster PA-C [address] [place] [address] [place] [address] Referral ID Status Reason Start Date Expiration Date V isits Requested Visits Authorized [id number] Closed Auto-Generate d Referral 12/17/2023 01/15/2025 2 2 Reason Comments Follow Up Diverticulitis, abdo toña discomfort, completed treatment. Reason Comments Radiology US Specialty Diagnoses / Procedures Referred By Contac t Referred To Contact US IMAGING Diagnoses Scrotal pain Procedures US DOPPLER COMPLETE DUP-SCAN ARTL ABE ABDL/PEL/SCROT&/RPR ORGN COM Errol Avalos APRN.REPORT PROGRAMMER [address] [place] [address] [place] [address] Referral ID Status Reason Start Date Expiration Date V isits Requested Visits Authorized [id number] Closed Auto-Generate d Referral 12/24/2023 01/22/2025 1 1 Reason Comments Follow Up Diverticulitis, revi ew scrotum US Reason Onset Date Comments Refill Request 01/15/2024 Reason Comments Consult Scrotal Problem Specialty Diagnoses / Procedures Referred By Contac t Referred To Contact Urology Diagnoses Scrotal pain Epididymal cyst Procedures CONSULT TO UROLOGY OFFICE/OUTPATIENT [facility] 60 MINUTES Errol Avalos, ANTONY.REPORT PROGRAMMER [address] [place] [address] Referral ID Status Reason Start Date Expiration Date V isits Requested Visits Authorized [id number] Closed PCP Requested Referral 12/31/2023 12/30/2024 1 1 Reason Comments Established Patient Spermatocele Reason Comments Schedule Surgery Reason Onset Date Comments Refill Request 03/10/2024 Reason Onset Date Comments Refill Request 03/30/2024 Reason Onset Date Comments Refill Request 04/02/2024 Reason Comments Follow Up Reason Onset Date Comments Refill Request 06/04/2024 Reason Comments Cough Dry cough, deep, sor e throat x 6 days Reason Comments Cough Cough, chest congest ion and ST x 1 week Reason Onset Date Comments Refill Request 08/25/2024 Reason Comments Abdominal Pain LLQ, with stomach cr amping x last night, feels like previous diverticulitis flare Care Teams (unrecognized sec tion and content) Belt Builder Helper Relationship Specialty Start Date End Date Arturo Kendrick DO [address] [place] [address] PCP - General Family Practice 05/13/19 Belt Builder Helper Relationship Specialty Start Date End Date Arturo Kendrick DO [address] [facility] [place] [address] PCP - General Family Medicine 05/13/19 Belt Builder Helper Relationship Specialty Start Date End Date Arturo Kendrick DO [address] [facility] [place] [address] PCP - General Family Medicine 05/13/19 Belt Builder Helper Relationship Specialty Start Date End Date Arturo Kendrick DO [address] [facility] [place] [address] PCP - General Family Medicine 05/13/19 Team Status: Active Member Role Status Dates Dr. Jorge Michelle MD Family Provider Active Dr. Arturo Kendrick DO Primary Care Provider Active Team Status: Inactive Member Role Status Dates Dr. Suresh Ding MD Emergency Provider Active Dr. Arturo Kendrick DO Primary Care Provider Active Belt Builder Helper Relationship Specialty Start Date End Date Arturo Kendrick DO [address] [facility] [place] [address] PCP - General Family Medicine 05/13/19 Belt Builder Helper Relationship Specialty Start Date End Date Arturo Kendrick DO [address] [facility] [place] [address] PCP - General Family Medicine 05/13/19 Team Status: Inactive Member Role Status Dates Dr. Arturo Kendrick DO Primary Care Provider Active Dr. Poncho June MD Attending Provider Active Belt Builder Helper Relationship Specialty Start Date End Date Arturo Kendrick DO [address] [place] [address] PCP - General Family Medicine 05/13/19 Poncho June [address] [facility] [place] [address] Referring Ophthalmology 05/17/23 Belt Builder Helper Relationship Specialty Start Date End Date Arturo Kendrick DO [address] [facility] [place] [address] PCP - General Family Medicine 05/13/19 Poncho June [address] [facility] [place] [address] Referring Ophthalmology 05/17/23 Belt Builder Helper Relationship Specialty Start Date End Date Arturo Kendrick DO [address] [facility] [place] [address] PCP - General Family Medicine 05/13/19 Poncho June [address] [place] [address] Referring Ophthalmology 05/17/23 Belt Builder Helper Relationship Specialty Start Date End Date Arturo Kendrick DO [address] [place] [address] PCP - General Family Medicine 05/13/19 Poncho Juen [address] [place] [address] Referring Ophthalmology 05/17/23 Belt Builder Helper Relationship Specialty Start Date End Date Arturo Kendrick DO [address] [place] [address] PCP - General Family Medicine 05/13/19 Poncho June [address] [place] [address] Referring Ophthalmology 05/17/23 Belt Builder Helper Relationship Specialty Start Date End Date Arturo Kendrick DO [address] [place] [address] PCP - General Family Medicine 05/13/19 Poncho June [address] [place] [address] Referring Ophthalmology 05/17/23 Belt Builder Helper Relationship Specialty Start Date End Date Arturo Kendrick DO [address] [place] [address] PCP - General Family Medicine 05/13/19 Poncho June [address] [place] [address] Referring Ophthalmology 05/17/23 Belt Builder Helper Relationship Specialty Start Date End Date Arturo Kendrick DO [address] [place] [address] PCP - General Family Medicine 05/13/19 Poncho June [address] [place] [address] Referring Ophthalmology 05/17/23 Belt Builder Helper Relationship Specialty Start Date End Date Arturo Kendrick DO [address] [place] [address] PCP - General Family Medicine 05/13/19 Poncho June [address] [facility] [place] [address] Referring Ophthalmology 05/17/23 Belt Builder Helper Relationship Specialty Start Date End Date Arturo Kendrick DO [address] [place] [address] PCP - General Family Medicine 05/13/19 Poncho June [address] [place] [address] Referring Ophthalmology 05/17/23 Belt Builder Helper Relationship Specialty Start Date End Date Arturo Kendrick DO [address] [place] [address] PCP - General Family Medicine 05/13/19 Poncho June [address] [facility] [place] [address] Referring Ophthalmology 05/17/23 Belt Builder Helper Relationship Specialty Start Date End Date Arturo Kendrick DO [address] [place] [address] PCP - General Family Medicine 05/13/19 Poncho June [address] [place] [address] Referring Ophthalmology 05/17/23 Belt Builder Helper Relationship Specialty Start Date End Date Arturo Kendrick DO [address] [place] [address] PCP - General Family Medicine 05/13/19 Poncho June [address] [place] [address] Referring Ophthalmology 05/17/23 Belt Builder Helper Relationship Specialty Start Date End Date Arturo Kendrick DO [address] [facility] [place] [address] PCP - General Family Medicine 05/13/19 Poncho June MD [address] [place] [address] Referring Ophthalmology 05/17/23 Belt Builder Helper Relationship Specialty Start Date End Date Arturo Kendrick DO [address] [place] [address] PCP - General Family Medicine 05/13/19 Poncho June MD [address] [place] [address] Referring Ophthalmology 05/17/23 Belt Builder Helper Relationship Specialty Start Date End Date Arturo Kendrick DO [address] [place] [address] PCP - General Family Medicine 05/13/19 Poncho June MD [address] [place] [address] Referring Ophthalmology 05/17/23 Belt Builder Helper Relationship Specialty Start Date End Date Arturo Kendrick DO [address] [place] [address] PCP - General Family Medicine 05/13/19 Poncho June MD [address] [place] [address] Referring Ophthalmology 05/17/23 Belt Builder Helper Relationship Specialty Start Date End Date Arturo Kendrick DO [address] [place] [address] PCP - General Family Medicine 05/13/19 Poncho June MD [address] [place] [address] Referring Ophthalmology 05/17/23 Belt Builder Helper Relationship Specialty Start Date End Date Arturo Kendrick DO [address] [place] [address] PCP - General Family Medicine 05/13/19 Poncho June MD [address] [place] [address] Referring Ophthalmology 05/17/23 Belt Builder Helper Relationship Specialty Start Date End Date Arturo Kendrick DO [address] [place] [address] PCP - General Family Medicine 05/13/19 Poncho June MD [address] [place] [address] Referring Ophthalmology 05/17/23 Belt Builder Helper Relationship Specialty Start Date End Date Arturo Kendrick DO [address] [place] [address] PCP - General Family Medicine 05/13/19 Poncho June MD [address] [facility] [place] [address] Referring Ophthalmology 05/17/23 Belt Builder Helper Relationship Specialty Start Date End Date Arturo Kendrick DO [address] [place] [address] PCP - General Family Medicine 05/13/19 Poncho June MD [address] [place] [address] Referring Ophthalmology 05/17/23 Belt Builder Helper Relationship Specialty Start Date End Date Arturo Kendrick DO [address] [place] [address] PCP - General Family Medicine 05/13/19 Poncho June MD [address] [place] [address] Referring Ophthalmology 05/17/23 Belt Builder Helper Relationship Specialty Start Date End Date Arturo Kendrick DO [address] [place] [address] PCP - General Family Medicine 05/13/19 Poncho June MD [address] [place] [address] Referring Ophthalmology 05/17/23 Belt Builder Helper Relationship Specialty Start Date End Date Arturo Kendrick DO [address] [place] [address] PCP - General Family Medicine 05/13/19 Poncho June MD [address] [place] [address] Referring Ophthalmology 05/17/23 Gayatri Wise, ANTONY.REPORT PROGRAMMER [address] [facility] [place] [place] [address] [facility] 03/22/24 Errol Avalos, STEEL WELDER.REPORT PROGRAMMER [address] [place] [address] [facility] 03/22/24 Belt Builder Helper Relationship Specialty Start Date End Date Arturo Kendrick DO [address] [place] [address] PCP - General Family Medicine 05/13/19 Poncho June MD [address] [place] [address] Referring Ophthalmology 05/17/23 Gayatri Wise, STEEL WELDER.REPORT PROGRAMMER [address] [facility] [place] [address] [facility] 03/[facility]/24 Errol Avalos, STEEL WELDER.REPORT PROGRAMMER [address] [place] [address] [facility] 03/22/24 Belt Builder Helper Relationship Specialty Start Date End Date Arturo Kendrick DO [address] [place] [address] PCP - General Family Medicine 05/13/19 Poncho June MD [address] [place] [address] Referring Ophthalmology 05/17/23 Gayatri Wise, STEEL WELDER.REPORT PROGRAMMER [address] [facility] [place] [address] [facility] 03/22/24 [facility], STEEL WELDER.REPORT PROGRAMMER [address] [place] [address] [facility] 03/22/24 Belt Builder Helper Relationship Specialty Start Date End Date Arturo Kendrick DO [address] [place] [address] PCP - General Family Medicine 05/13/19 Poncho June MD [address] [place] [address] Referring Ophthalmology 05/17/23 BaileyErrol, STEEL WELDER.REPORT PROGRAMMER [address] [place] [address] [facility] 03/22/24 Belt Builder Helper Relationship Specialty Start Date End Date Arturo Kendrick DO [address] [place] [address] PCP - General Family Medicine 05/13/19 Poncho June MD [address] [place] [address] Referring Ophthalmology 05/17/23 [facility], STEEL WELDER.REPORT PROGRAMMER [address] [place] [address] [facility] 03/22/24 Belt Builder Helper Relationship Specialty Start Date End Date Arturo Kendrick DO [address] [place] [address] PCP - General Family Medicine 05/13/19 Poncho June MD [address] [place], [place] [address] Referring Ophthalmology 05/17/23 Errol Avalos, ANTONY.REPORT PROGRAMMER [address] [place], [place] [address] [facility] 03/22/24 Belt Builder Helper Relationship Specialty Start Date End Date Arturo Kendrick DO [address] [place], [place] [address] PCP - General Family Medicine 05/13/19 Poncho June MD [address] [place], [place] [address] Referring Ophthalmology 05/17/23 Errol Avalos, STEEL WELDER.REPORT PROGRAMMER [address] [place], [place] [id number] [facility] 03/22/24 Rosemary Muñoz APRN.REPORT PROGRAMMER [address] [place], [place] [id number] [facility] 09/28/24 Goals (unrecognized section and content) Goals may be documented in a n alternate sectionGoals may be documented in an alternate section Active Administered Medications - up to 3 most recent administrations Administered Medications (un recognized section and content) Medication Order MAR Action Action Date Dose Rate Site PHENYLephrine 2.5 % 1 Drop (AK-DILATE, JEANNETTE-SYNEPHRINE) 1 Drop, BOTH EYES, DIRECTED, Starting on Sat07/25/23 at 0800, Until Sat07/25/23 at 1958, Administer for dilation PROTECT FROM LIGHT Given 07/25/2023 8:00 AM EDT 1 Drop tropicamide 1 % 1 Drop (MYDRIACYL) 1 Drop, BOTH EYES, DIRECTED, Starting on Myah 07/25/23 at 0800, Until Sat07/25/23 at 1959, Administer for dilation Given 07/25/2023 8:00 AM EDT 1 Drop FOR RECORDS PERTAINING TO PATIENTS WHO ARE OR HAVE BEEN ENROLLED IN A CHEMICAL DEPENDENCY/SUBSTANCEABUSE PROGRAM, SOME INFORMATION MAY BE OMITTED. This clinical summary was aggregated from multiple sources. Caution should be exercised in using it in the provision of clinical care. This summary normalizes information from multiple sources, and as a consequence, information in this document may materially change the coding, format and clinical context of patient data. In addition, data may be omitted in some cases. CLINICAL DECISIONS SHOULD BE BASED ON THE PRIMARY CLINICAL RECORDS. [facility] [employer] [facility]. provides no warranty or guarantee of the accuracy or completeness of information in this document.
[2024-11-27 10:09] LABS: SERUM TEARS COLLECTION SPECIMEN PROCESSED
== END | disposition home or self-care (01) ==
LOC: LAB 08:01
PROVIDERS: PCP Student in an Organized Health Care Education/Training Program; Referring Provider Ophthalmology; Visit Provider Ophthalmology
DX: H04.123 Dry eye syndrome of bilateral lacrimal glands (principal)